=== PATIENT | female | born 1945 | race Caucasian/White ===

== ENCOUNTER → 2021-07-20 09:25 | Outpatient (CLI) | payer MEDICARE, OTHER, SELFPAY ==
[2021-07-20 10:26] LABS: Alanine Aminotransferase 15 IU/L (<35); Albumin Globulin Ratio 1.3 (1.0-2.8); Alkaline Phosphatase 81 U/L (38-126); Aspartate Aminotransferase 28 IU/L (14-36); BUN Creatinine Ratio 18.4 (6-22); Bilirubin Total 0.5 mg/dL (0.2-1.3); Blood Urea Nitrogen 19 mg/dL (7-17); Calcium 9.4 mg/dL (8.4-10.2); Carbon Dioxide 28 mmol/L (22-32); Chloride 105 mmol/L (98-107); Estimated Glomerular Filt Rate 52.4 mL/min (>60); Glucose 144 mg/dL (80-110); HEMOLYSIS < 15 (0-50); Potassium 4.2 mmol/L (3.4-5.1); Sodium 139 mmol/L (137-145); Uric Acid 6.2 mg/dL (2.5-6.2)
[2021-07-20 11:08] LABS: Vitamin B12 552 pg/mL (239-931)
[2021-07-20 16:25] LABS: Microalbumin Urine Random 2.7 mg/dL (0-1.6)
[2021-07-20 16:32] LABS: Creatinine Urine Random 87.5 mg/dL; Microalbumi Creatinin Ratio Ur 30.8 ug/mg CR (<30)
[2021-07-26 14:59] LABS: Cholesterol,Total 228; HDL Cholesterol 43
[2021-07-26 15:01] LABS: Non-HDL Cholesterol 185
[2021-07-26 15:02] LABS: Triglycerides 125
== END ==
PROVIDERS: PCP Student in an Organized Health Care Education/Training Program; Referring Provider Student in an Organized Health Care Education/Training Program; Visit Provider Student in an Organized Health Care Education/Training Program
DX: E11.69 Type 2 diabetes mellitus with other specified complication (principal); E78.1 Pure hyperglyceridemia; E11.9 Type 2 diabetes mellitus without complications; E78.5 Hyperlipidemia, unspecified; I10 Essential (primary) hypertension; M10.9 Gout, unspecified; S06.9X9A Unspecified intracranial injury with loss of consciousness of unspecified duration, initial encounter
CPT/HCPCS: 36415; 80053; 80061; 82043; 82570; 82607; 83036; 83704; 83721; 84443; 84550

== ENCOUNTER → 2021-08-04 10:34 | Outpatient (CLI) | payer MEDICARE, OTHER, SELFPAY | PROVIDERS: PCP Student in an Organized Health Care Education/Training Program; Referring Provider Student in an Organized Health Care Education/Training Program; Visit Provider Student in an Organized Health Care Education/Training Program | DX: M85.832 Other specified disorders of bone density and structure, left forearm (principal); Z78.0 Asymptomatic menopausal state; E11.9 Type 2 diabetes mellitus without complications | CPT/HCPCS: 77080 ==

== ENCOUNTER 2021-08-20 11:31 | Emergency (ER) | payer MEDICARE, OTHER, SELFPAY ==
[2021-08-20 11:50] VITALS: BP 136/61; PULSE 57; RESP 18; TEMP 36.7; O2SAT 98
--- NOTE | 2021-08-20 12:17 | ED.SKABFB ---
HPI - Skin/Abscess/Foreign Bdy <Darrell Cruz PA-C - Last Filed: 08/20/21 18:23> General Chief complaint: Skin/Abscess/Foreign Body Stated complaint: Fall, Lump on Lip Getting Bigger Time Seen by Provider: 08/20/21 12:06 Source: patient Mode of arrival: Ambulatory Limitations: no limitations Related Data Home Medications Medication Instructions Recorded Confirmed allopurinol 300 mg tablet 300 mg PO DAILY 06/24/21 08/20/21 aspirin 81 mg tablet,delayed 81 mg PO DAILY 06/24/21 08/20/21 release colchicine 0.6 mg tablet 0.6 mg PO DAILY 06/24/21 08/20/21 gemfibrozil 600 mg tablet 600 mg PO DAILY 06/24/21 08/20/21 losartan 25 mg tablet 25 mg PO DAILY 06/24/21 08/20/21 Prevagen (supplement) 1 cap PO DAILY 08/13/21 08/20/21 coffee extract 100 mg-phosphatidyl 1 cap PO DAILY cap 08/13/21 08/20/21 serine 100 mg capsule (Neuriva Original) Previous Rx's Medication Instructions Recorded metformin 1,000 mg tablet 1,000 mg PO BIDWMEAL #180 tab 08/10/21 blood sugar diagnostic (Blood #50 ea 08/16/21 Glucose Test) blood-glucose meter (Blood Glucose #1 ea 08/16/21 Monitoring) lancets 31 gauge #100 ea 08/16/21 amoxicillin 875 mg-potassium 1 tab PO Q12H #20 tab 08/20/21 clavulanate 125 mg tablet Allergies Allergy/AdvReac Type Severity Reaction Status Date / Time No Known Drug Allergies Allergy Unverified 08/20/21 10:46 <Moo Rocha DO - Last Filed: 08/21/21 07:25> History of Present Illness HPI narrative: 76-year-old female nonsmoker with history of type 2 diabetes and gout presents with a chief complaint of pain and swelling which is increasing over her left side of her face over the past few days. She states that she had a ground level fall about 9 days ago in which she fell and struck her face on the ground and had injuries to her lips which have since healed. She denies any numbness or tingling to her teeth. She denies loss of consciousness, nausea or vomiting. She has no blood thinners. She denies any dizziness, weakness or lightheadedness. She has no difficulty eating or swallowing. She has no chest pain, shortness of breath. She has had no fever or chills. <Moo Rocha DO - Last Filed: 08/21/21 07:25> Review of Systems Narrative: GENERAL: Denies chills, fatigue, malaise, fever, sweats. HEENT: See HPI RESPIRATORY: Denies dyspnea, cough, wheezing, hemoptysis, sputum. CARDIOVASCULAR: Denies chest pain, palpitations, orthopnea, edema, GASTROINTESTINAL: Denies nausea, vomiting, abdominal pain, diarrhea, constipation, melena. : Denies dysuria, frequency, incontinence, hematuria, urinary retention. MUSCULOSKELETAL: denies weakness, joint pain, or bony pain SKIN: Denies rash, skin lesions, or other NEUROLOGIC: Denies weakness, headache, numbness, change in speech, confusion, seizures, incoordination. PSYCHIATRIC: No concerning psychosocial issues. 12 point review of systems is negative except for those stated above Patient History <Darrell Cruz PA-C - Last Filed: 08/20/21 18:23> Medical History Alopecia (~1970) Anxiety Carpal tunnel syndrome Cataracts, bilateral Chicken pox Depression GERD (gastroesophageal reflux disease) Hepatitis B Measles Mumps Ovarian cancer Vertigo Wears glasses Surgical History Anesthesia History of hand surgery History of hernia repair History of hysterectomy History of tonsillectomy Family History Father Hypertension Hyperlipidemia Mother MVA (motor vehicle accident) Sister Heart defect Social History Smoking Status: Never smoker Smoking Status: Never smoker Substance Use Type: does not use Exam <Darrell Cruz PA-C - Last Filed: 08/20/21 18:23> Initial Vital Signs Initial Vital Signs: Vital Signs Temperature 98.0 F 08/20/21 11:50 Pulse Rate 57 L 08/20/21 11:50 Respiratory Rate 18 08/20/21 11:50 Blood Pressure 136/61 08/20/21 11:50 Pulse Oximetry 98 08/20/21 11:50 <Moo Rocha DO - Last Filed: 08/21/21 07:25> Narrative Exam Narrative: GENERAL: [76] year old patient appears stated age. Well-developed patient, in mild distress. HEAD: Atraumatic. Normocephalic. EYES: Pupils equal round and reactive. Extraocular motions intact. No scleral icterus. No injection or drainage. ENT: 2 x 2 cm area of induration without erythema or warmth or just inferior lateral to the left Nare, induration noted but no fluctuance. Intraoral examination unremarkable, no overt antalgia or obvious intraoral injury Nose without bleeding, purulent drainage. Throat without erythema, tonsillar hypertrophy or exudate. Airway patent. NECK: Trachea midline. Non tender CARDIOVASCULAR: Regular rate and rhythm without murmurs, gallops, or rubs. RESPIRATORY: Clear to auscultation. Breath sounds equal bilaterally. No wheezes, rales, or rhonchi. GASTROINTESTINAL: Abdomen soft, non-tender, nondistended. EXTREMITIES: No edema or joint tenderness. BACK: Nontender without deformity or crepitance. No flank tenderness. NEURO: AOx3. SKIN: No rash or erythema of visible areas Initial Vital Signs Initial Vital Signs: Vital Signs Temperature 98.0 F 08/20/21 11:50 Pulse Rate 57 L 08/20/21 11:50 Respiratory Rate 18 08/20/21 11:50 Blood Pressure 136/61 08/20/21 11:50 Pulse Oximetry 98 08/20/21 11:50 Course <Darrell Cruz PA-C - Last Filed: 08/20/21 18:23> Orders Ordered: ED Orders 08/20/21 13:40 CT facial bones wo con Stat Vital Signs Vital signs: Vital Signs - 8 hr 08/20/21 11:50 08/20/21 14:00 Temperature 98.0 F Pulse Rate 57 L 67 Respiratory Rate 18 17 Blood Pressure 136/61 134/65 Pulse Oximetry 98 97 <Moo Rocha DO - Last Filed: 08/21/21 07:25> Orders Ordered: ED Orders 08/20/21 13:40 CT facial bones wo con Stat Vital Signs Vital signs: Vital Signs - 8 hr 08/20/21 11:50 08/20/21 14:00 Temperature 98.0 F Pulse Rate 57 L 67 Respiratory Rate 18 17 Blood Pressure 136/61 134/65 Pulse Oximetry 98 97 MDM - Skin/Abscess/Foreign Bdy <Darrell Cruz PA-C - Last Filed: 08/20/21 18:23> Medical Records Medical records narrative: Per record review patient fell about 9 days ago landing on the left side of her face. Patient was seen by her primary care provider who said that she may need ultrasound of the swelling to the left lip area. Discharge Plan Departure Patient Disposition: Home Clinical Impression: Abscess of skin or subcutaneous tissue Instructions: DI for Skin Abscess Activity Restrictions/Additional Instructions: *You have been diagnosed with [left upper lip swelling most likely from infection, no evidence of hematoma or bleeding *What to do: *Please continue to take your regular medications as directed. [ x] New medication prescriptions sent to your pharmacy: [[facility] ] [ ] New medication written as a paper prescription [ ] No new medications given *Please follow up with your primary care provider in 2-3 days, call for an appointment. Let them know you were seen in the Emergency Department and that we ask that you be seen in follow up. We will electronically transmit a record of today's note if your PCP is in our system *If you do not have a primary care provider please contact the [facility] Resource line at [phone]. They will ask some questions about your medical history and help get you set up with a doctor in the community. *Return to Emergency Department if you should have any new, worsening or concerning symptoms, such as [fever greater than 101 F, shaking chills, worsening pain, persistent vomiting or other bothersome symptoms] Prescriptions: New amoxicillin-pot clavulanate 875-125 mg tablet 1 tab PO Q12H Qty: 20 0RF No Action Prevagen (supplement) 1 cap PO DAILY 0RF Label Comments: Prevagen contains: 10 mg of apoaequorin, and 50mcg vitamin D Neuriva Original 100-100 mg capsule 1 cap PO DAILY 0RF Label Comments: Neuriva contains: Coffee Fruit Extract (Coffee arabica) - 100mg, Phosphatidylserine - 100mg. (DME) Blood Glucose Test Strip See Rx Instructions .Route Qty: 50 11RF Rx Instructions: Use to check blood sugars once daily (DME) blood-glucose meter [Blood Glucose Monitoring] Kit See Rx Instructions .Route Qty: 1 0RF Rx Instructions: Use to check blood sugars once daily (DME) lancets 31 gauge misc See Rx Instructions .Route Qty: 100 0RF Rx Instructions: Use to check blood sugars once daily allopurinol 300 mg tablet 300 mg PO DAILY 0RF losartan 25 mg tablet 25 mg PO DAILY 0RF gemfibrozil 600 mg tablet 600 mg PO DAILY 0RF aspirin 81 mg tablet,delayed release (DR/EC) 81 mg PO DAILY 0RF colchicine 0.6 mg tablet 0.6 mg PO DAILY 0RF metformin 1,000 mg tablet 1,000 mg PO BIDWMEAL Qty: 180 1RF Referrals: Ez Galeano MD [Primary Care Provider] - <Moo Rocha DO - Last Filed: 08/21/21 07:25> Cosign ED Attending Cosignature Attestation: I was immediately available in the department for consultation. This documentation has been reviewed and I agree with assessment and plan. Supervised by Moo Rocha DO
--- NOTE | 2021-08-20 13:40 | DI.CT.S_ITS ---
PROCEDURE: CT FACIAL BONES WO CON INDICATIONS: fall with facial injury, increasing pain and swelling TECHNIQUE: Noncontrast 2.5 mm thick axial images acquired from the mandible through the frontal sinuses, with coronal and sagittal reformatting. For radiation dose reduction, the following was used: automated exposure control, adjustment of mA and/or kV according to patient size. COMPARISON: None. FINDINGS: Image quality: There is artifact associated with the metallic hardware. Bones and teeth: Orbital avila are intact. Sinus avila show no fracture or deformity. Nasal bones and septum are intact. Visualized portions of the mandible demonstrate no fractures or subluxation. Zygomatic arches are intact. Pterygoid plates are intact. Visualized portions of the skull base and auditory canals are intact. Age-appropriate bony degenerative changes are seen. Incidental note is made of hyperostosis frontalis. This is not considered to be pathologic in a woman of this age. Sinuses: Paranasal sinuses are aerated, without fluid levels, mucosal thickening, or mucoceles. Mastoid air cells are aerated. There is mild leftward nasal septal deviation. Soft tissues: Left-sided soft tissue swelling is seen, particular involving the left upper lip. Vascular: Visualized vascular structures appear normal in the absence of contrast. Bony vascular foramina and canals are intact. IMPRESSION: Negative for displaced fracture. Left-sided facial swelling, particular involving the left upper lip. Dictated by: Oscar Baer M.D. on 08/20/2021 at 13:17 Approved by: Oscar Baer M.D. on 08/20/2021 at 13:18
[2021-08-20 14:00] VITALS: BP 134/65; PULSE 67; RESP 17; O2SAT 97
== END 2021-08-20 14:43 | disposition home or self-care (01) ==
PROVIDERS: Emergency Provider Emergency Medicine; PCP Student in an Organized Health Care Education/Training Program
DX: L02.01 Cutaneous abscess of face (principal)
CPT/HCPCS: 70486; 99283; 99284

== ENCOUNTER → 2021-08-28 10:57 | Outpatient (CLI) | payer MEDICARE, OTHER, SELFPAY | PROVIDERS: PCP Student in an Organized Health Care Education/Training Program; Visit Provider Physician Assistant | DX: N39.0 Urinary tract infection, site not specified (principal) | CPT/HCPCS: 87077; 87086; 87186 ==

== ENCOUNTER → 2021-08-31 11:05 | Outpatient (CLI) | payer MEDICARE, OTHER, SELFPAY ==
[2021-08-31 11:40] LABS: Appearance Urine UA CLEAR; Bilirubin Urine UA NEGATIVE (NEGATIVE); Color Urine UA YELLOW; Glucose Urine UA TRACE g/dL (Negative); Ketones Urine UA NEGATIVE (NEGATIVE); Leukocyte Esterase Urine UA TRACE (NEGATIVE); Nitrite Urine UA NEGATIVE (Negative); Occult Blood Urine UA NEGATIVE (Negative); Protein Urine UA 2+ (Negative); Specific Gravity Urine UA 1.025 (1.000-1.035); Urobilinogen Urine UA 0.2 E.U./dL (0.2)
[2021-08-31 11:46] LABS: Culture Indicated Urine Cult Not Indicated; RBC Urine None Seen (0-5/HPF); Squamous Epithelial Cell Urine 1-5 /HPF (0-5/HPF); WBC Urine None Seen (0-5/HPF)
== END ==
PROVIDERS: PCP Student in an Organized Health Care Education/Training Program; Referring Provider Student in an Organized Health Care Education/Training Program; Visit Provider Student in an Organized Health Care Education/Training Program
DX: N39.0 Urinary tract infection, site not specified (principal)
CPT/HCPCS: 81001; 87086

== ENCOUNTER → 2021-10-07 13:07 | Outpatient (CLI) | payer MEDICARE, OTHER, SELFPAY ==
[2021-10-07 13:57] LABS: COVID19 -Nasal RAPID Negative (Negative)
== END ==
PROVIDERS: PCP Student in an Organized Health Care Education/Training Program; Visit Provider Surgery
DX: Z01.812 Encounter for preprocedural laboratory examination (principal); Z20.822 Contact with and (suspected) exposure to COVID-19
CPT/HCPCS: 87635; C9803

== ENCOUNTER 2021-10-08 13:30 | Day surgery (SDC) | payer MEDICARE, OTHER, SELFPAY ==
[2021-10-07 14:25] VITALS: BMI 31.7
[2021-10-08] VITALS (7 sets, daily range): BP systolic 129–152; BP diastolic 55–75; PULSE 52–103; RESP 14–20; TEMP 36.6; O2SAT 97–99; BMI 31.7
--- NOTE | 2021-10-08 | DI.RAD.S_ITS ---
PROCEDURE: XR CHEST 1V INDICATIONS: PORTACATH TECHNIQUE: One view of the chest was acquired. COMPARISON: None. FINDINGS: Intraoperative images demonstrate placement right chest wall Port-A-Cath. IMPRESSION: Right chest wall Port-A-Cath placement. Dictated by: Deb Regan MD, PhD on 10/08/2021 at 20:51 Approved by: Deb Regan MD, PhD on 10/08/2021 at 20:52
[2021-10-08] MEDS: LACTATED RINGERS 1,000 ML 84 ML IV (14:38)
--- NOTE | 2021-10-08 16:16 | PM.HP.1 ---
History of Present Illness History of Present Illness Date Patient Seen: 10/08/21 Time Patient Seen: 16:17 Chief complaint: SDC Narrative: Cheyanne is a 76-year-old woman with a recent diagnosis of B-cell lymphoma. Port-A-Cath has been requested for chemotherapy. She has never had surgery on her neck or around her clavicles. She has never had a clavicle fracture. Patient History Medical History Alopecia (~1970) Anxiety Carpal tunnel syndrome Cataracts, bilateral Chicken pox Depression GERD (gastroesophageal reflux disease) Hepatitis B Measles Mumps Ovarian cancer Vertigo Wears glasses Surgical History Anesthesia History of hand surgery History of hernia repair History of hysterectomy History of tonsillectomy Family & Social History Family History Father Hypertension Hyperlipidemia Mother MVA (motor vehicle accident) Sister Heart defect Social History: household members family Tobacco & Substance use: Smoking Status Never smoker alcohol intake never Substance Use Type does not use Meds Home Medications and Allergies Home Medications Medication Instructions Recorded Confirmed Type allopurinol 300 mg tablet 300 mg PO DAILY 06/24/21 10/08/21 History aspirin 81 mg tablet,delayed 81 mg PO DAILY 06/24/21 10/08/21 History release colchicine 0.6 mg tablet 0.6 mg PO PRN PRN 06/24/21 10/08/21 History gemfibrozil 600 mg tablet 600 mg PO DAILY 06/24/21 10/08/21 History losartan 25 mg tablet 25 mg PO DAILY 06/24/21 10/07/21 History metformin 1,000 mg tablet 1,000 mg PO BIDWMEAL #180 tab 08/10/21 10/07/21 Rx Prevagen (supplement) 1 cap PO DAILY 08/13/21 10/07/21 History coffee extract 100 mg-phosphatidyl 1 cap PO DAILY cap 08/13/21 10/07/21 History serine 100 mg capsule (Neuriva Original) blood sugar diagnostic (Blood #50 ea 08/16/21 09/29/21 Rx Glucose Test) blood-glucose meter (Blood Glucose #1 ea 08/16/21 09/29/21 Rx Monitoring) lancets 31 gauge #100 ea 08/16/21 08/28/21 Rx prednisone 20 mg tablet 100 mg PO DIRECTED #30 tab 09/29/21 10/07/21 Rx Allergies Allergy/AdvReac Type Severity Reaction Status Date / Time No Known Drug Allergies Allergy Unverified 08/20/21 10:46 Exam Vital Signs (past 8 hours): - 10/08/21 14:08 Temperature 97.9 F Pulse Rate 52 L Respiratory Rate 16 Blood Pressure 141/71 H Pulse Oximetry 98 Oxygen Delivery Method Room Air Narrative Exam Narrative: No acute distress Normal clavicles and neck Assessment & Plan Assessment and plan (1) B-cell lymphoma: Qualifiers: B-cell lymphoma type: diffuse large B-cell Status: Acute Plan Cheyanne is a 76-year-old woman in need of a Port-A-Cath. We reviewed the risks and benefits and she would like to proceed. Time Spent With Patient Critical Care time: I spent a total of [] minutes of critical care time on this patient's care today; this time is exclusive of procedural time.
--- NOTE | 2021-10-08 17:04 | SUR.OPER ---
Supine on padded OR bed, head on pillow, arms padded and tucked at sides, legs uncrossed, safety belt at thigh, tape over blanket over lower legs .
[2021-10-08] MEDS: LIDOCAINE 1% W/EPI 20 ML INJ (17:08)
[2021-10-08] MEDS: BUPIVACAINE 0.5% (PF) VIAL 30 ML INJ (17:09)
--- NOTE | 2021-10-08 17:46 | PM.OP.1 ---
Operative Date/Time/Diagnoses Date of procedure: 10/08/21 Time of procedure: 17:46 Pre-op diagnosis: B cell lymphoma Post-op diagnosis: same Procedure & Clinicians Procedure: Port-A-Cath Same procedure as scheduled: Yes Surgeon: Jesse Solano Operative Notes Procedure in detail: The patient was brought to the operating room, placed on the table in the supine position with the arms tucked. Ancef was administered. Anesthesia was induced via LMA. A time-out was performed. The right chest and neck were prepped and draped in the usual fashion. An ultrasound was used to identify the right internal jugular vein. The vein was noted to be patent. An image was saved and printed and placed in the chart. The right internal jugular vein was accessed via the Seldinger technique under ultrasound guidance. The guidewire was inserted into the superior vena cava. C-arm was used to confirm proper position of the guidewire in the superior vena cava and no ectopy was noted. The needle was removed and the wire was clamped to the drape. Next, a port pocket was created just inferior to the medial clavicle using a 15 blade scalpel. Dissection was carried down to the pectoral fascia. A subcutaneous pocket was created using a combination of cautery and blunt dissection. Next, the port which was primed with injectable saline, was secured to the fascia with 3-0 PDS sutures left untied and clamped. The neck incision was extended with an 11 blade scalpel to approximately 5 mm. The dilator and peel-away sheath were inserted over the wire without resistance. The catheter was passed from the neck incision to the chest incision in the subcutaneous tissue using the tunnelling device. The wire and dilator were then removed and the catheter inserted through the peel-away sheath to deliver it into the superior vena cava. The depth of the device was checked using the C-arm and the tip of the device was noted to be in the distal superior vena cava. The exterior portion of the catheter was then trimmed and attached to the port using the strain relief collar. A final image showed good position of the catheter with no kinks. The port was then tucked into the subcutaneous pocket and the sutures were tied to secure the device. The port was then accessed using the Jacob needle and it was noted that the device radha and flushed easily without resistance. Approximately 4 mL of heparinized saline were injected into the device. The skin incisions were closed with 3-0 Vicryl and 4-0 Monocryl. Steri-Strips were applied patient was awakened and brought to recovery room EBL: 5 mL Ultrasound: The right internal jugular vein was patent. The right carotid artery was visualized adjacent to the vein. Venipuncture was visualized in real-time using the ultrasound. Fluoroscopy: The device was positioned appropriately with the distal end of the catheter near the atriocaval junction. There were no kinks in the catheter. Post-operative Condition: stable Disposition: PACU
== END 2021-10-08 18:33 | disposition home or self-care (01) ==
PROVIDERS: PCP Student in an Organized Health Care Education/Training Program; Referring Provider Surgery; Visit Provider Surgery
PROC: (CPT 36561; principal; 2021-10-08 15:15)
DX: C85.10 Unspecified B-cell lymphoma, unspecified site (principal); I10 Essential (primary) hypertension
CPT/HCPCS: 36561; 71045; 76000; 82962; C1788; J1644; J2405; J2704; J3010

== ENCOUNTER → 2021-10-18 11:35 | Outpatient (CLI) | payer MEDICARE, OTHER, SELFPAY ==
--- NOTE | 2021-10-18 11:38 | DI.MG.S_ITS ---
BILATERAL DIGITAL SCREENING MAMMOGRAM 3D/2D WITH CAD: 10/18/2021 CLINICAL: Routine screening. Comparison is made to exams dated: 10/16/2020 mammogram, 11/20/2019 mammogram, 11/04/2019 mammogram, 10/24/2018 mammogram, and 09/28/2017 mammogram - outside facility. There are scattered fibroglandular elements in both breasts. Current study was also evaluated with a Computer Aided Detection (CAD) system. There is a new oval equal density focal asymmetry in the right breast at 10 o'clock anterior depth. No other significant masses, calcifications, or other findings are seen in either breast. IMPRESSION: INCOMPLETE: NEEDS ADDITIONAL IMAGING EVALUATION The new oval equal density focal asymmetry in the right breast is indeterminate. Additional views with possible ultrasound are recommended. This exam was interpreted at Station ID: [id number]. NOTE: For mammograms, a report in lay terms will be sent to the patient. Approximately 15% of breast malignancies will not be visualized mammographically. In the management of a palpable breast mass, a negative mammogram must not discourage biopsy of a clinically suspicious lesion. Electronically Signed By: Aung Ball M.D. aty/:10/18/2021 12:52:55 letter sent: Additional Imaging Needed ACR BI-RADS Category 0: Incomplete [id number]
== END ==
PROVIDERS: PCP Student in an Organized Health Care Education/Training Program; Referring Provider Student in an Organized Health Care Education/Training Program; Visit Provider Student in an Organized Health Care Education/Training Program
DX: Z12.31 Encounter for screening mammogram for malignant neoplasm of breast (principal)
CPT/HCPCS: 77063; 77067

== ENCOUNTER 2021-10-21 12:19 | Emergency (ER) | payer MEDICARE, OTHER, SELFPAY ==
[2021-10-21] VITALS (8 sets, daily range): BP systolic 126–140; BP diastolic 60–82; PULSE 66–94; RESP 15; TEMP 36.1; O2SAT 96–99; BMI 26.4
--- NOTE | 2021-10-21 12:34 | DI.RAD.S_ITS ---
PROCEDURE: XR ACUTE ABDOMEN SERIES INDICATIONS: possible SBO TECHNIQUE: One view chest and two views of the abdomen were acquired. COMPARISON: None. FINDINGS: Surgical changes and devices: Right chest wall port. Chest: Lungs are clear. Heart size is normal. No pleural effusions. No pneumoperitoneum. The aorta is tortuous. Abdomen: Increased stool is noted in the bowel consistent with constipation. Bowel gas pattern is normal. No suspicious calcifications. Visualized solid organ contours appear normal. Bones: Multilevel degenerative changes with levoscoliosis of the lumbar spine. Postoperative changes of the right hip. IMPRESSION: 1. No acute abnormality. 2. Constipation. Dictated by: Raphael Rogers M.D. on 10/21/2021 at 13:13 Approved by: Raphael Rogers M.D. on 10/21/2021 at 13:14
[2021-10-21 12:38] LABS: Add Manual Diff / Slide Review NO; Basophils Absolute Auto 0 /uL (0-100); Basophils Percent Auto 0.2 % (0-2); Eosinophils Absolute Auto 0 /uL (0-450); Eosinophils Percent Auto 1.1 % (2-4); Hematocrit 40.9 % (36-46); Hemoglobin 13.6 g/dL (12.0-16.0); Lymphocytes Absolute Auto 200 /uL (1100-4500); Lymphocytes Percent Auto 9.7 % (25-40); Mean Corpuscular HGB Conc 33.3 % (30-36); Mean Corpuscular Hemoglobin 27.2 PG (26-34); Mean Corpuscular Volume 81.7 fL (80-100); Monocytes Absolute Auto 0 /uL (0-900); Monocytes Percent Auto 1.4 % (3-14); Neutrophils Absolute Auto 2100 /uL (1500-7000); Neutrophils Percent Auto 87.6 % (50-75); Platelet Count 152 X10^3/uL (150-400); Red Blood Cell Count 5.01 X10^6/uL (4.0-5.2); Red Cell Distribution Width 14.4 % (11.6-14.8); White Blood Cell Count 2.4 X10^3/uL (4.5-11.0)
[2021-10-21 12:51] LABS: Alanine Aminotransferase 14 IU/L (<35); Albumin 4.3 g/dL (3.5-5.0); Albumin Globulin Ratio 1.3 (1.0-2.8); Alkaline Phosphatase 78 U/L (38-126); Aspartate Aminotransferase 20 IU/L (14-36); BUN Creatinine Ratio 25.9 (6-22); Bilirubin Total 0.8 mg/dL (0.2-1.3); Blood Urea Nitrogen 29 mg/dL (7-17); Calcium 9.4 mg/dL (8.4-10.2); Carbon Dioxide 24 mmol/L (22-32); Chloride 100 mmol/L (98-107); Estimated Glomerular Filt Rate 52 mL/min (>60); Globulin 3.4 g/dL (1.7-4.1); Glucose 225 mg/dL (80-110); HEMOLYSIS < 15 (0-50); Lipase 178 U/L (23-300); Potassium 3.9 mmol/L (3.4-5.1); Sodium 133 mmol/L (137-145); Total Protein 7.7 g/dL (6.3-8.2)
[2021-10-21] MEDS: BISACODYL 10 MG SUPP PR (14:52)
--- NOTE | 2021-10-21 15:08 | ED_ITS ---
HPI - Abdominal Pain General Chief Complaint: Abdominal Pain Stated Complaint: Constipated Time Seen by Provider: 10/21/21 15:07 Source: patient Mode of arrival: Ambulatory Limitations: no limitations History of Present Illness HPI narrative: This is a 76-year-old female comes emergency department with complaint co nstipation for 11 days. Patient states she has been passing gas. She started throwing up this morning. She has had a generalized abdominal discomfort starting a week ago. She has been increasingly distended. She denies issues with urination. She has had some back discomfort. She denies fevers or chills. No shortness of breath. She states she has generalized pain all over including he, bones even her here hurting. She did receive her 1st dose of chemo 4 days ago which is when the pain started. Patient has type 2 diabetes, she takes medication for hypertension and dyslipidemia, she is being treated for B-cell lymphoma. She has had a port placed last Monday which has been accessed at least once. Partial hysterectomy, hip repair after fracture, no allergies to medications no tobacco, alcohol or illicit. Dr. Lynn is her primary care. She did attempt an enema at home without success and drink 2 bottles of magnesium citrate at home this morning. Related Data Home Medications Medication Instructions Recorded Confirmed allopurinol 300 mg tablet 300 mg PO DAILY 06/24/21 10/13/21 aspirin 81 mg tablet,delayed 81 mg PO DAILY 06/24/21 10/13/21 release colchicine 0.6 mg tablet 0.6 mg PO PRN PRN 06/24/21 10/13/21 gemfibrozil 600 mg tablet 600 mg PO DAILY 06/24/21 10/13/21 losartan 25 mg tablet 25 mg PO DAILY 06/24/21 10/13/21 Prevagen (supplement) 1 cap PO DAILY 08/13/21 10/13/21 coffee extract 100 mg-phosphatidyl 1 cap PO DAILY cap 08/13/21 10/13/21 serine 100 mg capsule (Neuriva Original) cholecalciferol (vitamin D3) 25 25 mcg PO DAILY 10/13/21 10/13/21 mcg (1,000 unit) tablet (Vitamin D3) Previous Rx's Medication Instructions Recorded metformin 1,000 mg tablet 1,000 mg PO BIDWMEAL #180 tab 08/10/21 lancets 31 gauge #100 ea 08/16/21 prednisone 20 mg tablet 100 mg PO DIRECTED #30 tab 09/29/21 hydrocodone 5 mg-acetaminophen 325 1 tab PO Q8H PRN #10 tab 10/08/21 mg tablet blood sugar diagnostic (Blood #50 ea 10/11/21 Glucose Test) blood-glucose meter (Blood Glucose #1 ea 10/11/21 Monitoring) mouthwashes See Rx Instructions .ROUTE 10/13/21 .COMPLEX PRN #480 ml mouthwashes See Rx Instructions .ROUTE 10/13/21 .COMPLEX PRN #480 ml ondansetron 8 mg disintegrating 8 mg PO Q6HR PRN #30 tab 10/13/21 tablet glycerin (adult) 1 supp ME QD-BID PRN #25 ea 10/21/21 polyethylene glycol 3350 17 17 g PO DAILY #238 g 10/21/21 gram/dose oral powder (Miralax) Allergies Allergy/AdvReac Type Severity Reaction Status Date / Time No Known Drug Allergies Allergy Verified 10/21/21 12:22 Review of Systems Review of Systems ROS Unobtainable: All systems reviewed & are unremarkable except as noted in HPI and below Patient History Medical History Alopecia (~1970) Anxiety Carpal tunnel syndrome Cataracts, bilateral Chicken pox Depression GERD (gastroesophageal reflux disease) Hepatitis B Measles Mumps Vertigo Wears glasses Surgical History Anesthesia History of hand surgery History of hernia repair History of hysterectomy History of tonsillectomy Family History Father Hypertension Hyperlipidemia Mother MVA (motor vehicle accident) Sister Heart defect Social History household members: family Smoking Status: Never smoker alcohol intake: never Smoking Status: Never smoker alcohol intake frequency: holidays/special occasions only Substance Use Type: does not use Exam Narrative Exam Narrative: GENERAL: Alert and oriented x three, female in mild distress. HEENT: Head normocephalic, atraumatic, EOMI, pupils reactive, face symmetric, moist mucous membranes NECK: Supple, full range of motion CARDIOVASCULAR: Regular rate and rhythm without murmurs, rubs or gallops. RESPIRATORY: Breath sounds equal bilaterally, no wheezes rales or rhonchi. ABDOMEN: Soft, generalized tenderness. Nondistended. Normoactive bowel sounds all 4 quadrants. No guarding or rebound, rigidity, no mass : No CVA tenderness EXTREMITIES: Normal range of motion, no clubbing or edema. Neurovascularly intact NEUROLOGICAL: Cranial nerves II through XII grossly intact. Moving all extremities SKIN: Warm, dry, no petechiae, no rashes or lesions. Initial Vital Signs Initial Vital Signs: Vital Signs Temperature 97.0 F L 10/21/21 12:21 Pulse Rate 94 H 10/21/21 12:21 Respiratory Rate 15 10/21/21 12:21 Blood Pressure 139/82 10/21/21 12:21 Pulse Oximetry 97 10/21/21 12:21 Course Orders Ordered: ED Orders 10/21/21 12:25 EKG-12 Lead Stat 10/21/21 12:30 Complete Blood Count AUTO DIFF Stat Comprehensive Metabolic Panel Stat Lipase Stat 10/21/21 12:34 XR acute abdomen series Stat 10/21/21 15:15 Urinalysis and Microscopic Stat 10/21/21 15:32 CT abdomen pelvis w con Stat Discontinued Medications Bisacodyl (Bisacodyl 10 Mg Supp) 10 mg ME NOW ONE Stop: 10/21/21 14:45 Last Admin: 10/21/21 14:52 Dose: 10 mg Documented by: VALENTÍN Sodium Chloride (Normal Saline 0.9%) 1,000 mls @ 1,000 mls/hr IV BOLUS ONE Stop: 10/21/21 16:25 Last Infusion: 10/21/21 18:38 Dose: 0 mls/hr Documented by: Admin: 10/21/21 15:47 Dose: 1,000 mls/hr Documented by: VALENTÍN Ketorolac Tromethamine (Ketorolac 30 Mg/Ml Vial) 15 mg IV NOW ONE Stop: 10/21/21 15:27 Last Admin: 10/21/21 15:46 Dose: 15 mg Documented by: VALENTÍN Ondansetron HCl (Ondansetron 4 Mg/2 Ml Inj) 4 mg IV NOW ONE Stop: 10/21/21 15:27 Last Admin: 10/21/21 15:45 Dose: 4 mg Documented by: VALENTÍN Ondansetron HCl (Ondansetron 4 Mg/2 Ml Inj) 4 mg IV NOW ONE Stop: 10/21/21 18:04 Last Admin: 10/21/21 18:37 Dose: 4 mg Documented by: VALENTÍN Sodium Biphosphate/Sodium Phosphate (Fleets Enema) 1 each ME NOW ONE Stop: 10/21/21 17:49 Last Admin: 10/21/21 17:51 Dose: 1 each Documented by: VALENTÍN Reevaluation(s) Reevaluation #1: patient had large amount of stool and urine output. She is tolerating orals without issue and feeling better. Time: 19:35 Vital Signs Vital signs: Vital Signs - 8 hr 10/21/21 12:21 10/21/21 15:04 10/21/21 15:05 Temperature 97.0 F L Pulse Rate 94 H 82 76 Respiratory Rate 15 Blood Pressure 139/82 140/71 Pulse Oximetry 97 97 97 10/21/21 15:30 10/21/21 17:34 10/21/21 17:35 Temperature Pulse Rate 78 66 71 Respiratory Rate Blood Pressure 126/67 129/66 Pulse Oximetry 96 97 97 10/21/21 18:00 10/21/21 19:41 Temperature Pulse Rate 77 70 Respiratory Rate Blood Pressure 137/63 130/60 Pulse Oximetry 99 98 MDM - Abdominal Pain Lab Data Result diagrams: 10/21/21 12:30 10/21/21 12:30 Labs: Lab Results 10/21/21 10/21/21 10/21/21 Range/Units 12:30 12:30 15:15 WBC 2.4 L (4.5-11.0) X10^3/uL RBC 5.01 (4.0-5.2) X10^6/uL Hgb 13.6 (12.0-16.0) g/dL Hct 40.9 (36-46) % MCV 81.7 (80-100) fL MCH 27.2 (26-34) PG MCHC 33.3 (30-36) % RDW 14.4 (11.6-14.8) % Plt Count 152 (150-400) X10^3/uL Neut % (Auto) 87.6 H (50-75) % Lymph % (Auto) 9.7 L (25-40) % Hardeman % (Auto) 1.4 L (3-14) % Eos % (Auto) 1.1 L (2-4) % Baso % (Auto) 0.2 (0-2) % Neut # (Auto) 2100 (3859-6872) /uL Lymph # (Auto) 200 L (3017-7600) /uL Hardeman # (Auto) 0 (0-900) /uL Eos # (Auto) 0 (0-450) /uL Baso # (Auto) 0 (0-100) /uL Sodium 133 L (137-145) mmol/L Potassium 3.9 (3.4-5.1) mmol/L Chloride 100 (98-107) mmol/L Carbon Dioxide 24 (22-32) mmol/L BUN 29 H (7-17) mg/dL Creatinine 1.12 H (0.52-1.04) mg/dL Estimated GFR 52 L (>60) mL/min BUN/Creatinine Ratio 25.9 H (6-22) Glucose 225 H (80-110) mg/dL Calcium 9.4 (8.4-10.2) mg/dL Total Bilirubin 0.8 (0.2-1.3) mg/dL AST 20 (14-36) IU/L ALT 14 (<35) IU/L Alkaline Phosphatase 78 (38-126) U/L Total Protein 7.7 (6.3-8.2) g/dL Albumin 4.3 (3.5-5.0) g/dL Globulin 3.4 (1.7-4.1) g/dL Albumin/Globulin Ratio 1.3 (1.0-2.8) Lipase 178 (23-300) U/L Urine Color Yellow Urine Appearance Clear Urine pH 5.0 (4.5-8.0) Ur Specific Colon 1.025 (1.000-1.035) Urine Protein Trace H (Negative) Urine Glucose (UA) Trace H (Negative) g/dL Urine Ketones Negative (NEGATIVE) Urine Occult Blood Trace-lysed (Negative) Urine Nitrate Negative (Negative) Urine Bilirubin Negative (NEGATIVE) Urine Urobilinogen 0.2 (0.2) E.U./dL Ur Leukocyte Esterase Trace H (NEGATIVE) Urine RBC 0-1/hpf (0-5/HPF) Urine WBC 0-1/hpf (0-5/HPF) Ur Squamous Epith Cells 1-5 /hpf (0-5/HPF) Ur Transition Epith Cell 1-5/hpf (0-5/HPF) Urine Bacteria Few (2-10) H (None) Ur Culture Indicated? Cult not indicated Imaging Data Abdominal x-ray: Radiologist's Impression: Cheyanne Clements??76??F??1945 ? Allergy/Adv: No Known Drug Allergies Close Chest/Abdomen X-ray (Signed) Raphael Rogers - 10/21/21 Mammogram Screening (Signed) LizzyAung - 10/18/21 Telemetry Strips 10/08/21 Chest X-Ray (Signed) JassDeb - 10/08/21 Chest X-Ray (Signed) Deb Regan - 10/08/21 PET, Tumor Imaging Skull-Mid Thigh (Signed) AliaTim - 10/06/21 Outside Echo 09/30/[address] (Signed) Oscar Baer - 08/20/21 DEXA Result 08/04/21 Bone Densitometry 08/04/21 Launch?[place] [address] XRay Report Signed Patient: Cheyanne Clements MR#: [id number] : 1945 Acct:[id number] Age/Sex: 76 / F Date of Service: 10/21/21 Loc: Accession Number: [id number] ?? Procedure: XR acute abdomen series Ordering Provider: Sharri Dueñas D.O. PROCEDURE:? XR ACUTE ABDOMEN SERIES ? INDICATIONS:? possible SBO ? TECHNIQUE:? One view chest and two views of the abdomen were acquired.? ? COMPARISON:? None. ? FINDINGS:? ? Surgical changes and devices:? Right chest wall port. ? Chest:? Lungs are clear.? Heart size is normal.? No pleural effusions.? No pneumoperitoneum.? The aorta is tortuous. ? Abdomen:? Increased stool is noted in the bowel consistent with constipation.? Bowel gas pattern is normal.? No suspicious calcifications.? Visualized solid organ contours appear normal.? ? Bones:? Multilevel degenerative changes with levoscoliosis of the lumbar spine.? Postoperative changes of the right hip. ? IMPRESSION:? 1. No acute abnormality. 2. Constipation.? ? ? Dictated by: Raphael Rogers M.D. on 10/21/2021 at 13:13 ? ? Approved by: Raphael Rogers M.D. on 10/21/2021 at 13:14?? CT scan - abdomen/pelvis: Radiologist's Impression: Launch?[address] [address] [address] Scan Report Signed Patient: Cheyanne Clements MR#: [id number] : 1945 Acct:[id number] Age/Sex: 76 / F Date of Service: 10/21/21 Loc: ED Accession Number: [id number] ?? Procedure: CT abdomen pelvis w con Ordering Provider: Sharri Dueñas D.O. PROCEDURE:? CT ABDOMEN PELVIS W CON ? INDICATIONS:? vomiting x 1 day, no BM x 11. ? TECHNIQUE:? After the administration of oral and intravenous contrast, axial sections were acquired from the lung bases to the pubic symphysis.? Coronal and sagittal reformats were performed.? For radiation dose reduction, the following was used:? automated exposure control, adjustment of mA and/or kV according to patient size.? ? COMPARISON:None. ? FINDINGS: Image quality:? Excellent.? ? Lung bases:? Lung bases are clear.? Heart has a normal size.? There are mitral valve calcifications. ? Solid organs:? Liver: The liver has no mass or intrahepatic biliary ductal dilatation. The portal vein and hepatic veins are patent. Biliary: The gallbladder has no gallstones, pericholecystic fluid, gallbladder wall thickening, or surrounding inflammatory change. Pancreas: The pancreas has no mass or ductal dilatation. There is no surrounding inflammation. Spleen: Normal size. There are no masses. Adrenals: No hypertrophy or nodules. Kidneys: No obstructive calculus or hydronephrosis.? No solid mass. No cystic mass. ? Peritoneum and bowel:? Small hiatal hernia.? Otherwise the distal esophagus and stomach are normal.? The small bowel has a normal caliber and appearance. The terminal ileum is normal. The large bowel has increased stool throughout consistent with constipation.? There is diverticulosis of the sigmoid colon without evidence of diverticulitis..? The appendix is normal. No free fluid or air.? ? Nodes and vessels:? No retroperitoneal or mesenteric adenopathy by size criteria.? A ventral fat containing hernia is seen.? ? Miscellaneous:? No abdominal wall mass or hernia. ? PELVIS:? Genitourinary:? The bladder has no wall thickening or mass. No bladder calcifications. ? Bones:? No suspicious bony lesions.? Multilevel degenerative changes with disc disease. ? IMPRESSION: 1. No acute abdominal or pelvic abnormality. 2. Severe constipation. 3. Diverticulosis without evidence of diverticulitis. 4. Fat containing ventral hernia.? ? ? Dictated by: Raphael Rogers M.D. on 10/21/2021 at 16:19 ? ? Approved by: Raphael Rogers M.D. on 10/21/2021 at 16:24?? ECG Data Attestation: I personally reviewed and interpreted this ECG as follows: Prior ECG tracings: not available for review Interpretation: Sinus rhythm rate 85 ME 126 QRS 84 and QTC of 380. No priors available for comparison. No ST elevation. Left axis deviation. LAFB. MDM Narrative Medical decision making narrative: This is a 76-year-old female comes with complaint of constipation with vomiting started yesterday. Patient has a bowel movement about 11 days. She did get chemo about 4 days ago which seems to be worsening her symptoms. Labs show a slight decrease in her white count but no neutropenia, patient has slight increase in renal function looks like 1-1.1. BUN is also slightly elevated. Patient was hydrated with fluids. She did not have acute x-ray and has stool throughout but with her vomiting and no bowel movement for [address] abdomen pelvis was obtained which shows constipation but no signs of bowel obstruction. Patient received fluids, glycerin suppository attempted enema and took quite a few laxative earlier today including 2 bottles of magnesium citrate and began having bowel movements in the department and significant improvement in her constipation. Discharge Plan Departure Patient Disposition: Home Clinical Impression: Constipation Instructions: DI for Constipation Activity Restrictions/Additional Instructions: Follow-up with your physician for recheck. Your imaging today does not show any signs of obstruction. It does show quite a bit of stool and signs of constipation. Make sure you are drinking plenty of fluids and staying hydrated this will help you have good bowel movements. You need to take a daily stool softener such as MiraLax once daily. I would also recommend a rectal glycerin suppository once to twice daily until stooling regularly. You may drink 1/2 bottle of magnesium citrate, weight 4-5 hours if no change you may drink the 2nd half of the bottle. Prescription sent to [facility] in [place]. Please return for fevers, worsening abdominal pain, persistent vomiting, black or bloody stools, no bowel movement or having or passing gas for the next 24 hours Prescriptions: New polyethylene glycol 3350 [Miralax] 17 gram/dose powder 17 g PO DAILY Qty: 238 0RF glycerin (adult) Suppository 1 supp ME QD-BID PRN (Reason: constipation) Qty: 25 0RF No Action Prevagen (supplement) 1 cap PO DAILY 0RF Label Comments: Prevagen contains: 10 mg of apoaequorin, and 50mcg vitamin D Neuriva Original 100-100 mg capsule 1 cap PO DAILY 0RF Label Comments: Neuriva contains: Coffee Fruit Extract (Coffee arabica) - 100mg, Phosph atidylserine - 100mg. (DME) lancets 31 gauge misc See Rx Instructions .Route Qty: 100 0RF Rx Instructions: Use to check blood sugars once daily (DME) blood-glucose meter [Blood Glucose Monitoring] Kit See Rx Instructions .Route Qty: 1 0RF Rx Instructions: Use to check blood sugars once daily (DME) Blood Glucose Test Strip See Rx Instructions .Route Qty: 50 11RF Rx Instructions: Use to check blood sugars once daily allopurinol 300 mg tablet 300 mg PO DAILY 0RF losartan 25 mg tablet 25 mg PO DAILY 0RF gemfibrozil 600 mg tablet 600 mg PO DAILY 0RF aspirin 81 mg tablet,delayed release (DR/EC) 81 mg PO DAILY 0RF colchicine 0.6 mg tablet 0.6 mg PO PRN PRN (Reason: Gout) 0RF metformin 1,000 mg tablet 1,000 mg PO BIDWMEAL Qty: 180 1RF hydrocodone-acetaminophen 5-325 mg tablet 1 tab PO Q8H PRN (Reason: pain) Qty: 10 0RF prednisone 20 mg Tablet 100 mg PO DIRECTED Qty: 30 0RF Rx Instructions: Take 5 tablets (100 mg) daily for 5 days on days 1-5 of each chemotherapy cycle cholecalciferol (vitamin D3) [Vitamin D3] 25 mcg (1,000 unit) Tablet 25 mcg PO DAILY 0RF mouthwashes Kit See Rx Instructions .ROUTE .COMPLEX PRN (Reason: Mouth Irritation) Qty: 480 1RF Rx Instructions: 160mL vicous lidocaine 2% 160mL mylanta 160mL diphenhydramine 12.5mg/5mL 30ml Sig: Swish, gargle, and spit one to two teaspoonfuls for 1 minute. Repeat every six hours as needed. May be swallowed if esophageal involvement. mouthwashes Kit See Rx Instructions .ROUTE .COMPLEX PRN (Reason: Mouth Irritation) Qty: 480 1RF Rx Instructions: 160mL vicous lidocaine 2% 160mL mylanta 160mL diphenhydramine 12.5mg/5mL 30ml Sig: Swish, gargle, and spit one to two teaspoonfuls for 1 minute. Repeat every six hours as needed. May be swallowed if esophageal involvement. ondansetron 8 mg Tablet,Disintegrating 8 mg PO Q6HR PRN (Reason: nausea & vomiting) Qty: 30 2RF Referrals: Ez Galeano MD [Primary Care Provider] -
[2021-10-21 15:18] LABS: Appearance Urine UA CLEAR; Bilirubin Urine UA NEGATIVE (NEGATIVE); Color Urine UA YELLOW; Glucose Urine UA TRACE g/dL (Negative); Ketones Urine UA NEGATIVE (NEGATIVE); Leukocyte Esterase Urine UA TRACE (NEGATIVE); Nitrite Urine UA NEGATIVE (Negative); Occult Blood Urine UA TRACE-LYSED (Negative); Protein Urine UA TRACE (Negative); Specific Gravity Urine UA 1.025 (1.000-1.035); Urobilinogen Urine UA 0.2 E.U./dL (0.2)
--- NOTE | 2021-10-21 15:32 | DI.CT.S_ITS ---
PROCEDURE: CT ABDOMEN PELVIS W CON INDICATIONS: vomiting x 1 day, no BM x 11. TECHNIQUE: After the administration of oral and intravenous contrast, axial sections were acquired from the lung bases to the pubic symphysis. Coronal and sagittal reformats were performed. For radiation dose reduction, the following was used: automated exposure control, adjustment of mA and/or kV according to patient size. COMPARISON:None. FINDINGS: Image quality: Excellent. Lung bases: Lung bases are clear. Heart has a normal size. There are mitral valve calcifications. Solid organs: Liver: The liver has no mass or intrahepatic biliary ductal dilatation. The portal vein and hepatic veins are patent. Biliary: The gallbladder has no gallstones, pericholecystic fluid, gallbladder wall thickening, or surrounding inflammatory change. Pancreas: The pancreas has no mass or ductal dilatation. There is no surrounding inflammation. Spleen: Normal size. There are no masses. Adrenals: No hypertrophy or nodules. Kidneys: No obstructive calculus or hydronephrosis. No solid mass. No cystic mass. Peritoneum and bowel: Small hiatal hernia. Otherwise the distal esophagus and stomach are normal. The small bowel has a normal caliber and appearance. The terminal ileum is normal. The large bowel has increased stool throughout consistent with constipation. There is diverticulosis of the sigmoid colon without evidence of diverticulitis.. The appendix is normal. No free fluid or air. Nodes and vessels: No retroperitoneal or mesenteric adenopathy by size criteria. A ventral fat containing hernia is seen. Miscellaneous: No abdominal wall mass or hernia. PELVIS: Genitourinary: The bladder has no wall thickening or mass. No bladder calcifications. Bones: No suspicious bony lesions. Multilevel degenerative changes with disc disease. IMPRESSION: 1. No acute abdominal or pelvic abnormality. 2. Severe constipation. 3. Diverticulosis without evidence of diverticulitis. 4. Fat containing ventral hernia. Dictated by: Raphael Rogers M.D. on 10/21/2021 at 16:19 Approved by: Raphael Rogers M.D. on 10/21/2021 at 16:24
[2021-10-21] MEDS: ONDANSETRON 4 MG/2 ML INJ IV ×2 (15:45→18:37)
[2021-10-21] MEDS: KETOROLAC 30 MG/ML VIAL 15 MG IV (15:46)
[2021-10-21] MEDS: SODIUM CHLORIDE 0.9% 1,000 ML 1000 ML IV (15:47)
[2021-10-21 15:55] LABS: Bacteria Urine Few (2-10); Culture Indicated Urine Cult Not Indicated; RBC Urine 0-1/HPF (0-5/HPF); Squamous Epithelial Cell Urine 1-5 /HPF (0-5/HPF); Transitional Epi Cells Urine 1-5/HPF (0-5/HPF); WBC Urine 0-1/HPF (0-5/HPF)
[2021-10-21] MEDS: FLEETS ENEMA 1 EACH PR (17:51)
== END 2021-10-21 19:42 | disposition home or self-care (01) ==
PROVIDERS: Emergency Provider Emergency Medicine; PCP Student in an Organized Health Care Education/Training Program
DX: K59.00 Constipation, unspecified (principal); R10.84 Generalized abdominal pain; R11.10 Vomiting, unspecified; R79.89 Other specified abnormal findings of blood chemistry
CPT/HCPCS: 36415; 74022; 74177; 80053; 81001; 83690; 85025; 93005; 93010; 96361; 96374; 96375; 96376; 99284; J1885; J2405; Q9967

== ENCOUNTER → 2021-11-08 11:53 | Outpatient (CLI) | payer MEDICARE, OTHER, SELFPAY | PROVIDERS: PCP Student in an Organized Health Care Education/Training Program; Visit Provider Nurse Practitioner Family | DX: R30.0 Dysuria (principal); N89.8 Other specified noninflammatory disorders of vagina | CPT/HCPCS: 87086; 87210 ==

== ENCOUNTER → 2021-11-15 11:26 | Outpatient (CLI) | payer MEDICARE, OTHER, SELFPAY ==
[2021-11-15 12:29] LABS: Microalbumi Creatinin Ratio Ur 27.7 ug/mg CR (<30); Microalbumin Urine Random 8.4 mg/dL (0-1.6)
== END ==
PROVIDERS: PCP Student in an Organized Health Care Education/Training Program; Referring Provider Student in an Organized Health Care Education/Training Program; Visit Provider Student in an Organized Health Care Education/Training Program
DX: E11.69 Type 2 diabetes mellitus with other specified complication (principal); E78.1 Pure hyperglyceridemia; E78.5 Hyperlipidemia, unspecified; I10 Essential (primary) hypertension
CPT/HCPCS: 36415; 82043; 82570; 83036

== ENCOUNTER → 2021-12-09 12:05 | Outpatient (CLI) | payer MEDICARE, OTHER, SELFPAY ==
--- NOTE | 2021-12-09 12:06 | DI.US.S_ITS ---
LIMITED ULTRASOUND OF RIGHT BREAST: 12/09/2021 CLINICAL: Patient returns today to evaluate a focal asymmetry in the right breast. No prior exams were available for comparison. Real-time ultrasound of the right breast 9-12 o'clock region was performed. Blair scale images of the real-time examination were reviewed. No significant abnormalities were seen sonographically in the right breast. Specifically, no finding to correspond to the patient's partially resolved screening mammographic abnormality. IMPRESSION: PROBABLY BENIGN No sonographic correlate to the partially resolved mammographic findings. A follow-up right mammogram in 6 months is recommended to demonstrate stability of the mammographic finding. Findings and recommendations were conveyed to the patient at time of exam. This exam was interpreted at Station ID: [id number]. Electronically Signed By: Katelyn dale/:12/09/2021 12:53:14 letter sent: Followup Recommended Ultrasound BI-RADS: 3 Probably benign
--- NOTE | 2021-12-09 12:06 | DI.MG.S_ITS ---
UNILATERAL RIGHT DIGITAL DIAGNOSTIC MAMMOGRAM 3D/2D WITH ADDITIONAL VIEWS: 12/09/2021 CLINICAL: Additional evaluation requested from prior study. Comparison is made to exams dated: 10/18/2021 mammogram - [facility], 10/16/2020 mammogram, and 11/20/2019 mammogram - outside facility. There are scattered fibroglandular elements in right breast. There is a possible 1.1 cm oval equal density asymmetry with an obscured and circumscribed margin in the right breast at 11 o'clock anterior depth. This is seen in some additional views. No other significant masses or calcifications are seen in the breast. Benign vascular calcifications are present. IMPRESSION: INCOMPLETE: NEEDS ADDITIONAL IMAGING EVALUATION The possible 1.1 cm oval equal density asymmetry in the right breast most likely is a cyst or a lymph node but remains indeterminate. An ultrasound is recommended. This was performed immediately following this exam. Based on the Tyrer Cuzick model (a risk assessment model) the patient's lifetime risk is 3.0% and her 10 year risk is 2.7%. According to the ACR, ACS, and NCCN guidelines, an annual breast MRI exam along with mammogram is recommended if the patient's lifetime risk is 20% or greater. This exam was interpreted at Station ID: [id number]. NOTE: For mammograms, a report in lay terms will be sent to the patient. Approximately 15% of breast malignancies will not be visualized mammographically. In the management of a palpable breast mass, a negative mammogram must not discourage biopsy of a clinically suspicious lesion. Electronically Signed By: Katelyn dale/:12/09/2021 12:29:12 ACR BI-RADS Category 0: Incomplete [id number]
== END ==
PROVIDERS: PCP Student in an Organized Health Care Education/Training Program; Referring Provider Student in an Organized Health Care Education/Training Program; Visit Provider Student in an Organized Health Care Education/Training Program
DX: R92.8 Other abnormal and inconclusive findings on diagnostic imaging of breast (principal)
CPT/HCPCS: 76642; 77065; G0279

== ENCOUNTER 2022-01-21 09:57 | Inpatient (IN) | payer MEDICARE, OTHER, SELFPAY ==
[2022-01-21] VITALS (14 sets, daily range): BP systolic 102–143; BP diastolic 46–69; PULSE 69–100; RESP 15–18; TEMP 36.4–39.4; O2SAT 96–98; BMI 27.4; BMI 28.8
--- NOTE | 2022-01-21 10:06 | DI.RAD.S_ITS ---
PROCEDURE: XR CHEST 1V INDICATIONS: suspected sepsis TECHNIQUE: One view of the chest was acquired. COMPARISON: [facility], CR, XR CHEST 1V, 10/08/2021, 17:44. FINDINGS: Surgical changes and devices: Right chest wall Port-A-Cath tip is in SVC. Lungs and pleura: Lungs are clear. No pleural effusions or pneumothorax. Mediastinum: Mediastinal contours appear normal. Heart size is normal. Bones and chest wall: No suspicious bony lesions. Overlying soft tissues appear unremarkable. IMPRESSION: No acute cardiopulmonary pathology. Dictated by: Fei Gilbert M.D. on 01/21/2022 at 11:28 Approved by: Fei Gilbert M.D. on 01/21/2022 at 11:32
[2022-01-21] MEDS: ACETAMINOPHEN 325 MG TABLET 975 MG PO (10:20)
[2022-01-21] MEDS: SODIUM CHLORIDE 0.9% 1,000 ML 1000 ML IV (10:20)
[2022-01-21 10:37] LABS: COVID19 -Nasal RAPID Negative (Negative)
[2022-01-21 10:51] LABS: Hematocrit 27.4 % (36-46); Hemoglobin 9.1 g/dL (12.0-16.0); Mean Corpuscular HGB Conc 33.1 % (30-36); Mean Corpuscular Hemoglobin 27.5 PG (26-34); Platelet Count 151 X10^3/uL (150-400); Red Cell Distribution Width 20.2 % (11.6-14.8)
[2022-01-21 10:53] LABS: INR 1.2 (0.9-1.3); Prothrombin Time 14.1 SECONDS (10.1-12.7)
[2022-01-21 10:55] LABS: Add Manual Diff / Slide Review YES; White Blood Cell Count 1.8 X10^3/uL (4.5-11.0)
[2022-01-21 10:56] LABS: PTT Partial Thromboplastin Tim 29 SECONDS (26-36)
[2022-01-21 11:01] LABS: Alanine Aminotransferase 11 IU/L (<35); Albumin 3.6 g/dL (3.5-5.0); Albumin Globulin Ratio 1.3 (1.0-2.8); Alkaline Phosphatase 90 U/L (38-126); Aspartate Aminotransferase 21 IU/L (14-36); BUN Creatinine Ratio 11.9 (6-22); Bilirubin Total 1.5 mg/dL (0.2-1.3); Blood Urea Nitrogen 10 mg/dL (7-17); Calcium 8.2 mg/dL (8.4-10.2); Carbon Dioxide 24 mmol/L (22-32); Chloride 100 mmol/L (98-107); Estimated Glomerular Filt Rate > 60 mL/min (>60); Globulin 2.7 g/dL (1.7-4.1); Glucose 188 mg/dL (80-110); HEMOLYSIS < 15 (0-50); Lactate (Lactic Acid) 1.3 mmol/L (0.7-2.1); Lipase 24 U/L (23-300); Potassium 3.4 mmol/L (3.4-5.1); Sodium 133 mmol/L (137-145); Total Protein 6.3 g/dL (6.3-8.2)
[2022-01-21 11:08] LABS: Bacteria Urine None Seen; RBC Urine 0-1/HPF (0-5/HPF); Squamous Epithelial Cell Urine 0-1 /HPF (0-5/HPF); WBC Urine 0-1/HPF (0-5/HPF)
[2022-01-21 11:09] LABS: Culture Indicated Urine Cult Not Indicated
[2022-01-21 11:16] LABS: Procalcitonin 0.21 ng/mL (<0.5)
[2022-01-21 11:19] LABS: Neutrophils Absolute Manual 612 /uL (3000-5900); Total Cells Counted 50
[2022-01-21 11:21] LABS: Anisocytosis 1+
--- NOTE | 2022-01-21 11:50 | ED_ITS ---
HPI - Fever General Chief Complaint: Fever Stated Complaint: Fever, paralysis/weakness in legs Time Seen by Provider: 01/21/22 11:49 Source: patient Mode of arrival: Wheelchair History of Present Illness HPI Narrative: Patient is a 76-year-old female current history of B-cell lymphoma receiving chemotherapy every 3 weeks, last received chemotherapy [facility] January 05. Presents today with 3 days of fever and weakness. She says she has felt last 3 days but woke up this morning and could not get out of bed. At that point called her son. Currently febrile here with a temperature of 102?. She really has no symptoms. She denies any cough chest pain shortness of breath abdominal pain nausea vomiting Related Data Home Medications Medication Instructions Recorded Confirmed allopurinol 300 mg tablet 300 mg PO DAILY 06/24/21 01/21/22 aspirin 81 mg tablet,delayed 81 mg PO DAILY 06/24/21 01/21/22 release colchicine 0.6 mg tablet 0.6 mg PO PRN PRN Gout 06/24/21 01/21/22 gemfibrozil 600 mg tablet 600 mg PO DAILY 06/24/21 01/21/22 cholecalciferol (vitamin D3) 25 25 mcg PO DAILY 10/13/21 01/21/22 mcg (1,000 unit) tablet (Vitamin D3) Previous Rx's Medication Instructions Recorded metformin 1,000 mg tablet 1,000 mg PO BIDWMEAL #180 tabs 08/10/21 lancets 31 gauge #100 ea 08/16/21 blood sugar diagnostic (Blood #50 ea 10/11/21 Glucose Test strips) blood-glucose meter (Blood Glucose #1 ea 10/11/21 Monitoring kit) mouthwashes See Rx Instructions .Route 10/13/21 .COMPLEX PRN Mouth Irritation #480 mL mouthwashes See Rx Instructions .Route 10/13/21 .COMPLEX PRN Mouth Irritation #480 mL glipizide 10 mg tablet, extended 10 mg PO DAILY #30 tabs 11/12/21 release 24 hr mouthwashes 5 - 10 ml mucous membrane Q6HR PRN 11/24/21 mouth irritation/thrush #640 mL Allergies Allergy/AdvReac Type Severity Reaction Status Date / Time No Known Drug Allergies Allergy Verified 01/21/22 10:02 Review of Systems Review of Systems Narrative: GENERAL: + fever, weakness HEENT: Denies sinus pain, ear pain, sore throat, difficulty swallowing, neck pain RESPIRATORY: Denies dyspnea, cough, wheezing, hemoptysis, sputum. CARDIOVASCULAR: Denies chest pain, palpitations, orthopnea, edema GASTROINTESTINAL: Denies nausea, vomiting, abdominal pain, diarrhea, consti pation, melena. : Denies dysuria, frequency, incontinence, hematuria, urinary retention, flank pain. MUSCULOSKELETAL: Denies weakness, joint pain, or bony pain SKIN: No rash, no erythema, no pruritus NEUROLOGIC: Denies weakness, dizziness, headache, numbness, change in speech, confusion PSYCHIATRIC: No concerning psychosocial issues. 12 point review of systems is negative except for those stated above and HPI Patient History Medical History Alopecia (~1970) Anxiety Carpal tunnel syndrome Cataracts, bilateral Chicken pox Depression Diffuse large B cell lymphoma Essential hypertension GERD (gastroesophageal reflux disease) Hepatitis B Measles Mumps Type 2 diabetes mellitus Vertigo Wears glasses Surgical History Anesthesia History of hand surgery History of hernia repair History of hysterectomy History of tonsillectomy Family History Father Hypertension Hyperlipidemia Mother MVA (motor vehicle accident) Sister Heart defect Social History household members: family Smoking Status: Never smoker alcohol intake: never Smoking Status: Never smoker alcohol intake frequency: holidays/special occasions only Substance Use Type: does not use Exam Initial Vital Signs Initial Vital Signs: Vital Signs Temperature 102.8 F H 01/21/22 10:02 Pulse Rate 100 H 01/21/22 10:02 Respiratory Rate 15 01/21/22 10:02 Blood Pressure 143/69 H 01/21/22 10:02 Pulse Oximetry 97 01/21/22 10:02 Oxygen Delivery Method 01/21/22 10:02 GENERAL: Alert week 76-year-old female appears to not feel well HEENT: Head atraumatic,EOMI, pupils reactive, face symmetric, moist mucous membranes CARDIOVASCULAR: Regular rate and rhythm without murmurs, rubs or gallops. RESPIRATORY: Breath sounds equal bilaterally, no wheezes rales or rhonchi. ABDOMEN: Soft, nontender. Normoactive bowel sounds all 4 quadrants. No guarding or rebound. EXTREMITIES: Normal range of motion, no clubbing or edema. Neurovascularly intact NEUROLOGICAL: Alert and oriented x4. 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 Course Orders Ordered: ED Orders 01/21/22 10:06 XR chest 1V Stat EKG-12 Lead Stat 01/21/22 10:15 COVID19 -Nasal RAPID/Pre-Proc Stat Urine Microscopic Stat 01/21/22 10:35 Complete Blood Count AUTO DIFF Stat Comprehensive Metabolic Panel Stat Lactate (Lactic Acid) Stat Lipase Stat Partial Thromboplastin Time Stat Procalcitonin Stat Prothrombin Time INR Stat Troponin & CK Cardiac Panel Stat 01/21/22 11:10 Blood Culture Stat 01/21/22 12:02 CT head/brain wo con Stat 01/21/22 12:08 Respiratory Panel (Film Array) Stat 01/21/22 12:10 CT chest abd pel w con Stat Acetaminophen (Acetaminophen 325 Mg Tablet) 975 mg PO Q8H PRN PRN Reason: Pain, Mild (1-3) Allopurinol (Allopurinol 300 Mg Tablet) 300 mg PO DAILY JARETH Aspirin (Aspirin Ec 81 Mg Tablet) 81 mg PO DAILY JARETH Dextrose (Dextrose 50 % In Water 25 Gm/50 Ml Syringe) 25 gm IV PRN PRN PRN Reason: Hypoglycemia Gemfibrozil (Gemfibrozil 600 Mg Tablet) 600 mg PO DAILY JARETH Cefepime HCl 2 gm/ Sodium (Chloride) 100 mls @ 200 mls/hr IV Q8H JARETH Stop: 01/28/22 21:59 Insulin Human Lispro (Insulin Lispro 100 Unit/Ml 3ml Vial) 0 unit SUBCUT ACHS JARETH; Protocol Ondansetron HCl (Ondansetron 4 Mg/2 Ml Inj) 4 mg IV Q8HR PRN PRN Reason: Nausea And Vomiting Vitamin D (Cholecalciferol (Vitamin D3) 1,000 Unit Tablet) unit PO DAILY JARETH Discontinued Medications Acetaminophen (Acetaminophen 325 Mg Tablet) 975 mg PO NOW ONE Stop: 01/21/22 10:10 Last Admin: 01/21/22 10:20 Dose: 975 mg Documented By: JING Sodium Chloride (Normal Saline 0.9%) 1,000 mls @ 1,000 mls/hr IV BOLUS ONE Stop: 01/21/22 11:05 Last Infusion: 01/21/22 12:18 Dose: 0 mls/hr Documented By: Admin: 01/21/22 10:20 Dose: 1,000 mls/hr Documented By: JING Cefepime HCl 2 gm/ Sodium (Chloride) 100 mls @ 200 mls/hr IV NOW ONE Stop: 01/21/22 14:04 Last Infusion: 01/21/22 14:46 Dose: 0 mls/hr Documented By: JING(2) Admin: 01/21/22 14:22 Dose: 200 mls/hr Documented By: JING(2) Ketorolac Tromethamine (Ketorolac 30 Mg/Ml Vial) 15 mg IV NOW ONE Stop: 01/21/22 14:03 Last Admin: 01/21/22 14:22 Dose: 15 mg Documented By: JING(2) Vital Signs Vital signs: Vital Signs - 8 hr 01/21/22 10:43 01/21/22 10:44 01/21/22 10:44 Temperature Pulse Rate 100 H 97 H Respiratory Rate 18 Blood Pressure 137/65 Pulse Oximetry 96 97 01/21/22 11:00 01/21/22 11:00 01/21/22 11:30 Temperature Pulse Rate 95 H 91 H Respiratory Rate 18 Blood Pressure 123/58 L Pulse Oximetry 97 96 01/21/22 11:31 01/21/22 11:31 01/21/22 12:00 Temperature Pulse Rate 91 H Respiratory Rate Blood Pressure 116/56 L 120/56 L Pulse Oximetry 96 01/21/22 12:00 01/21/22 12:35 01/21/22 12:35 Temperature Pulse Rate 88 80 Respiratory Rate Blood Pressure 123/56 L Pulse Oximetry 97 97 01/21/22 13:00 Temperature 103 F H Pulse Rate 84 Respiratory Rate Blood Pressure Pulse Oximetry 97 MDM - Fever Lab Data Result diagrams: 01/21/22 10:35 01/21/22 10:35 Labs: Lab Results 01/21/22 01/21/22 01/21/22 Range/Units 10:15 10:15 10:35 WBC 1.8 L* (4.5-11.0) X10^3/uL RBC 3.30 L (4.0-5.2) X10^6/uL Hgb 9.1 L (12.0-16.0) g/dL Hct 27.4 L (36-46) % MCV 83.0 (80-100) fL MCH 27.5 (26-34) PG MCHC 33.1 (30-36) % RDW 20.2 H (11.6-14.8) % Plt Count 151 (150-400) X10^3/uL Neut % (Auto) Not Reportable Lymph % (Auto) Not Reportable Millard % (Auto) Not Reportable Eos % (Auto) Not Reportable Baso % (Auto) Not Reportable Lymph # (Auto) Not Reportable Millard # (Auto) Not Reportable Baso # (Auto) Not Reportable Total Counted 50 Seg Neutrophils % 30.0 L (38-70) % Band Neutrophils % 4.0 (3-7) % Lymphocytes % (Manual) 6.0 L (25-45) % Monocytes % (Manual) 56.0 H (2-11) % Eosinophils % (Manual) 2.0 (2-4) % Basophils % (Manual) 2.0 H (0-1) % Neutrophils # (Manual) 612 L (7470-3901) /uL RBC Morphology See below Anisocytosis 1+ H PT (10.1-12.7) SECONDS INR (0.9-1.3) APTT (26-36) SECONDS Sodium (137-145) mmol/L Potassium (3.4-5.1) mmol/L Chloride (98-107) mmol/L Carbon Dioxide (22-32) mmol/L BUN (7-17) mg/dL Creatinine (0.52-1.04) mg/dL Estimated GFR (>60) mL/min BUN/Creatinine Ratio (6-22) Glucose (80-110) mg/dL Lactate (0.7-2.1) mmol/L Calcium (8.4-10.2) mg/dL Total Bilirubin (0.2-1.3) mg/dL AST (14-36) IU/L ALT (<35) IU/L Alkaline Phosphatase (38-126) U/L Total Creatine Kinase (30-135) U/L CK-MB (CK-2) CK-MB (CK-2) Rel Index Troponin I (0.01-0.034) ng/mL Total Protein (6.3-8.2) g/dL Albumin (3.5-5.0) g/dL Globulin (1.7-4.1) g/dL Albumin/Globulin Ratio (1.0-2.8) Lipase (23-300) U/L Procalcitonin (<0.5) ng/mL Urine RBC 0-1/hpf (0-5/HPF) Urine WBC 0-1/hpf (0-5/HPF) Ur Squamous Epith Cells 0-1 /hpf (0-5/HPF) Urine Bacteria None seen (None) Ur Culture Indicated? Cult not indicated Chlamy pneumoniae PCR (Not Detect) Adenovirus (PCR) (Not Detect) B. pertussis DNA (PCR) (Not Detecte) B.parapertussis DNA PCR (Not Detecte) Coronavirus OC43 (PCR) (Not Detect) Coronavirus HKU1 (PCR) (Not Detect) Coronavirus 229E (PCR) (Not Detect) SARS-CoV-2 (PCR) Negative (Negative) Coronavirus NL63 (PCR) (Not Detect) Human Metapneumovir PCR (Not Detect) Influenza Type A (PCR) (Not Detect) Influenza Type B (PCR) (Not Detect) M. pneumoniae (PCR) (Not Detect) Parainfluenza 1 (PCR) (Not Detect) Parainfluenza 2 (PCR) (Not Detect) Parainfluenza 3 (PCR) (Not Detect) Parainfluenza 4 (PCR) (Not Detect) RSV (PCR) (Not Detect) Entero/Rhino (PCR) (Not Detect) 01/21/22 01/21/22 01/21/22 Range/Units 10:35 10:35 10:35 WBC (4.5-11.0) X10^3/uL RBC (4.0-5.2) X10^6/uL Hgb (12.0-16.0) g/dL Hct (36-46) % MCV (80-100) fL MCH (26-34) PG MCHC (30-36) % RDW (11.6-14.8) % Plt Count (150-400) X10^3/uL Neut % (Auto) Lymph % (Auto) Millard % (Auto) Eos % (Auto) Baso % (Auto) Lymph # (Auto) Millard # (Auto) Baso # (Auto) Total Counted Seg Neutrophils % (38-70) % Band Neutrophils % (3-7) % Lymphocytes % (Manual) (25-45) % Monocytes % (Manual) (2-11) % Eosinophils % (Manual) (2-4) % Basophils % (Manual) (0-1) % Neutrophils # (Manual) (5953-6241) /uL RBC Morphology Anisocytosis PT 14.1 H (10.1-12.7) SECONDS INR 1.2 (0.9-1.3) APTT 29 (26-36) SECONDS Sodium 133 L (137-145) mmol/L Potassium 3.4 (3.4-5.1) mmol/L Chloride 100 (98-107) mmol/L Carbon Dioxide 24 (22-32) mmol/L BUN 10 (7-17) mg/dL Creatinine 0.84 (0.52-1.04) mg/dL Estimated GFR > 60 (>60) mL/min BUN/Creatinine Ratio 11.9 (6-22) Glucose 188 H (80-110) mg/dL Lactate 1.3 (0.7-2.1) mmol/L Calcium 8.2 L (8.4-10.2) mg/dL Total Bilirubin 1.5 H (0.2-1.3) mg/dL AST 21 (14-36) IU/L ALT 11 (<35) IU/L Alkaline Phosphatase 90 (38-126) U/L Total Creatine Kinase (30-135) U/L CK-MB (CK-2) CK-MB (CK-2) Rel Index Troponin I (0.01-0.034) ng/mL Total Protein 6.3 (6.3-8.2) g/dL Albumin 3.6 (3.5-5.0) g/dL Globulin 2.7 (1.7-4.1) g/dL Albumin/Globulin Ratio 1.3 (1.0-2.8) Lipase 24 (23-300) U/L Procalcitonin 0.21 (<0.5) ng/mL Urine RBC (0-5/HPF) Urine WBC (0-5/HPF) Ur Squamous Epith Cells (0-5/HPF) Urine Bacteria (None) Ur Culture Indicated? Chlamy pneumoniae PCR (Not Detect) Adenovirus (PCR) (Not Detect) B. pertussis DNA (PCR) (Not Detecte) B.parapertussis DNA PCR (Not Detecte) Coronavirus OC43 (PCR) (Not Detect) Coronavirus HKU1 (PCR) (Not Detect) Coronavirus 229E (PCR) (Not Detect) SARS-CoV-2 (PCR) (Negative) Coronavirus NL63 (PCR) (Not Detect) Human Metapneumovir PCR (Not Detect) Influenza Type A (PCR) (Not Detect) Influenza Type B (PCR) (Not Detect) M. pneumoniae (PCR) (Not Detect) Parainfluenza 1 (PCR) (Not Detect) Parainfluenza 2 (PCR) (Not Detect) Parainfluenza 3 (PCR) (Not Detect) Parainfluenza 4 (PCR) (Not Detect) RSV (PCR) (Not Detect) Entero/Rhino (PCR) (Not Detect) 01/21/22 01/21/22 Range/Units 10:35 12:08 WBC (4.5-11.0) X10^3/uL RBC (4.0-5.2) X10^6/uL Hgb (12.0-16.0) g/dL Hct (36-46) % MCV (80-100) fL MCH (26-34) PG MCHC (30-36) % RDW (11.6-14.8) % Plt Count (150-400) X10^3/uL Neut % (Auto) Lymph % (Auto) Millard % (Auto) Eos % (Auto) Baso % (Auto) Lymph # (Auto) Millard # (Auto) Baso # (Auto) Total Counted Seg Neutrophils % (38-70) % Band Neutrophils % (3-7) % Lymphocytes % (Manual) (25-45) % Monocytes % (Manual) (2-11) % Eosinophils % (Manual) (2-4) % Basophils % (Manual) (0-1) % Neutrophils # (Manual) (6723-9239) /uL RBC Morphology Anisocytosis PT (10.1-12.7) SECONDS INR (0.9-1.3) APTT (26-36) SECONDS Sodium (137-145) mmol/L Potassium (3.4-5.1) mmol/L Chloride (98-107) mmol/L Carbon Dioxide (22-32) mmol/L BUN (7-17) mg/dL Creatinine (0.52-1.04) mg/dL Estimated GFR (>60) mL/min BUN/Creatinine Ratio (6-22) Glucose (80-110) mg/dL Lactate (0.7-2.1) mmol/L Calcium (8.4-10.2) mg/dL Total Bilirubin (0.2-1.3) mg/dL AST (14-36) IU/L ALT (<35) IU/L Alkaline Phosphatase (38-126) U/L Total Creatine Kinase 60 (30-135) U/L CK-MB (CK-2) TNP CK-MB (CK-2) Rel Index TNP Troponin I 0.066 H (0.01-0.034) ng/mL Total Protein (6.3-8.2) g/dL Albumin (3.5-5.0) g/dL Globulin (1.7-4.1) g/dL Albumin/Globulin Ratio (1.0-2.8) Lipase (23-300) U/L Procalcitonin (<0.5) ng/mL Urine RBC (0-5/HPF) Urine WBC (0-5/HPF) Ur Squamous Epith Cells (0-5/HPF) Urine Bacteria (None) Ur Culture Indicated? Chlamy pneumoniae PCR Not detected (Not Detect) Adenovirus (PCR) Not detected (Not Detect) B. pertussis DNA (PCR) Not detected (Not Detecte) B.parapertussis DNA PCR Not detected (Not Detecte) Coronavirus OC43 (PCR) Not detected (Not Detect) Coronavirus HKU1 (PCR) Not detected (Not Detect) Coronavirus 229E (PCR) Not detected (Not Detect) SARS-CoV-2 (PCR) Not detected (Negative) Coronavirus NL63 (PCR) Not detected (Not Detect) Human Metapneumovir PCR Not detected (Not Detect) Influenza Type A (PCR) Not detected (Not Detect) Influenza Type B (PCR) Not detected (Not Detect) M. pneumoniae (PCR) Not detected (Not Detect) Parainfluenza 1 (PCR) Not detected (Not Detect) Parainfluenza 2 (PCR) Not detected (Not Detect) Parainfluenza 3 (PCR) Not detected (Not Detect) Parainfluenza 4 (PCR) Not detected (Not Detect) RSV (PCR) Not detected (Not Detect) Entero/Rhino (PCR) Not detected (Not Detect) Urine Dip Bedside Urine Glucose Negative Bedside Urine Bilirubin - Negative Bedside Urine Ketone +/- 5 Urine Specific Hatley 1.020 Bedside Urine Occult Blood +/- Bedside Urine pH 6.0 Bedside Urine Protein +/- 15 Bedside Urine Urobilinogen - Negative Bedside Urine Nitrite - Negative Bedside Urine Leukocytes - Negative Esterase Imaging Data Chest x-ray: Radiologist's Impression: [address] [id number] XRay Report Signed Patient: Cheyanne Clements MR#: [id number] : 1945 Acct:[id number] Age/Sex: 76 / F Date of Service: 01/21/22 Loc: ED Accession Number: [id number] ?? Procedure: XR chest 1V Ordering Provider: Christina Mir D.O. PROCEDURE:? XR CHEST 1V ? INDICATIONS:? suspected sepsis ? TECHNIQUE:? One view of the chest was acquired.? ? COMPARISON:? [facility], CR, XR CHEST 1V, 10/08/2021, 17:44. ? FINDINGS:? ? Surgical changes and devices:? Right chest wall Port-A-Cath tip is in SVC. ? Lungs and pleura:? Lungs are clear.? No pleural effusions or pneumothorax.? ? Mediastinum:? Mediastinal contours appear normal.? Heart size is normal.? ? Bones and chest wall:? No suspicious bony lesions.? Overlying soft tissues appear unremarkable.? ? IMPRESSION:? No acute cardiopulmonary pathology. ? ? Dictated by: Fei Gilbert M.D. on 01/21/2022 at 11:28 ? ? ECG Data Interpretation: Normal sinus rhythm rate 86 UT interval 130 QRS 86 QTC 483 T-wave inversion noted in lead 3 MDM Narrative Medical decision making narrative: At this time patient is febrile no actual source is found. She is neutropenic. She is given a dose of cefepime. She is hemodynamically stable, does not require sepsis fluids. She is noted to have indeterminate troponin possibly from stress, unlikely to be acute coronary syndrome with out active chest pain Discharge Plan Departure Patient Disposition: Admitted As Inpatient Clinical Impression: Fever and neutropenia Admit Date/Time: 01/21/22 14:11 Admit Provider: Chino Serrano
--- NOTE | 2022-01-21 12:02 | DI.CT.S_ITS ---
PROCEDURE: CT HEAD/BRAIN WO CON INDICATIONS: Weakness lymphoma TECHNIQUE: Noncontrast 4.5 mm thick angled axial sections acquired from the foramen magnum to the vertex, with coronal and sagittal reformats. For radiation dose reduction, the following was used: automated exposure control, adjustment of mA and/or kV according to patient size. COMPARISON: None. FINDINGS: Image quality: Excellent. CSF spaces: Basal cisterns are patent. No extra-axial fluid collections. Ventricles are normal in size and shape. Brain: No midline shift. No intracranial masses or hemorrhage. Blair-white matter interface is normal. Skull and face: Calvarium and visualized facial bones are intact, without suspicious lesions. Sinuses: Visualized sinuses and mastoids are clear. IMPRESSION: No acute intracranial finding. Dictated by: Rafiq Li M.D. on 01/21/2022 at 12:44 Approved by: Rafiq Li M.D. on 01/21/2022 at 12:46
--- NOTE | 2022-01-21 12:10 | DI.CT.S_ITS ---
PROCEDURE: CT CHEST ABD PEL W CON INDICATIONS: fever with lymphoma no source TECHNIQUE: After the administration of intravenous contrast, axial sections acquired from the supraclavicular neck to the pubic symphysis. Coronal and sagittal reformats were performed. For radiation dose reduction, the following was used: automated exposure control, adjustment of mA and/or kV according to patient size. COMPARISON:[facility], MS, MS PET CT FUSION SKULL 2 THIGH, 10/06/2021, 9:13. [facility], CT, CT ABDOMEN PELVIS W CON, 10/21/2021, 15:33. FINDINGS: Image quality: Excellent. CHEST: Lower Neck: No enlarged lymph nodes. Thyroid: There is a 1 cm nodule in the left thyroid lobe. Axillae: No enlarged lymph nodes. Chest Wall: Unremarkable. A Port-A-Cath is seen in the right anterior chest. Lungs and Airways: There is a 4 mm nodule in the left upper lobe. No consolidation or suspicious nodules. Pleura: No pneumothorax or pleural effusions. Heart: Heart size is normal. No pericardial effusion. Thoracic Vessels: The aorta and pulmonary arteries demonstrate normal size. Mediastinum and Mary: No enlarged lymph nodes. Esophagus: No wall thickening. There is a small hiatal hernia. ABDOMEN: Liver: Unremarkable. Gallbladder: There is a tiny calcified gallstone. No gallbladder wall thickening or pericholecystic fluid. Biliary ducts: Unremarkable. Pancreas: Unremarkable. Spleen: Unremarkable. Adrenal Glands: Unremarkable. Kidneys and Ureters: There are bilateral small nonobstructive renal calculi. Kidneys enhance symmetrically. There are cortical scars in the superior pole of the right kidney. Stomach and Bowel: Stomach, small bowel loops, and colon are normal in caliber. Diverticulosis without acute diverticulitis. Peritoneum: No abnormal intraperitoneal fluid. No free air. Ventral Wall: There is a moderate-sized fat containing periumbilical ventral hernia hernia. Abdominal Nodes: No retroperitoneal or mesenteric adenopathy by size criteria. Vessels: Aorta and inferior vena cava are normal in size. PELVIS: Pelvic Organs: Hysterectomy. There is a 1.1 cm soft tissue nodule in the left side of pelvis at the hysterectomy stump, unchanged. Bladder: Unremarkable. Pelvic Nodes: No enlarged lymph nodes. Miscellaneous: No inguinal hernias are seen. Bones: Right femoral neck fracture with internal fixation. Scoliosis and degenerative changes in lumbar spine. IMPRESSION: 1. A source for fever is not identified. 2. Small 4 mm nodule in the left upper lobe. Please see enclosed follow-up recommendation. 3. Cholelithiasis. 4. Nephrolithiasis with small nonobstructive renal calculi. 5. Diverticulosis without diverticulitis. 6. Moderate-sized fat-containing periumbilical ventral hernia. 7. A 1 cm left thyroid nodule. Recommend thyroid ultrasound for follow-up. 8. Small hiatal hernia. Fleischner Society criteria for SOLID lung nodule followup. Nodule size (mm)Low-risk patientHigh-risk patient?4No follow-up neededFollow-up at 12 mo; if no change, no further follow-up>2-5Skuoks-gl CT at 12 mo; if no change, no further follow-up needed.Initial follow-up CT at 6-12 mo, then 18-24 mo if no change. >6-8Initial follow-up CT at 6-12 mo, then 18-24 mo if no change. Initial follow-up CT at 3-6 mo, then 9-12 mo and 24 mo if no change. >8Follow-up CT at 3, 9, 24 mo. Or PET and/or biopsy.Same as for low-risk pts. Dictated by: Jasmine Rojo M.D. on 01/21/2022 at 13:09 Approved by: Jasmine Rojo M.D. on 01/21/2022 at 13:23
--- NOTE | 2022-01-21 12:15 | PC.NURSE ---
pts family Dr Nuno [phone] uniform patrol police officer ministerio at this number will take call
[2022-01-21 12:26] LABS: Creatine Kinase 60 U/L (30-135)
[2022-01-21 12:40] LABS: Troponin I 0.066 ng/mL (0.01-0.034)
[2022-01-21 13:55] LABS: Adenovirus Not Detected (Not Detect); Coronavirus 229E Not Detected (Not Detect); Coronavirus HKU1 Not Detected (Not Detect); Coronavirus NL 63 Not Detected (Not Detect); Coronavirus OC43 Not Detected (Not Detect); SARS- CoV-2 Not Detected (Not Detecte)
[2022-01-21 13:56] LABS: B. parapertussis Not Detected (Not Detecte); Bordetella pertussis Not Detected (Not Detecte); Chlamydophila pneumoniae Not Detected (Not Detect); Human Metapneumovirus Not Detected (Not Detect); Human Rhinovirus/Enterovirus Not Detected (Not Detect); Influenza A Not Detected (Not Detect); Influenza B Not Detected (Not Detect); Mycoplasma pneumoniae Not Detected (Not Detect); Parainfluenza Virus 1 Not Detected (Not Detect); Parainfluenza Virus 2 Not Detected (Not Detect); Parainfluenza Virus 3 Not Detected (Not Detect); Parainfluenza Virus 4 Not Detected (Not Detect); Respiratory Syncytial Virus Not Detected (Not Detect)
[2022-01-21] MEDS: CEFEPIME 2 GM in SODIUM CHLORIDE 0.9% 100 ML IV (14:22)
[2022-01-21] MEDS: KETOROLAC 30 MG/ML VIAL 15 MG IV (14:22)
--- NOTE | 2022-01-21 16:42 | P.HP_ITS ---
History of Present Illness History of Present Illness Date Patient Seen: 01/21/22 Time Patient Seen: 16:43 Chief complaint: Fever, paralysis/weakness in legs Narrative: This is a 76 year old female, with PMH of DLBCL on RCHOP therapy (s/p 5 cycles of R-CHOP last being 01/05), DM2, HTN, HLD who presented to the emergency room today with fever and weakness. Patient states that she has been feeling weak for the past couple of days, feeling like her legs are going to give out. Was able to go out with her son yesterday, but was so fatigued she fell asleep early in the afternoon. When she woke up she felt cold and sweaty. Her fever was about 100 this morning. Her son brought her to the emergency room. She denies focal weakness, numbness, tingling. She denies slurred speech or facial droop. She denies vision changes. She has a chronic cough, but no changes recently. She denies recent travel. She has chronic musculoskeltal chest pains and abdominal pains, none are new. She denies rash, dysuria or urinary frequency. In the emergency room, the patient was febrile to 103 which improved with Tylenol. The remainder of her vital signs have been unremarkable. CT chest abdomen pelvis did not reveal an obvious source for her symptoms. Full respiratory panel was negative including COVID-19. Urinalysis was unremarkable and did not show source of infection. Laboratory evaluation was notable for a WBC of 1.8, with a manual neutrophil count of 612. Her hemoglobin was slightly low at 9.1. Coagulation studies were unremarkable. Chemistries revealed a mild hyponatremia with sodium of 133, total bilirubin of 1.5 without significant transaminase elevations. Troponin was slightly elevated at 0.066. EKG showed non-specific T wave inversions, NSR. Head CT was also performed without contrast which showed no acute findings. Patient History Medical History (Updated 01/21/22 @ 16:57 by Chino Serrano DO) Alopecia (~1970) Anxiety Carpal tunnel syndrome Cataracts, bilateral Chicken pox Depression Diffuse large B cell lymphoma Essential hypertension GERD (gastroesophageal reflux disease) Hepatitis B Measles Mumps Type 2 diabetes mellitus Vertigo Wears glasses Surgical History Anesthesia History of hand surgery History of hernia repair History of hysterectomy History of tonsillectomy Family & Social History Family History Father Hypertension Hyperlipidemia Mother MVA (motor vehicle accident) Sister Heart defect Social History: household members family Prior Living Arrangements House Safety & Behavioral: Feels Safe in Current Yes Environment Been Physically Hurt or No Threatened By a Person Tobacco & Substance use: Smoking Status Never smoker alcohol intake never alcohol intake frequency holiday/special occasion Substance Use Type does not use Meds Home Medications and Allergies Home Medications Medication Instructions Recorded Confirmed Type allopurinol 300 mg tablet 300 mg PO DAILY 06/24/21 01/21/22 History aspirin 81 mg tablet,delayed 81 mg PO DAILY 06/24/21 01/21/22 History release colchicine 0.6 mg tablet 0.6 mg PO PRN PRN Gout 06/24/21 01/21/22 History gemfibrozil 600 mg tablet 600 mg PO DAILY 06/24/21 01/21/22 History metformin 1,000 mg tablet 1,000 mg PO BIDWMEAL #180 tabs 08/10/21 01/21/22 Rx lancets 31 gauge #100 ea 08/16/21 01/21/22 Rx blood sugar diagnostic (Blood #50 ea 10/11/21 01/21/22 Rx Glucose Test strips) blood-glucose meter (Blood Glucose #1 ea 10/11/21 01/21/22 Rx Monitoring kit) cholecalciferol (vitamin D3) 25 25 mcg PO DAILY 10/13/21 01/21/22 History mcg (1,000 unit) tablet (Vitamin D3) mouthwashes See Rx Instructions .Route 10/13/21 01/21/22 Rx .COMPLEX PRN Mouth Irritation #480 mL mouthwashes See Rx Instructions .Route 10/13/21 01/21/22 Rx .COMPLEX PRN Mouth Irritation #480 mL glipizide 10 mg tablet, extended 10 mg PO DAILY #30 tabs 11/12/21 01/21/22 Rx release 24 hr mouthwashes 5 - 10 ml mucous membrane Q6HR PRN 11/24/21 01/21/22 Rx mouth irritation/thrush #640 mL Allergies Allergy/AdvReac Type Severity Reaction Status Date / Time No Known Drug Allergies Allergy Verified 01/21/22 10:02 Review of Systems Review of Systems Narrative: All other systems reviewed with the patient and are negative unless otherwise stated. Exam Vital Signs (past 8 hours): - 01/21/22 10:02 01/21/22 10:43 01/21/22 10:44 Temperature 102.8 F H Pulse Rate 100 H 100 H Respiratory Rate 15 Blood Pressure 143/69 H 137/65 Pulse Oximetry 97 96 Oxygen Delivery Method Room Air Oxygen Flow Rate 01/21/22 10:44 01/21/22 11:00 01/21/22 11:00 Temperature Pulse Rate 97 H 95 H Respiratory Rate 18 18 Blood Pressure 123/58 L Pulse Oximetry 97 97 Oxygen Delivery Method Oxygen Flow Rate 01/21/22 11:30 01/21/22 11:31 01/21/22 11:31 Temperature Pulse Rate 91 H 91 H Respiratory Rate Blood Pressure 116/56 L Pulse Oximetry 96 96 Oxygen Delivery Method Oxygen Flow Rate 01/21/22 12:00 01/21/22 12:00 01/21/22 12:35 Temperature Pulse Rate 88 Respiratory Rate Blood Pressure 120/56 L 123/56 L Pulse Oximetry 97 Oxygen Delivery Method Oxygen Flow Rate 01/21/22 12:35 01/21/22 13:00 01/21/22 14:38 Temperature 103 F H 98.5 F Pulse Rate 80 84 Respiratory Rate Blood Pressure Pulse Oximetry 97 97 Oxygen Delivery Method Oxygen Flow Rate 01/21/22 15:00 01/21/22 15:30 Temperature 97.6 F Pulse Rate 69 Respiratory Rate 16 Blood Pressure 108/53 L Pulse Oximetry 98 98 Oxygen Delivery Method Room Air Oxygen Flow Rate 0 Oxygen Delivery Method Room Air Oxygen Flow Rate 0 Narrative Exam Narrative: General:? Patient is well developed and well nourished, in no distress at this time. HEENT:? Normocephalic, atraumatic, extraocular muscles intact, oral pharynx is clear and mucous membranes are moist. Neck: supple and symmetric, trachea is midline, no cervical adenopathy. Negative for JVD Chest:? Normal AP diameter and contour without kyphoscoliosis, no tachypnea, equal chest rise bilaterally. Lungs:? CTA b/l no wheezing rhonchi or rales. Cardio:?RRR no m/r/g. Abdomen: S NT ND. No CVA tenderness. Musculoskeletal:? Muscle strength and tone are equal within normal limits, no deformity. Extremities: No edema or joint effusions. No cyanosis or clubbing. Skin:? Pale,? Warm to touch,dry and intact without rashes, ulcerations or petechiae.? Neuro:? Alert and orientated x3,? sensation to touch intact in all extremities, no gross deficits noted of cranial nerves. Psych:? Patient has a well-kept appearance, appropriate affect, mental status attitude thought context and judgment are appropriate for age. Objective ECG Impression: EKG showed non-specific T wave inversions, NSR. As interpreted by me Labs Result Diagrams: 01/21/22 10:35 01/21/22 10:35 Labs: Laboratory Results - last 24 hr 01/21/22 01/21/22 01/21/22 10:15 10:15 10:35 WBC 1.8 L* RBC 3.30 L Hgb 9.1 L Hct 27.4 L MCV 83.0 MCH 27.5 MCHC 33.1 RDW 20.2 H Plt Count 151 Neut % (Auto) Not Reportable Lymph % (Auto) Not Reportable Granite % (Auto) Not Reportable Eos % (Auto) Not Reportable Baso % (Auto) Not Reportable Lymph # (Auto) Not Reportable Granite # (Auto) Not Reportable Baso # (Auto) Not Reportable Total Counted 50 Seg Neutrophils % 30.0 L Band Neutrophils % 4.0 Lymphocytes % (Manual) 6.0 L Monocytes % (Manual) 56.0 H Eosinophils % (Manual) 2.0 Basophils % (Manual) 2.0 H Neutrophils # (Manual) 612 L RBC Morphology See below Anisocytosis 1+ H PT INR APTT Sodium Potassium Chloride Carbon Dioxide BUN Creatinine Estimated GFR BUN/Creatinine Ratio Glucose Lactate Calcium Total Bilirubin AST ALT Alkaline Phosphatase Total Creatine Kinase CK-MB (CK-2) CK-MB (CK-2) Rel Index Troponin I Total Protein Albumin Globulin Albumin/Globulin Ratio Lipase Procalcitonin Urine RBC 0-1/hpf Urine WBC 0-1/hpf Ur Squamous Epith Cells 0-1 /hpf Urine Bacteria None seen Ur Culture Indicated? Cult not indicated Chlamy pneumoniae PCR Adenovirus (PCR) B. pertussis DNA (PCR) B.parapertussis DNA PCR Coronavirus OC43 (PCR) Coronavirus HKU1 (PCR) Coronavirus 229E (PCR) SARS-CoV-2 (PCR) Negative Coronavirus NL63 (PCR) Human Metapneumovir PCR Influenza Type A (PCR) Influenza Type B (PCR) M. pneumoniae (PCR) Parainfluenza 1 (PCR) Parainfluenza 2 (PCR) Parainfluenza 3 (PCR) Parainfluenza 4 (PCR) RSV (PCR) Entero/Rhino (PCR) 01/21/22 01/21/22 01/21/22 10:35 10:35 10:35 WBC RBC Hgb Hct MCV MCH MCHC RDW Plt Count Neut % (Auto) Lymph % (Auto) Granite % (Auto) Eos % (Auto) Baso % (Auto) Lymph # (Auto) Granite # (Auto) Baso # (Auto) Total Counted Seg Neutrophils % Band Neutrophils % Lymphocytes % (Manual) Monocytes % (Manual) Eosinophils % (Manual) Basophils % (Manual) Neutrophils # (Manual) RBC Morphology Anisocytosis PT 14.1 H INR 1.2 APTT 29 Sodium 133 L Potassium 3.4 Chloride 100 Carbon Dioxide 24 BUN 10 Creatinine 0.84 Estimated GFR > 60 BUN/Creatinine Ratio 11.9 Glucose 188 H Lactate 1.3 Calcium 8.2 L Total Bilirubin 1.5 H AST 21 ALT 11 Alkaline Phosphatase 90 Total Creatine Kinase CK-MB (CK-2) CK-MB (CK-2) Rel Index Troponin I Total Protein 6.3 Albumin 3.6 Globulin 2.7 Albumin/Globulin Ratio 1.3 Lipase 24 Procalcitonin 0.21 Urine RBC Urine WBC Ur Squamous Epith Cells Urine Bacteria Ur Culture Indicated? Chlamy pneumoniae PCR Adenovirus (PCR) B. pertussis DNA (PCR) B.parapertussis DNA PCR Coronavirus OC43 (PCR) Coronavirus HKU1 (PCR) Coronavirus 229E (PCR) SARS-CoV-2 (PCR) Coronavirus NL63 (PCR) Human Metapneumovir PCR Influenza Type A (PCR) Influenza Type B (PCR) M. pneumoniae (PCR) Parainfluenza 1 (PCR) Parainfluenza 2 (PCR) Parainfluenza 3 (PCR) Parainfluenza 4 (PCR) RSV (PCR) Entero/Rhino (PCR) 01/21/22 01/21/22 10:35 12:08 WBC RBC Hgb Hct MCV MCH MCHC RDW Plt Count Neut % (Auto) Lymph % (Auto) Granite % (Auto) Eos % (Auto) Baso % (Auto) Lymph # (Auto) Granite # (Auto) Baso # (Auto) Total Counted Seg Neutrophils % Band Neutrophils % Lymphocytes % (Manual) Monocytes % (Manual) Eosinophils % (Manual) Basophils % (Manual) Neutrophils # (Manual) RBC Morphology Anisocytosis PT INR APTT Sodium Potassium Chloride Carbon Dioxide BUN Creatinine Estimated GFR BUN/Creatinine Ratio Glucose Lactate Calcium Total Bilirubin AST ALT Alkaline Phosphatase Total Creatine Kinase 60 CK-MB (CK-2) TNP CK-MB (CK-2) Rel Index TNP Troponin I 0.066 H Total Protein Albumin Globulin Albumin/Globulin Ratio Lipase Procalcitonin Urine RBC Urine WBC Ur Squamous Epith Cells Urine Bacteria Ur Culture Indicated? Chlamy pneumoniae PCR Not detected Adenovirus (PCR) Not detected B. pertussis DNA (PCR) Not detected B.parapertussis DNA PCR Not detected Coronavirus OC43 (PCR) Not detected Coronavirus HKU1 (PCR) Not detected Coronavirus 229E (PCR) Not detected SARS-CoV-2 (PCR) Not detected Coronavirus NL63 (PCR) Not detected Human Metapneumovir PCR Not detected Influenza Type A (PCR) Not detected Influenza Type B (PCR) Not detected M. pneumoniae (PCR) Not detected Parainfluenza 1 (PCR) Not detected Parainfluenza 2 (PCR) Not detected Parainfluenza 3 (PCR) Not detected Parainfluenza 4 (PCR) Not detected RSV (PCR) Not detected Entero/Rhino (PCR) Not detected Assessment & Plan Assessment & Plan narrative: 1. Neutropenic fever - CT CAP, CXR, head CT without obvious cause. Port site without obvious signs of infection - UA negative - await blood cultures - continue cefepime 2g q8h. - continue to follow neutrophil count, WBC has been rising after chemo on 01/05. 2. DLBCL - s/p 5 cycles of RCHOP, most recent 01/05. 3. HTN - does not appear to be on any current antihypertensives, will monitor. 4. HLD - continue home gemfibrozil. 5. DM2 - THEODORE while admitted, hold home oral medications. Diabetic diet ordered. 6. Hyponatremia - mild, asymptomatic, will continue to follow. 7. Elevated troponin / myocardial injury - no current chest pain. EKG with non-specific T wave inversions. Will continue to follow troponin until downtrending. ACS unlikely, most likely in setting of fever. I have utilized all available immediate resources to obtain, update, or review the patient's current medications. Code: full, surrogate is patient's son. Dispo: Admit as inpatient DVT: Lovenox Time Spent With Patient Critical Care time: I spent a total of [] minutes of critical care time on this patient's care today; this time is exclusive of procedural time. Quality VTE Deep Vein Thrombosis/Pulmonary Embolism Present on Admission: No MIPS - Admit I confirm the patient?s Advance Care Plan is present, Code status is documented, Surrogate decision maker is in patient?s record [If Yes, STOP here]: Yes
--- NOTE | 2022-01-21 18:55 | PC.NURSE ---
Pt arrived from ED this afternoon at 1445, VSS, afebrile on RA. She ambulates with slightly unsteady gait, reports feeling more steady using FWW. She denies pain but reports numbness and altered sensation in hands and legs after chemotherapy. Her port flushes and draws to R chest. she denies any complaints this shift other than weakness. Troponin lab sent at 1830, pending results. Son at bedside supportive, continuous monitoring. Call light in reach, bed alarm on, SCD's on.
[2022-01-21 19:38] LABS: Troponin I 0.058 ng/mL (0.01-0.034)
[2022-01-22] VITALS (8 sets, daily range): BP systolic 111–133; BP diastolic 39–58; PULSE 67–81; RESP 18–22; TEMP 36.6–37.3; O2SAT 95–100
[2022-01-22] MEDS: CEFEPIME 2 GM in SODIUM CHLORIDE 0.9% 100 ML IV ×2 (02:45→13:58)
[2022-01-22 05:44] LABS: Alanine Aminotransferase 9 IU/L (<35); Albumin 2.8 g/dL (3.5-5.0); Albumin Globulin Ratio 1.2 (1.0-2.8); Alkaline Phosphatase 83 U/L (38-126); Aspartate Aminotransferase 18 IU/L (14-36); BUN Creatinine Ratio 17.7 (6-22); Bilirubin Total 0.6 mg/dL (0.2-1.3); Blood Urea Nitrogen 14 mg/dL (7-17); Calcium 7.7 mg/dL (8.4-10.2); Carbon Dioxide 26 mmol/L (22-32); Chloride 104 mmol/L (98-107); Estimated Glomerular Filt Rate > 60 mL/min (>60); Globulin 2.4 g/dL (1.7-4.1); Glucose 110 mg/dL (80-110); HEMOLYSIS < 15 (0-50); Magnesium 1.4 mg/dL (1.6-2.3); Potassium 3.2 mmol/L (3.4-5.1); Sodium 134 mmol/L (137-145); Total Protein 5.2 g/dL (6.3-8.2)
[2022-01-22 05:46] LABS: Add Manual Diff / Slide Review NO; Basophils Absolute Auto 0 /uL (0-100); Basophils Percent Auto 2.1 % (0-2); Eosinophils Absolute Auto 0 /uL (0-450); Eosinophils Percent Auto 0.8 % (2-4); Hematocrit 23.7 % (36-46); Hemoglobin 7.9 g/dL (12.0-16.0); Lymphocytes Absolute Auto 300 /uL (1100-4500); Lymphocytes Percent Auto 13.2 % (25-40); Mean Corpuscular HGB Conc 33.3 % (30-36); Mean Corpuscular Hemoglobin 27.7 PG (26-34); Monocytes Absolute Auto 600 /uL (0-900); Monocytes Percent Auto 31.4 % (3-14); Neutrophils Absolute Auto 1100 /uL (1500-7000); Neutrophils Percent Auto 52.5 % (50-75); Platelet Count 146 X10^3/uL (150-400); Red Blood Cell Count 2.85 X10^6/uL (4.0-5.2); Red Cell Distribution Width 19.8 % (11.6-14.8)
[2022-01-22] MEDS: MAGNESIUM SULFATE 2 GM/50 ML PIGGYBACK IV (07:52)
[2022-01-22] MEDS: allopurinoL 300 MG TABLET PO (10:15)
[2022-01-22] MEDS: ASPIRIN EC 81 MG TABLET PO (10:15)
[2022-01-22] MEDS: CHOLECALCIFEROL (VITAMIN D3) 1,000 UNIT TABLET 1000 UNIT PO (10:15)
[2022-01-22] MEDS: ACETAMINOPHEN 325 MG TABLET 975 MG PO ×2 (10:27→21:53)
[2022-01-22] MEDS: gemfibroziL 600 MG TABLET PO (10:52)
[2022-01-22] MEDS: POTASSIUM CHLORIDE 20 MEQ TAB 40 MEQ PO ×2 (10:55→17:26)
[2022-01-22] MEDS: INSULIN LISPRO 100 UNIT/ML 3ML VIAL SUBCUT ×2 (12:46→17:26)
--- NOTE | 2022-01-22 12:55 | CM.DANOTE ---
DCP: Case received, EMR reviewed and met with patient. Introduced self and role. Was able to obtain information regarding patient's baseline activity status at home prior to hospitalization, as well as he current living situation. DCP assessment completed with information currently available. Patient is a 76 year old female who admitted yesterday afternoon to the care of the hospitalist team. PCP: Dr. Galeano. Payer: confirmed: Medicare/[employer] and MCR Supplement. Patient came to the hospital via private vehicle secondary to having 3 days with fever and weakness. Patient has history of B-cell lymphoma, and receives chemotherapy every 3 weeks at [facility]. According to notes, patient woke up in the am and was not able to get out of bed. She was noted to have a fever of 102. Patient was admitted for fever and neutropenia. Met with patient in her room. She was sitting up in bed, alert and oriented. Confirmed that she resides in [place] with her son, Primo. At her baseline, she indicated that she is independent, and drives. She uses no DME. P: DCP to continue to follow for any needs. Patient should be able to go home when she is deemed medically stable. Myrtle Bob RN/Occupational Therapist'S Assistant Discharge Planning/Care Management CM Discharge Assessment Start: 01/22/22 12:53 Freq: Status: Active Protocol: Document 01/22/22 12:54 (Rec: 01/22/22 12:55 [id number]) Discharge Planning Assessment Assigned Hoisting Engineer Myrtle Bob RN/Occupational Therapist'S Assistant Advance Directives? No History Provided By Patient,Medical Record Prior Living Arrangements House Household Members family Type of transporation used prior to Drives own vehicle admit Independent with ADL's Yes Is patient alert and oriented? Yes Caregiver for Another No Comment Weakness, but she mentioned that she resides with son. Discharge Plan Home Transportation Arrangement Son Referrals Initiated None needed Whiteboard Updated in Patient Room with Yes name and ext. # of Hoisting Engineer Review Status In Process Next Review Type Continued Stay Review
--- NOTE | 2022-01-22 13:28 | P.PN_ITS ---
Subjective Subjective Date Patient Seen: 01/22/22 Interval history: Patient feels slightly improved today. No further fever and chills have improved. She has some left ankle discomfort and swelling. No chest pain, cough, abdominal pain, nausea, or emesis. Exam Vital Signs (past 8 hours): - 01/22/22 08:00 01/22/22 10:19 01/22/22 12:00 Temperature 99.1 F 97.8 F Pulse Rate 81 72 Respiratory Rate 19 22 Blood Pressure 111/53 L 115/39 L Pulse Oximetry 96 97 96 Oxygen Delivery Method Room Air Oxygen Flow Rate 0 0 Oxygen Delivery Method Room Air Oxygen Flow Rate 0 Narrative Exam Narrative: General:? Patient is well developed and well nourished, in no distress at this time. HEENT:? Normocephalic, atraumatic, extraocular muscles intact, oral pharynx is clear and mucous membranes are moist. Neck: supple and symmetric, trachea is midline, no cervical adenopathy. Negative for JVD Chest:? Normal AP diameter and contour without kyphoscoliosis, no tachypnea, equal chest rise bilaterally. Lungs:? CTA b/l no wheezing rhonchi or rales. Cardio:?RRR no m/r/g. Abdomen: S NT ND. No CVA tenderness. Musculoskeletal:? Muscle strength and tone are equal within normal limits, no deformity. Mild swelling left ankle, no erythema or warmth, tenderness posteriorly. Extremities: No edema or joint effusions. No cyanosis or clubbing. Skin:? Pale,? Warm to touch,dry and intact without rashes, ulcerations or petechiae.? Neuro:? Alert and orientated x3,? sensation to touch intact in all extremities, no gross deficits noted of cranial nerves. Psych:? Patient has a well-kept appearance, appropriate affect, mental status attitude thought context and judgment are appropriate for age. Objective Labs Result Diagrams: 01/22/22 05:00 01/22/22 05:00 Labs: Laboratory Results - last 24 hr 01/21/22 01/21/22 01/22/22 12:08 18:35 05:00 WBC 2.0 L RBC 2.85 L Hgb 7.9 L Hct 23.7 L MCV 83.0 MCH 27.7 MCHC 33.3 RDW 19.8 H Plt Count 146 L Neut % (Auto) 52.5 Lymph % (Auto) 13.2 L Warrick % (Auto) 31.4 H Eos % (Auto) 0.8 L Baso % (Auto) 2.1 H Neut # (Auto) 1100 L Lymph # (Auto) 300 L Warrick # (Auto) 600 Eos # (Auto) 0 Baso # (Auto) 0 Sodium Potassium Chloride Carbon Dioxide BUN Creatinine Estimated GFR BUN/Creatinine Ratio Glucose Calcium Magnesium Total Bilirubin AST ALT Alkaline Phosphatase Troponin I 0.058 H Total Protein Albumin Globulin Albumin/Globulin Ratio Chlamy pneumoniae PCR Not detected Adenovirus (PCR) Not detected B. pertussis DNA (PCR) Not detected B.parapertussis DNA PCR Not detected Coronavirus OC43 (PCR) Not detected Coronavirus HKU1 (PCR) Not detected Coronavirus 229E (PCR) Not detected SARS-CoV-2 (PCR) Not detected Coronavirus NL63 (PCR) Not detected Human Metapneumovir PCR Not detected Influenza Type A (PCR) Not detected Influenza Type B (PCR) Not detected M. pneumoniae (PCR) Not detected Parainfluenza 1 (PCR) Not detected Parainfluenza 2 (PCR) Not detected Parainfluenza 3 (PCR) Not detected Parainfluenza 4 (PCR) Not detected RSV (PCR) Not detected Entero/Rhino (PCR) Not detected 01/22/22 05:00 WBC RBC Hgb Hct MCV MCH MCHC RDW Plt Count Neut % (Auto) Lymph % (Auto) Warrick % (Auto) Eos % (Auto) Baso % (Auto) Neut # (Auto) Lymph # (Auto) Warrick # (Auto) Eos # (Auto) Baso # (Auto) Sodium 134 L Potassium 3.2 L Chloride 104 Carbon Dioxide 26 BUN 14 Creatinine 0.79 Estimated GFR > 60 BUN/Creatinine Ratio 17.7 Glucose 110 Calcium 7.7 L Magnesium 1.4 L Total Bilirubin 0.6 AST 18 ALT 9 Alkaline Phosphatase 83 Troponin I Total Protein 5.2 L Albumin 2.8 L Globulin 2.4 Albumin/Globulin Ratio 1.2 Chlamy pneumoniae PCR Adenovirus (PCR) B. pertussis DNA (PCR) B.parapertussis DNA PCR Coronavirus OC43 (PCR) Coronavirus HKU1 (PCR) Coronavirus 229E (PCR) SARS-CoV-2 (PCR) Coronavirus NL63 (PCR) Human Metapneumovir PCR Influenza Type A (PCR) Influenza Type B (PCR) M. pneumoniae (PCR) Parainfluenza 1 (PCR) Parainfluenza 2 (PCR) Parainfluenza 3 (PCR) Parainfluenza 4 (PCR) RSV (PCR) Entero/Rhino (PCR) [facility] Medical History Alopecia (~1970) Anxiety Carpal tunnel syndrome Cataracts, bilateral Chicken pox Depression Diffuse large B cell lymphoma Essential hypertension GERD (gastroesophageal reflux disease) Hepatitis B Measles Mumps Type 2 diabetes mellitus Vertigo Wears glasses Surgical History Anesthesia History of hand surgery History of hernia repair History of hysterectomy History of tonsillectomy Family History Father Hypertension Hyperlipidemia Mother MVA (motor vehicle accident) Sister Heart defect Social History household members: family Smoking Status: Never smoker alcohol intake: never Assessment & Plan Assessment & Plan narrative: 1. Neutropenic fever - CT CAP, CXR, head CT without obvious cause. Port site without obvious signs of infection - UA negative - await blood cultures - continue cefepime 2g q8h. - continue to follow neutrophil count, WBC has been rising after chemo on 01/05. 2. DLBCL - s/p 5 cycles of RCHOP, most recent 01/05. 3. HTN, history of - does not appear to be on any current antihypertensives, will monitor. She is normotensive today. 4. HLD - continue home gemfibrozil. 5. DM2 - THEODORE while admitted, hold home oral medications. Diabetic diet ordered. 6. Hyponatremia - mild, asymptomatic, will continue to follow. 7. Elevated troponin / myocardial injury - no current chest pain. EKG with non-specific T wave inversions. Troponin downtrended on repeat. ACS ruled out, most likely in setting of fever. 8. Hypokalemia - will replete as needed. I have utilized all available immediate resources to obtain, update, or review the patient's current medications. Code: full, surrogate is patient's son. Dispo: Admit as inpatient, can possibly discharge home tomorrow if no continued fever. DVT: Lovenox Time Spent With Patient Critical Care time: I spent a total of [] minutes of critical care time on this patient's care today; this time is exclusive of procedural time. Quality VTE Deep Vein Thrombosis/Pulmonary Embolism Present on Admission: No
[2022-01-23] VITALS: BP 117/54; PULSE 69; RESP 18; TEMP 36.9; O2SAT 98
[2022-01-23 02:00] VITALS: O2SAT 98
[2022-01-23] MEDS: CEFEPIME 2 GM in SODIUM CHLORIDE 0.9% 100 ML IV (03:06)
[2022-01-23 04:00] VITALS: BP 127/50; PULSE 62; RESP 18; TEMP 36.7; O2SAT 95
--- NOTE | 2022-01-23 04:33 | PC.NURSE ---
End of shift note. Care of patient from [id number]. AAOX3, Good pain control with tylenol 975mg po for left foot pain. Patient slept well during the night. Uses call light for assist to BR. Is using the FWW to ambulate.
[2022-01-23 05:37] LABS: Mean Corpuscular HGB Conc 33.3 % (30-36); Mean Corpuscular Hemoglobin 27.7 PG (26-34); Mean Corpuscular Volume 83.1 fL (80-100); Platelet Count 149 X10^3/uL (150-400); Red Blood Cell Count 2.88 X10^6/uL (4.0-5.2); Red Cell Distribution Width 20.3 % (11.6-14.8); White Blood Cell Count 2.1 X10^3/uL (4.5-11.0)
[2022-01-23 05:38] LABS: Alanine Aminotransferase 10 IU/L (<35); Albumin 2.7 g/dL (3.5-5.0); Albumin Globulin Ratio 1.1 (1.0-2.8); Alkaline Phosphatase 136 U/L (38-126); Aspartate Aminotransferase 20 IU/L (14-36); BUN Creatinine Ratio 17.6 (6-22); Bilirubin Total 0.3 mg/dL (0.2-1.3); Blood Urea Nitrogen 13 mg/dL (7-17); Calcium 7.9 mg/dL (8.4-10.2); Carbon Dioxide 24 mmol/L (22-32); Chloride 107 mmol/L (98-107); Estimated Glomerular Filt Rate > 60 mL/min (>60); Globulin 2.4 g/dL (1.7-4.1); Glucose 120 mg/dL (80-110); HEMOLYSIS < 15 (0-50); Magnesium 1.8 mg/dL (1.6-2.3); Potassium 4.1 mmol/L (3.4-5.1); Sodium 136 mmol/L (137-145); Total Protein 5.1 g/dL (6.3-8.2)
[2022-01-23 05:39] LABS: Add Manual Diff / Slide Review YES
[2022-01-23 06:05] LABS: Neutrophils Absolute Manual 1260 /uL (3000-5900); Total Cells Counted 100
[2022-01-23 06:06] LABS: Anisocytosis 1+
[2022-01-23 08:00] VITALS: BP 138/63; PULSE 65; RESP 20; TEMP 36.7; O2SAT 100
[2022-01-23] MEDS: ASPIRIN EC 81 MG TABLET PO (08:21)
[2022-01-23] MEDS: allopurinoL 300 MG TABLET PO (08:21)
[2022-01-23] MEDS: CHOLECALCIFEROL (VITAMIN D3) 1,000 UNIT TABLET 1000 UNIT PO (08:21)
[2022-01-23] MEDS: gemfibroziL 600 MG TABLET PO (08:24)
--- NOTE | 2022-01-23 09:30 | PM.DS.1 ---
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 Patient states that she has been feeling weak for the past couple of days, feeling like her legs are going to give out. Was able to go out with her son yesterday, but was so fatigued she fell asleep early in the afternoon. When she woke up she felt cold and sweaty. Her fever was about 100 this morning. Her son brought her to the emergency room. She denies focal weakness, numbness, tingling. She denies slurred speech or facial droop. She denies vision changes. She has a chronic cough, but no changes recently. She denies recent travel. She has chronic musculoskeltal chest pains and abdominal pains, none are new. She denies rash, dysuria or urinary frequency. In the emergency room, the patient was febrile to 103 which improved with Tylenol. The remainder of her vital signs have been unremarkable. CT chest abdomen pelvis did not reveal an obvious source for her symptoms. Full respiratory panel was negative including COVID-19. Urinalysis was unremarkable and did not show source of infection. Laboratory evaluation was notable for a WBC of 1.8, with a manual neutrophil count of 612. Her hemoglobin was slightly low at 9.1. Coagulation studies were unremarkable. Chemistries revealed a mild hyponatremia with sodium of 133, total bilirubin of 1.5 without significant transaminase elevations. Troponin was slightly elevated at 0.066. EKG showed non-specific T wave inversions, NSR. Head CT was also performed without contrast which showed no acute findings. Discharge Providers Provider Date of admission: 01/21/22 14:11 Discharge Date: 01/23/22 Primary care physician: Ez Galeano MD Discharge provider: Chino Serrano DO Summary Hospital Course Discharge Diagnosis: 1. Neutropenic fever 2. DLBCL on chemotherapy 3. HTN, history of 4. HLD 5. DM2 6. Hyponatremia 7. Elevated troponin / myocardial injury 8. Hypokalemia Hospital Course: This is a 76-year-old female with a past medical history of DLBCL on chemotherapy with R-CHOP is admitted with neutropenic fever. She had a fever of 103 in the emergency room. She was initiated on cefepime empirically, and the course of admission no obvious source of infection was found. She a recurrence of fever and her cell counts have slowly improved. She was eating and tolerating a diet and felt well on the day of discharge. Even though her neutrophil count had improved, she was still mildly neutropenic and she was discharged home with ciprofloxacin and Augmentin for neutropenic fever given that no source was found. I do recommend consideration of prophylaxis with her oncologist prior to her next round of R-CHOP. No other changes except for the addition of temporary antibiotics were made to the patient's home medications. She should follow-up with her oncologist and primary care provider as previously scheduled. Time Spent with Patient Time spent: Greater than 30 minutes Exam Vital Signs (past 8 hours): - 01/23/22 02:00 01/23/22 04:00 01/23/22 08:00 Temperature 98.1 F 98.0 F Pulse Rate 62 65 Respiratory Rate 18 20 Blood Pressure 127/50 L 138/63 Pulse Oximetry 98 95 100 Oxygen Delivery Method Room Air Oxygen Flow Rate 0 Oxygen Delivery Method Room Air Oxygen Flow Rate 0 Narrative Exam Narrative: General:? Patient is well developed and well nourished, in no distress at this time. HEENT:? Normocephalic, atraumatic, extraocular muscles intact, oral pharynx is clear and mucous membranes are moist. Neck: supple and symmetric, trachea is midline, no cervical adenopathy. Negative for JVD Chest:? Normal AP diameter and contour without kyphoscoliosis, no tachypnea, equal chest rise bilaterally. Lungs:? CTA b/l no wheezing rhonchi or rales. Cardio:?RRR no m/r/g. Abdomen: S NT ND. No CVA tenderness. Musculoskeletal:? Muscle strength and tone are equal within normal limits, no deformity. Mild swelling left ankle, no erythema or warmth, tenderness posteriorly. Extremities: No edema or joint effusions. No cyanosis or clubbing. Skin:? Pale,? Warm to touch,dry and intact without rashes, ulcerations or petechiae.? Neuro:? Alert and orientated x3,? sensation to touch intact in all extremities, no gross deficits noted of cranial nerves. Psych:? Patient has a well-kept appearance, appropriate affect, mental status attitude thought context and judgment are appropriate for age. Objective Labs Result Diagrams: 01/23/22 05:05 01/23/22 05:05 Labs: Laboratory Results - last 24 hr 01/23/22 01/23/22 05:05 05:05 WBC 2.1 L RBC 2.88 L Hgb 8.0 L Hct 24.0 L MCV 83.1 MCH 27.7 MCHC 33.3 RDW 20.3 H Plt Count 149 L Neut % (Auto) Not Reportable Lymph % (Auto) Not Reportable Mccormick % (Auto) Not Reportable Eos % (Auto) Not Reportable Baso % (Auto) Not Reportable Lymph # (Auto) Not Reportable Mccormick # (Auto) Not Reportable Baso # (Auto) Not Reportable Total Counted 100 Seg Neutrophils % 57.0 D Band Neutrophils % 3.0 Lymphocytes % (Manual) 17.0 L Monocytes % (Manual) 19.0 H Eosinophils % (Manual) 2.0 Basophils % (Manual) 2.0 H Neutrophils # (Manual) 1260 L RBC Morphology See below Anisocytosis 1+ H Sodium 136 L Potassium 4.1 Chloride 107 Carbon Dioxide 24 BUN 13 Creatinine 0.74 Estimated GFR > 60 BUN/Creatinine Ratio 17.6 Glucose 120 H Calcium 7.9 L Magnesium 1.8 Total Bilirubin 0.3 AST 20 ALT 10 Alkaline Phosphatase 136 H D Total Protein 5.1 L Albumin 2.7 L Globulin 2.4 Albumin/Globulin Ratio 1.1 PFSH Medical History Alopecia (~1970) Anxiety Carpal tunnel syndrome Cataracts, bilateral Chicken pox Depression Diffuse large B cell lymphoma Essential hypertension GERD (gastroesophageal reflux disease) Hepatitis B Measles Mumps Type 2 diabetes mellitus Vertigo Wears glasses Surgical History Anesthesia History of hand surgery History of hernia repair History of hysterectomy History of tonsillectomy Family History Father Hypertension Hyperlipidemia Mother MVA (motor vehicle accident) Sister Heart defect Social History household members: family Smoking Status: Never smoker alcohol intake: never Discharge Plan Discharge Plan Patient Disposition: Home Provider Discharge Comment: You were admitted to the hospital with a fever and a mildly low neutrophil count. This improved with antibiotics, but no bacterial or viral infection was found. Please let your oncology team know tomorrow that you were admitted to the hospital and were given a few more days of antibiotics. Your hospital discharge summary will be forwarded to them as well. Discharge orders & Medications Prescriptions: New ciprofloxacin HCl 750 mg tablet 750 mg PO BID 5 Days Qty: 10 0RF amoxicillin-pot clavulanate 875-125 mg tablet 1 tab PO BID 5 Days Qty: 10 0RF Continued (DME) lancets 31 gauge misc See Rx Instructions .Route Qty: 100 0RF Rx Instructions: Use to check blood sugars once daily (DME) blood-glucose meter [Blood Glucose Monitoring] Kit See Rx Instructions .Route Qty: 1 0RF Rx Instructions: Use to check blood sugars once daily (DME) Blood Glucose Test Strip See Rx Instructions .Route Qty: 50 11RF Rx Instructions: Use to check blood sugars once daily glipizide 10 mg tablet extended release 24hr 10 mg PO DAILY Qty: 30 2RF allopurinol 300 mg tablet 300 mg PO DAILY gemfibrozil 600 mg tablet 600 mg PO DAILY aspirin 81 mg tablet,delayed release (DR/EC) 81 mg PO DAILY colchicine 0.6 mg tablet 0.6 mg PO PRN PRN (Reason: Gout) metformin 1,000 mg tablet 1,000 mg PO BIDWMEAL Qty: 180 1RF cholecalciferol (vitamin D3) [Vitamin D3] 25 mcg (1,000 unit) Tablet 25 mcg PO DAILY mouthwashes Kit See Rx Instructions .ROUTE .COMPLEX PRN (Reason: Mouth Irritation) Qty: 480 1RF Rx Instructions: 160mL vicous lidocaine 2% 160mL mylanta 160mL diphenhydramine 12.5mg/5mL 30ml Sig: Swish, gargle, and spit one to two teaspoonfuls for 1 minute. Repeat every six hours as needed. May be swallowed if esophageal involvement. mouthwashes Kit See Rx Instructions .ROUTE .COMPLEX PRN (Reason: Mouth Irritation) Qty: 480 1RF Rx Instructions: 160mL vicous lidocaine 2% 160mL mylanta 160mL diphenhydramine 12.5mg/5mL 30ml Sig: Swish, gargle, and spit one to two teaspoonfuls for 1 minute. Repeat every six hours as needed. May be swallowed if esophageal involvement. mouthwashes Kit 5 - 10 ml MUCOUS MEMBRANE Q6HR PRN (Reason: mouth irritation/thrush) Qty: 640 1RF Rx Instructions: 160MLS viscous lidocaine 2% 160MLS Mylanta 160MLS Nystatin 100,000U suspension 160MLS Diphenhydramine 12.5MG/5MLS Swish, gargle and spit one to two teaspoons for 1 minute. Repeat every six hours as needed. May be swallowed if esophaheal involvement. Follow up/Referrals: Ez Galeano MD [Primary Care Provider] - Discharge Health Status Multidrug resistant organism: No MDRO Diet/Activity/Treatments Diet: Diet as Tolerated Activity: As tolerated Skin/Wound/Dressing Care Report to your healthcare provider any signs of infection, such as:: chills, fever and increased pain Discharge Data Primary Care Provider: Ez Galeano Quality VTE Deep Vein Thrombosis/Pulmonary Embolism Present on Admission: No
[2022-01-23] MEDS: AMOXICILLIN/CLAV 875/125 MG 1 TAB PO (10:53)
[2022-01-23] MEDS: CIPROFLOXACIN 250 MG TABLET 750 MG PO (10:53)
== END 2022-01-23 11:20 | disposition home or self-care (01) | DRG 809 ==
LOC: ED 14:04 → AC 14:12
PROVIDERS: Admitting Provider Internal Medicine; Emergency Provider Emergency Medicine; PCP Student in an Organized Health Care Education/Training Program; Referring Provider Emergency Medicine; Visit Provider Internal Medicine
DX: D70.9 Neutropenia, unspecified (principal); I5A Non-ischemic myocardial injury (non-traumatic); C83.31 Diffuse large B-cell lymphoma, lymph nodes of head, face, and neck; D61.810 Antineoplastic chemotherapy induced pancytopenia; E78.5 Hyperlipidemia, unspecified; E11.9 Type 2 diabetes mellitus without complications; Z20.822 Contact with and (suspected) exposure to COVID-19; Z79.84 Long term (current) use of oral hypoglycemic drugs
CPT/HCPCS: 36415; 36591; 70450; 71045; 71260; 74177; 80053; 81003; 81015; 82550; 82962; 83605; 83690; 83735; 84145; 84484; 85007; 85025; 85610; 85730; 87040; 87633; 87635; 93005; 93010; 96374; 99284; 99285; C9803; J0692; J1642; J1815; J1885; J3475; Q9967

== ENCOUNTER 2022-02-13 10:10 | Emergency (ER) | payer MEDICARE, OTHER, SELFPAY ==
[2022-01-21 15:37] VITALS: BMI 28.8
[2022-02-13] VITALS (16 sets, daily range): BP systolic 122–163; BP diastolic 62–75; PULSE 63–102; RESP 16–27; TEMP 37.1; O2SAT 90–100; BMI 27.4
--- NOTE | 2022-02-13 12:07 | ED_ITS ---
HPI - Extremity Problem General Chief complaint: Extremity Problem,Nontraumatic Stated complaint: Gout flare up post chemo Time Seen by Provider: 02/13/22 11:57 Source: patient Mode of arrival: Family Vehicle Limitations: no limitations History of Present Illness HPI Narrative: This is a 76-year-old female with known B-cell lymphoma receiving chemotherapy every 3 weeks who was seen on January 21 had workup and developed acute kidney injury with a significant decrease in her creatinine, she also has known gout, diabetes, dyslipidemia and osteopenia. Patient at that time was neutropenic had had 3 days of fever was found to be unknown origin and cultures were negative. Patient presents today with increased pain in the left wrist as well as neck pain. Patient has has not had any fevers objectively but has been 99 F, her and her son at bedside states she has not been 100 F or above in the past week. Pat ient states some headache, pain in the neck, pain in the left wrist but no pain radiating down the arm. She does not appreciate any swelling her son says maybe a little bit of swelling of the face. Patient denies chest pain or pressure, no lower back or neck pain, no new numbness or tingling but does have some numbness in her extremities/neuropathy. Patient denies any nausea or vomiting. No di arrhea constipation that is new, no urinary symptoms. Patient did have her medications stopped including her allopurinol and metformin after her kidney injury and has been off these. Patient states she has a port on her right side, has a remote history of hysterectomy with no other surgical history. Patient does not aware of any drug allergies. She has not taken anything for pain today. They were unsure what would be appropriate for her. Related Data Home Medications Medication Instructions Recorded Confirmed allopurinol 300 mg tablet 300 mg PO DAILY 06/24/21 01/26/22 aspirin 81 mg tablet,delayed 81 mg PO DAILY 06/24/21 01/26/22 release colchicine 0.6 mg tablet 0.6 mg PO PRN PRN Gout 06/24/21 01/26/22 gemfibrozil 600 mg tablet 600 mg PO DAILY 06/24/21 01/26/22 cholecalciferol (vitamin D3) 25 25 mcg PO DAILY 10/13/21 01/26/22 mcg (1,000 unit) tablet (Vitamin D3) acetaminophen 500 mg capsule 1,000 mg PO Q6H PRN Fever 02/02/22 02/02/22 Previous Rx's Medication Instructions Recorded lancets 31 gauge #100 ea 08/16/21 blood sugar diagnostic (Blood #50 ea 10/11/21 Glucose Test strips) blood-glucose meter (Blood Glucose #1 ea 10/11/21 Monitoring kit) mouthwashes See Rx Instructions .Route 10/13/21 .COMPLEX PRN Mouth Irritation #480 mL mouthwashes See Rx Instructions .Route 10/13/21 .COMPLEX PRN Mouth Irritation #480 mL glipizide 10 mg tablet, extended 10 mg PO DAILY #30 tabs 11/12/21 release 24 hr mouthwashes 5 - 10 ml mucous membrane Q6HR PRN 11/24/21 mouth irritation/thrush #640 mL ondansetron 4 mg disintegrating 4 mg PO Q6H PRN nausea and 02/13/22 tablet vomiting #10 tabs oxycodone 5 mg tablet 5 mg PO Q6H PRN pain #14 tabs 02/13/22 Allergies Allergy/AdvReac Type Severity Reaction Status Date / Time No Known Drug Allergies Allergy Verified 02/13/22 10:42 Review of Systems Review of Systems ROS Unobtainable: All systems reviewed & are unremarkable except as noted in HPI and below Patient History Medical History Alopecia (~1970) Anxiety Carpal tunnel syndrome Cataracts, bilateral Chicken pox Depression Diffuse large B cell lymphoma Essential hypertension GERD (gastroesophageal reflux disease) Hepatitis B Measles Mumps Type 2 diabetes mellitus Vertigo Wears glasses Surgical History Anesthesia History of hand surgery History of hernia repair History of hysterectomy History of tonsillectomy Family History Father Hypertension Hyperlipidemia Mother MVA (motor vehicle accident) Sister Heart defect Social History household members: family Smoking Status: Never smoker alcohol intake: never Smoking Status: Never smoker alcohol intake frequency: holidays/special occasions only Substance Use Type: does not use Exam Narrative Exam Narrative: GEN: Elderly female, alert and oriented x 3, patient appears to be in [id number] distress. HEENT: Atraumatic, pupils are equal round reactive to light, no photophobia, extraocular movements are intact, nares are clear, TMs are clear with no fluid, there is no conjunctival pallor. Throat is clear without any exudates, erythema, tonsillar enlargement or uvular deviation, patient does not have significant bony tenderness but does have increased pain with flexion extension and rotation, no erythema, warmth or other skin changes noted. No increased pain with Kernig's. HEART: Regular rate and rhythm without murmur, clicks, rubs. No carotid bruits, pulses are equal in upper and lower extremities LUNGS:Lungs clear to auscultation, no wheezes, rales, crackles, chest moves symmetrically, no tachypnea accessory muscle use. ABD:bowel sounds normal, soft, non-tender, no guarding, rebound, rigidity, no masses noted, no hepatosplenomegaly :No CVA tenderness MSCL: Patient has tenderness over the left wrist with erythema over the ulnar styloid, no fluctuance or fluid collection, patient does not have any other bony or joint tenderness of the left upper extremity, no swelling of the upper extremity, no muscle atrophy, muscles strength 5/5 upper and lower extremities, full range of motion, patient has quite a bit of pain when joint in her wrist is bumped or moved unexpectedly. No extremity pain of the right upper, left or lower extremity. NEURO:CN 2-12 intact, sensation normal SKIN: No rash, erythema petechiae or other changes other than noted above over the ulnar styloid of the left wrist. Initial Vital Signs Initial Vital Signs: Vital Signs Temperature 98.7 F 02/13/22 10:15 Pulse Rate 64 02/13/22 10:15 Respiratory Rate 19 02/13/22 10:15 Blood Pressure 156/69 H 02/13/22 10:15 Pulse Oximetry 99 02/13/22 10:15 Oxygen Delivery Method 02/13/22 10:15 Scores GCS [place] coma scale eye opening: Spontaneous [place] coma scale verbal response: Orientated [place] coma scale motor response: Obey commands [place] coma scale total score: 15 Course Orders Ordered: ED Orders 02/13/22 12:31 CT cervical spine wo con Stat CT head/brain wo con Stat XR chest 1V Stat XR wrist LT min 3V Stat EKG-12 Lead Stat 02/13/22 12:48 Complete Blood Count AUTO DIFF Stat Comprehensive Metabolic Panel Stat Lactate (Lactic Acid) Stat Partial Thromboplastin Time Stat Procalcitonin Stat Prothrombin Time INR Stat Troponin & CK Cardiac Panel Stat Uric Acid Stat 02/13/22 13:10 Blood Culture Stat Urinalysis and Microscopic Stat 02/13/22 14:48 Trop I [Troponin I] Stat Discontinued Medications Heparin Sodium (Porcine) (Heparin 500 Unit/5 Ml Port Flush) 500 unit IV PRN PRN PRN Reason: Flush Last Admin: 02/13/22 17:11 Dose: 500 unit Documented By: AT Hydromorphone HCl (Hydromorphone 1 Mg Inj) 1 mg IV NOW ONE Stop: 02/13/22 14:26 Last Admin: 02/13/22 14:41 Dose: 1 mg Documented By: AT Sodium Chloride (Normal Saline 0.9%) 1,000 mls @ 1,000 mls/hr IV BOLUS ONE Stop: 02/13/22 13:30 Last Infusion: 02/13/22 14:40 Dose: 0 mls/hr Documented By: Admin: 02/13/22 12:59 Dose: 1,000 mls/hr Documented By: AT Morphine Sulfate (Morphine 4 Mg/Ml Inj) 4 mg IV NOW ONE Stop: 02/13/22 12:34 Last Admin: 02/13/22 12:52 Dose: 4 mg Documented By: AT Ondansetron HCl (Ondansetron 4 Mg/2 Ml Inj) 4 mg IV Q6HR PRN PRN Reason: Nausea And Vomiting Ondansetron HCl (Ondansetron 4 Mg/2 Ml Inj) 4 mg IV NOW ONE Stop: 02/13/22 16:18 Last Admin: 02/13/22 16:28 Dose: 4 mg Documented By: AT Potassium Chloride (Potassium Chloride 20 Meq/15 Ml Udc) 40 meq PO NOW ONE Stop: 02/13/22 14:25 Last Admin: 02/13/22 14:41 Dose: 40 meq Documented By: AT Vital Signs Vital signs: Vital Signs - 8 hr 02/13/22 12:00 02/13/22 12:00 02/13/22 12:31 Pulse Rate 68 68 Respiratory Rate 21 26 H Blood Pressure 153/68 H Pulse Oximetry 99 98 Oxygen Delivery Method Room Air 02/13/22 13:00 02/13/22 13:35 02/13/22 14:00 Pulse Rate 76 84 Respiratory Rate 23 Blood Pressure 153/73 H Pulse Oximetry 98 Oxygen Delivery Method Room Air 02/13/22 14:00 02/13/22 14:30 02/13/22 14:30 Pulse Rate 78 80 Respiratory Rate 16 19 Blood Pressure 158/72 H Pulse Oximetry 95 98 Oxygen Delivery Method 02/13/22 15:00 02/13/22 15:00 02/13/22 15:30 Pulse Rate 102 H Respiratory Rate 16 Blood Pressure 143/67 H 132/64 Pulse Oximetry 90 L Oxygen Delivery Method 02/13/22 15:30 02/13/22 16:00 02/13/22 16:00 Pulse Rate 96 H 90 Respiratory Rate 18 22 Blood Pressure 145/65 H Pulse Oximetry 90 L 91 Oxygen Delivery Method 02/13/22 16:30 02/13/22 16:30 02/13/22 16:38 Pulse Rate 87 86 Respiratory Rate 20 17 Blood Pressure 139/71 Pulse Oximetry 95 Oxygen Delivery Method Room Air 02/13/22 17:18 Pulse Rate Respiratory Rate Blood Pressure 122/62 Pulse Oximetry Oxygen Delivery Method MDM - Extremity (Nontraumatic) Lab Data Result diagrams: 02/13/22 12:48 02/13/22 12:48 Labs: Lab Results 02/13/22 02/13/22 02/13/22 Range/Units 12:48 12:48 12:48 WBC 7.6 (4.5-11.0) X10^3/uL RBC 3.16 L (4.0-5.2) X10^6/uL Hgb 8.7 L (12.0-16.0) g/dL Hct 26.4 L (36-46) % MCV 83.4 (80-100) fL MCH 27.6 (26-34) PG MCHC 33.1 (30-36) % RDW 18.7 H (11.6-14.8) % Plt Count 144 L (150-400) X10^3/uL Neut % (Auto) 84.8 H (50-75) % Lymph % (Auto) 4.1 L (25-40) % [place] % (Auto) 8.5 (3-14) % Eos % (Auto) 1.8 L (2-4) % Baso % (Auto) 0.8 (0-2) % Neut # (Auto) 6400 (3569-4359) /uL Lymph # (Auto) 300 L (7352-5904) /uL [place] # (Auto) 600 (0-900) /uL Eos # (Auto) 100 (0-450) /uL Baso # (Auto) 100 (0-100) /uL PT 13.8 H (10.1-12.7) SECONDS INR 1.2 (0.9-1.3) APTT 30 (26-36) SECONDS Sodium 137 (137-145) mmol/L Potassium 3.0 L (3.4-5.1) mmol/L Chloride 102 (98-107) mmol/L Carbon Dioxide 25 (22-32) mmol/L BUN 16 (7-17) mg/dL Creatinine 1.07 H (0.52-1.04) mg/dL Estimated GFR 55 L (>60) mL/min BUN/Creatinine Ratio 15.0 (6-22) Glucose 74 L D (80-110) mg/dL Lactate (0.7-2.1) mmol/L Uric Acid 5.8 (2.5-6.2) mg/dL Calcium 8.0 L (8.4-10.2) mg/dL Total Bilirubin 0.8 (0.2-1.3) mg/dL AST 22 (14-36) IU/L ALT 8 (<35) IU/L Alkaline Phosphatase 101 (38-126) U/L Total Creatine Kinase 49 (30-135) U/L CK-MB (CK-2) TNP CK-MB (CK-2) Rel Index TNP Troponin I 0.055 H (0.01-0.034) ng/mL Total Protein 6.5 (6.3-8.2) g/dL Albumin 3.5 (3.5-5.0) g/dL Globulin 3.0 (1.7-4.1) g/dL Albumin/Globulin Ratio 1.2 (1.0-2.8) Procalcitonin 0.14 (<0.5) ng/mL Urine Color Urine Appearance Urine pH (4.5-8.0) Ur Specific [place] (1.000-1.035) Urine Protein (Negative) Urine Glucose (UA) (Negative) g/dL Urine Ketones (NEGATIVE) Urine Occult Blood (Negative) Urine Nitrate (Negative) Urine Bilirubin (NEGATIVE) Urine Urobilinogen (0.2) E.U./dL Ur Leukocyte Esterase (NEGATIVE) Urine RBC (0-5/HPF) Urine WBC (0-5/HPF) Ur Squamous Epith Cells (0-5/HPF) Urine Bacteria (None) Hyaline Casts (None) Ur Culture Indicated? 02/13/22 02/13/22 02/13/22 Range/Units 12:48 13:10 14:48 WBC (4.5-11.0) X10^3/uL RBC (4.0-5.2) X10^6/uL Hgb (12.0-16.0) g/dL Hct (36-46) % MCV (80-100) fL MCH (26-34) PG MCHC (30-36) % RDW (11.6-14.8) % Plt Count (150-400) X10^3/uL Neut % (Auto) (50-75) % Lymph % (Auto) (25-40) % [place] % (Auto) (3-14) % Eos % (Auto) (2-4) % Baso % (Auto) (0-2) % Neut # (Auto) (1591-5388) /uL Lymph # (Auto) (2296-8001) /uL [place] # (Auto) (0-900) /uL Eos # (Auto) (0-450) /uL Baso # (Auto) (0-100) /uL PT (10.1-12.7) SECONDS INR (0.9-1.3) APTT (26-36) SECONDS Sodium (137-145) mmol/L Potassium (3.4-5.1) mmol/L Chloride (98-107) mmol/L Carbon Dioxide (22-32) mmol/L BUN (7-17) mg/dL Creatinine (0.52-1.04) mg/dL Estimated GFR (>60) mL/min BUN/Creatinine Ratio (6-22) Glucose (80-110) mg/dL Lactate 0.8 (0.7-2.1) mmol/L Uric Acid (2.5-6.2) mg/dL Calcium (8.4-10.2) mg/dL Total Bilirubin (0.2-1.3) mg/dL AST (14-36) IU/L ALT (<35) IU/L Alkaline Phosphatase (38-126) U/L Total Creatine Kinase (30-135) U/L CK-MB (CK-2) CK-MB (CK-2) Rel Index Troponin I 0.064 H (0.01-0.034) ng/mL Total Protein (6.3-8.2) g/dL Albumin (3.5-5.0) g/dL Globulin (1.7-4.1) g/dL Albumin/Globulin Ratio (1.0-2.8) Procalcitonin (<0.5) ng/mL Urine Color Yellow Urine Appearance Clear Urine pH 6.0 (4.5-8.0) Ur Specific [place] 1.015 (1.000-1.035) Urine Protein Negative (Negative) Urine Glucose (UA) Trace H (Negative) g/dL Urine Ketones Negative (NEGATIVE) Urine Occult Blood Trace-intact (Negative) Urine Nitrate Negative (Negative) Urine Bilirubin Negative (NEGATIVE) Urine Urobilinogen 1.0 (0.2) E.U./dL Ur Leukocyte Esterase Trace H (NEGATIVE) Urine RBC 0-1/hpf (0-5/HPF) Urine WBC 0-1/hpf (0-5/HPF) Ur Squamous Epith Cells 5-10 /hpf H (0-5/HPF) Urine Bacteria None seen (None) Hyaline Casts 1-5/lpf (None) Ur Culture Indicated? Cult not indicated Imaging Data Extremity x-ray #1: Radiologist's Impression: Cheyanne Clements??76??F??1945 ? Allergy/Adv: No Known Drug Allergies Close Wrist X-Ray (Signed) Ishan George - 02/13/[address] (Signed) Ishan George - 02/13/22 Chest X-Ray (Signed) Ishan George - 02/13/[address] (Signed) Ishan George - 02/13/22 EKG Rpt. 01/21/22 Chest/Abdomen/Pelvis CT (Signed) Jasmine Rojo - 01/21/[address] (Signed) Rafiq Li - 01/21/22 Chest X-Ray (Signed) Nahomy Gilbertng - 01/21/22 Mammogram, Additional Views (Signed) Katelyn Olivier - 12/09/21 Breast Ultrasound (Signed) Katelyn Olivier - 12/09/21 Abdomen/Pelvis CT (Signed) JimenakalinadrissRaphael - 10/21/21 Chest/Abdomen X-ray (Signed) Raphael Rogers - 10/21/21 Mammogram Screening (Signed) LizzyAung - 10/18/21 Telemetry Strips 10/08/21 Chest X-Ray (Signed) JassDeb - 10/08/21 Chest X-Ray (Signed) Deb Regan - 10/08/21 PET, Tumor Imaging Skull-Mid Thigh (Signed) Tim Rojo - 10/06/21 ECHO-Doppler Report 10/01/21 ECHO-Doppler Report 09/30/21 Outside Echo 09/30/[address] (Signed) Oscar Baer - 08/20/21 DEXA Result 08/04/21 Bone Densitometry 08/04/21 Launch?[place] [address] XRay Report Signed Patient: Cheyanne Clements MR#: [id number] : 1945 Acct:[id number] Age/Sex: 76 / F Date of Service: 02/13/22 Loc: Accession Number: [id number] ?? Procedure: XR wrist LT min 3V Ordering Provider: Sharri Dueñas D.O. PROCEDURE:? XR WRIST LT MIN 3V ? INDICATIONS: neck pain, know b cell lymphoma, wrist pain ? TECHNIQUE:? 4 views of the wrist were acquired.? ? COMPARISON:? None. ? FINDINGS:? ? Bones:? Possible minimally displaced fracture at the radial aspect of the 1st metacarpal base extending into the carpometacarpal joint.? 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 No suspicious bony lesions.? ? Scaphoid view:? Intact scaphoid. ? Soft tissues:? Chondrocalcinosis.? Mild soft tissue edema surrounding the wrist. ? ? IMPRESSION:? Linear lucency at the base of the 1st metacarpal is suspicious for a possible nondisplaced intra-articular fracture, although findings could be related to subchondral cystic changes due to the adjacent severe 1st carpometacarpal osteoarthrosis. ?Recommend correlation for point tenderness.? Repeat radiographs could be obtained in 7-10 days for further evaluation. ? ? Dictated by: Ishan George M.D. on 02/13/2022 at 12:52 ? ? Approved by: Ishan George M.D. on 02/13/2022 at 12:56? CT scan - head: Radiologist's Impression: Cheyanne Clements??76??F??1945 ? Allergy/Adv: No Known Drug Allergies Close Wrist X-Ray (Signed) Ishan George - 02/13/[address] (Signed) Ishan George - 02/13/22 Chest X-Ray (Signed) Ishan George - 02/13/[address] (Signed) Ishan George - 02/13/22 EKG Rpt. 01/21/22 Chest/Abdomen/Pelvis CT (Signed) Jasmine Rojo - 01/21/[address] (Signed) Rafiq Li - 01/21/22 Chest X-Ray (Signed) Fei Gilbert - 01/21/22 Mammogram, Additional Views (Signed) Katelyn Olivier - 12/09/21 Breast Ultrasound (Signed) Katelyn Olivier - 12/09/21 Abdomen/Pelvis CT (Signed) Raphael Rogers - 10/21/21 Chest/Abdomen X-ray (Signed) Raphael Rogers - 10/21/21 Mammogram Screening (Signed) Aung Ball - 10/18/21 Telemetry Strips 10/08/21 Chest X-Ray (Signed) Deb Regan - 10/08/21 Chest X-Ray (Signed) Deb Regan - 10/08/21 PET, Tumor Imaging Skull-Mid Thigh (Signed) Tim Rojo - 10/06/21 ECHO-Doppler Report 10/01/21 ECHO-Doppler Report 09/30/21 Outside Echo 09/30/[address] (Signed) Oscar Baer - 08/20/21 DEXA Result 08/04/21 Bone Densitometry 08/04/21 Launch?[place] [id number] CT Scan Report Signed Patient: Cheyanne Clements MR#: [id number] : 1945 Acct:[id number] Age/Sex: 76 / F Date of Service: 02/13/22 Loc: ED Accession Number: [id number] ?? Procedure: CT head/brain wo con Ordering Provider: Sharri Dueñas D.O. PROCEDURE:? CT HEAD/BRAIN WO CON ? INDICATIONS:? neck pain, know b cell lymphoma, wrist pain ? TECHNIQUE:? Noncontrast 4.5 mm thick angled axial sections acquired from the foramen magnum to the vertex, with coronal and sagittal reformats.? For radiation dose reduction, the following was used:? automated exposure control, adjustment of mA and/or kV according to patient size.? ? COMPARISON:? [facility], CT, CT HEAD/BRAIN WO CON, 01/21/2022, 12:22. ? FINDINGS:? Image quality:? Excellent.? ? CSF spaces:? Basal cisterns are patent.? No extra-axial fluid collections.? The ventricles are symmetric in size and shape.? ? Brain:? No acute intracranial hemorrhage or mass effect.? There is cerebral volume loss for age, with resultant ventricular and sulcal prominence.? There are periventricular and deep white matter chronic small vessel ischemic changes.? There is intracranial internal carotid artery atherosclerosis.? ? Skull and face:? Calvarium and visualized facial bones appear intact, without suspicious lesions.? ? Sinuses:? Visualized sinuses and mastoids are clear.? ? IMPRESSION:? No acute intracranial abnormality. ? ? Dictated by: Ishan George M.D. on 02/13/2022 at 12:37 ? ? Approved by: Ishan George M.D. on 02/13/2022 at 12:40?? Chest x-ray: Radiologist's Impression: [facility] [address] [place] [id number] XRay Report Signed Patient: Cheyanne Clements MR#: [id number] : 1945 Acct:[id number] Age/Sex: 76 / F Date of Service: 02/13/22 Loc: ED Accession Number: [id number] ?? Procedure: XR chest 1V Ordering Provider: Sharri Dueñas D.O. PROCEDURE:? XR CHEST 1V ? INDICATIONS:? neck pain, know b cell lymphoma, wrist pain ? TECHNIQUE:? One view of the chest was acquired.? ? COMPARISON:? [facility], CR, XR CHEST 1V, 01/21/2022, 10:51. ? FINDINGS:? ? Surgical changes and devices:? A right chest port is seen with catheter tip projecting over the superior cavoatrial junction. ? Lungs and pleura:? Lungs are clear.? No pleural effusions or pneumothorax.? ? Mediastinum:? Mediastinal contours appear normal.? Heart size is normal.? ? Bones and chest wall:? No suspicious bony lesions.? Overlying soft tissues appear unremarkable.? ? IMPRESSION:? No acute cardiopulmonary abnormality. ? ? Dictated by: Ishan George M.D. on 02/13/2022 at 12:49 ? ? Approved by: Ishan George M.D. on 02/13/2022 at 12:51?? ECG Data Attestation EKG: I personally reviewed and interpreted this ECG as follows: Interpretation: Sinus rhythm rate of 70 6p are 136 QRS of 92 and QTC 456. Patient has prior from 01/21/2022 which appears similar. MDM Narrative Medical decision making narrative: This is a 76-year-old female who was neutropenic with fevers on 01/21/2022 with unknown source, patient's cultures were negative. Patient has pain in her left wrist as well as neck. Family was concerned for gout, uric acid including labs were obtained patient is no longer neutropenic, troponin was indeterminate x2 but has been indeterminate on past visits with no acute EKG changes no chest pain. X-ray was concerning for possible fracture, when re-evaluated the patient and family she has had falls and son states she falls semi frequently this may be the cause of her pain today. Patient was placed in splint is neurovascularly intact, C-spine of neck does not show any bony tenderness pain was improved here in the department but narcotics did seem to make patient sick to her stomach. She had potassium earlier in her stay and tolerated that for several hours, did start having any nausea or vomiting until after 2nd dose of narcotic medicine. Renal function continues to improve over time no other electrolyte abnormalities. Pro count was negative, blood cultures are pending. Discussed with family plan for pain control splint and follow-up outpatient. Return precautions discussed. Discharge Plan Departure Patient Disposition: Home Clinical Impression: Fracture of wrist, Neck pain Instructions: DI for Wrist Fracture Activity Restrictions/Additional Instructions: Follow-up with orthopedic surgery regarding your wrist. Your imaging is suspicious for fracture especially with your recent falls. Please call to set up a follow-up appointment. Contact informations below. You may take Tylenol up to a 1000 mg every 6 hours. You can take Zofran 1 tablet every 6 hours as needed for nausea. You may also take oxycodone 1-2 tablets every 6 hours as needed for pain. Prescription sent to [facility] in [place] Splint Care: Keep splint clean and dry. Elevated affected body part to decrease swelling. OK to use ice pack on the affected body part. Use for 15-20 minutes each time, for 5-6x per day. If you develop worsening pain, numbness, tingling, discoloration of the affected body part, loosen the splint by loosening the CASSIE wrap, and either see your doctor for an urgent re-assessment, or return to the Emergency Department. Return to the Emergency Department for any new or worsening symptoms. Please return for rapidly worsening symptoms, fevers greater 100.4 F, new or worsening chest pain, shortness of breath, new numbness, weakness, loss sensation, persistent vomiting, passing out, new swelling of extremities or other new or concerning changes. Prescriptions: New ondansetron 4 mg tablet,disintegrating 4 mg PO Q6H PRN (Reason: nausea and vomiting) Qty: 10 0RF oxycodone 5 mg tablet 5 mg PO Q6H PRN (Reason: pain) Qty: 14 0RF No Action (DME) lancets 31 gauge misc See Rx Instructions .Route Qty: 100 0RF Rx Instructions: Use to check blood sugars once daily (DME) blood-glucose meter [Blood Glucose Monitoring] Kit See Rx Instructions .Route Qty: 1 0RF Rx Instructions: Use to check blood sugars once daily (DME) Blood Glucose Test Strip See Rx Instructions .Route Qty: 50 11RF Rx Instructions: Use to check blood sugars once daily glipizide 10 mg tablet extended release 24hr 10 mg PO DAILY Qty: 30 2RF allopurinol 300 mg tablet 300 mg PO DAILY gemfibrozil 600 mg tablet 600 mg PO DAILY aspirin 81 mg tablet,delayed release (DR/EC) 81 mg PO DAILY colchicine 0.6 mg tablet 0.6 mg PO PRN PRN (Reason: Gout) cholecalciferol (vitamin D3) [Vitamin D3] 25 mcg (1,000 unit) Tablet 25 mcg PO DAILY mouthwashes Kit See Rx Instructions .ROUTE .COMPLEX PRN (Reason: Mouth Irritation) Qty: 480 1RF Rx Instructions: 160mL vicous lidocaine 2% 160mL mylanta 160mL diphenhydramine 12.5mg/5mL 30ml Sig: Swish, gargle, and spit one to two teaspoonfuls for 1 minute. Repeat every six hours as needed. May be swallowed if esophageal involvement. mouthwashes Kit See Rx Instructions .ROUTE .COMPLEX PRN (Reason: Mouth Irritation) Qty: 480 1RF Rx Instructions: 160mL vicous lidocaine 2% 160mL [place] 160mL diphenhydramine 12.5mg/5mL 30ml Sig: Swish, gargle, and spit one to two teaspoonfuls for 1 minute. Repeat every six hours as needed. May be swallowed if esophageal involvement. mouthwashes Kit 5 - 10 ml MUCOUS MEMBRANE Q6HR PRN (Reason: mouth irritation/thrush) Qty: 640 1RF Rx Instructions: 160MLS viscous lidocaine 2% 160MLS Mylanta 160MLS Nystatin 100,000U suspension 160MLS Diphenhydramine 12.5MG/5MLS Swish, gargle and spit one to two teaspoons for 1 minute. Repeat every six hours as needed. May be swallowed if esophaheal involvement. acetaminophen 500 mg Capsule 1,000 mg PO Q6H PRN (Reason: Fever) Referrals: Ez Galeano MD [Primary Care Provider] - Mari Lemus MD [Physician] - Visit Report Forms: Patient Portal/API
--- NOTE | 2022-02-13 12:31 | DI.RAD.S_ITS ---
PROCEDURE: XR CHEST 1V INDICATIONS: neck pain, know b cell lymphoma, wrist pain TECHNIQUE: One view of the chest was acquired. COMPARISON: [facility], CR, XR CHEST 1V, 01/21/2022, 10:51. FINDINGS: Surgical changes and devices: A right chest port is seen with catheter tip projecting over the superior cavoatrial junction. Lungs and pleura: Lungs are clear. No pleural effusions or pneumothorax. Mediastinum: Mediastinal contours appear normal. Heart size is normal. Bones and chest wall: No suspicious bony lesions. Overlying soft tissues appear unremarkable. IMPRESSION: No acute cardiopulmonary abnormality. Dictated by: Ishan George M.D. on 02/13/2022 at 12:49 Approved by: Ishan George M.D. on 02/13/2022 at 12:51
--- NOTE | 2022-02-13 12:31 | DI.RAD.S_ITS ---
PROCEDURE: XR WRIST LT MIN 3V INDICATIONS: neck pain, know b cell lymphoma, wrist pain TECHNIQUE: 4 views of the wrist were acquired. COMPARISON: None. FINDINGS: Bones: Possible minimally displaced fracture at the radial aspect of the 1st metacarpal base extending into the carpometacarpal joint. 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 No suspicious bony lesions. Scaphoid view: Intact scaphoid. Soft tissues: Chondrocalcinosis. Mild soft tissue edema surrounding the wrist. IMPRESSION: Linear lucency at the base of the 1st metacarpal is suspicious for a possible nondisplaced intra-articular fracture, although findings could be related to subchondral cystic changes due to the adjacent severe 1st carpometacarpal osteoarthrosis. Recommend correlation for point tenderness. Repeat radiographs could be obtained in 7-10 days for further evaluation. Dictated by: Ishan George M.D. on 02/13/2022 at 12:52 Approved by: Ishan George M.D. on 02/13/2022 at 12:56
--- NOTE | 2022-02-13 12:31 | DI.CT.S_ITS ---
PROCEDURE: CT CERVICAL SPINE WO CON INDICATIONS: neck pain, know b cell lymphoma, wrist pain TECHNIQUE: Noncontrast 3 mm thick sections acquired from the skull base to the T4 level. Sagittal and coronal reformats were then constructed. For radiation dose reduction, the following was used: automated exposure control, adjustment of mA and/or kV according to patient size. COMPARISON: [place], [place], [place] PET CT FUSION SKULL 2 THIGH, 10/06/2021, 9:13. FINDINGS: Image quality: Excellent. Bones: No acute fractures or dislocations. Visualized superior ribs are intact. Multilevel disc space narrowing and degenerative endplate changes are seen. There is multilevel facet and uncovertebral joint hypertrophy. Soft tissues: Prevertebral soft tissues are normal in thickness. No paravertebral hematomas. No apical pneumothoraces. A tunneled right internal jugular catheter is partially imaged. IMPRESSION: No acute cervical spine fracture or subluxation. Multilevel degenerative changes. Dictated by: Ishan George M.D. on 02/13/2022 at 12:40 Approved by: Ishan George M.D. on 02/13/2022 at 12:45
--- NOTE | 2022-02-13 12:31 | DI.CT.S_ITS ---
PROCEDURE: CT HEAD/BRAIN WO CON INDICATIONS: neck pain, know b cell lymphoma, wrist pain TECHNIQUE: Noncontrast 4.5 mm thick angled axial sections acquired from the foramen magnum to the vertex, with coronal and sagittal reformats. For radiation dose reduction, the following was used: automated exposure control, adjustment of mA and/or kV according to patient size. COMPARISON: [facility], CT, CT HEAD/BRAIN WO CON, 01/21/2022, 12:22. FINDINGS: Image quality: Excellent. CSF spaces: Basal cisterns are patent. No extra-axial fluid collections. The ventricles are symmetric in size and shape. Brain: No acute intracranial hemorrhage or mass effect. There is cerebral volume loss for age, with resultant ventricular and sulcal prominence. There are periventricular and deep white matter chronic small vessel ischemic changes. There is intracranial internal carotid artery atherosclerosis. Skull and face: Calvarium and visualized facial bones appear intact, without suspicious lesions. Sinuses: Visualized sinuses and mastoids are clear. IMPRESSION: No acute intracranial abnormality. Dictated by: Ishan George M.D. on 02/13/2022 at 12:37 Approved by: Ishan George M.D. on 02/13/2022 at 12:40
[2022-02-13] MEDS: MORPHINE 4 MG/ML INJ IV (12:52)
[2022-02-13] MEDS: SODIUM CHLORIDE 0.9% 1,000 ML 1000 ML IV (12:59)
[2022-02-13 13:02] LABS: Add Manual Diff / Slide Review NO; Basophils Absolute Auto 100 /uL (0-100); Basophils Percent Auto 0.8 % (0-2); Eosinophils Absolute Auto 100 /uL (0-450); Eosinophils Percent Auto 1.8 % (2-4); Hematocrit 26.4 % (36-46); Hemoglobin 8.7 g/dL (12.0-16.0); Lymphocytes Absolute Auto 300 /uL (1100-4500); Lymphocytes Percent Auto 4.1 % (25-40); Mean Corpuscular HGB Conc 33.1 % (30-36); Mean Corpuscular Hemoglobin 27.6 PG (26-34); Mean Corpuscular Volume 83.4 fL (80-100); Monocytes Absolute Auto 600 /uL (0-900); Monocytes Percent Auto 8.5 % (3-14); Neutrophils Absolute Auto 6400 /uL (1500-7000); Neutrophils Percent Auto 84.8 % (50-75); Platelet Count 144 X10^3/uL (150-400); Red Blood Cell Count 3.16 X10^6/uL (4.0-5.2); Red Cell Distribution Width 18.7 % (11.6-14.8); White Blood Cell Count 7.6 X10^3/uL (4.5-11.0)
[2022-02-13 13:06] LABS: INR 1.2 (0.9-1.3); Prothrombin Time 13.8 SECONDS (10.1-12.7)
[2022-02-13 13:08] LABS: PTT Partial Thromboplastin Tim 30 SECONDS (26-36)
[2022-02-13 13:09] LABS: Alanine Aminotransferase 8 IU/L (<35); Albumin 3.5 g/dL (3.5-5.0); Albumin Globulin Ratio 1.2 (1.0-2.8); Alkaline Phosphatase 101 U/L (38-126); Aspartate Aminotransferase 22 IU/L (14-36); Bilirubin Total 0.8 mg/dL (0.2-1.3); Blood Urea Nitrogen 16 mg/dL (7-17); Carbon Dioxide 25 mmol/L (22-32); Chloride 102 mmol/L (98-107); Creatine Kinase 49 U/L (30-135); Estimated Glomerular Filt Rate 55 mL/min (>60); Glucose 74 mg/dL (80-110); HEMOLYSIS < 15 (0-50); Sodium 137 mmol/L (137-145); Total Protein 6.5 g/dL (6.3-8.2); Uric Acid 5.8 mg/dL (2.5-6.2)
[2022-02-13 13:10] LABS: Lactate (Lactic Acid) 0.8 mmol/L (0.7-2.1)
--- NOTE | 2022-02-13 13:13 | PC.NURSE ---
Pt reports waking with severe neck pain, increased with slightest movement, also left wrist pain with swelling noted at the joint. Pt has history of gout typically exacerbates in her feet. Pt recently hospitalized and ordered to stop several medications r/t kidney injury.
[2022-02-13 13:21] LABS: Troponin I 0.055 ng/mL (0.01-0.034)
[2022-02-13 13:25] LABS: Appearance Urine UA CLEAR; Bilirubin Urine UA NEGATIVE (NEGATIVE); Color Urine UA YELLOW; Glucose Urine UA TRACE g/dL (Negative); Ketones Urine UA NEGATIVE (NEGATIVE); Leukocyte Esterase Urine UA TRACE (NEGATIVE); Nitrite Urine UA NEGATIVE (Negative); Occult Blood Urine UA TRACE-INTACT (Negative); Protein Urine UA NEGATIVE (Negative); Specific Gravity Urine UA 1.015 (1.000-1.035)
[2022-02-13 13:26] LABS: Procalcitonin 0.14 ng/mL (<0.5)
[2022-02-13 13:54] LABS: Bacteria Urine None Seen; Culture Indicated Urine Cult Not Indicated; Hyaline Casts Urine 1-5/LPF; RBC Urine 0-1/HPF (0-5/HPF); Squamous Epithelial Cell Urine 5-10 /HPF (0-5/HPF); WBC Urine 0-1/HPF (0-5/HPF)
[2022-02-13] MEDS: HYDROMORPHONE 1 MG INJ IV (14:41)
[2022-02-13] MEDS: POTASSIUM CHLORIDE 20 MEQ/15 ML UDC 40 MEQ PO (14:41)
[2022-02-13 15:23] LABS: Troponin I 0.064 ng/mL (0.01-0.034)
[2022-02-13] MEDS: ONDANSETRON 4 MG/2 ML INJ IV (16:28)
== END 2022-02-13 17:28 | disposition home or self-care (01) ==
PROVIDERS: Emergency Provider Emergency Medicine; PCP Student in an Organized Health Care Education/Training Program
DX: S62.102A Fracture of unspecified carpal bone, left wrist, initial encounter for closed fracture (principal); M54.2 Cervicalgia
CPT/HCPCS: 36415; 70450; 71045; 72125; 73110; 80053; 81001; 82550; 83605; 84145; 84484; 84550; 85025; 85610; 85730; 87040; 93005; 96361; 96374; 96375; 99284; J1170; J1642; J2270; J2405

== ENCOUNTER → 2022-05-31 12:48 | Outpatient (CLI) | payer MEDICARE, OTHER, SELFPAY ==
[2022-01-21 15:37] VITALS: BMI 28.8
[2022-05-31 13:29] LABS: Add Manual Diff / Slide Review NO; Basophils Absolute Auto 100 /uL (0-100); Basophils Percent Auto 1.2 % (0-2); Eosinophils Absolute Auto 200 /uL (0-450); Eosinophils Percent Auto 3.9 % (2-4); Hematocrit 35.8 % (36-46); Hemoglobin 11.8 g/dL (12.0-16.0); Lymphocytes Absolute Auto 600 /uL (1100-4500); Lymphocytes Percent Auto 11.8 % (25-40); Mean Corpuscular HGB Conc 32.9 % (30-36); Mean Corpuscular Hemoglobin 26.4 PG (26-34); Mean Corpuscular Volume 80.1 fL (80-100); Monocytes Absolute Auto 500 /uL (0-900); Monocytes Percent Auto 10.4 % (3-14); Neutrophils Absolute Auto 3400 /uL (1500-7000); Neutrophils Percent Auto 72.7 % (50-75); Platelet Count 171 X10^3/uL (150-400); Red Blood Cell Count 4.47 X10^6/uL (4.0-5.2); Red Cell Distribution Width 15.6 % (11.6-14.8); White Blood Cell Count 4.7 X10^3/uL (4.5-11.0)
[2022-05-31 13:44] LABS: Alanine Aminotransferase 14 IU/L (<35); Albumin 3.9 g/dL (3.5-5.0); Albumin Globulin Ratio 1.3 (1.0-2.8); Alkaline Phosphatase 85 U/L (38-126); Aspartate Aminotransferase 23 IU/L (14-36); BUN Creatinine Ratio 21.8 (6-22); Bilirubin Total 0.3 mg/dL (0.2-1.3); Blood Urea Nitrogen 22 mg/dL (7-17); Calcium 9.1 mg/dL (8.4-10.2); Carbon Dioxide 27 mmol/L (22-32); Chloride 101 mmol/L (98-107); Estimated Glomerular Filt Rate 58 mL/min (>60); Globulin 2.9 g/dL (1.7-4.1); Glucose 117 mg/dL (80-110); HEMOLYSIS < 15 (0-50); Lactate Dehydrogenase 165 U/L (120-246); Potassium 3.5 mmol/L (3.4-5.1); Sodium 137 mmol/L (137-145); Total Protein 6.8 g/dL (6.3-8.2)
[2022-05-31 14:01] LABS: Appearance Urine UA SL CLOUDY; Bilirubin Urine UA NEGATIVE (NEGATIVE); Color Urine UA YELLOW; Glucose Urine UA NEGATIVE (Negative); Ketones Urine UA NEGATIVE (NEGATIVE); Leukocyte Esterase Urine UA 2+ (NEGATIVE); Nitrite Urine UA POSITIVE (Negative); Occult Blood Urine UA 1+ (Negative); Protein Urine UA TRACE (Negative); Specific Gravity Urine UA 1.015 (1.000-1.035); Urobilinogen Urine UA 0.2 E.U./dL (0.2)
[2022-05-31 14:11] LABS: Bacteria Urine Many (>30); Culture Indicated Urine Specimen Cultured; RBC Urine 1-5/HPF (0-5/HPF); WBC Urine 30-100/HPF (0-5/HPF)
== END ==
PROVIDERS: Internal Medicine Medical Oncology; PCP Student in an Organized Health Care Education/Training Program; Referring Provider Student in an Organized Health Care Education/Training Program; Visit Provider Student in an Organized Health Care Education/Training Program
DX: E11.9 Type 2 diabetes mellitus without complications (principal); C85.10 Unspecified B-cell lymphoma, unspecified site; B37.49 Other urogenital candidiasis; L29.3 Anogenital pruritus, unspecified; L29.9 Pruritus, unspecified; R30.0 Dysuria; R35.0 Frequency of micturition
CPT/HCPCS: 36415; 80053; 81001; 83036; 83615; 85025; 87077; 87086; 87186

== ENCOUNTER → 2022-06-23 09:40 | Outpatient (CLI) | payer MEDICARE, OTHER, SELFPAY ==
[2022-01-21 15:37] VITALS: BMI 28.8
--- NOTE | 2022-06-23 09:42 | DI.MG.S_ITS ---
UNILATERAL RIGHT DIGITAL DIAGNOSTIC MAMMOGRAM 3D/2D SHORT-TERM FOLLOW-UP: 06/23/2022 CLINICAL: Patient returns for a 6 month follow up of the right breast. Comparison is made to exams dated: 12/09/2021 mammogram, 10/18/2021 mammogram - [facility], 10/16/2020 mammogram, and 11/20/2019 mammogram - outside facility. There are scattered areas of fibroglandular density in the right breast (category b / 25%-50% glandular tissue). No significant masses, calcifications, or other findings are seen in the breast. There has been no significant interval change. IMPRESSION: NEGATIVE There is no mammographic evidence of malignancy. A 1 year screening mammogram is recommended. Based on the Tyrer Cuzick model (a risk assessment model) the patient's lifetime risk is 2.8% and her 10 year risk is 2.8%. According to the ACR, ACS, and NCCN guidelines, an annual breast MRI exam along with mammogram is recommended if the patient's lifetime risk is 20% or greater. This exam was interpreted at Station ID: [id number]. NOTE: For mammograms, a report in lay terms will be sent to the patient. Approximately 15% of breast malignancies will not be visualized mammographically. In the management of a palpable breast mass, a negative mammogram must not discourage biopsy of a clinically suspicious lesion. Electronically Signed By: Rafiq Li M.D., jr/yakelin:06/23/2022 14:08:04 letter sent: Normal Exam ACR BI-RADS Category 1: Negative [id number]
== END ==
PROVIDERS: PCP Student in an Organized Health Care Education/Training Program; Referring Provider Student in an Organized Health Care Education/Training Program; Visit Provider Student in an Organized Health Care Education/Training Program
DX: R92.8 Other abnormal and inconclusive findings on diagnostic imaging of breast (principal)
CPT/HCPCS: 77065; G0279

== ENCOUNTER → 2022-11-29 12:29 | Outpatient (CLI) | payer MEDICARE, OTHER, SELFPAY ==
[2022-01-21 15:37] VITALS: BMI 28.8
[2022-11-29 14:06] LABS: Appearance Urine UA CLEAR; Bilirubin Urine UA NEGATIVE (NEGATIVE); Color Urine UA YELLOW; Glucose Urine UA NEGATIVE (Negative); Ketones Urine UA NEGATIVE (NEGATIVE); Leukocyte Esterase Urine UA TRACE (NEGATIVE); Nitrite Urine UA NEGATIVE (Negative); Occult Blood Urine UA TRACE-INTACT (Negative); Protein Urine UA 1+ (Negative); Specific Gravity Urine UA 1.025 (1.000-1.035); Urobilinogen Urine UA 0.2 E.U./dL (0.2)
[2022-11-29 14:07] LABS: Add Manual Diff / Slide Review NO; Basophils Absolute Auto 100 /uL (0-100); Eosinophils Absolute Auto 200 /uL (0-450); Eosinophils Percent Auto 3.6 % (2-4); Hematocrit 38.6 % (36-46); Hemoglobin 12.7 g/dL (12.0-16.0); Lymphocytes Absolute Auto 800 /uL (1100-4500); Lymphocytes Percent Auto 15.5 % (25-40); Mean Corpuscular HGB Conc 32.9 % (30-36); Mean Corpuscular Hemoglobin 27.3 PG (26-34); Monocytes Absolute Auto 400 /uL (0-900); Monocytes Percent Auto 8.3 % (3-14); Neutrophils Absolute Auto 3800 /uL (1500-7000); Neutrophils Percent Auto 71.6 % (50-75); Platelet Count 177 X10^3/uL (150-400); Red Blood Cell Count 4.65 X10^6/uL (4.0-5.2); Red Cell Distribution Width 15.2 % (11.6-14.8); White Blood Cell Count 5.3 X10^3/uL (4.5-11.0)
[2022-11-29 14:17] LABS: pH Urine UA 5.5 (4.5-8.0)
[2022-11-29 14:29] LABS: RBC Urine None Seen (0-5/HPF)
[2022-11-29 14:30] LABS: Bacteria Urine None Seen; Culture Indicated Urine Specimen Cultured; Squamous Epithelial Cell Urine 1-5 /HPF (0-5/HPF); WBC Urine 1-5/HPF (0-5/HPF)
[2022-11-29 15:06] LABS: TSH w/ Reflex to FT4 1.21 uIU/mL (0.47-4.68)
== END ==
PROVIDERS: PCP Pediatrics; Referring Provider Pediatrics; Visit Provider Pediatrics
DX: D64.9 Anemia, unspecified (principal); M85.80 Other specified disorders of bone density and structure, unspecified site; E11.9 Type 2 diabetes mellitus without complications; I10 Essential (primary) hypertension
CPT/HCPCS: 36415; 81001; 82306; 84443; 85025; 87086

== ENCOUNTER → 2022-12-16 07:18 | Outpatient (CLI) | payer MEDICARE, OTHER, SELFPAY ==
[2022-01-21 15:37] VITALS: BMI 28.8
[2022-12-16 07:41] LABS: Add Manual Diff / Slide Review NO; Basophils Absolute Auto 100 /uL (0-100); Basophils Percent Auto 1.2 % (0-2); Eosinophils Absolute Auto 200 /uL (0-450); Eosinophils Percent Auto 3.6 % (2-4); Hematocrit 37.5 % (36-46); Hemoglobin 12.5 g/dL (12.0-16.0); Lymphocytes Absolute Auto 700 /uL (1100-4500); Lymphocytes Percent Auto 14.1 % (25-40); Mean Corpuscular HGB Conc 33.3 % (30-36); Mean Corpuscular Hemoglobin 27.3 PG (26-34); Mean Corpuscular Volume 81.9 fL (80-100); Monocytes Absolute Auto 400 /uL (0-900); Monocytes Percent Auto 8.4 % (3-14); Neutrophils Absolute Auto 3400 /uL (1500-7000); Neutrophils Percent Auto 72.7 % (50-75); Platelet Count 159 X10^3/uL (150-400); Red Blood Cell Count 4.58 X10^6/uL (4.0-5.2); White Blood Cell Count 4.7 X10^3/uL (4.5-11.0)
[2022-12-16 07:58] LABS: HEMOLYSIS < 15 (0-50)
[2022-12-16 08:20] LABS: Alanine Aminotransferase 17 IU/L (<35); Albumin 3.8 g/dL (3.5-5.0); Albumin Globulin Ratio 1.4 (1.0-2.8); Alkaline Phosphatase 83 U/L (38-126); Aspartate Aminotransferase 24 IU/L (14-36); BUN Creatinine Ratio 17.2 (6-22); Bilirubin Total 0.7 mg/dL (0.2-1.3); Blood Urea Nitrogen 17 mg/dL (7-17); Calcium 8.9 mg/dL (8.4-10.2); Carbon Dioxide 28 mmol/L (22-32); Chloride 106 mmol/L (98-107); Estimated Glomerular Filt Rate 59 mL/min (>60); Globulin 2.7 g/dL (1.7-4.1); Glucose 136 mg/dL (80-110); Lactate Dehydrogenase 190 U/L (120-246); Potassium 3.5 mmol/L (3.4-5.1); Sodium 139 mmol/L (137-145); Total Protein 6.5 g/dL (6.3-8.2)
[2022-12-16 08:48] LABS: Microalbumi Creatinin Ratio Ur 48.5 ug/mg CR (<30); Microalbumin Urine Random 6.5 mg/dL (0-1.6)
[2022-12-17 09:30] LABS: Labcorp Hemoglobin (Hb) A1c 7.1 % (4.8-5.6)
== END ==
PROVIDERS: Internal Medicine Medical Oncology; PCP Pediatrics; Referring Provider Student in an Organized Health Care Education/Training Program; Visit Provider Student in an Organized Health Care Education/Training Program
DX: C83.30 Diffuse large B-cell lymphoma, unspecified site (principal); E11.69 Type 2 diabetes mellitus with other specified complication; E11.9 Type 2 diabetes mellitus without complications; E78.5 Hyperlipidemia, unspecified; I10 Essential (primary) hypertension
CPT/HCPCS: 36415; 80053; 82043; 82570; 83036; 83615; 85025

== ENCOUNTER → 2022-12-22 08:46 | Outpatient (CLI) | payer MEDICARE, OTHER, SELFPAY ==
[2022-01-21 15:37] VITALS: BMI 28.8
--- NOTE | 2022-12-22 08:47 | DI.US.S_ITS ---
PROCEDURE: US ABDOMEN LIMITED INDICATIONS: ABDOMINAL WALL LUMPS TECHNIQUE: Real-time focused scanning was performed of the abdomen wall in the areas of interest, with image documentation. COMPARISON: None. FINDINGS: No evidence of mass or hernia within the left lower quadrant and right lower quadrant abdominal avila. To the left of the umbilicus, there is a 6.8 x 1.9 x 5.1 cm fat containing lesion. Deep to this is a 1.3 cm defect in the anterior abdominal wall with herniation of fat. IMPRESSION: Defect in the anterior abdominal wall to the left of the umbilicus measuring 1.3 cm herniation of fat. Just superficial is a 6.8 cm fat containing lesion. This may represent herniation of fat through the defect versus lipoma. If clinically indicated, CT can be obtained for further evaluation. Dictated by: Aftab Mccarthy M.D. on 12/22/2022 at 11:18 Approved by: Aftab Mccarthy M.D. on 12/22/2022 at 11:22
== END ==
PROVIDERS: PCP Pediatrics; Referring Provider Pediatrics; Visit Provider Pediatrics
DX: K57.90 Diverticulosis of intestine, part unspecified, without perforation or abscess without bleeding (principal); K46.9 Unspecified abdominal hernia without obstruction or gangrene; R10.32 Left lower quadrant pain
CPT/HCPCS: 76705

== ENCOUNTER → 2023-09-19 16:49 | Outpatient (CLI) | payer MEDICARE, SELFPAY ==
[2022-01-21 15:37] VITALS: BMI 28.8
[2023-09-19 17:30] LABS: Add Manual Diff / Slide Review NO; Basophils Absolute Auto 100 /uL (0-100); Basophils Percent Auto 1.2 % (0-2); Eosinophils Absolute Auto 300 /uL (0-450); Eosinophils Percent Auto 4.2 % (2-4); Hematocrit 36.7 % (36-46); Hemoglobin 12.1 g/dL (12.0-16.0); Lymphocytes Absolute Auto 1000 /uL (1100-4500); Lymphocytes Percent Auto 16.4 % (25-40); Mean Corpuscular HGB Conc 32.8 % (30-36); Mean Corpuscular Hemoglobin 27.9 PG (26-34); Mean Corpuscular Volume 84.9 fL (80-100); Monocytes Absolute Auto 500 /uL (0-900); Monocytes Percent Auto 8.4 % (3-14); Neutrophils Absolute Auto 4300 /uL (1500-7000); Neutrophils Percent Auto 69.8 % (50-75); Platelet Count 286 X10^3/uL (150-400); Red Blood Cell Count 4.32 X10^6/uL (4.0-5.2); Red Cell Distribution Width 14.5 % (11.6-14.8); White Blood Cell Count 6.2 X10^3/uL (4.5-11.0)
[2023-09-19 17:51] LABS: Alanine Aminotransferase 18 IU/L (<35); Albumin 4.1 g/dL (3.5-5.0); Albumin Globulin Ratio 1.6 (1.0-2.8); Alkaline Phosphatase 96 U/L (38-126); Aspartate Aminotransferase 26 IU/L (14-36); BUN Creatinine Ratio 29.2 (6-22); Bilirubin Total 0.5 mg/dL (0.2-1.3); Blood Urea Nitrogen 28 mg/dL (7-17); Calcium 9.5 mg/dL (8.4-10.2); Carbon Dioxide 29 mmol/L (22-32); Chloride 105 mmol/L (98-107); Estimated Glomerular Filt Rate > 60 mL/min (>60); Globulin 2.6 g/dL (1.7-4.1); Glucose 120 mg/dL (80-110); HEMOLYSIS < 15 (0-50); Lipase 68 U/L (23-300); Potassium 4.4 mmol/L (3.4-5.1); Sodium 137 mmol/L (137-145); Total Protein 6.7 g/dL (6.3-8.2); Uric Acid 7.1 mg/dL (2.5-6.2)
[2023-09-19 18:21] LABS: TSH w/ Reflex to FT4 1.84 uIU/mL (0.47-4.68)
[2023-09-19 18:55] LABS: Hemoglobin A1C% w Est Avg Glu 6.6 % (4.0-6.0)
== END ==
PROVIDERS: PCP Family Medicine; Referring Provider Family Medicine; Visit Provider Family Medicine
DX: E11.9 Type 2 diabetes mellitus without complications (principal); D64.9 Anemia, unspecified; M10.9 Gout, unspecified; I10 Essential (primary) hypertension
CPT/HCPCS: 36415; 80053; 83036; 83690; 84443; 84550; 85025

== ENCOUNTER → 2023-12-04 19:00 | Outpatient (CLI) | payer MEDICARE, SELFPAY ==
[2022-01-21 15:37] VITALS: BMI 28.8
[2023-12-04 19:11] LABS: Appearance Urine UA CLEAR; Bilirubin Urine UA NEGATIVE (NEGATIVE); Color Urine UA YELLOW; Glucose Urine UA NEGATIVE (Negative); Ketones Urine UA NEGATIVE (NEGATIVE); Leukocyte Esterase Urine UA 1+ (NEGATIVE); Nitrite Urine UA NEGATIVE (Negative); Occult Blood Urine UA TRACE-INTACT (Negative); Protein Urine UA NEGATIVE (Negative); Specific Gravity Urine UA 1.015 (1.000-1.035); Urobilinogen Urine UA 0.2 E.U./dL (0.2)
[2023-12-04 19:39] LABS: Bacteria Urine Moderate (10-30); Culture Indicated Urine Specimen Cultured; RBC Urine None Seen (0-5/HPF); Squamous Epithelial Cell Urine 0-1 /HPF (0-5/HPF); Urine Volume 10mL (spun); WBC Urine 5-10/HPF (0-5/HPF)
== END ==
PROVIDERS: PCP Family Medicine; Visit Provider Nurse Practitioner Family
DX: R30.0 Dysuria (principal); R39.9 Unspecified symptoms and signs involving the genitourinary system
CPT/HCPCS: 81001; 87077; 87086

== ENCOUNTER 2023-12-12 09:02 | Emergency (ER) | payer MEDICARE, SELFPAY ==
[2022-01-21 15:37] VITALS: BMI 28.8
[2023-12-12 09:04] VITALS: BP 196/83; PULSE 78; RESP 14; TEMP 37.1; O2SAT 96
--- NOTE | 2023-12-12 09:31 | DI.RAD.S_ITS ---
PROCEDURE: XR WRIST RT MIN 3V INDICATIONS: Pain/swelling TECHNIQUE: 4 views of the wrist were acquired. COMPARISON: [facility], , XR WRIST LT MIN 3V, 02/13/2022, 13:16. FINDINGS: Bones: No fractures or dislocations. Mild degenerative changes at the wrist. No suspicious bony lesions. Soft tissues: Chondrocalcinosis of the radiocarpal joint. Atherosclerotic vascular calcifications. IMPRESSION: No acute osseous abnormalities. Mild degenerative changes. Chondrocalcinosis is present. Differential diagnosis includes but is not limited to hemochromatosis, hyperparathyroidism and CPPD. Dictated by: Aftab Mccarthy M.D. on 12/12/2023 at 10:15 Approved by: Aftab Mccarthy M.D. on 12/12/2023 at 10:16
--- NOTE | 2023-12-12 09:33 | ED_ITS ---
HPI - Skin/Abscess/Foreign Bdy General Chief complaint: Skin/Abscess/Foreign Body Stated complaint: cellulitis on R arm Time Seen by Provider: 12/12/23 09:06 Source: patient Mode of arrival: Ambulatory Limitations: no limitations History of Present Illness HPI narrative: Patient brought here by sent for complaints 2 days of right wrist pain redness swelling. No known injury. History of gout in multiple joints but never had gout in this wrist before. Recently had gouty flare-up 2 weeks ago and was on indomethacin and colchicine. She is on allopurinol daily. No known injury. Has limited range of motion to the wrist due to pain and swelling. No fever chills. No history of MRSA. Related Data Home Medications Medication Instructions Recorded Confirmed acetaminophen 500 mg capsule 1,000 mg PO Q6H PRN Fever 02/02/22 12/04/23 colchicine PO 12/04/23 indomethacin PO 12/04/23 Previous Rx's Medication Instructions Recorded lancets 31 gauge #100 ea 08/16/21 blood sugar diagnostic (Blood #50 ea 10/11/21 Glucose Test strips) blood-glucose meter (Blood Glucose #1 ea 10/11/21 Monitoring kit) allopurinol 100 mg tablet 100 mg PO DAILY #90 tabs 09/27/23 donepezil 5 mg tablet (Aricept) 5 mg PO DAILY #30 tabs 09/27/23 amoxicillin 875 mg-potassium 1 tab PO BID #10 tabs 12/06/23 clavulanate 125 mg tablet colchicine 0.6 mg tablet 0.6 mg PO BID #4 tabs 12/12/23 indomethacin 50 mg capsule 50 mg PO TID #10 caps 12/12/23 oxycodone-acetaminophen 5 mg-325 1 tab PO Q4-6H PRN pain #12 tabs 12/12/23 mg tablet (Percocet) Allergies Allergy/AdvReac Type Severity Reaction Status Date / Time No Known Drug Allergies Allergy Verified 12/12/23 09:16 Review of Systems Review of Systems Narrative: GENERAL: negative chills, fatigue, malaise, fever, sweats. HEENT: negative sinus pain, ear pain, sore throat RESPIRATORY: negative dyspnea, cough CARDIOVASCULAR: negative chest pain, palpitations GASTROINTESTINAL: negative nausea, vomiting, abdominal pain : negative dysuria, frequency, hematuria MUSCULOSKELETAL: Positive muscle or bony pain SKIN: negative rash, skin lesions NEUROLOGIC: negative weakness, numbness ROS Unobtainable: All systems reviewed & are unremarkable except as noted in HPI and below Patient History Medical History Abdominal wall hernia Dementia Anemia Lela UTI Diffuse large B cell lymphoma Type 2 diabetes mellitus Essential hypertension Hepatitis B Wears glasses Alopecia (~1970) Depression Anxiety Carpal tunnel syndrome Mumps Measles Chicken pox Vertigo Cataracts, bilateral GERD (gastroesophageal reflux disease) Surgical History Anesthesia History of hernia repair History of hand surgery History of tonsillectomy History of hysterectomy Family History Father Hypertension Hyperlipidemia Mother MVA (motor vehicle accident) Sister Heart defect Social History household members: family Smoking Status: Never smoker alcohol intake: never Smoking Status: Never smoker alcohol intake frequency: holidays/special occasions only Substance Use Type: does not use Exam Narrative Exam Narrative: GENERAL: in no distress, not toxic not dyspneic HEAD: Normocephalic. EYES: Pupils equal round ENT: Mucous membranes moist. EXTREMITIES: No gross deformities. Examination of right upper extremity nontender elbow and shoulder. There is diffuse dorsal wrist edema erythema with limited range of motion at the wrist due to pain. Hand otherwise warm soft pink with brisk cap refills. Strong radial pulse. Light touch intact to thumb and fingers. NEURO: AOx4. SKIN: Warm and dry PSYCH: Not anxious, is cooperative Initial Vital Signs Initial Vital Signs: Vital Signs Temperature 98.8 F 12/12/23 09:04 Pulse Rate 78 12/12/23 09:04 Respiratory Rate 14 12/12/23 09:04 Blood Pressure 196/83 H 12/12/23 09:04 Pulse Oximetry 96 12/12/23 09:04 Oxygen Delivery Method Room Air 12/12/23 09:04 Procedures Orthopedic Splinting/Casting Injury #1: Time of procedure: 11:18 Side: right Upper Extremity Injury Location: wrist Upper Extremity Immobilizer: wrist splint (Velcro wrist splint) Post splinting neuro exam: intact and no change Post splinting vascular exam: no change Placed by: Nursing Additional Comments: Splint placed for comfort. No injury. Splint placed for arthritic pain. Course Orders Ordered: Discontinued Medications Ketorolac Tromethamine (Ketorolac 30 Mg/Ml Vial) 30 mg IM NOW ONE Stop: 12/12/23 11:11 Last Admin: 12/12/23 11:12 Dose: 30 mg Documented By: Ondansetron HCl (Ondansetron 4 Mg Odt) 4 mg SL NOW ONE Stop: 12/12/23 09:33 Last Admin: 12/12/23 09:47 Dose: 4 mg Documented By: JING Oxycodone/Acetaminophen (Oxycodone/Acetaminophen 5/325 Tablet) 1 tab PO NOW ONE Stop: 12/12/23 09:33 Last Admin: 12/12/23 09:47 Dose: 1 tab Documented By: JING Vital Signs Vital signs: Vital Signs - 8 hr 12/12/23 09:04 Temperature 98.8 F Pulse Rate 78 Respiratory Rate 14 Blood Pressure 196/83 H Pulse Oximetry 96 Oxygen Delivery Method Room Air MDM - Skin/Abscess/Foreign Bdy Lab Data 12/12/23 09:50 12/12/23 09:50 Labs: Lab Results 12/12/23 Range/Units 09:50 WBC 10.9 (4.5-11.0) X10^3/uL RBC 4.68 (4.0-5.2) X10^6/uL Hgb 12.9 (12.0-16.0) g/dL Hct 38.7 (36-46) % MCV 82.7 (80-100) fL MCH 27.5 (26-34) PG MCHC 33.3 (30-36) % RDW 14.7 (11.6-14.8) % Plt Count 264 (150-400) X10^3/uL Neut % (Auto) 82.3 H (50-75) % Lymph % (Auto) 7.4 L (25-40) % Mitchell % (Auto) 9.1 (3-14) % Eos % (Auto) 0.7 L (2-4) % Baso % (Auto) 0.5 (0-2) % Neut # (Auto) 9000 H (8653-8471) /uL Lymph # (Auto) 800 L (0542-9490) /uL Mitchell # (Auto) 1000 H (0-900) /uL Eos # (Auto) 100 (0-450) /uL Baso # (Auto) 100 (0-100) /uL Sodium 139 (137-145) mmol/L Potassium 3.8 (3.4-5.1) mmol/L Chloride 105 (98-107) mmol/L Carbon Dioxide 27 (22-32) mmol/L BUN 27 H (7-17) mg/dL Creatinine 0.94 (0.52-1.04) mg/dL Estimated GFR > 60 (>60) mL/min BUN/Creatinine Ratio 28.7 H (6-22) Glucose 156 H (80-110) mg/dL Uric Acid 6.9 H (2.5-6.2) mg/dL Calcium 8.8 (8.4-10.2) mg/dL Total Bilirubin 0.9 (0.2-1.3) mg/dL AST 27 (14-36) IU/L ALT 18 (<35) IU/L Alkaline Phosphatase 84 (38-126) U/L Total Protein 7.0 (6.3-8.2) g/dL Albumin 4.2 (3.5-5.0) g/dL Globulin 2.8 (1.7-4.1) g/dL Albumin/Globulin Ratio 1.5 (1.0-2.8) [facility] Narrative Medical decision making narrative: Patient brought here by sent for complaints 2 days of right wrist pain redness swelling. No known injury. History of gout in multiple joints but never had gout in this wrist before. Recently had gouty flare-up 2 weeks ago and was on indomethacin and colchicine. She is on allopurinol daily. No known injury. Has limited range of motion to the wrist due to pain and swelling. No fever chills. No history of MRSA. After history and exam x-ray right wrist uric acid CBC CMP oxycodone Zofran MDM Medical records reviewed: No recent visit for this complaint Differential considered: Includes but not limited to right wrist gout cellulitis abscess fracture sprain Lab Test results independently reviewed as above. Pertinent findings: WBC 10.9 BUN 27 creatinine 0.94 GFR greater than 60 uric acid 6.9 Imaging studies independently reviewed: X-ray right wrist no acute osseous finding Consultations: None indicated Treatments: Oxycodone Zofran Toradol Re-evaluations: 11:11 a.m.. Updated patient and son results. Clinically this is likely arthritis/likely gouty flare-up. No fever. White cell count is normal. Elevated uric acid. X-ray does look reassuring. Pain is controlled. Patient resting comfortably. Return precautions reviewed and they desires discharge home, blood pressure has improved. Discussion: Appropriate for discharge home exam is reassuring. No fever. No leukocytosis. Likely not cellulitis. Likely arthritic pain/gout. Return precautions reviewed. Pain is controlled. They desire discharge home. Short course pain medication for breakthrough pain, colchicine and indomethacin provided prescription as well. Diagnosis: Acute gout Discharge Plan Departure Patient Disposition: Home Clinical Impression: Gouty arthritis Instructions: DI for Gout Activity Restrictions/Additional Instructions: Your wrist pain is likely due to arthritis/gout. Laboratory studies are reassuring. Gout medication has been started. As well as pain medication. Please see family doctor this week for re-evaluation. Return if worse if any questions or concerns. Prescriptions: New oxycodone-acetaminophen [Percocet] 5-325 mg tablet 1 tab PO Q4-6H PRN (Reason: pain) Qty: 12 0RF indomethacin 50 mg capsule 50 mg PO TID Qty: 10 0RF Rx Instructions: administer with food or milk colchicine 0.6 mg tablet 0.6 mg PO BID Qty: 4 0RF No Action indomethacin PO colchicine PO (DME) lancets 31 gauge misc See Rx Instructions .Route Qty: 100 0RF Rx Instructions: Use to check blood sugars once daily (DME) blood-glucose meter [Blood Glucose Monitoring] Kit See Rx Instructions .Route Qty: 1 0RF Rx Instructions: Use to check blood sugars once daily (DME) Blood Glucose Test Strip See Rx Instructions .Route Qty: 50 11RF Rx Instructions: Use to check blood sugars once daily amoxicillin-pot clavulanate 875-125 mg tablet 1 tab PO BID Qty: 10 0RF donepezil [Aricept] 5 mg tablet 5 mg PO DAILY Qty: 30 5RF allopurinol 100 mg tablet 100 mg PO DAILY Qty: 90 3RF acetaminophen 500 mg Capsule 1,000 mg PO Q6H PRN (Reason: Fever) Referrals: Misbah Priest, [Primary Care Provider] - Stand Alone Forms: Patient Portal/API
[2023-12-12] MEDS: ONDANSETRON 4 MG ODT SL (09:47)
[2023-12-12] MEDS: OXYCODONE/ACETAMINOPHEN 5/325 TABLET 1 TAB PO (09:47)
[2023-12-12 10:03] LABS: Add Manual Diff / Slide Review NO; Basophils Absolute Auto 100 /uL (0-100); Basophils Percent Auto 0.5 % (0-2); Eosinophils Absolute Auto 100 /uL (0-450); Eosinophils Percent Auto 0.7 % (2-4); Hematocrit 38.7 % (36-46); Hemoglobin 12.9 g/dL (12.0-16.0); Lymphocytes Absolute Auto 800 /uL (1100-4500); Lymphocytes Percent Auto 7.4 % (25-40); Mean Corpuscular HGB Conc 33.3 % (30-36); Mean Corpuscular Hemoglobin 27.5 PG (26-34); Mean Corpuscular Volume 82.7 fL (80-100); Monocytes Absolute Auto 1000 /uL (0-900); Monocytes Percent Auto 9.1 % (3-14); Neutrophils Absolute Auto 9000 /uL (1500-7000); Neutrophils Percent Auto 82.3 % (50-75); Platelet Count 264 X10^3/uL (150-400); Red Blood Cell Count 4.68 X10^6/uL (4.0-5.2); Red Cell Distribution Width 14.7 % (11.6-14.8); White Blood Cell Count 10.9 X10^3/uL (4.5-11.0)
[2023-12-12 10:23] LABS: Alanine Aminotransferase 18 IU/L (<35); Albumin 4.2 g/dL (3.5-5.0); Albumin Globulin Ratio 1.5 (1.0-2.8); Alkaline Phosphatase 84 U/L (38-126); Aspartate Aminotransferase 27 IU/L (14-36); BUN Creatinine Ratio 28.7 (6-22); Bilirubin Total 0.9 mg/dL (0.2-1.3); Blood Urea Nitrogen 27 mg/dL (7-17); Calcium 8.8 mg/dL (8.4-10.2); Carbon Dioxide 27 mmol/L (22-32); Chloride 105 mmol/L (98-107); Estimated Glomerular Filt Rate > 60 mL/min (>60); Globulin 2.8 g/dL (1.7-4.1); Glucose 156 mg/dL (80-110); HEMOLYSIS < 15 (0-50); Potassium 3.8 mmol/L (3.4-5.1); Sodium 139 mmol/L (137-145); Uric Acid 6.9 mg/dL (2.5-6.2)
[2023-12-12] MEDS: KETOROLAC 30 MG/ML VIAL IM (11:12)
[2023-12-12 11:16] VITALS: BP 141/63; PULSE 66; RESP 18; O2SAT 98
== END 2023-12-12 11:20 | disposition home or self-care (01) ==
PROVIDERS: Emergency Provider Emergency Medicine; PCP Family Medicine
DX: M10.9 Gout, unspecified (principal)
CPT/HCPCS: 29260; 36415; 73110; 80053; 84550; 85025; 99283; 99284; J1885

== ENCOUNTER 2024-02-09 14:07 | Emergency (ER) | payer MEDICARE, SELFPAY ==
[2022-01-21 15:37] VITALS: BMI 28.8
[2024-02-09] VITALS (15 sets, daily range): BP systolic 182–215; BP diastolic 78–156; PULSE 58–82; RESP 14–27; TEMP 36.8; O2SAT 93–99; BMI 27.2
--- NOTE | 2024-02-09 14:27 | DI.RAD.S_ITS ---
PROCEDURE: XR SHOULDER LT MIN 2V INDICATIONS: fall with injury, pain TECHNIQUE: 3 views of the shoulder were acquired. COMPARISON: [facility], CR, XR HUMERUS LT 2V, 02/09/2024, 14:34. FINDINGS: Bones: Ill-defined appearance of nondisplaced humeral head/neck fracture. Fracture lucencies appear to extend to the greater tuberosity. No gross dislocation. Soft tissues: No suspicious soft tissue calcifications. IMPRESSION: Ill-defined appearance of nondisplaced humeral head/neck fracture. Dictated by: Majo Cedillo M.D. on 02/09/2024 at 15:12 Approved by: Majo Cedillo M.D. on 02/09/2024 at 15:12
--- NOTE | 2024-02-09 14:27 | DI.RAD.S_ITS ---
PROCEDURE: XR HUMERUS LT 2V INDICATIONS: fall with injury, pain TECHNIQUE: 2 views of the humerus were acquired. COMPARISON: [facility], CR, XR SHOULDER LT MIN 2V, 02/09/2024, 14:34. FINDINGS: Bones: Ill-defined appearance of nondisplaced humeral head/neck fracture. No dislocation. Soft tissues: No suspicious soft tissue calcifications. IMPRESSION: Ill-defined appearance of humeral head/neck fracture. Fracture lucencies appear to extend to the greater tuberosity. No dislocation. Dictated by: Majo Cedillo M.D. on 02/09/2024 at 15:11 Approved by: Majo Cedillo M.D. on 02/09/2024 at 15:12
--- NOTE | 2024-02-09 15:08 | ED_ITS ---
HPI - Extremity Injury (Upper) General Chief Complaint: Extremity Injury, Upper Stated Complaint: Poss humerus fx. Time Seen by Provider: 02/09/24 15:02 Source: patient and EMS Mode of arrival: EMS History of Present Illness HPI narrative: 78-year-old female who was taking a shower and her assisted living facility [facility] prior to arrival, fell, struck left shoulder, complains of left shoulder pain, and left knee pain. Denies pain to her head. Denies pain in her neck, upper back, mid back, lower back. Denies pain to remaining left upper extremity, right upper extremity, right leg, right hip, left hip, right knee, right foreleg ankle foot, and to left foreleg ankle foot. She believes that she slipped in the shower. She had no preceding weakness or shaking activity or chest pain or shortness of breath recalled. Related Data Home Medications Medication Instructions Recorded Confirmed acetaminophen 500 mg capsule 1,000 mg PO Q6H PRN Fever 02/02/22 01/09/24 colchicine PO 12/04/23 01/09/24 indomethacin PO 12/04/23 01/09/24 Previous Rx's Medication Instructions Recorded lancets 31 gauge #100 ea 08/16/21 blood sugar diagnostic (Blood #50 ea 10/11/21 Glucose Test strips) blood-glucose meter (Blood Glucose #1 ea 10/11/21 Monitoring kit) allopurinol 100 mg tablet 100 mg PO DAILY #90 tabs 09/27/23 donepezil 5 mg tablet (Aricept) 5 mg PO DAILY #30 tabs 09/27/23 colchicine 0.6 mg tablet 0.6 mg PO BID #4 tabs 12/12/23 indomethacin 50 mg capsule 50 mg PO TID #10 caps 12/12/23 oxycodone-acetaminophen 5 mg-325 1 tab PO Q4-6H PRN pain #12 tabs 12/12/23 mg tablet (Percocet) Allergies Allergy/AdvReac Type Severity Reaction Status Date / Time No Known Drug Allergies Allergy Verified 01/09/24 15:14 Review of Systems Review of Systems Narrative: see HPI Patient History Medical History Dysuria Abdominal wall hernia Dementia Anemia Lela UTI Diffuse large B cell lymphoma Type 2 diabetes mellitus Essential hypertension Hepatitis B Wears glasses Alopecia (~1970) Depression Anxiety Carpal tunnel syndrome Mumps Measles Chicken pox Vertigo Cataracts, bilateral GERD (gastroesophageal reflux disease) Surgical History Anesthesia History of hernia repair History of hand surgery History of tonsillectomy History of hysterectomy Family History Father Hypertension Hyperlipidemia Mother MVA (motor vehicle accident) Sister Heart defect Social History household members: family Smoking Status: Never smoker alcohol intake: never Smoking Status: Never smoker alcohol intake frequency: holidays/special occasions only Substance Use Type: does not use Exam Narrative Exam Narrative: GENERAL: Well-developed patient, in mild distress. HEAD: Atraumatic. Normocephalic. EYES: Pupils equal round and reactive. Extraocular motions intact. No scleral icterus. No injection or drainage. ENT: Nose without bleeding, purulent drainage. Throat without erythema, tonsillar hypertrophy or exudate. Airway patent. NECK: Trachea midline. Non tender CARDIOVASCULAR: Regular rate and rhythm without murmurs, gallops, or rubs. RESPIRATORY: Clear to auscultation. Breath sounds equal bilaterally. No wheezes, rales, or rhonchi. GASTROINTESTINAL: Abdomen soft, non-tender, nondistended. EXTREMITIES: Left shoulder anterior superior tenderness without gross stepoff deformity, no tenderness along the left superior trapezius nor along scapula. No tenderness left mid distal arm, elbow, forearm, wrist, hand, fingers. No obvious injury to right upper extremity. No obvious injury to right lower extremity. No tenderness left hip nor right hip. Mild tenderness left patella, no gross effusion, no tenderness left knee medial or lateral joint line. BACK: Nontender without deformity or crepitance. No flank tenderness. NEURO: AOx3. SKIN: No rash or erythema of visible areas Initial Vital Signs Initial Vital Signs: Vital Signs Pulse Oximetry 98 02/09/24 14:12 Course Orders Ordered: ED Orders 02/09/24 14:27 XR humerus LT 2V Stat XR shoulder LT min 2V Stat 02/09/24 16:09 XR knee LT 3V Stat Discontinued Medications Acetaminophen (Acetaminophen 325 Mg Tablet) 650 mg PO NOW ONE Stop: 02/09/24 17:52 Last Admin: 02/09/24 17:55 Dose: 650 mg Documented By: CYRUS Vital Signs Vital signs: Vital Signs - 8 hr 02/09/24 14:12 02/09/24 14:13 02/09/24 14:13 Temperature Pulse Rate 74 Respiratory Rate Blood Pressure 189/92 H Pulse Oximetry 98 97 Oxygen Delivery Method 02/09/24 14:16 02/09/24 14:30 02/09/24 14:30 Temperature 98.2 F Pulse Rate 66 66 Respiratory Rate 17 17 Blood Pressure 189/92 H 215/91 H Pulse Oximetry 98 93 Oxygen Delivery Method Room Air 02/09/24 14:34 02/09/24 14:34 02/09/24 15:00 Temperature Pulse Rate 67 64 Respiratory Rate 18 20 Blood Pressure 196/92 H Pulse Oximetry 93 95 Oxygen Delivery Method 02/09/24 15:01 02/09/24 15:01 02/09/24 15:04 Temperature Pulse Rate 70 65 Respiratory Rate 25 H 27 H Blood Pressure 199/85 H Pulse Oximetry 95 97 Oxygen Delivery Method 02/09/24 15:04 02/09/24 15:30 02/09/24 15:31 Temperature Pulse Rate 67 Respiratory Rate 19 Blood Pressure 198/91 H 204/93 H Pulse Oximetry 95 Oxygen Delivery Method 02/09/24 15:31 02/09/24 15:32 02/09/24 15:32 Temperature Pulse Rate 68 68 Respiratory Rate 19 23 Blood Pressure 191/88 H Pulse Oximetry 94 95 Oxygen Delivery Method Room Air 02/09/24 16:00 02/09/24 16:01 02/09/24 16:01 Temperature Pulse Rate 82 77 Respiratory Rate 22 Blood Pressure 182/94 H Pulse Oximetry Oxygen Delivery Method 02/09/24 16:19 02/09/24 16:19 02/09/24 18:24 Temperature Pulse Rate 58 L 78 Respiratory Rate 14 14 Blood Pressure 197/156 H 182/78 H Pulse Oximetry 97 99 Oxygen Delivery Method Room Air Room Air MDM - Extremity Injury (Upper) Imaging Data Extremity x-ray #1: Radiologist's Impression: [address] [address] XRay Report Signed Patient: Cheyanne Clements MR#: [id number] : 1945 Acct:[id number] Age/Sex: 78 / F Date of Service: 02/09/24 Loc: ED Accession Number: [id number] Procedure: XR knee LT 3V Ordering Provider: Diego De Leon MD PROCEDURE: XR KNEE LT 3V INDICATIONS: fall, left knee pain TECHNIQUE: 3 views of the knee were acquired. COMPARISON: None. FINDINGS: Bones: No fractures or dislocations. No suspicious bony lesions. Soft tissues: Mild joint effusion. No suspicious soft tissue calcifications. IMPRESSION: No visualized acute fracture or dislocation. However, if clinical concern and/or pain persist, short interval imaging followup in 7-10 days is recommended, as occult injury cannot be definitively excluded. Dictated by: Majo Cedillo M.D. on 02/09/2024 at 16:39 Approved by: Majo Cedillo M.D. on 02/09/2024 at 16:39 Extremity x-ray #2: Radiologist's Impression: [address] [address] XRay Report Signed Patient: Cheyanne Clements MR#: [id number] : 1945 Acct:[id number] Age/Sex: 78 / F Date of Service: 02/09/24 Loc: ED Accession Number: [id number] Procedure: XR humerus LT 2V Ordering Provider: Diego De Leon MD PROCEDURE: XR HUMERUS LT 2V INDICATIONS: fall with injury, pain TECHNIQUE: 2 views of the humerus were acquired. COMPARISON: [facility], , XR SHOULDER LT MIN 2V, 02/09/2024, 14:34. FINDINGS: Bones: Ill-defined appearance of nondisplaced humeral head/neck fracture. No dislocation. Soft tissues: No suspicious soft tissue calcifications. IMPRESSION: Ill-defined appearance of humeral head/neck fracture. Fracture lucencies appear to extend to the greater tuberosity. No dislocation. Dictated by: Majo Cedillo M.D. on 02/09/2024 at 15:11 Approved by: Majo Cedillo M.D. on 02/09/2024 at 15:12 Extremity x-ray #3: Radiologist's Impression: [address] [address] XRay Report Signed Patient: Cheyanne Clements MR#: [id number] : 1945 Acct:[id number] Age/Sex: 78 / F Date of Service: 02/09/24 Loc: ED Accession Number: [id number] Procedure: XR shoulder LT min 2V Ordering Provider: Diego De Leon MD PROCEDURE: XR SHOULDER LT MIN 2V INDICATIONS: fall with injury, pain TECHNIQUE: 3 views of the shoulder were acquired. COMPARISON: [facility], CR, XR HUMERUS LT 2V, 02/09/2024, 14:34. FINDINGS: Bones: Ill-defined appearance of nondisplaced humeral head/neck fracture. Fracture lucencies appear to extend to the greater tuberosity. No gross dislocation. Soft tissues: No suspicious soft tissue calcifications. IMPRESSION: Ill-defined appearance of nondisplaced humeral head/neck fracture. Dictated by: Majo Cedillo M.D. on 02/09/2024 at 15:12 Approved by: Majo Cedillo M.D. on 02/09/2024 at 15:12 MDM Narrative Medical decision making narrative: Fall in shower, left shoulder and knee pain, tenderness left anterior shoulder and left patella knee. XRs show left proximal humerus fracture. Ambulated, able to bear weight on left leg. Case discussed and XRays reviewed with ortho Dr Trimble who happened to be in the ED. NO further imaging, placed shoulder sling with swgeorgee, follow-up in his clinic early next week. Home with family Discharge Plan Departure Patient Disposition: Home Clinical Impression: Fracture of humerus, proximal, left, closed, Contusion of knee, left Activity Restrictions/Additional Instructions: Fallen shower at assisting living facility, left shoulder pain, left knee pain. Tenderness left shoulder. Minimal tenderness left knee. X-rays left knee negative. X-rays of the shoulder and humerus showed proximal humerus fracture. Case was discussed with x-rays reviewed Orthopedic surgery Dr. Trimble as well he happened to be in the emergency department, he felt there was no additional imaging needed at this time, advised sling and nikiaath, can see you in orthopedic surgery clinic early next week. Take Tylenol as needed for pain control. Continue use of swab and sling. Prescriptions: No Action indomethacin PO colchicine PO (DME) lancets 31 gauge misc See Rx Instructions .Route Qty: 100 0RF Rx Instructions: Use to check blood sugars once daily (DME) blood-glucose meter [Blood Glucose Monitoring] Kit See Rx Instructions .Route Qty: 1 0RF Rx Instructions: Use to check blood sugars once daily (DME) Blood Glucose Test Strip See Rx Instructions .Route Qty: 50 11RF Rx Instructions: Use to check blood sugars once daily donepezil [Aricept] 5 mg tablet 5 mg PO DAILY Qty: 30 5RF allopurinol 100 mg tablet 100 mg PO DAILY Qty: 90 3RF acetaminophen 500 mg Capsule 1,000 mg PO Q6H PRN (Reason: Fever) oxycodone-acetaminophen [Percocet] 5-325 mg tablet 1 tab PO Q4-6H PRN (Reason: pain) Qty: 12 0RF indomethacin 50 mg capsule 50 mg PO TID Qty: 10 0RF Rx Instructions: administer with food or milk colchicine 0.6 mg tablet 0.6 mg PO BID Qty: 4 0RF Referrals: Misbah Priest DO [Primary Care Provider] - Jf Trimble MD [Physician] - Stand Alone Forms: Patient Portal/API
--- NOTE | 2024-02-09 16:09 | DI.RAD.S_ITS ---
PROCEDURE: XR KNEE LT 3V INDICATIONS: fall, left knee pain TECHNIQUE: 3 views of the knee were acquired. COMPARISON: None. FINDINGS: Bones: No fractures or dislocations. No suspicious bony lesions. Soft tissues: Mild joint effusion. No suspicious soft tissue calcifications. IMPRESSION: No visualized acute fracture or dislocation. However, if clinical concern and/or pain persist, short interval imaging followup in 7-10 days is recommended, as occult injury cannot be definitively excluded. Dictated by: Majo Cedillo M.D. on 02/09/2024 at 16:39 Approved by: Majo Cedillo M.D. on 02/09/2024 at 16:39
[2024-02-09] MEDS: ACETAMINOPHEN 325 MG TABLET 650 MG PO (17:55)
--- NOTE | 2024-02-09 17:57 | PC.NURSE ---
Medicated for pain / discomfort w/ tylenol. Sitting in w/c awaiting ride home
== END 2024-02-09 18:25 | disposition home or self-care (01) ==
PROVIDERS: Emergency Provider Emergency Medicine; PCP Family Medicine
DX: S42.202A Unspecified fracture of upper end of left humerus, initial encounter for closed fracture (principal); S80.02XA Contusion of left knee, initial encounter; W18.2XXA Fall in (into) shower or empty bathtub, initial encounter
CPT/HCPCS: 73030; 73060; 73562; 99283

== ENCOUNTER → 2025-02-28 12:19 | Outpatient (CLI) | payer MEDICARE, SELFPAY ==
[2022-01-21 15:37] VITALS: BMI 28.8
[2025-02-28 12:54] LABS: Appearance Urine UA SL CLOUDY; Bilirubin Urine UA NEGATIVE (NEGATIVE); Color Urine UA YELLOW; Glucose Urine UA NEGATIVE (Negative); Ketones Urine UA NEGATIVE (NEGATIVE); Leukocyte Esterase Urine UA TRACE (NEGATIVE); Nitrite Urine UA NEGATIVE (Negative); Occult Blood Urine UA 3+ (Negative); Protein Urine UA 3+ (Negative); Specific Gravity Urine UA 1.025 (1.000-1.035); Urobilinogen Urine UA 1.0 E.U./dL (0.2)
[2025-02-28 13:02] LABS: pH Urine UA 6.0 (4.5-8.0)
[2025-02-28 13:04] LABS: Culture Indicated Urine Specimen Cultured
== END ==
PROVIDERS: Nurse Practitioner Family; PCP Family Medicine; Referring Provider Family Medicine; Visit Provider Family Medicine
DX: R39.9 Unspecified symptoms and signs involving the genitourinary system (principal)
CPT/HCPCS: 81001; 87077; 87086; 87186

== ENCOUNTER 2025-05-15 10:16 | Emergency (ER) | payer MEDICARE, SELFPAY ==
[2022-01-21 15:37] VITALS: BMI 28.8
[2025-05-15] VITALS (9 sets, daily range): BP systolic 141–198; BP diastolic 65–80; PULSE 54–77; RESP 16; TEMP 36.7; O2SAT 94–100; BMI 32.1
--- NOTE | 2025-05-15 11:23 | ED.FEMALEGU ---
HPI - Female Genitourinary <Madison Amaral PA-C - Last Filed: 05/15/25 18:21> General Chief complaint: Urogenital-Female Stated complaint: UTI maybe 2 weeks Time Seen by Provider: 05/15/25 11:08 History of Present Illness HPI Narrative: Ms. Clements is a very pleasant 80-year-old female with a past medical history of dementia, T2 DM, HLD, HTN, anemia, frequent UTIs who presents to the emergency department with her son from her living facility, [facility] in [place], who presents to the emergency department for concern of UTI x2 weeks. The patient is pleasantly confused at baseline. However for the last 2 weeks her son reports that the facility has said she has been more confused. For example she has been pulling the clothes out of her closet to find something to wear, leaving her room without pants on, and trying to throat clothing away. She has experienced increased confusion similar to this in the past when she had urinary tract infections. A urine dip was performed at the facility and was reported to be positive for infection. She was last on antibiotics for UTI multiple months ago. The patient's son reports she has reported some mild low back pain however the patient does deny this currently. She denies abdominal pain, fevers, chills, dysuria, constipation, diarrhea nausea or vomiting however she is a poor historian. The son does not report any other symptoms. She is afebrile. Related Data Home Medications ?Medication ?Instructions ?Recorded ?Confirmed acetaminophen 500 mg capsule 1,000 mg PO Q6H PRN Fever 02/02/22 02/28/25 diphenoxylate-atropine 2.5 1 tab PO QID PRN 11/08/24 02/28/25 mg-0.025 mg tablet Previous Rx's ?Medication ?Instructions ?Recorded oxycodone-acetaminophen 5 mg-325 1 tab PO QID PRN pain #60 tabs 02/13/24 mg tablet (Percocet) food supplemt, lactose-reduced 1 ea PO DAILY #5,688 mL 07/15/24 (Ensure oral liquid) loperamide 2 mg capsule (Imodium 2 mg PO Q6H PRN loose stool #30 11/05/24 A-D) caps furosemide 20 mg tablet (Lasix) 20 mg PO DAILY PRN lower extremity 11/08/24 edema #15 tabs metformin 500 mg tablet 500 mg PO DAILY #30 tabs 11/27/24 nystatin 100,000 unit/gram topical 1 applic topical BID PRN yeast 02/18/25 powder infection #30 grams donepezil 10 mg tablet 10 mg PO BEDTIME #30 tabs 03/03/25 Allergies Allergy/AdvReac Type Severity Reaction Status Date / Time No Known Drug Allergies Allergy Verified 02/28/25 12:49 Review of Systems <Madison Amaral PA-C - Last Filed: 05/15/25 18:21> Review of Systems ROS Unobtainable: All systems reviewed & are unremarkable except as noted in HPI and below Patient History <Madison Amaral PA-C - Last Filed: 05/15/25 18:21> Medical History Fever and neutropenia Fracture of humerus, proximal, left, closed Dysuria Abdominal wall hernia Dementia Anemia Lela UTI Diffuse large B cell lymphoma Type 2 diabetes mellitus Essential hypertension Hepatitis B Wears glasses Alopecia (~1970) Depression Anxiety Carpal tunnel syndrome Mumps Measles Chicken pox Vertigo Cataracts, bilateral GERD (gastroesophageal reflux disease) Surgical History Anesthesia History of hernia repair History of hand surgery History of tonsillectomy History of hysterectomy Family History Father Hypertension Hyperlipidemia Mother MVA (motor vehicle accident) Sister Heart defect Exam <Madison Amaral PA-C - Last Filed: 05/15/25 18:21> Narrative Exam Narrative: GENERAL: 80 year old patient appears stated age. Well-developed patient, in no acute distress, lying in stretcher. HEAD: Atraumatic. Normocephalic. EYES: PERRL. Extraocular motions intact. No scleral icterus. No injection or drainage. ENT: Nose without bleeding, purulent drainage. Uvula midline. Airway patent. NECK: Trachea midline. Cervical ROM intact. CARDIOVASCULAR: Regular rate and rhythm. RESPIRATORY: ?Nonlabored respirations. ?Speaking in clear, full sentences. ?Clear to auscultation. Breath sounds equal bilaterally. No wheezes, rales, or rhonchi. ? GASTROINTESTINAL: Abdomen soft, non-tender, nondistended. BS present. Brief in place. EXTREMITIES: No LE edema. BACK: No CVA tenderness. NEURO: Alert. Pleasantly confused. Oriented only to 1st name. Can not recall her last name, her date of . When asked the year she states ?I do not know because I do not really care with the year is. She is able to answer questions or ask that her son answers questions for her. No arm drift. No facial asymmetry. Sensation intact to light touch in upper and lower extremities. SKIN: No rash or erythema of visible areas. Initial Vital Signs Initial Vital Signs: Vital Signs Temperature 98.0 F 05/15/25 10:43 Pulse Rate 61 05/15/25 10:43 Respiratory Rate 16 05/15/25 10:43 Blood Pressure 181/79 H 05/15/25 10:43 Pulse Oximetry 99 05/15/25 10:43 Oxygen Delivery Method Room Air 05/15/25 10:43 <Sharri Dueñas DO - Last Filed: 05/15/25 19:00> Initial Vital Signs Initial Vital Signs: Vital Signs Temperature 98.0 F 05/15/25 10:43 Pulse Rate 61 05/15/25 10:43 Respiratory Rate 16 05/15/25 10:43 Blood Pressure 181/79 H 05/15/25 10:43 Pulse Oximetry 99 05/15/25 10:43 Oxygen Delivery Method Room Air 05/15/25 10:43 Course <Madison Amaral PA-C - Last Filed: 05/15/25 18:21> Orders Ordered: ED Orders 05/15/25 11:00 CBC Auto Diff [Complete Blood Count AUTO DIFF] Stat CMP [Comprehensive Metabolic Panel] Stat 05/15/25 12:41 Urinalysis and Microscopic Stat Discontinued Medications Sodium Chloride (Normal Saline 0.9%) 1,000 mls @ 1,000 mls/hr IV BOLUS ONE Stop: 05/15/25 12:51 Last Infusion: 05/15/25 12:52 Dose: Infused Documented By: Admin: 05/15/25 11:57 Dose: 1,000 mls/hr Documented By: BZ Vital Signs Vital signs: Vital Signs - 8 hr 05/15/25 11:32 05/15/25 11:32 05/15/25 12:00 Pulse Rate 58 L 63 Blood Pressure 154/65 H Pulse Oximetry 98 100 05/15/25 12:01 05/15/25 12:01 05/15/25 12:04 Pulse Rate 60 54 L Blood Pressure 198/80 H Pulse Oximetry 100 99 05/15/25 12:04 05/15/25 12:30 05/15/25 12:31 Pulse Rate 70 77 Blood Pressure 175/70 H Pulse Oximetry 96 94 05/15/25 12:31 05/15/25 13:00 05/15/25 13:01 Pulse Rate 63 Blood Pressure 174/72 H 141/65 H Pulse Oximetry 98 05/15/25 13:01 Pulse Rate 62 Blood Pressure Pulse Oximetry 98 <Sharri Dueñas DO - Last Filed: 05/15/25 19:00> Orders Ordered: ED Orders 05/15/25 11:00 CBC Auto Diff [Complete Blood Count AUTO DIFF] Stat CMP [Comprehensive Metabolic Panel] Stat 05/15/25 12:41 Urinalysis and Microscopic Stat Discontinued Medications Sodium Chloride (Normal Saline 0.9%) 1,000 mls @ 1,000 mls/hr IV BOLUS ONE Stop: 05/15/25 12:51 Last Infusion: 05/15/25 12:52 Dose: Infused Documented By: Admin: 05/15/25 11:57 Dose: 1,000 mls/hr Documented By: BZ Vital Signs Vital signs: Vital Signs - 8 hr 05/15/25 11:32 05/15/25 11:32 05/15/25 12:00 Pulse Rate 58 L 63 Blood Pressure 154/65 H Pulse Oximetry 98 100 05/15/25 12:01 05/15/25 12:01 05/15/25 12:04 Pulse Rate 60 54 L Blood Pressure 198/80 H Pulse Oximetry 100 99 05/15/25 12:04 05/15/25 12:30 05/15/25 12:31 Pulse Rate 70 77 Blood Pressure 175/70 H Pulse Oximetry 96 94 05/15/25 12:31 05/15/25 13:00 05/15/25 13:01 Pulse Rate 63 Blood Pressure 174/72 H 141/65 H Pulse Oximetry 98 05/15/25 13:01 Pulse Rate 62 Blood Pressure Pulse Oximetry 98 MDM - Female Genitourinary <Madison Amaral PA-C - Last Filed: 05/15/25 18:21> Medical Records Attestation: I reviewed the patient's medical records. Lab Data 05/15/25 11:00 05/15/25 11:00 Labs: Lab Results 05/15/25 05/15/25 Range/Units 11:00 12:41 WBC 6.2 (4.5-11.0) X10^3/uL RBC 4.80 (4.0-5.2) X10^6/uL Hgb 12.9 (12.0-16.0) g/dL Hct 39.3 (36-46) % MCV 81.8 (80-100) fL MCH 26.8 (26-34) PG MCHC 32.8 (30-36) % RDW 14.6 (11.6-14.8) % Plt Count 316 (150-400) X10^3/uL Neut % (Auto) 70.6 (50-75) % Lymph % (Auto) 17.3 L (25-40) % [place] % (Auto) 8.4 (3-14) % Eos % (Auto) 2.5 (2-4) % Baso % (Auto) 1.2 (0-2) % Neut # (Auto) 4400 (6822-5659) /uL Lymph # (Auto) 1100 (5209-4422) /uL [place] # (Auto) 500 (0-900) /uL Eos # (Auto) 200 (0-450) /uL Baso # (Auto) 100 (0-100) /uL Sodium 139 (137-145) mmol/L Potassium 4.4 (3.4-5.1) mmol/L Chloride 104 (98-107) mmol/L Carbon Dioxide 25 (22-32) mmol/L BUN 22 H (7-17) mg/dL Creatinine 1.03 (0.52-1.04) mg/dL Estimated GFR 56 L (>60) mL/min BUN/Creatinine Ratio 21.4 (6-22) Glucose 130 H (70-99) mg/dL Calcium 9.6 (8.4-10.2) mg/dL Total Bilirubin 0.6 (0.2-1.3) mg/dL AST 27 (14-36) IU/L ALT 13 (<35) IU/L Alkaline Phosphatase 59 (38-126) U/L Total Protein 7.4 (6.3-8.2) g/dL Albumin 4.4 (3.5-5.0) g/dL Globulin 3.0 (1.7-4.1) g/dL Albumin/Globulin Ratio 1.5 (1.0-2.8) Urine Color Yellow Urine Appearance Clear Urine pH 6.5 (4.5-8.0) Ur Specific [place] <=1.005 (1.000-1.035) Urine Protein Negative (Negative) Urine Glucose (UA) Negative (Negative) g/dL Urine Ketones Negative (NEGATIVE) Urine Occult Blood Negative (Negative) Urine Nitrate Negative (Negative) Urine Bilirubin Negative (NEGATIVE) Urine Urobilinogen 0.2 (0.2) E.U./dL Ur Leukocyte Esterase Negative (NEGATIVE) Urine RBC None seen (0-5/HPF) Urine WBC None seen (0-5/HPF) Ur Squamous Epith Cells None seen (0-5/HPF) Urine Bacteria None seen (None) Ur Culture Indicated? Cult not indicated Vol Urine Centrifuged 10ml (spun) MDM Narrative Medical decision making narrative: 80-year-old female with a past medical history of dementia, T2 DM, HLD, HTN, anemia, frequent UTIs who presents to the emergency department with her son from her living facility, [facility] in [place], who presents to the emergency department for concern of UTI x2 weeks. Majority of history provided by her son, Neto. Differential diagnosis includes but is not limited to UTI, dehydration, electrolyte derangement, worsening dementia, medication side effect, etc. On exam the patient is in no acute distress, nontoxic-appearing, all vital signs within normal limits except for elevated blood pressure 181/79. Patient is pleasantly confused, abdomen is soft and nontender, bowel sounds are present. She has had increased symptoms of her dementia and had a positive point of care urinalysis at her facility. We will obtain baseline CBC, CMP, straight cath urinalysis. Patient denies any pain medication or other concerns at this time. Most recent urine culture from 02/28/2025 did grow Proteus mirabilis which was susceptible to Augmentin, ceftriaxone, ertapenem, gentamicin, meropenem, Zosyn. Straight cath urine result is entirely negative for infection. Labs reveal normal CBC with normal WBC count 6.2, hemoglobin 12.9, hematocrit 39.3. Platelets 316. Sodium 139, potassium 4.4, BUN 22 creatinine 1.03 with mildly decreased GFR 56. Glucose 130. Normal LFTs. Discussed lab work and urinalysis results with the patient and her son at the bedside. Discussed that she does not have a UTI today and there is no indication for antibiotics. Discussed that her worsening dementia could benefit from possible medication management and further evaluation by her PCP. Discussed ER return precautions. Son verbalized understanding of all information agreeable with the plan. Patient is stable for discharge back to her living facility. <Sharri Dueñas, DO - Last Filed: 05/15/25 19:00> Lab Data Labs: Lab Results 05/15/25 05/15/25 Range/Units 11:00 12:41 WBC 6.2 (4.5-11.0) X10^3/uL RBC 4.80 (4.0-5.2) X10^6/uL Hgb 12.9 (12.0-16.0) g/dL Hct 39.3 (36-46) % MCV 81.8 (80-100) fL MCH 26.8 (26-34) PG MCHC 32.8 (30-36) % RDW 14.6 (11.6-14.8) % Plt Count 316 (150-400) X10^3/uL Neut % (Auto) 70.6 (50-75) % Lymph % (Auto) 17.3 L (25-40) % [place] % (Auto) 8.4 (3-14) % Eos % (Auto) 2.5 (2-4) % Baso % (Auto) 1.2 (0-2) % Neut # (Auto) 4400 (6578-3806) /uL Lymph # (Auto) 1100 (1226-3770) /uL [place] # (Auto) 500 (0-900) /uL Eos # (Auto) 200 (0-450) /uL Baso # (Auto) 100 (0-100) /uL Sodium 139 (137-145) mmol/L Potassium 4.4 (3.4-5.1) mmol/L Chloride 104 (98-107) mmol/L Carbon Dioxide 25 (22-32) mmol/L BUN 22 H (7-17) mg/dL Creatinine 1.03 (0.52-1.04) mg/dL Estimated GFR 56 L (>60) mL/min BUN/Creatinine Ratio 21.4 (6-22) Glucose 130 H (70-99) mg/dL Calcium 9.6 (8.4-10.2) mg/dL Total Bilirubin 0.6 (0.2-1.3) mg/dL AST 27 (14-36) IU/L ALT 13 (<35) IU/L Alkaline Phosphatase 59 (38-126) U/L Total Protein 7.4 (6.3-8.2) g/dL Albumin 4.4 (3.5-5.0) g/dL Globulin 3.0 (1.7-4.1) g/dL Albumin/Globulin Ratio 1.5 (1.0-2.8) Urine Color Yellow Urine Appearance Clear Urine pH 6.5 (4.5-8.0) Ur Specific [place] <=1.005 (1.000-1.035) Urine Protein Negative (Negative) Urine Glucose (UA) Negative (Negative) g/dL Urine Ketones Negative (NEGATIVE) Urine Occult Blood Negative (Negative) Urine Nitrate Negative (Negative) Urine Bilirubin Negative (NEGATIVE) Urine Urobilinogen 0.2 (0.2) E.U./dL Ur Leukocyte Esterase Negative (NEGATIVE) Urine RBC None seen (0-5/HPF) Urine WBC None seen (0-5/HPF) Ur Squamous Epith Cells None seen (0-5/HPF) Urine Bacteria None seen (None) Ur Culture Indicated? Cult not indicated Vol Urine Centrifuged 10ml (spun) Discharge Plan Departure Patient Disposition: Home Clinical Impression: Confusion, Feared complaint without diagnosis Instructions: DI for Dehydration -- Adult, Dementia and Sleep Issues Activity Restrictions/Additional Instructions: Dear Biancaángelsteve, Thank you for coming to the emergency department. Today you were evaluated for possible urinary tract infection. We obtained a catheterized urine sample which was entirely negative for infection. Your blood work did reveal signs of dehydration and you were treated with IV fluids. It is very important he follow up with your primary care doctor for further evaluation of your memory concerns to help with any medication management. Please return to the emergency department immediately if you develop fevers, vomiting, severe pain, or any other concerns. Please follow up with your primary care doctor within the next 2-3 days for ER follow-up. (If you do not have a PCP you can call [phone]. ?to schedule an appointment with an [facility] Primary Care Provider) IF YOU DEVELOP ANY NEW OR WORSENING SYMPTOMS, RETURN TO THE ER! Please read the attached instructions, they highlight more specific treatments and interventions for you at home. Thank you for letting me participate in your care, Madison Amaral PA-C Prescriptions: No Action oxycodone-acetaminophen [Percocet] 5-325 mg tablet 1 tab PO QID PRN (Reason: pain) Qty: 60 0RF Ensure Liquid 1 ea PO DAILY Qty: 5688 3RF loperamide [Imodium A-D] 2 mg capsule 2 mg PO Q6H PRN (Reason: loose stool) Qty: 30 1RF metformin 500 mg tablet 500 mg PO DAILY Qty: 30 6RF nystatin 100,000 unit/gram powder 1 applic topical BID PRN (Reason: yeast infection) Qty: 30 11RF donepezil 10 mg tablet 10 mg PO BEDTIME Qty: 30 3RF diphenoxylate-atropine 2.5-0.025 mg tablet 1 tab PO QID PRN furosemide [Lasix] 20 mg tablet 20 mg PO DAILY PRN (Reason: lower extremity edema) Qty: 15 0RF acetaminophen 500 mg Capsule 1,000 mg PO Q6H PRN (Reason: Fever) Referrals: Nancy Marcial DO [Primary Care Provider, Family Practice] Stand Alone Forms: Patient Portal/API ED Sign-out <Sharri Dueñas DO - Last Filed: 05/15/25 19:00> Cosign ED Attending Yenifer Attestation: I was immediately available in the department for consultation.
[2025-05-15 11:39] LABS: Add Manual Diff / Slide Review NO; Hematocrit 39.3 % (36-46); Hemoglobin 12.9 g/dL (12.0-16.0); Lymphocytes Absolute Auto 1100 /uL (1100-4500); Mean Corpuscular HGB Conc 32.8 % (30-36); Mean Corpuscular Hemoglobin 26.8 PG (26-34); Mean Corpuscular Volume 81.8 fL (80-100); Platelet Count 316 X10^3/uL (150-400)
[2025-05-15 11:44] LABS: Alanine Aminotransferase 13 IU/L (<35); Albumin 4.4 g/dL (3.5-5.0); Albumin Globulin Ratio 1.5 (1.0-2.8); Alkaline Phosphatase 59 U/L (38-126); Blood Urea Nitrogen 22 mg/dL (7-17); Calcium 9.6 mg/dL (8.4-10.2); Carbon Dioxide 25 mmol/L (22-32); Chloride 104 mmol/L (98-107); Estimated Glomerular Filt Rate 56 mL/min (>60); Globulin 3.0 g/dL (1.7-4.1); Glucose 130 mg/dL (70-99); HEMOLYSIS 39 (0-50); Potassium 4.4 mmol/L (3.4-5.1); Sodium 139 mmol/L (137-145); Total Protein 7.4 g/dL (6.3-8.2)
[2025-05-15] MEDS: SODIUM CHLORIDE 0.9% 1,000 ML 1000 ML IV (11:57)
[2025-05-15 12:52] LABS: Appearance Urine UA CLEAR; Bilirubin Urine UA NEGATIVE (NEGATIVE); Color Urine UA YELLOW; Glucose Urine UA NEGATIVE (Negative); Ketones Urine UA NEGATIVE (NEGATIVE); Leukocyte Esterase Urine UA NEGATIVE (NEGATIVE); Nitrite Urine UA NEGATIVE (Negative); Occult Blood Urine UA NEGATIVE (Negative); Protein Urine UA NEGATIVE (Negative); Specific Gravity Urine UA <=1.005 (1.000-1.035); Urobilinogen Urine UA 0.2 E.U./dL (0.2)
[2025-05-15 12:56] LABS: pH Urine UA 6.5 (4.5-8.0)
[2025-05-15 12:58] LABS: Culture Indicated Urine Cult Not Indicated
--- NOTE | 2025-05-15 13:15 | PC.NURSE ---
Patient has trouble communicating symptoms. Patient has dementia.
== END 2025-05-15 13:27 | disposition home or self-care (01) ==
PROVIDERS: Emergency Provider Physician Assistant; PCP Family Medicine
DX: R41.0 Disorientation, unspecified (principal); M54.59 Other low back pain; I10 Essential (primary) hypertension; Z71.1 Person with feared health complaint in whom no diagnosis is made
CPT/HCPCS: 36415; 51701; 51798; 80053; 81001; 85025; 96360; 99284; J7030

== ENCOUNTER 2025-05-21 10:50 | Inpatient (IN) | payer MEDICARE, SELFPAY ==
[2022-01-21 15:37] VITALS: BMI 28.8
[2025-05-21] VITALS (48 sets, daily range): BP systolic 122–223; BP diastolic 57–135; PULSE 51–110; RESP 14–35; TEMP 36.6; O2SAT 87–100; BMI 31.1; BMI 28.7
--- NOTE | 2025-05-21 11:19 | DI.RAD.S_ITS ---
PROCEDURE: XR CHEST 1V INDICATIONS: upper abd pain TECHNIQUE: One view of the chest was acquired. COMPARISON: [facility], CT, CT ANGIO CHEST ABDOMEN PELVIS, 05/21/2025, 11:26. [facility], CR, XR CHEST 1V, 02/13/2022, 13:16. FINDINGS: Surgical changes and devices: None. Lungs and pleura: Lungs are clear. No pleural effusions or pneumothorax. Mediastinum: Mediastinal contours appear normal. Heart size is normal. Bones and chest wall: No suspicious bony lesions. Overlying soft tissues appear unremarkable. IMPRESSION: No acute cardiopulmonary abnormality is seen. Dictated by: Erik Early M.D. on 05/21/2025 at 12:11 Approved by: Erik Early M.D. on 05/21/2025 at 12:13
--- NOTE | 2025-05-21 11:24 | ED_ITS ---
HPI - Back Pain/Injury <Madison Amaral PA-C - Last Filed: 05/21/25 18:32> General Chief Complaint: Back Pain/Injury Stated Complaint: ABD/AROLDO PAIN VOMITING Time Seen by Provider: 05/21/25 11:18 Source: patient History of Present Illness HPI Narrative: Ms. Clements is a pleasant 80-year-old female with a past medical history of dei-adfoqlx-qtxfplyht T2 dm, dementia, HTN, HLD, anemia, frequent UTIs who presents to the emergency department with her son from home for concern of abdominal pain back pain and vomiting that started this morning. Patient was previously living at [facility] in [place], but she was actually brought home today to try to seek placement at a facility with higher level of nursing care. However this morning when the patient's son attempted to get her out of bed she could not get out of bed on her own due to severe left-sided flank/abdominal/back pain. Patient has also been vomiting. At this time she reports left-sided abdominal pain flank pain and also epigastric pain. She is frequently dry heaving. Her blood pressure is noted to be quite elevated. Her son denies any falls or trauma that preciptated that pain. No blood thinner use. Related Data Home Medications ?Medication ?Instructions ?Recorded ?Confirmed acetaminophen 500 mg capsule 1,000 mg PO Q6H PRN Fever 02/02/22 05/21/25 diphenoxylate-atropine 2.5 1 tab PO QID 11/08/2405/21 mg-0.025 mg tablet Previous Rx's ?Medication ?Instructions ?Recorded oxycodone-acetaminophen 5 mg-325 1 tab PO QID PRN pain #60 tabs 02/13/24 mg tablet (Percocet) food supplemt, lactose-reduced 1 ea PO DAILY #5,688 mL 07/15/24 (Ensure oral liquid) furosemide 20 mg tablet (Lasix) 20 mg PO DAILY PRN low er extremity 11/08/24 edema #15 tabs metformin 500 mg tablet 500 mg PO DAILY #30 tabs nystatin 100,000 unit/gram topical 1 applic topical BI D PRN yeast 02/18/25 powder infection #30 grams donepezil 10 mg tablet 10 mg PO BEDTIME #30 tabs Allergies Allergy/AdvReac Type Severity Reaction Status Date / Time No Known Drug Allergies Allergy Verified 02/28/25 12:49 Review of Systems <Madison Amaral PA-C - Last Filed: 05/21/25 18:32> Review of Systems ROS Unobtainable: All systems reviewed & are unremarkable except as noted in HPI and below Patient History <Madison Amaral PA-C - Last Filed: 05/21/25 18:32> Medical History Fever and neutropenia Fracture of humerus, proximal, left, closed Dysuria Abdominal wall hernia Dementia Anemia Lela UTI Diffuse large B cell lymphoma Type 2 diabetes mellitus Essential hypertension Hepatitis B Wears glasses Alopecia (~1970) Depression Anxiety Carpal tunnel syndrome Mumps Measles Chicken pox Vertigo Cataracts, bilateral GERD (gastroesophageal reflux disease) Surgical History Anesthesia History of hernia repair History of hand surgery History of tonsillectomy History of hysterectomy Family History Father Hypertension Hyperlipidemia Mother MVA (motor vehicle accident) Sister Heart defect Social History household members: family Smoking Status: Unknown if ever smoked alcohol intake: never alcohol intake frequency: holidays/special occasions only Exam <Madison Amaral PA-C - Last Filed: 05/21/25 18:32> Narrative Exam Narrative: GENERAL: 80 year old patient appears stated age. Well-developed patient, in mild distress, dry heaving, unable to stand and get into bed independently. HEAD: Atraumatic. Normocephalic. EYES: PERRL. Extraocular motions intact. No scleral icterus. No injection or drainage. ENT: Nose without bleeding, purulent drainage. Throat without erythema, tonsillar hypertrophy or exudate. Airway patent. NECK: Trachea midline. Cervical ROM intact. CARDIOVASCULAR: Regular rate, somewhat regular rhythm. RESPIRATORY: ?Nonlabored respirations. ?Speaking in clear, full sentences. ?Clear to auscultation. Breath sounds equal bilaterally. No wheezes, rales, or rhonchi. ? GASTROINTESTINAL: Abdomen tender in epigastric and left upper quadrant region. Left flank tenderness. BACK: Left abdominal flank/CVA tenderness NEURO: Alert. Can answer some questions. Baseline dementia. Not oriented. Defers most questions to her son. She is moving upper and lower extremities, no facial asymmetry. SKIN: No rash or erythema of visible areas. No LE edema. Initial Vital Signs Initial Vital Signs: Vital Signs Temperature 97.9 F 05/21/25 11:02 Pulse Rate 69 05/21/25 11:02 Respiratory Rate 16 05/21/25 11:02 Blood Pressure 220/90 H 05/21/25 11:02 Pulse Oximetry 98 05/21/25 11:02 Oxygen Delivery Method Room Air 05/21/25 11:02 <Christina Mir DO - Last Filed: 05/22/25 07:19> Initial Vital Signs Initial Vital Signs: Vital Signs Temperature 97.9 F 05/21/25 11:02 Pulse Rate 69 05/21/25 11:02 Respiratory Rate 16 05/21/25 11:02 Blood Pressure 220/90 H 05/21/25 11:02 Pulse Oximetry 98 05/21/25 11:02 Oxygen Delivery Method Room Air 05/21/25 11:02 Scores <Madison Amaral PA-C - Last Filed: 05/21/25 18:32> HEART Score Heart Score history: Slightly Suspicious Heart Score EKG: Non-Specific repolarization disturbance Heart Score Age: > or = 65 years old Course <Madison Amaral PA-C - Last Filed: 05/21/25 18:32> Orders Ordered: ED Orders 05/21/25 23:30 PTT Partial Thromboplastin Gian Q6H 05/22/25 08:27 PTT Partial Thromboplastin Gian Q6H 05/22/25 09:09 Hemoglobin and Hematocrit DAILY Platelet Count DAILY 05/22/25 11:30 PTT Partial Thromboplastin Gian Q6H 05/23/25 05:00 Hemoglobin and Hematocrit DAILY Platelet Count DAILY Atorvastatin Calcium (Atorvastatin 20 Mg Tablet) 40 mg PO BEDTIME [facility] Last Admin: 05/21/25 21:50 Dose: 40 mg Documented By: ELVIS Donepezil HCl (Donepezil 5 Mg Tablet) 10 mg PO BEDTIME [facility] Last Admin: 05/21/25 21:50 Dose: 10 mg Documented By: ELVIS Heparin Sodium/Dextrose (Heparin Drip) 25,000 unit in 500 mls @ 17.962 mls/hr IV CONT [facility]; Protocol Last Titration: 05/22/25 03:11 Dose: 11 units/kg/hr, 16.465 mls/hr Documented By: JESUSITA Co-signed By: SH Admin: 05/21/25 18:10 Dose: 12 units/kg/hr, 17.962 mls/hr Documented By: ORIN Co-signed By: WAYNE Dextrose (D10w) 100 mls @ 1,200 mls/hr IV PRN PRN PRN Reason: Hypoglycemia Insulin Human Lispro (Insulin Lispro 100 Unit/Ml 3ml Vial) 0 unit SUBCUT ACHS [facility]; Protocol Last Admin: 05/22/25 00:42 Dose: Not Given Documented By: JESUSITA Naloxone HCl (Naloxone 0.4 Mg/Ml Vial) 0.2 mg IV Q2MIN PRN PRN Reason: Opiate Reversal Discontinued Medications Aspirin (Aspirin 81 Mg Chew Tab) 324 mg PO NOW ONE Stop: 05/21/25 17:30 Last Admin: 05/21/25 18:15 Dose: 324 mg Documented By: ORIN Heparin Sodium (Porcine) (Heparin 5,000 Unit/Ml Vial) 4,500 unit 60 unit/kg (4500 unit) IV NOW ONE Stop: 05/21/25 17:30 Last Admin: 05/21/25 18:07 Dose: 4,500 unit Documented By: ORIN Sodium Chloride (Normal Saline 0.9%) 1,434 mls @ 956 mls/hr 30 ml/kg infuse over 90 min (1434 ml) IV NOW ONE Stop: 05/21/25 12:48 Last Infusion: 05/21/25 16:10 Dose: Infused Documented By: Admin: 05/21/25 11:57 Dose: 956 mls/hr Documented By: ORIN Ketorolac Tromethamine (Ketorolac 30 Mg/Ml Vial) 15 mg IV NOW ONE Stop: 05/21/25 14:12 Last Admin: 05/21/25 14:37 Dose: 15 mg Documented By: ORIN Morphine Sulfate (Morphine 4 Mg/Ml Inj) 4 mg IV NOW ONE Stop: 05/21/25 11:20 Last Admin: 05/21/25 11:50 Dose: 4 mg Documented By: ORIN Olanzapine (Olanzapine 10 Mg Vial) 5 mg IM NOW ONE Stop: 05/22/25 00:11 Last Admin: 05/22/25 06:46 Dose: Not Given Documented By: JESUSITA Ondansetron HCl (Ondansetron 4 Mg/2 Ml Inj) 4 mg IV NOW ONE Stop: 05/21/25 11:20 Last Admin: 05/21/25 11:50 Dose: 4 mg Documented By: ORIN Vital Signs Vital signs: Vital Signs - 8 hr 05/21/25 11:02 05/21/25 11:30 05/21/25 12:00 Temperature 97.9 F Pulse Rate 69 62 62 Respiratory Rate 16 18 24 Blood Pressure 220/90 H 223/102 H 174/70 H Pulse Oximetry 98 98 88 L Oxygen Delivery Method Room Air Room Air Room Air Oxygen Flow Rate 05/21/25 12:05 05/21/25 12:15 05/21/25 12:15 Temperature Pulse Rate 59 L 61 Respiratory Rate 19 35 H Blood Pressure 165/70 H Pulse Oximetry 87 L 100 Oxygen Delivery Method Room Air Non -Rebreather Oxygen Flow Rate 2 05/21/25 12:30 05/21/25 12:36 05/21/25 12:36 Temperature Pulse Rate 54 L 63 Respiratory Rate 20 22 Blood Pressure 181/87 H Pulse Oximetry 100 100 Oxygen Delivery Method Oxygen Flow Rate 05/21/25 12:45 05/21/25 12:45 05/21/25 13:00 Temperature Pulse Rate 55 L 67 Respiratory Rate 19 19 Blood Pressure 195/86 H Pulse Oximetry 98 96 Oxygen Delivery Method Oxygen Flow Rate 05/21/25 13:00 05/21/25 13:15 05/21/25 13:15 Temperature Pulse Rate 62 Respiratory Rate 22 Blood Pressure 185/73 H 167/75 H Pulse Oximetry 99 Oxygen Delivery Method Oxygen Flow Rate 05/21/25 13:30 05/21/25 13:30 05/21/25 13:45 Temperature Pulse Rate 74 Respiratory Rate 20 Blood Pressure 163/74 H 172/80 H Pulse Oximetry 99 Oxygen Delivery Method Room Air Oxygen Flow Rate 05/21/25 13:45 05/21/25 14:00 05/21/25 14:01 Temperature Pulse Rate 60 64 63 Respiratory Rate 21 20 22 Blood Pressure Pulse Oximetry 98 98 97 Oxygen Delivery Method Oxygen Flow Rate 05/21/25 14:01 05/21/25 14:05 05/21/25 14:05 Temperature Pulse Rate 67 Respiratory Rate 20 Blood Pressure 194/86 H 187/76 H Pulse Oximetry 99 Oxygen Delivery Method Oxygen Flow Rate 05/21/25 14:15 05/21/25 14:15 05/21/25 14:30 Temperature Pulse Rate 69 99 H Respiratory Rate 20 20 Blood Pressure 179/78 H Pulse Oximetry 99 99 Oxygen Delivery Method Oxygen Flow Rate 05/21/25 14:31 05/21/25 14:36 05/21/25 14:36 Temperature Pulse Rate 101 H 110 H Respiratory Rate 18 20 Blood Pressure 189/135 H Pulse Oximetry 98 99 Oxygen Delivery Method Oxygen Flow Rate 05/21/25 14:45 05/21/25 14:45 05/21/25 15:00 Temperature Pulse Rate 103 H 100 H Respiratory Rate 24 22 Blood Pressure 197/110 H Pulse Oximetry 98 97 Oxygen Delivery Method Oxygen Flow Rate 05/21/25 15:00 05/21/25 15:16 05/21/25 15:16 Temperature Pulse Rate 94 H Respiratory Rate 26 H Blood Pressure 190/95 H 168/69 H Pulse Oximetry 97 Oxygen Delivery Method Oxygen Flow Rate 05/21/25 15:30 05/21/25 15:30 05/21/25 15:56 Temperature Pulse Rate 103 H Respiratory Rate 22 Blood Pressure 163/74 H 127/75 Pulse Oximetry 96 Oxygen Delivery Method Oxygen Flow Rate 05/21/25 15:56 05/21/25 16:00 05/21/25 16:00 Temperature Pulse Rate 69 65 Respiratory Rate 18 17 Blood Pressure 138/65 Pulse Oximetry 98 96 Oxygen Delivery Method Oxygen Flow Rate 05/21/25 16:11 05/21/25 16:11 05/21/25 16:15 Temperature Pulse Rate 61 Respiratory Rate 14 Blood Pressure 127/66 122/68 Pulse Oximetry 95 Oxygen Delivery Method Oxygen Flow Rate 05/21/25 16:15 05/21/25 16:30 05/21/25 16:30 Temperature Pulse Rate 63 64 Respiratory Rate 22 18 Blood Pressure 122/59 L Pulse Oximetry 95 95 Oxygen Delivery Method Oxygen Flow Rate 05/21/25 16:45 05/21/25 16:45 05/21/25 17:00 Temperature Pulse Rate 54 L Respiratory Rate 18 Blood Pressure 135/63 142/69 H Pulse Oximetry 96 Oxygen Delivery Method Oxygen Flow Rate 05/21/25 17:00 05/21/25 17:15 05/21/25 17:15 Temperature Pulse Rate 51 L 53 L Respiratory Rate 20 17 Blood Pressure 140/64 Pulse Oximetry 99 95 Oxygen Delivery Method Oxygen Flow Rate <Christina Mir, DO - Last Filed: 05/22/25 07:19> Orders Ordered: ED Orders 05/21/25 23:30 PTT Partial Thromboplastin Gian Q6H 05/22/25 08:27 PTT Partial Thromboplastin Gian Q6H 05/22/25 09:09 Hemoglobin and Hematocrit DAILY Platelet Count DAILY 05/22/25 11:30 PTT Partial Thromboplastin Gian Q6H 05/23/25 05:00 Hemoglobin and Hematocrit DAILY Platelet Count DAILY Atorvastatin Calcium (Atorvastatin 20 Mg Tablet) 40 mg PO BEDTIME [facility] Last Admin: 05/21/25 21:50 Dose: 40 mg Documented By: ELVIS Donepezil HCl (Donepezil 5 Mg Tablet) 10 mg PO BEDTIME [facility] Last Admin: 05/21/25 21:50 Dose: 10 mg Documented By: ELVIS Heparin Sodium/Dextrose (Heparin Drip) 25,000 unit in 500 mls @ 17.962 mls/hr IV CONT [facility]; Protocol Last Titration: 05/22/25 03:11 Dose: 11 units/kg/hr, 16.465 mls/hr Documented By: JESUSITA Co-signed By: SH Admin: 05/21/25 18:10 Dose: 12 units/kg/hr, 17.962 mls/hr Documented By: ORIN Co-signed By: WAYNE Dextrose (D10w) 100 mls @ 1,200 mls/hr IV PRN PRN PRN Reason: Hypoglycemia Insulin Human Lispro (Insulin Lispro 100 Unit/Ml 3ml Vial) 0 unit SUBCUT ACHS [facility]; Protocol Last Admin: 05/22/25 00:42 Dose: Not Given Documented By: JESUSITA Naloxone HCl (Naloxone 0.4 Mg/Ml Vial) 0.2 mg IV Q2MIN PRN PRN Reason: Opiate Reversal Discontinued Medications Aspirin (Aspirin 81 Mg Chew Tab) 324 mg PO NOW ONE Stop: 05/21/25 17:30 Last Admin: 05/21/25 18:15 Dose: 324 mg Documented By: ORIN Heparin Sodium (Porcine) (Heparin 5,000 Unit/Ml Vial) 4,500 unit 60 unit/kg (4500 unit) IV NOW ONE Stop: 05/21/25 17:30 Last Admin: 12/17/25 18:07 Dose: 4,500 unit Documented By: ORIN Sodium Chloride (Normal Saline 0.9%) 1,434 mls @ 956 mls/hr 30 ml/kg infuse over 90 min (1434 ml) IV NOW ONE Stop: 05/21/25 12:48 Last Infusion: 05/21/25 16:10 Dose: Infused Documented By: Admin: 05/21/25 11:57 Dose: 956 mls/hr Documented By: ORIN Ketorolac Tromethamine (Ketorolac 30 Mg/Ml Vial) 15 mg IV NOW ONE Stop: 05/21/25 14:12 Last Admin: 05/21/25 14:37 Dose: 15 mg Documented By: BZ Morphine Sulfate (Morphine 4 Mg/Ml Inj) 4 mg IV NOW ONE Stop: 05/21/25 11:20 Last Admin: 05/21/25 11:50 Dose: 4 mg Documented By: ORIN Olanzapine (Olanzapine 10 Mg Vial) 5 mg IM NOW ONE Stop: 05/22/25 00:11 Last Admin: 05/22/25 06:46 Dose: Not Given Documented By: JESUSITA Ondansetron HCl (Ondansetron 4 Mg/2 Ml Inj) 4 mg IV NOW ONE Stop: 05/21/25 11:20 Last Admin: 05/21/25 11:50 Dose: 4 mg Documented By: ORIN Vital Signs Vital signs: Vital Signs - 8 hr 05/21/25 11:02 05/21/25 11:30 05/21/25 12:00 Temperature 97.9 F Pulse Rate 69 62 62 Respiratory Rate 16 18 24 Blood Pressure 220/90 H 223/102 H 174/70 H Pulse Oximetry 98 98 88 L Oxygen Delivery Method Room Air Room Air Room Air Oxygen Flow Rate 05/21/25 12:05 05/21/25 12:15 05/21/25 12:15 Temperature Pulse Rate 59 L 61 Respiratory Rate 19 35 H Blood Pressure 165/70 H Pulse Oximetry 87 L 100 Oxygen Delivery Method Room Air Non -Rebreather Oxygen Flow Rate 2 05/21/25 12:30 05/21/25 12:36 05/21/25 12:36 Temperature Pulse Rate 54 L 63 Respiratory Rate 20 22 Blood Pressure 181/87 H Pulse Oximetry 100 100 Oxygen Delivery Method Oxygen Flow Rate 05/21/25 12:45 05/21/25 12:45 05/21/25 13:00 Temperature Pulse Rate 55 L 67 Respiratory Rate 19 19 Blood Pressure 195/86 H Pulse Oximetry 98 96 Oxygen Delivery Method Oxygen Flow Rate 05/21/25 13:00 05/21/25 13:15 05/21/25 13:15 Temperature Pulse Rate 62 Respiratory Rate 22 Blood Pressure 185/73 H 167/75 H Pulse Oximetry 99 Oxygen Delivery Method Oxygen Flow Rate 05/21/25 13:30 05/21/25 13:30 05/21/25 13:45 Temperature Pulse Rate 74 Respiratory Rate 20 Blood Pressure 163/74 H 172/80 H Pulse Oximetry 99 Oxygen Delivery Method Room Air Oxygen Flow Rate 05/21/25 13:45 05/21/25 14:00 05/21/25 14:01 Temperature Pulse Rate 60 64 63 Respiratory Rate 21 20 22 Blood Pressure Pulse Oximetry 98 98 97 Oxygen Delivery Method Oxygen Flow Rate 05/21/25 14:01 05/21/25 14:05 05/21/25 14:05 Temperature Pulse Rate 67 Respiratory Rate 20 Blood Pressure 194/86 H 187/76 H Pulse Oximetry 99 Oxygen Delivery Method Oxygen Flow Rate 05/21/25 14:15 05/21/25 14:15 05/21/25 14:30 Temperature Pulse Rate 69 99 H Respiratory Rate 20 20 Blood Pressure 179/78 H Pulse Oximetry 99 99 Oxygen Delivery Method Oxygen Flow Rate 05/21/25 14:31 05/21/25 14:36 05/21/25 14:36 Temperature Pulse Rate 101 H 110 H Respiratory Rate 18 20 Blood Pressure 189/135 H Pulse Oximetry 98 99 Oxygen Delivery Method Oxygen Flow Rate 05/21/25 14:45 05/21/25 14:45 05/21/25 15:00 Temperature Pulse Rate 103 H 100 H Respiratory Rate 24 22 Blood Pressure 197/110 H Pulse Oximetry 98 97 Oxygen Delivery Method Oxygen Flow Rate 05/21/25 15:00 05/21/25 15:16 05/21/25 15:16 Temperature Pulse Rate 94 H Respiratory Rate 26 H Blood Pressure 190/95 H 168/69 H Pulse Oximetry 97 Oxygen Delivery Method Oxygen Flow Rate 05/21/25 15:30 05/21/25 15:30 05/21/25 15:56 Temperature Pulse Rate 103 H Respiratory Rate 22 Blood Pressure 163/74 H 127/75 Pulse Oximetry 96 Oxygen Delivery Method Oxygen Flow Rate 05/21/25 15:56 05/21/25 16:00 05/21/25 16:00 Temperature Pulse Rate 69 65 Respiratory Rate 18 17 Blood Pressure 138/65 Pulse Oximetry 98 96 Oxygen Delivery Method Oxygen Flow Rate 05/21/25 16:11 05/21/25 16:11 05/21/25 16:15 Temperature Pulse Rate 61 Respiratory Rate 14 Blood Pressure 127/66 122/68 Pulse Oximetry 95 Oxygen Delivery Method Oxygen Flow Rate 05/21/25 16:15 05/21/25 16:30 05/21/25 16:30 Temperature Pulse Rate 63 64 Respiratory Rate 22 18 Blood Pressure 122/59 L Pulse Oximetry 95 95 Oxygen Delivery Method Oxygen Flow Rate 05/21/25 16:45 05/21/25 16:45 05/21/25 17:00 Temperature Pulse Rate 54 L Respiratory Rate 18 Blood Pressure 135/63 142/69 H Pulse Oximetry 96 Oxygen Delivery Method Oxygen Flow Rate 05/21/25 17:00 05/21/25 17:15 05/21/25 17:15 Temperature Pulse Rate 51 L 53 L Respiratory Rate 20 17 Blood Pressure 140/64 Pulse Oximetry 99 95 Oxygen Delivery Method Oxygen Flow Rate MDM - Back Pain/Injury <Madison Amaral PA-C - Last Filed: 05/21/25 18:32> Medical Records Attestation: I reviewed the patient's medical records. Lab Data 05/21/25 11:30 05/21/25 11:30 Labs: Lab Results 05/21/25 05/21/25 05/21/25 Range/Units 11:30 13:56 14:06 WBC 7.2 (4.5-11.0) X10^3/uL RBC 5.26 H (4.0-5.2) X10^6/uL Hgb 14.2 (12.0-16.0) g/dL Hct 43.3 (36-46) % MCV 82.3 (80-100) fL MCH 27.0 (26-34) PG MCHC 32.7 (30-36) % RDW 15.3 H (11.6-14.8) % Plt Count 290 (150-400) X10^3/uL Neut % (Auto) 77.1 H (50-75) % Lymph % (Auto) 13.1 L (25-40) % Wood % (Auto) 6.3 (3-14) % Eos % (Auto) 2.2 (2-4) % Baso % (Auto) 1.3 (0-2) % Neut # (Auto) 5600 (1051-7868) /uL Lymph # (Auto) 900 L (6681-6037) /uL Wood # (Auto) 500 (0-900) /uL Eos # (Auto) 200 (0-450) /uL Baso # (Auto) 100 (0-100) /uL PT 12.0 (9.4-12.5) SECONDS INR 1.1 (0.9-1.3) APTT 30 (25.1-36.5) SECONDS Sodium 139 (137-145) mmol/L Potassium 3.9 (3.4-5.1) mmol/L Chloride 102 (98-107) mmol/L Carbon Dioxide 27 (22-32) mmol/L BUN 22 H (7-17) mg/dL Creatinine 0.98 (0.52-1.04) mg/dL Estimated GFR 59 L (>60) mL/min BUN/Creatinine Ratio 22.4 H (6-22) Glucose 135 H (70-99) mg/dL Lactate 1.3 (0.7-2.1) mmol/L Calcium 9.6 (8.4-10.2) mg/dL Total Bilirubin 1.0 (0.2-1.3) mg/dL AST 25 (14-36) IU/L ALT 15 (<35) IU/L Alkaline Phosphatase 82 (38-126) U/L Total Creatine Kinase 77 (30-135) U/L Troponin I < 0.012 0.028 (0.01-0.034) ng/mL Total Protein 8.1 (6.3-8.2) g/dL Albumin 4.8 (3.5-5.0) g/dL Globulin 3.3 (1.7-4.1) g/dL Albumin/Globulin Ratio 1.5 (1.0-2.8) Procalcitonin 0.054 (<0.5) ng/mL Urine Color Yellow Urine Appearance Clear Urine pH 7.5 (4.5-8.0) Ur Specific [place] 1.010 (1.000-1.035) Urine Protein Trace H (Negative) Urine Glucose (UA) Negative (Negative) g/dL Urine Ketones Negative (NEGATIVE) Urine Occult Blood Negative (Negative) Urine Nitrate Negative (Negative) Urine Bilirubin Negative (NEGATIVE) Urine Urobilinogen 0.2 (0.2) E.U./dL Ur Leukocyte Esterase Negative (NEGATIVE) Urine RBC 0-1/hpf (0-5/HPF) Urine WBC 0-1/hpf (0-5/HPF) Ur Squamous Epith Cells 0-1 /hpf (0-5/HPF) Urine Bacteria None seen (None) Ur Culture Indicated? Cult not indicated Vol Urine Centrifuged 10ml (spun) A.calcoaceticus-baumannii cmplx PCR Not detected (Not Detect) Bacteroides fragilis Not detected (Not Detect) Lela albicans (PCR) Not detected (Not Detect) Lela auris (PCR) Not detected (Not Detect) C. glabrata (PCR) Not detected (Not Detect) C. krusei (PCR) Not detected (Not Detect) C. parapsilosis (PCR) Not detected (Not Detect) C. tropicalis (PCR) Not detected (Not Detect) C. neoform/gattii (PCR) Not detected (Not Detect) Enterobacterales (PCR) Not detected (Not Detect) E. cloacae complex PCR Not detected (Not Detect) Enterococc faecalis PCR Not detected (Not Detect) Enterococc faecium PCR Not detected (Not Detect) E. coli (PCR) Not detected (Not Detect) H. influenzae (PCR) Not detected (Not Detect) Klebsiella aerogenes (PCR) Not detected (Not Detect) Klebsiella oxytoca PCR Not detected (Not Detect) Klebsiella pneumoniae Not detected (Not Detect) List. monocytogenes PCR Not detected (Not Detect) N. meningitidis (PCR) Not detected (Not Detect) Proteus species (PCR) Not detected (Not Detect) Salmonella spp. (PCR) Not detected (Not Detect) Serratia marcescens PCR Not detected (Not Detect) Staphylococcus sp PCR Detected (Not Detect) Staph aureus (PCR) Not detected (Not Detect) mecA/C & MREJ Resist Gene Not applicable (Not Detect) mecA/C-Methicil Resis Gene Not applicable (Not Detect) mcr-1 Colistin Res Gene PCR Not applicable (Not Detect) Staph epidermidis (PCR) Not detected (Not Detect) Staph lugdunensis PCR Not detected (Not Detect) S. maltophilia (PCR) Not detected (Not Detect) Streptococcus sp PCR Not detected (Not Detect) Group A Strep (PCR) Not detected (Not Detect) Strep agalactiae (PCR) Not detected (Not Detect) Strep pneumoniae (PCR) Not detected (Not Detect) P. aeruginosa (PCR) Not detected (Not Detect) Marcellus/B-Vanco Res Genes Not applicable (Not Detect) blaIMP Car res Gene PCR Not applicable (Not Detect) KPC-Carbap Res Gene PCR Not applicable (Not Detect) blaNDM Car Res Gene PCR Not applicable (Not Detect) OXA-48 Carbapenem Resis Gene (PCR) Not applicable (Not Detect) blaVIM Car Res Gene PCR Not applicable (Not Detect) CTX-M Gene Resistance (PCR) Not applicable (Not Detect) 05/21/25 Range/Units 16:08 WBC (4.5-11.0) X10^3/uL RBC (4.0-5.2) X10^6/uL Hgb (12.0-16.0) g/dL Hct (36-46) % MCV (80-100) fL MCH (26-34) PG MCHC (30-36) % RDW (11.6-14.8) % Plt Count (150-400) X10^3/uL Neut % (Auto) (50-75) % Lymph % (Auto) (25-40) % Wood % (Auto) (3-14) % Eos % (Auto) (2-4) % Baso % (Auto) (0-2) % Neut # (Auto) (4808-3713) /uL Lymph # (Auto) (0337-5758) /uL Wood # (Auto) (0-900) /uL Eos # (Auto) (0-450) /uL Baso # (Auto) (0-100) /uL PT (9.4-12.5) SECONDS INR (0.9-1.3) APTT (25.1-36.5) SECONDS Sodium (137-145) mmol/L Potassium (3.4-5.1) mmol/L Chloride (98-107) mmol/L Carbon Dioxide (22-32) mmol/L BUN (7-17) mg/dL Creatinine (0.52-1.04) mg/dL Estimated GFR (>60) mL/min BUN/Creatinine Ratio (6-22) Glucose (70-99) mg/dL Lactate (0.7-2.1) mmol/L Calcium (8.4-10.2) mg/dL Total Bilirubin (0.2-1.3) mg/dL AST (14-36) IU/L ALT (<35) IU/L Alkaline Phosphatase (38-126) U/L Total Creatine Kinase (30-135) U/L Troponin I 0.139 H* (0.01-0.034) ng/mL Total Protein (6.3-8.2) g/dL Albumin (3.5-5.0) g/dL Globulin (1.7-4.1) g/dL Albumin/Globulin Ratio (1.0-2.8) Procalcitonin (<0.5) ng/mL Urine Color Urine Appearance Urine pH (4.5-8.0) Ur Specific [place] (1.000-1.035) Urine Protein (Negative) Urine Glucose (UA) (Negative) g/dL Urine Ketones (NEGATIVE) Urine Occult Blood (Negative) Urine Nitrate (Negative) Urine Bilirubin (NEGATIVE) Urine Urobilinogen (0.2) E.U./dL Ur Leukocyte Esterase (NEGATIVE) Urine RBC (0-5/HPF) Urine WBC (0-5/HPF) Ur Squamous Epith Cells (0-5/HPF) Urine Bacteria (None) Ur Culture Indicated? Vol Urine Centrifuged A.calcoaceticus-baumannii cmplx PCR (Not Detect) Bacteroides fragilis (Not Detect) Lela albicans (PCR) (Not Detect) Lela auris (PCR) (Not Detect) C. glabrata (PCR) (Not Detect) C. krusei (PCR) (Not Detect) C. parapsilosis (PCR) (Not Detect) C. tropicalis (PCR) (Not Detect) C. neoform/gattii (PCR) (Not Detect) Enterobacterales (PCR) (Not Detect) E. cloacae complex PCR (Not Detect) Enterococc faecalis PCR (Not Detect) Enterococc faecium PCR (Not Detect) E. coli (PCR) (Not Detect) H. influenzae (PCR) (Not Detect) Klebsiella aerogenes (PCR) (Not Detect) Klebsiella oxytoca PCR (Not Detect) Klebsiella pneumoniae (Not Detect) List. monocytogenes PCR (Not Detect) N. meningitidis (PCR) (Not Detect) Proteus species (PCR) (Not Detect) Salmonella spp. (PCR) (Not Detect) Serratia marcescens PCR (Not Detect) Staphylococcus sp PCR (Not Detect) Staph aureus (PCR) (Not Detect) mecA/C & MREJ Resist Gene (Not Detect) mecA/C-Methicil Resis Gene (Not Detect) mcr-1 Colistin Res Gene PCR (Not Detect) Staph epidermidis (PCR) (Not Detect) Staph lugdunensis PCR (Not Detect) S. maltophilia (PCR) (Not Detect) Streptococcus sp PCR (Not Detect) Group A Strep (PCR) (Not Detect) Strep agalactiae (PCR) (Not Detect) Strep pneumoniae (PCR) (Not Detect) P. aeruginosa (PCR) (Not Detect) Marcellus/B-Vanco Res Genes (Not Detect) blaIMP Car res Gene PCR (Not Detect) KPC-Carbap Res Gene PCR (Not Detect) blaNDM Car Res Gene PCR (Not Detect) OXA-48 Carbapenem Resis Gene (PCR) (Not Detect) blaVIM Car Res Gene PCR (Not Detect) CTX-M Gene Resistance (PCR) (Not Detect) Imaging Data Chest x-ray: Radiologist's Impression: PROCEDURE: XR CHEST 1V INDICATIONS: upper abd pain TECHNIQUE: One view of the chest was acquired. COMPARISON: [facility], CT, CT ANGIO CHEST ABDOMEN PELVIS, 05/21/2025, 11:26. [facility], CR, XR CHEST 1V, 02/13/2022, 13:16. FINDINGS: Surgical changes and devices: None. Lungs and pleura: Lungs are clear. No pleural effusions or pneumothorax. Mediastinum: Mediastinal contours appear normal. Heart size is normal. Bones and chest wall: No suspicious bony lesions. Overlying soft tissues appear unremarkable. IMPRESSION: No acute cardiopulmonary abnormality is seen. Dictated by: Erik Early M.D. on 05/21/2025 at 12:11 Approved by: Erik Early M.D. on 05/21/2025 at 12:13 Chest Abdomen Pelvis CTA: Radiologist's Impression: PROCEDURE: CT ANGIO CHEST ABDOMEN PELVIS INDICATIONS: back pain abd pain dissection TECHNIQUE: Precontrast 5 mm thick sections acquired from the lung apices to the iliac crests. After the administration of intravenous contrast, 2.5 mm thick sections again acquired from the lung apices to the iliac crests. Maximum intensity projection (MIP) oblique sagittal and coronal reformats were then acquired. For radiation dose reduction, the following was used: automated exposure control. COMPARISON: None. FINDINGS: Image quality: Diagnostic. AORTA: No aortic aneurysm. No acute aortic syndrome. [id number] atherosclerotic calcifications in mid to lower abdominal aorta is seen. CHEST: Lower Neck: No enlarged lymph nodes. Thyroid: 1.1 cm hypodense nodule in left thyroid lobe is seen series 4, image 31. Axillae: No enlarged lymph nodes. Chest Wall: Unremarkable. Lungs and Pleura: No pneumothorax or pleural effusions. No consolidation or suspicious nodules. Heart: Heart size is mildly enlarged. No pericardial effusion. Thoracic Vessels: Pulmonary arteries demonstrate normal size. Mediastinum and Mary: No enlarged lymph nodes. Esophagus: No wall thickening. Small hiatal hernia. ABDOMEN: Liver: No solid mass. Gallbladder: Single calcified stone in dependent portion of gallbladder lumen is seen. No gallbladder wall thickening. Biliary ducts: No biliary dilation. Pancreas: No ductal dilation. Spleen: Size is within normal limits. Adrenal Glands: No adrenal nodules. Kidneys and Ureters: No hydronephrosis. No solid mass. No complex renal cystic lesion which requires follow up. Stomach and Bowel: Normal colonic caliber, without significant wall thickening. Moderate fecal stasis throughout the colon is seen. Normal appendix. Sigmoid diverticulosis without CT evidence of acute diverticulitis. No abscess collection. Peritoneum: No abnormal intraperitoneal fluid. No free air. Ventral Wall: No hernia. Abdominal Nodes: No retroperitoneal or mesenteric adenopathy by size criteria. Vessels: Inferior vena cava is normal in size. PELVIS: Pelvic Organs: Prior hysterectomy. Bladder: Unremarkable. Pelvic Nodes: No enlarged lymph nodes. Miscellaneous: No inguinal hernias are seen. Bones: Post surgical changes are noted in right femoral neck with beam hardening artifacts. No aggressive appearing bony lesions. Degenerative disc disease throughout thoracic and lumbar spine is seen. IMPRESSION: 1. No aortic aneurysm or dissection. No hemodynamically significant stenosis is seen in major branches of thoracic or abdominal aorta. Jezp-md-fsiowjkq atherosclerotic calcifications in mid to lower abdominal aorta. 2. No evidence of pulmonary emboli. 3. No acute cardiopulmonary pathology. No mediastinal or hilar lymphadenopathy. 4. No acute inflammatory process is seen in abdomen or pelvis. No free fluid or free air. Moderate constipation. 5. Cholelithiasis without CT evidence of acute cholecystitis. 6. Other chronic findings as above. Dictated by: Fei Gilbert M.D. on 05/21/2025 at 12:25 Approved by: Fei Gilbert M.D. on 05/21/2025 at 12:31 ECG Data Interpretation: EKG reveals normal sinus rhythm, possible a flutter, rate of 62 beats per minute QTC of 483, left axis deviation. No ST segment elevations. MDM Narrative Medical decision making narrative: 80-year-old female with a past medical history of mmy-tcvwyaq-omanhrhvh T2 dm, dementia, HTN, HLD, anemia, frequent UTIs who presents to the emergency department with her son from home for concern of abdominal pain back pain and vomiting that started this morning. Differential diagnosis includes but is not limited to UTI, pyelonephritis, diverticulitis, aortic dissection, pancreatitis, cholecystitis, etc. On exam patient is in mild distress, dry heaving, vital signs are all within normal limits except for elevated blood pressure. She was here in the emergency department 05/15/2025 for family concern of UTI, straight cath urine was negative at that time and lab work was without acute abnormality. She returns today with her son for acute nausea vomiting back and abdominal pain that started this morning. On physical exam patient does have epigastric and left upper quadrant and left CVA tenderness of her abdomen. EKG, troponin, CBC, CMP, lactic, lipase, chest x-ray, CTA dissection protocol ordered. Morphine Zofran and fluids ordered as well. EKG reviewed with the attending physician, possible atrial flutter. Patient's oxygen did drop into the mid 80s after receiving morphine. Oxygen improved with sitting the patient up and oxygen supplementation. Chest abdomen pelvis CTA reveals no aortic aneurysm or dissection. No PE. No acute cardiopulmonary pathology. No acute inflammatory process in the abdomen or pelvis. Patient does have constipation and cholelithiasis without CT evidence of acute cholecystitis. Labs reveal normal WBC count 7.2. Hemoglobin 14.2. Platelets 290. Sodium 139, potassium 3.9, BUN 22 creatinine 0.98 with a GFR 59. Glucose 135. Normal lactate 1.3. Undetectable troponin. Negative procalcitonin. 1400: Printed and reviewed imaging results and discussed them with the patient's son at her bedside. Discussed lab work results. We are currently awaiting urine and repeat troponin. Patient is resting comfortably this time, on 2 L oxygen. Because of her dementia she is unfortunately a poor historian and is unable to tell me or show me where her pain is at but her son says that any time she moves she has significant pain on her left side that was not helped with the morphine. Repeat trop still negative but elevated. Will repeat 3rd while we are assessing patient's ability to ambulate independently. 1700: Informed by nursing staff patient has a positive troponin 0.139. She is resting comfortably at this time. Denies history of known CAD. Denies any black or bloody stool, bloody emesis or head trauma. 1720: Repeat EKG does reveal T-wave inversions leads 2, 3, AVF that were not identified on prior EKGs. Discussed case with the foreign language teacher, Dr. Mars. He said based on patient's POA, if she would like all interventions then she should be transferred however if they are not interested in intervention that she could be admitted here for medical management. 1725: Dr. Mir and myself discussed with the patient and her son the options of transfer for possible cardiac stent versus admission for medical management. Patient's son does not believe it is appropriate for her to undergo cardiac catheterization/stent and would prefer for her to stay for medical treatment. He understands that we do not have ability for emergent cardiac catheterization at this hospital. Aspirin and heparin drip ordered. Patient chest pain-free currently. 1810: Discussed case with nighttime hospitalist, Dr. Mario, who graciously accepts the patient for admission to the hospital. Patient and her son are aware and agreeable to admission at this time all questions answered, stable for transfer to the floor, heparin gtt running. She is still chest pain free. <Christina Mir, DO - Last Filed: 05/22/25 07:19> Lab Data Labs: Lab Results 05/21/25 05/21/25 05/21/25 Range/Units 11:30 13:56 14:06 WBC 7.2 (4.5-11.0) X10^3/uL RBC 5.26 H (4.0-5.2) X10^6/uL Hgb 14.2 (12.0-16.0) g/dL Hct 43.3 (36-46) % MCV 82.3 (80-100) fL MCH 27.0 (26-34) PG MCHC 32.7 (30-36) % RDW 15.3 H (11.6-14.8) % Plt Count 290 (150-400) X10^3/uL Neut % (Auto) 77.1 H (50-75) % Lymph % (Auto) 13.1 L (25-40) % Wood % (Auto) 6.3 (3-14) % Eos % (Auto) 2.2 (2-4) % Baso % (Auto) 1.3 (0-2) % Neut # (Auto) 5600 (9135-7825) /uL Lymph # (Auto) 900 L (4897-8012) /uL Wood # (Auto) 500 (0-900) /uL Eos # (Auto) 200 (0-450) /uL Baso # (Auto) 100 (0-100) /uL PT 12.0 (9.4-12.5) SECONDS INR 1.1 (0.9-1.3) APTT 30 (25.1-36.5) SECONDS Sodium 139 (137-145) mmol/L Potassium 3.9 (3.4-5.1) mmol/L Chloride 102 (98-107) mmol/L Carbon Dioxide 27 (22-32) mmol/L BUN 22 H (7-17) mg/dL Creatinine 0.98 (0.52-1.04) mg/dL Estimated GFR 59 L (>60) mL/min BUN/Creatinine Ratio 22.4 H (6-22) Glucose 135 H (70-99) mg/dL Lactate 1.3 (0.7-2.1) mmol/L Calcium 9.6 (8.4-10.2) mg/dL Total Bilirubin 1.0 (0.2-1.3) mg/dL AST 25 (14-36) IU/L ALT 15 (<35) IU/L Alkaline Phosphatase 82 (38-126) U/L Total Creatine Kinase 77 (30-135) U/L Troponin I < 0.012 0.028 (0.01-0.034) ng/mL Total Protein 8.1 (6.3-8.2) g/dL Albumin 4.8 (3.5-5.0) g/dL Globulin 3.3 (1.7-4.1) g/dL Albumin/Globulin Ratio 1.5 (1.0-2.8) Procalcitonin 0.054 (<0.5) ng/mL Urine Color Yellow Urine Appearance Clear Urine pH 7.5 (4.5-8.0) Ur Specific [place] 1.010 (1.000-1.035) Urine Protein Trace H (Negative) Urine Glucose (UA) Negative (Negative) g/dL Urine Ketones Negative (NEGATIVE) Urine Occult Blood Negative (Negative) Urine Nitrate Negative (Negative) Urine Bilirubin Negative (NEGATIVE) Urine Urobilinogen 0.2 (0.2) E.U./dL Ur Leukocyte Esterase Negative (NEGATIVE) Urine RBC 0-1/hpf (0-5/HPF) Urine WBC 0-1/hpf (0-5/HPF) Ur Squamous Epith Cells 0-1 /hpf (0-5/HPF) Urine Bacteria None seen (None) Ur Culture Indicated? Cult not indicated Vol Urine Centrifuged 10ml (spun) A.calcoaceticus-baumannii cmplx PCR Not detected (Not Detect) Bacteroides fragilis Not detected (Not Detect) Lela albicans (PCR) Not detected (Not Detect) Lela auris (PCR) Not detected (Not Detect) C. glabrata (PCR) Not detected (Not Detect) C. krusei (PCR) Not detected (Not Detect) C. parapsilosis (PCR) Not detected (Not Detect) C. tropicalis (PCR) Not detected (Not Detect) C. neoform/gattii (PCR) Not detected (Not Detect) Enterobacterales (PCR) Not detected (Not Detect) E. cloacae complex PCR Not detected (Not Detect) Enterococc faecalis PCR Not detected (Not Detect) Enterococc faecium PCR Not detected (Not Detect) E. coli (PCR) Not detected (Not Detect) H. influenzae (PCR) Not detected (Not Detect) Klebsiella aerogenes (PCR) Not detected (Not Detect) Klebsiella oxytoca PCR Not detected (Not Detect) Klebsiella pneumoniae Not detected (Not Detect) List. monocytogenes PCR Not detected (Not Detect) N. meningitidis (PCR) Not detected (Not Detect) Proteus species (PCR) Not detected (Not Detect) Salmonella spp. (PCR) Not detected (Not Detect) Serratia marcescens PCR Not detected (Not Detect) Staphylococcus sp PCR Detected (Not Detect) Staph aureus (PCR) Not detected (Not Detect) mecA/C & MREJ Resist Gene Not applicable (Not Detect) mecA/C-Methicil Resis Gene Not applicable (Not Detect) mcr-1 Colistin Res Gene PCR Not applicable (Not Detect) Staph epidermidis (PCR) Not detected (Not Detect) Staph lugdunensis PCR Not detected (Not Detect) S. maltophilia (PCR) Not detected (Not Detect) Streptococcus sp PCR Not detected (Not Detect) Group A Strep (PCR) Not detected (Not Detect) Strep agalactiae (PCR) Not detected (Not Detect) Strep pneumoniae (PCR) Not detected (Not Detect) P. aeruginosa (PCR) Not detected (Not Detect) Marcellus/B-Vanco Res Genes Not applicable (Not Detect) blaIMP Car res Gene PCR Not applicable (Not Detect) KPC-Carbap Res Gene PCR Not applicable (Not Detect) blaNDM Car Res Gene PCR Not applicable (Not Detect) OXA-48 Carbapenem Resis Gene (PCR) Not applicable (Not Detect) blaVIM Car Res Gene PCR Not applicable (Not Detect) CTX-M Gene Resistance (PCR) Not applicable (Not Detect) 05/21/25 Range/Units 16:08 WBC (4.5-11.0) X10^3/uL RBC (4.0-5.2) X10^6/uL Hgb (12.0-16.0) g/dL Hct (36-46) % MCV (80-100) fL MCH (26-34) PG MCHC (30-36) % RDW (11.6-14.8) % Plt Count (150-400) X10^3/uL Neut % (Auto) (50-75) % Lymph % (Auto) (25-40) % Wood % (Auto) (3-14) % Eos % (Auto) (2-4) % Baso % (Auto) (0-2) % Neut # (Auto) (6225-4853) /uL Lymph # (Auto) (5193-3351) /uL Wood # (Auto) (0-900) /uL Eos # (Auto) (0-450) /uL Baso # (Auto) (0-100) /uL PT (9.4-12.5) SECONDS INR (0.9-1.3) APTT (25.1-36.5) SECONDS Sodium (137-145) mmol/L Potassium (3.4-5.1) mmol/L Chloride (98-107) mmol/L Carbon Dioxide (22-32) mmol/L BUN (7-17) mg/dL Creatinine (0.52-1.04) mg/dL Estimated GFR (>60) mL/min BUN/Creatinine Ratio (6-22) Glucose (70-99) mg/dL Lactate (0.7-2.1) mmol/L Calcium (8.4-10.2) mg/dL Total Bilirubin (0.2-1.3) mg/dL AST (14-36) IU/L ALT (<35) IU/L Alkaline Phosphatase (38-126) U/L Total Creatine Kinase (30-135) U/L Troponin I 0.139 H* (0.01-0.034) ng/mL Total Protein (6.3-8.2) g/dL Albumin (3.5-5.0) g/dL Globulin (1.7-4.1) g/dL Albumin/Globulin Ratio (1.0-2.8) Procalcitonin (<0.5) ng/mL Urine Color Urine Appearance Urine pH (4.5-8.0) Ur Specific [place] (1.000-1.035) Urine Protein (Negative) Urine Glucose (UA) (Negative) g/dL Urine Ketones (NEGATIVE) Urine Occult Blood (Negative) Urine Nitrate (Negative) Urine Bilirubin (NEGATIVE) Urine Urobilinogen (0.2) E.U./dL Ur Leukocyte Esterase (NEGATIVE) Urine RBC (0-5/HPF) Urine WBC (0-5/HPF) Ur Squamous Epith Cells (0-5/HPF) Urine Bacteria (None) Ur Culture Indicated? Vol Urine Centrifuged A.calcoaceticus-baumannii cmplx PCR (Not Detect) Bacteroides fragilis (Not Detect) Lela albicans (PCR) (Not Detect) Lela auris (PCR) (Not Detect) C. glabrata (PCR) (Not Detect) C. krusei (PCR) (Not Detect) C. parapsilosis (PCR) (Not Detect) C. tropicalis (PCR) (Not Detect) C. neoform/gattii (PCR) (Not Detect) Enterobacterales (PCR) (Not Detect) E. cloacae complex PCR (Not Detect) Enterococc faecalis PCR (Not Detect) Enterococc faecium PCR (Not Detect) E. coli (PCR) (Not Detect) H. influenzae (PCR) (Not Detect) Klebsiella aerogenes (PCR) (Not Detect) Klebsiella oxytoca PCR (Not Detect) Klebsiella pneumoniae (Not Detect) List. monocytogenes PCR (Not Detect) N. meningitidis (PCR) (Not Detect) Proteus species (PCR) (Not Detect) Salmonella spp. (PCR) (Not Detect) Serratia marcescens PCR (Not Detect) Staphylococcus sp PCR (Not Detect) Staph aureus (PCR) (Not Detect) mecA/C & MREJ Resist Gene (Not Detect) mecA/C-Methicil Resis Gene (Not Detect) mcr-1 Colistin Res Gene PCR (Not Detect) Staph epidermidis (PCR) (Not Detect) Staph lugdunensis PCR (Not Detect) S. maltophilia (PCR) (Not Detect) Streptococcus sp PCR (Not Detect) Group A Strep (PCR) (Not Detect) Strep agalactiae (PCR) (Not Detect) Strep pneumoniae (PCR) (Not Detect) P. aeruginosa (PCR) (Not Detect) Marcellus/B-Vanco Res Genes (Not Detect) blaIMP Car res Gene PCR (Not Detect) KPC-Carbap Res Gene PCR (Not Detect) blaNDM Car Res Gene PCR (Not Detect) OXA-48 Carbapenem Resis Gene (PCR) (Not Detect) blaVIM Car Res Gene PCR (Not Detect) CTX-M Gene Resistance (PCR) (Not Detect) Discharge Plan Departure Patient Disposition: Admitted As Inpatient Clinical Impression: Acute non-ST elevation myocardial infarction (NSTEMI), Left sided abdominal pain, Dementia Constipation Qualifiers: Constipation type: unspecified constipation type Qualified Code(s): K59.00 - Constipation, unspecified Admit Date/Time: 05/21/25 18:23 Admit Provider: Ronal Mario ED Sign-out <Christina Mir DO - Last Filed: 05/22/25 07:19> Cosign ED Attending Cosignature Attestation: I was involved in consult is in care. Patient was quite hypertensive having back pain. She did get up and walk around the emergency department with a walker. She was having some ongoing back pain. Troponin did rise and become positive 0.139. EKGs reviewed by me there is T-wave inversion noted in lead 2 3 and AVF which does seem new from previous EKGs in 2021 difficult to tell if it is in the 1st EKGs of the day due to some artifact it does not appear to be in the 2nd EKG. So with a new positive troponin she does have T-wave inversions which are new. I spoke with patient and her son who is a DPOA in regards to care. At this time he would like medical management Patient overall appears well nontoxic blood pressure has improved.
--- NOTE | 2025-05-21 11:29 | EKG_ITS ---
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
[2025-05-21] MEDS: ONDANSETRON 4 MG/2 ML INJ IV (11:50)
[2025-05-21] MEDS: MORPHINE 4 MG/ML INJ IV (11:50)
[2025-05-21 11:53] LABS: Add Manual Diff / Slide Review NO; Hematocrit 43.3 % (36-46); Hemoglobin 14.2 g/dL (12.0-16.0); Lymphocytes Absolute Auto 900 /uL (1100-4500); Mean Corpuscular HGB Conc 32.7 % (30-36); Mean Corpuscular Hemoglobin 27.0 PG (26-34); Mean Corpuscular Volume 82.3 fL (80-100); Platelet Count 290 X10^3/uL (150-400)
[2025-05-21] MEDS: SODIUM CHLORIDE 0.9% 1,434 ML 956 ML IV (11:57)
[2025-05-21 12:00] LABS: INR 1.1 (0.9-1.3); Prothrombin Time 12.0 SECONDS (9.4-12.5)
[2025-05-21 12:03] LABS: PTT Partial Thromboplastin Tim 30 SECONDS (25.1-36.5)
[2025-05-21 12:04] LABS: Alanine Aminotransferase 15 IU/L (<35); Albumin 4.8 g/dL (3.5-5.0); Albumin Globulin Ratio 1.5 (1.0-2.8); Alkaline Phosphatase 82 U/L (38-126); Blood Urea Nitrogen 22 mg/dL (7-17); Calcium 9.6 mg/dL (8.4-10.2); Carbon Dioxide 27 mmol/L (22-32); Chloride 102 mmol/L (98-107); Creatine Kinase 77 U/L (30-135); Estimated Glomerular Filt Rate 59 mL/min (>60); Globulin 3.3 g/dL (1.7-4.1); Glucose 135 mg/dL (70-99); HEMOLYSIS 18 (0-50); Potassium 3.9 mmol/L (3.4-5.1); Sodium 139 mmol/L (137-145); Total Protein 8.1 g/dL (6.3-8.2)
[2025-05-21 12:05] LABS: Lactate (Lactic Acid) 1.3 mmol/L (0.7-2.1)
[2025-05-21 12:16] LABS: Troponin I < 0.012 ng/mL (0.01-0.034)
[2025-05-21 12:21] LABS: Procalcitonin 0.054 ng/mL (<0.5)
--- NOTE | 2025-05-21 12:24 | PC.NURSE ---
Patient O2 reading in mid 80s, provider made aware and arrived to bedside. RT called to assess patient. Patient placed on O2 mask at 4L.
--- NOTE | 2025-05-21 13:29 | EKG_ITS ---
[address] [address] Test Date: 2025-05-21 Pat Name: Cheyanne Clements Department: 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
[2025-05-21 14:25] LABS: Appearance Urine UA CLEAR; Bilirubin Urine UA NEGATIVE (NEGATIVE); Color Urine UA YELLOW; Glucose Urine UA NEGATIVE (Negative); Ketones Urine UA NEGATIVE (NEGATIVE); Leukocyte Esterase Urine UA NEGATIVE (NEGATIVE); Nitrite Urine UA NEGATIVE (Negative); Occult Blood Urine UA NEGATIVE (Negative); Protein Urine UA TRACE (Negative); Specific Gravity Urine UA 1.010 (1.000-1.035); Urobilinogen Urine UA 0.2 E.U./dL (0.2)
[2025-05-21 14:26] LABS: pH Urine UA 7.5 (4.5-8.0)
[2025-05-21 14:31] LABS: Troponin I 0.028 ng/mL (0.01-0.034)
[2025-05-21 14:37] LABS: Culture Indicated Urine Cult Not Indicated
[2025-05-21] MEDS: KETOROLAC 30 MG/ML VIAL 15 MG IV (14:37)
[2025-05-21 16:47] LABS: Troponin I 0.139 ng/mL (0.01-0.034)
--- NOTE | 2025-05-21 17:08 | EKG_ITS ---
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
[2025-05-21] MEDS: HEPARIN 5,000 UNIT/ML VIAL 4500 UNIT IV (18:07)
[2025-05-21] MEDS: HEPARIN DRIP 25,000 UNIT/500 ML IV.SOLN 17.962 UNIT IV (18:10)
[2025-05-21] MEDS: ASPIRIN 81 MG CHEW TAB 324 MG PO (18:15)
--- NOTE | 2025-05-21 18:22 | P.HP_ITS ---
History of Present Illness History of Present Illness Date Patient Seen: 05/21/25 Time Patient Seen: 18:22 Chief complaint: ABD/AROLDO PAIN VOMITING Narrative: This is a 80-year-old female with severe dementia, diabetes mellitus, hyperlipidemia, diffuse large B-cell lymphoma, hypertension and GERD who presents with 1 day of left-sided abdominal pain, back pain and vomiting. CT of chest, abdomen and pelvis is negative. Initial EKG and troponin is normal. Follow up EKGs are reported to show T-wave inversions in the inferior leads. These EKGs are not visible in the EMR yet. The 3rd troponin bi to a diagnostic level of 0.139. Due to her dementia she is being admitted for conservative treatment of a non ST elevation [place] after discussion with Dr. Norris and with her son who she has been living with. She will be treated with a 48 hour heparin drip and aspirin. An echo will be done. Physical exam: The patient is alert and oriented to her name. She is not able to follow exam directions and becomes easily confused. Pupils are equally round and reactive to light and accommodation. Extraocular muscles are intact. Sclerae are pink and nonicteric. Throat looks normal. No lymph nodes are felt head, neck, supraclavicular area. There is no thyromegaly. JVD is less than 6 cm. No carotid bruits are heard. Heart is regular rate and rhythm without murmur. Lungs are clear to auscultation bilaterally. Abdomen is soft, bowel sounds positive, nontender, no organomegaly. Extremities have no ankle edema. Skin has no rash or jaundice. Cranial nerves 2-12 test intact. Motor function is 4/5 throughout. There is no tremor. Assessment and plan: Non ST-elevation [place], present on admission. Active. -per discussion with Cardiology(Dr. Norris), in the context of her severe dementia and rising troponin, she will be treated conservatively with IV heparin for 48 hours and aspirin. -not a candidate for cardiac catheterization unless she were to develop intractable chest pain. -Follow troponin -check echocardiogram -begin atorvastatin and aspirin. Hypertension, present on admission. Chronic. Dementia, present on admission. Chronic. -continue donepezil. Diabetes mellitus, present on admission. Chronic. -hold metformin, begin correctional insulin scale and follow blood sugars. IV heparin for DVT prevention Her son is her backup decision maker. [facility] Medical History Fever and neutropenia Fracture of humerus, proximal, left, closed Dysuria Abdominal wall hernia Dementia Anemia Lela UTI Diffuse large B cell lymphoma Type 2 diabetes mellitus Essential hypertension Hepatitis B Wears glasses Alopecia (~1970) Depression Anxiety Carpal tunnel syndrome Mumps Measles Chicken pox Vertigo Cataracts, bilateral GERD (gastroesophageal reflux disease) Surgical History Anesthesia History of hernia repair History of hand surgery History of tonsillectomy History of hysterectomy Family History Father Hypertension Hyperlipidemia Mother MVA (motor vehicle accident) Sister Heart defect Social History household members: family alcohol intake: never Meds Home Medications and Allergies Home Medications ?Medication ?Instructions ?Recorded ?Confirmed ?Type acetaminophen 500 mg capsule 1,000 mg PO Q6H PRN Fever 02/02/22 02/28/25 History oxycodone-acetaminophen 5 mg-325 1 tab PO QID PRN pain #60 tabs 02/13/24 02/28/25 Rx mg tablet (Percocet) food supplemt, lactose-reduced 1 ea PO DAILY #5,688 mL 07/15/24 02/28/25 Rx (Ensure oral liquid) loperamide 2 mg capsule (Imodium 2 mg PO Q6H PRN loose stool #30 11/05/24 02/28/25 Rx A-D) caps diphenoxylate-atropine 2.5 1 tab PO QID PRN 11/08/24 0 02/28/25 History mg-0.025 mg tablet furosemide 20 mg tablet (Lasix) 20 mg PO DAILY PRN low er extremity 11/08/24 02/28/25 Rx edema #15 tabs metformin 500 mg tablet 500 mg PO DAILY #30 tabs 02/28/25 Rx nystatin 100,000 unit/gram topical 1 applic topical BI D PRN yeast 02/18/25 02/28/25 Rx powder infection #30 grams donepezil 10 mg tablet 10 mg PO BEDTIME #30 tabs Rx Allergies Allergy/AdvReac Type Severity Reaction Status Date / Time No Known Drug Allergies Allergy Verified 02/28/25 12:49 Exam Vital Signs (past 8 hours): - 05/21/25 11:02 05/21/25 11:30 05/21/25 12:00 Temperature 97.9 F Pulse Rate 69 62 62 Respiratory Rate 16 18 24 Blood Pressure 220/90 H 223/102 H 174/70 H Pulse Oximetry 98 98 88 L Oxygen Delivery Method Room Air Room Air Room Air Oxygen Flow Rate 05/21/25 12:05 05/21/25 12:15 05/21/25 12:15 Temperature Pulse Rate 59 L 61 Respiratory Rate 19 35 H Blood Pressure 165/70 H Pulse Oximetry 87 L 100 Oxygen Delivery Method Room Air Non -Rebreather Oxygen Flow Rate 2 05/21/25 12:30 05/21/25 12:36 05/21/25 12:36 Temperature Pulse Rate 54 L 63 Respiratory Rate 20 22 Blood Pressure 181/87 H Pulse Oximetry 100 100 Oxygen Delivery Method Oxygen Flow Rate 05/21/25 12:45 05/21/25 12:45 05/21/25 13:00 Temperature Pulse Rate 55 L 67 Respiratory Rate 19 19 Blood Pressure 195/86 H Pulse Oximetry 98 96 Oxygen Delivery Method Oxygen Flow Rate 05/21/25 13:00 05/21/25 13:15 05/21/25 13:15 Temperature Pulse Rate 62 Respiratory Rate 22 Blood Pressure 185/73 H 167/75 H Pulse Oximetry 99 Oxygen Delivery Method Oxygen Flow Rate 05/21/25 13:30 05/21/25 13:30 05/21/25 13:45 Temperature Pulse Rate 74 Respiratory Rate 20 Blood Pressure 163/74 H 172/80 H Pulse Oximetry 99 Oxygen Delivery Method Room Air Oxygen Flow Rate 05/21/25 13:45 05/21/25 14:00 05/21/25 14:01 Temperature Pulse Rate 60 64 63 Respiratory Rate 21 20 22 Blood Pressure Pulse Oximetry 98 98 97 Oxygen Delivery Method Oxygen Flow Rate 05/21/25 14:01 05/21/25 14:05 05/21/25 14:05 Temperature Pulse Rate 67 Respiratory Rate 20 Blood Pressure 194/86 H 187/76 H Pulse Oximetry 99 Oxygen Delivery Method Oxygen Flow Rate 05/21/25 14:15 05/21/25 14:15 05/21/25 14:30 Temperature Pulse Rate 69 99 H Respiratory Rate 20 20 Blood Pressure 179/78 H Pulse Oximetry 99 99 Oxygen Delivery Method Oxygen Flow Rate 05/21/25 14:31 05/21/25 14:36 05/21/25 14:36 Temperature Pulse Rate 101 H 110 H Respiratory Rate 18 20 Blood Pressure 189/135 H Pulse Oximetry 98 99 Oxygen Delivery Method Oxygen Flow Rate 05/21/25 14:45 05/21/25 14:45 05/21/25 15:00 Temperature Pulse Rate 103 H 100 H Respiratory Rate 24 22 Blood Pressure 197/110 H Pulse Oximetry 98 97 Oxygen Delivery Method Oxygen Flow Rate 05/21/25 15:00 05/21/25 15:16 05/21/25 15:16 Temperature Pulse Rate 94 H Respiratory Rate 26 H Blood Pressure 190/95 H 168/69 H Pulse Oximetry 97 Oxygen Delivery Method Oxygen Flow Rate 05/21/25 15:30 05/21/25 15:30 05/21/25 15:56 Temperature Pulse Rate 103 H Respiratory Rate 22 Blood Pressure 163/74 H 127/75 Pulse Oximetry 96 Oxygen Delivery Method Oxygen Flow Rate 05/21/25 15:56 05/21/25 16:00 05/21/25 16:00 Temperature Pulse Rate 69 65 Respiratory Rate 18 17 Blood Pressure 138/65 Pulse Oximetry 98 96 Oxygen Delivery Method Oxygen Flow Rate 05/21/25 16:11 05/21/25 16:11 05/21/25 16:15 Temperature Pulse Rate 61 Respiratory Rate 14 Blood Pressure 127/66 122/68 Pulse Oximetry 95 Oxygen Delivery Method Oxygen Flow Rate 05/21/25 16:15 05/21/25 16:30 05/21/25 16:30 Temperature Pulse Rate 63 64 Respiratory Rate 22 18 Blood Pressure 122/59 L Pulse Oximetry 95 95 Oxygen Delivery Method Oxygen Flow Rate 05/21/25 16:45 05/21/25 16:45 05/21/25 17:00 Temperature Pulse Rate 54 L Respiratory Rate 18 Blood Pressure 135/63 142/69 H Pulse Oximetry 96 Oxygen Delivery Method Oxygen Flow Rate 05/21/25 17:00 05/21/25 17:15 05/21/25 17:15 Temperature Pulse Rate 51 L 53 L Respiratory Rate 20 17 Blood Pressure 140/64 Pulse Oximetry 99 95 Oxygen Delivery Method Oxygen Flow Rate Oxygen Delivery Method Room Air Oxygen Flow Rate 2 Objective Labs 05/21/25 11:30 05/21/25 11:30 Labs: Laboratory Results - last 24 hr 05/21/25 05/21/25 05/21/25 11:30 13:56 14:06 WBC 7.2 RBC 5.26 H Hgb 14.2 Hct 43.3 MCV 82.3 MCH 27.0 MCHC 32.7 RDW 15.3 H Plt Count 290 Neut % (Auto) 77.1 H Lymph % (Auto) 13.1 L [place] % (Auto) 6.3 Eos % (Auto) 2.2 Baso % (Auto) 1.3 Neut # (Auto) 5600 Lymph # (Auto) 900 L [place] # (Auto) 500 Eos # (Auto) 200 Baso # (Auto) 100 PT 12.0 INR 1.1 APTT 30 Sodium 139 Potassium 3.9 Chloride 102 Carbon Dioxide 27 BUN 22 H Creatinine 0.98 Estimated GFR 59 L BUN/Creatinine Ratio 22.4 H Glucose 135 H Lactate 1.3 Calcium 9.6 Total Bilirubin 1.0 AST 25 ALT 15 Alkaline Phosphatase 82 Total Creatine Kinase 77 Troponin I < 0.012 0.028 Total Protein 8.1 Albumin 4.8 Globulin 3.3 Albumin/Globulin Ratio 1.5 Procalcitonin 0.054 Urine Color Yellow Urine Appearance Clear Urine pH 7.5 Ur Specific [place] 1.010 Urine Protein Trace H Urine Glucose (UA) Negative Urine Ketones Negative Urine Occult Blood Negative Urine Nitrate Negative Urine Bilirubin Negative Urine Urobilinogen 0.2 Ur Leukocyte Esterase Negative Urine RBC 0-1/hpf Urine WBC 0-1/hpf Ur Squamous Epith Cells 0-1 /hpf Urine Bacteria None seen Ur Culture Indicated? Cult not indicated Vol Urine Centrifuged 10ml (spun) 05/21/25 16:08 WBC RBC Hgb Hct MCV MCH MCHC RDW Plt Count Neut % (Auto) Lymph % (Auto) [place] % (Auto) Eos % (Auto) Baso % (Auto) Neut # (Auto) Lymph # (Auto) [place] # (Auto) Eos # (Auto) Baso # (Auto) PT INR APTT Sodium Potassium Chloride Carbon Dioxide BUN Creatinine Estimated GFR BUN/Creatinine Ratio Glucose Lactate Calcium Total Bilirubin AST ALT Alkaline Phosphatase Total Creatine Kinase Troponin I 0.139 H* Total Protein Albumin Globulin Albumin/Globulin Ratio Procalcitonin Urine Color Urine Appearance Urine pH Ur Specific [place] Urine Protein Urine Glucose (UA) Urine Ketones Urine Occult Blood Urine Nitrate Urine Bilirubin Urine Urobilinogen Ur Leukocyte Esterase Urine RBC Urine WBC Ur Squamous Epith Cells Urine Bacteria Ur Culture Indicated? Vol Urine Centrifuged Assessment & Plan Time-Based Coding :: [TOTAL MINUTES] spent with patient and on the chart (including review of chart, obtaining history, exam, reviewing outside data, placing orders, documenting exam and treatment plan, and counseling patient) on [DATE].
--- NOTE | 2025-05-21 18:56 | DI.ECHO.S_ITS ---
[facility] : : [address] : : [place] : : [id number] : : Phone: [phone] Echocardiogram Report + + :Name: WADE ZULUAGA Study Date: 05/22/2025 Height: 61 in : :[facility] ReadingLocation: Weight: 152 lb : : Gender: Female BSA: 1.7 m2 : :: 1945 Age: 80 yrs BP: 148/66 mmHg: :Reason For Study: NSTEMI : :Ordering Physician: JOSE MARTIN, : :SAMANTHA Rizo Performed By: Rafiq Arita : :Referring: SAMANTHA PHILIPPE : + + Interpretation Summary Technically difficult study due to patient confusion and lack of ability to cooperate. 1) Normal left ventricular size with severely reduced systolic function (EF 25-30%). 2) Basal anterolateral wall is akinetic and mid anterolateral wall is dyskinetic. The inferolateral wal is akinetic. The anterior wall is severely hypokinetic. 3) The right ventricle is not well visualized. The right ventricle is grossly normal size. Right ventricular systolic function is mildly reduced. 4) No significant valvular abnormalities. 5) No prior Echo available for comparison. Procedure: A two-dimensional transthoracic echocardiogram with color flow and Doppler was performed. A contrast injection of Definity was performed to improve assessment of LV function. The study quality was technically difficult. There is no prior echocardiogram noted for this patient. The patient was in normal sinus rhythm during the exam. Left Ventricle: The left ventricle is normal in size. Left ventricular wall thickness is mildly increased. There is no ventricular septal defect visualized. The ejection fraction is estimated to be 25-30%. Basal anterolateral wall is akinetic and mid anterolateral wall is dyskinetic. The inferolateral wal is akinetic. The anterior wall is severely hypokinetic. Right Ventricle: The right ventricle is not well visualized. The right ventricle is grossly normal size. Right ventricular systolic function is mildly reduced. Atria: The left atrium is mildly dilated. Right atrium not well visualized. The interatrial septum is not well visualized. Mitral Valve: There is mild to moderate mitral annular calcification. There is no mitral regurgitation noted. Aortic Valve: The aortic valve is trileaflet. The aortic valve opens well. There is no aortic valve stenosis. No aortic regurgitation is present. Tricuspid Valve: The tricuspid valve is not well visualized. No tricuspid regurgitation. Pulmonary artery pressures cannot be estimated because of the lack of a measurable TR jet velocity. Pulmonic Valve: The pulmonic valve is not well visualized. Great Vessels: The aortic root is normal size. The dimensions of the ascending aorta are normal. The pulmonary artery is not well visualized, but is probably normal size. The inferior vena cava was not visualized. Pericardium/ Pleura There is no pericardial effusion. MMode/2D Measurements & Calculations LVIDd: 4.7 cm LVOT diam: 2.0 cm LVIDs: 3.4 cm Ao root diam: 3.3 cm FS: 27.3 % asc Aorta Diam: 3.2 cm EPSS: 1.1 cm IVSd: 1.1 cm LVPWd: 1.1 cm LV woods. diameter/BSA (cm/m^2): 2.8 LV sys. diameter/BSA (cm/m^2): 2.0 LA A2 area: 22.2 cm2 LA A4 area: 18.3 cm2 LA length (vol): 5.8 cm LA vol: 59.2 ml LA vol index: 35.2 ml/m2 Doppler Measurements & Calculations Ao V2 max: 132.5 cm/sec LVOT Max Bernardo: 96.2 cm/sec Ao V2 mean: 90.6 cm/sec LV V1 max P.7 mmHg Ao max P.0 mmHg LV V1 VTI: 21.1 cm Ao mean P.6 mmHg ИВАН(I,D): 2.8 cm2 Ao V2 VTI: 24.6 cm ИВАН(V,D): 2.4 cm2 sev ratio: 0.86 ИВАН indexed to BSA (cm^2/m^2): 1.7 MV E max bernardo: 54.0 cm/sec PA V2 max: 97.6 cm/sec MV A max bernardo: 16.1 cm/sec PA V2 mean: 63.4 cm/sec MV E/A: 3.4 PA mean P.9 mmHg Med Peak E' Bernardo: 3.6 cm/sec PA pr(Accel): 60.2 mmHg E/E' med: 15.2 Lat Peak E' Bernardo: 4.5 cm/sec E/E' lat: 12.1 E/e' average: 13.6 MV dec time: 0.22 sec SV(LVOT): 68.7 ml Reading Physician:05:47 PM
--- NOTE | 2025-05-21 20:25 | PC.NURSE ---
Spoke with patient's son Oleg to confirm home meds. Son's number is; [phone].
--- NOTE | 2025-05-21 21:30 | PC.NURSE ---
Call to update son on transfer to admit room, no answer.
[2025-05-21] MEDS: DONEPEZIL 5 MG TABLET 10 MG PO (21:50)
[2025-05-21] MEDS: ATORVASTATIN 20 MG TABLET 40 MG PO (21:50)
[2025-05-22 02:54] VITALS: BP 148/66; PULSE 62; RESP 19; TEMP 36.7; O2SAT 98
[2025-05-22 02:59] LABS: PTT Partial Thromboplastin Tim 76 SECONDS (25.1-36.5)
[2025-05-22 06:19] LABS: Acinetobacter calcoa-baumannii Not Detected (Not Detect); Bacteroides fragilis Not Detected (Not Detect); Candida auris Not Detected (Not Detect); Candida glabrata Not Detected (Not Detect); Cryptococcus neoformans/gatti Not Detected (Not Detect); Enterobacterales Not Detected (Not Detect); Enterococcus faecalis Not Detected (Not Detect); Enterococcus faecium Not Detected (Not Detect); Klebsiella aerogenes Not Detected (Not Detect); Proteus species Not Detected (Not Detect); Serratia marcescens Not Detected (Not Detect); Staphylococcus epidermidis Not Detected (Not Detect); Staphylococcus lugdunensis Not Detected (Not Detect); Staphylococcus species Detected (Not Detect); Stenotrophomonas maltophilia Not Detected (Not Detect); Streptococcus agalactiae (Gr B Not Detected (Not Detect); Streptococcus pneumonia Not Detected (Not Detect); Streptococcus pyogenes (Gr A) Not Detected (Not Detect); Streptococcus species Not Detected (Not Detect)
--- NOTE | 2025-05-22 07:27 | PM.PN.1 ---
Subjective Subjective Date Patient Seen: 05/22/25 Interval history: This is a 80-year-old female with severe dementia, diabetes mellitus, hyperlipidemia, diffuse large B-cell lymphoma, hypertension and GERD who presents with 1 day of left-sided abdominal pain, back pain and vomiting. CT of chest, abdomen and pelvis is negative. Initial EKG and troponin is normal. Follow up EKGs are reported to show T-wave inversions in the inferior leads. These EKGs are not visible in the EMR yet. The 3rd troponin bi to a diagnostic level of 0.139. Due to her dementia she is being admitted for conservative treatment of a non ST elevation [place] after discussion with Dr. Norris and with her son who she has been living with. She will be treated with a 48 hour heparin drip and aspirin. An echo will be done. 05/22: Patient is quite confused at baseline. Denies nausea and chest pain. She had been living at an assisted living facility in the [facility]. We are following her troponin. Physical exam: Alert and oriented only to her name. Heart is regular rate and rhythm without murmur. Lungs are clear to auscultation bilaterally Extremities have no ankle edema Assessment and plan: Non ST-elevation [place], present on admission. Active. -per discussion with Cardiology(Dr. Norris), in the context of her severe dementia and rising troponin, she will be treated conservatively with IV heparin for 48 hours, and aspirin. -not a candidate for cardiac catheterization unless she were to develop intractable chest pain. -Follow troponin -check echocardiogram, pending -continue atorvastatin and aspirin. Hypertension, present on admission. Chronic. Dementia, present on admission. Chronic. -continue donepezil. Diabetes mellitus, present on admission. Chronic. -hold metformin, continue correctional insulin scale and follow blood sugars. Disposition is discharge home on 05/24 after completing 48 hours of IV heparin on the evening of 05/23. Discharge planners are working on whether she will be returning to her assisted living facility or some other location. Her progressive dementia has made that a challenging issue. IV heparin for DVT prevention Her son is her backup decision maker. Exam Vital Signs (past 8 hours): - 05/22/25 02:54 Temperature 98.0 F Pulse Rate 62 Respiratory Rate 19 Blood Pressure 148/66 H Pulse Oximetry 98 Oxygen Flow Rate 0 Oxygen Delivery Method Room Air Oxygen Flow Rate 0 Objective Labs 05/22/25 10:15 05/21/25 11:30 Labs: Laboratory Results - last 24 hr 05/21/25 05/21/25 05/21/25 11:30 13:56 14:06 WBC 7.2 RBC 5.26 H Hgb 14.2 Hct 43.3 MCV 82.3 MCH 27.0 MCHC 32.7 RDW 15.3 H Plt Count 290 Neut % (Auto) 77.1 H Lymph % (Auto) 13.1 L [place] % (Auto) 6.3 Eos % (Auto) 2.2 Baso % (Auto) 1.3 Neut # (Auto) 5600 Lymph # (Auto) 900 L [place] # (Auto) 500 Eos # (Auto) 200 Baso # (Auto) 100 PT 12.0 INR 1.1 APTT 30 Sodium 139 Potassium 3.9 Chloride 102 Carbon Dioxide 27 BUN 22 H Creatinine 0.98 Estimated GFR 59 L BUN/Creatinine Ratio 22.4 H Glucose 135 H POC Whole Bld Glucose Lactate 1.3 Calcium 9.6 Total Bilirubin 1.0 AST 25 ALT 15 Alkaline Phosphatase 82 Total Creatine Kinase 77 Troponin I < 0.012 0.028 Total Protein 8.1 Albumin 4.8 Globulin 3.3 Albumin/Globulin Ratio 1.5 Procalcitonin 0.054 Urine Color Yellow Urine Appearance Clear Urine pH 7.5 Ur Specific [place] 1.010 Urine Protein Trace H Urine Glucose (UA) Negative Urine Ketones Negative Urine Occult Blood Negative Urine Nitrate Negative Urine Bilirubin Negative Urine Urobilinogen 0.2 Ur Leukocyte Esterase Negative Urine RBC 0-1/hpf Urine WBC 0-1/hpf Ur Squamous Epith Cells 0-1 /hpf Urine Bacteria None seen Ur Culture Indicated? Cult not indicated Vol Urine Centrifuged 10ml (spun) A.calcoaceticus-baumannii cmplx PCR Not detected Bacteroides fragilis Not detected Lela albicans (PCR) Not detected Lela auris (PCR) Not detected C. glabrata (PCR) Not detected C. krusei (PCR) Not detected C. parapsilosis (PCR) Not detected C. tropicalis (PCR) Not detected C. neoform/gattii (PCR) Not detected Enterobacterales (PCR) Not detected E. cloacae complex PCR Not detected Enterococc faecalis PCR Not detected Enterococc faecium PCR Not detected E. coli (PCR) Not detected H. influenzae (PCR) Not detected Klebsiella aerogenes (PCR) Not detected Klebsiella oxytoca PCR Not detected Klebsiella pneumoniae Not detected List. monocytogenes PCR Not detected N. meningitidis (PCR) Not detected Proteus species (PCR) Not detected Salmonella spp. (PCR) Not detected Serratia marcescens PCR Not detected Staphylococcus sp PCR Detected Staph aureus (PCR) Not detected mecA/C & MREJ Resist Gene Not applicable mecA/C-Methicil Resis Gene Not applicable mcr-1 [place] Res Gene PCR Not applicable Staph epidermidis (PCR) Not detected Staph lugdunensis PCR Not detected S. maltophilia (PCR) Not detected Streptococcus sp PCR Not detected Group A Strep (PCR) Not detected Strep agalactiae (PCR) Not detected Strep pneumoniae (PCR) Not detected P. aeruginosa (PCR) Not detected Marcellus/B-Vanco Res Genes Not applicable blaIMP Car res Gene PCR Not applicable KPC-Carbap Res Gene PCR Not applicable blaNDM Car Res Gene PCR Not applicable OXA-48 Carbapenem Resis Gene (PCR) Not applicable blaVIM Car Res Gene PCR Not applicable CTX-M Gene Resistance (PCR) Not applicable 05/21/25 05/22/25 05/22/25 16:08 00:21 00:45 WBC RBC Hgb Hct MCV MCH MCHC RDW Plt Count Neut % (Auto) Lymph % (Auto) [place] % (Auto) Eos % (Auto) Baso % (Auto) Neut # (Auto) Lymph # (Auto) [place] # (Auto) Eos # (Auto) Baso # (Auto) PT INR APTT 76 H* D Sodium Potassium Chloride Carbon Dioxide BUN Creatinine Estimated GFR BUN/Creatinine Ratio Glucose POC Whole Bld Glucose 121 H Lactate Calcium Total Bilirubin AST ALT Alkaline Phosphatase Total Creatine Kinase Troponin I 0.139 H* Total Protein Albumin Globulin Albumin/Globulin Ratio Procalcitonin Urine Color Urine Appearance Urine pH Ur Specific [place] Urine Protein Urine Glucose (UA) Urine Ketones Urine Occult Blood Urine Nitrate Urine Bilirubin Urine Urobilinogen Ur Leukocyte Esterase Urine RBC Urine WBC Ur Squamous Epith Cells Urine Bacteria Ur Culture Indicated? Vol Urine Centrifuged A.calcoaceticus-baumannii cmplx PCR Bacteroides fragilis Lela albicans (PCR) Lela auris (PCR) C. glabrata (PCR) C. krusei (PCR) C. parapsilosis (PCR) C. tropicalis (PCR) C. neoform/gattii (PCR) Enterobacterales (PCR) E. cloacae complex PCR Enterococc faecalis PCR Enterococc faecium PCR E. coli (PCR) H. influenzae (PCR) Klebsiella aerogenes (PCR) Klebsiella oxytoca PCR Klebsiella pneumoniae List. monocytogenes PCR N. meningitidis (PCR) Proteus species (PCR) Salmonella spp. (PCR) Serratia marcescens PCR Staphylococcus sp PCR Staph aureus (PCR) mecA/C & MREJ Resist Gene mecA/C-Methicil Resis Gene mcr-1 Colistin Res Gene PCR Staph epidermidis (PCR) Staph lugdunensis PCR S. maltophilia (PCR) Streptococcus sp PCR Group A Strep (PCR) Strep agalactiae (PCR) Strep pneumoniae (PCR) P. aeruginosa (PCR) Marcellus/B-Vanco Res Genes blaIMP Car res Gene PCR KPC-Carbap Res Gene PCR blaNDM Car Res Gene PCR OXA-48 Carbapenem Resis Gene (PCR) blaVIM Car Res Gene PCR CTX-M Gene Resistance (PCR) PFSH Medical History Fever and neutropenia Fracture of humerus, proximal, left, closed Dysuria Abdominal wall hernia Dementia Anemia Lela UTI Diffuse large B cell lymphoma Type 2 diabetes mellitus Essential hypertension Hepatitis B Wears glasses Alopecia (~1970) Depression Anxiety Carpal tunnel syndrome Mumps Measles Chicken pox Vertigo Cataracts, bilateral GERD (gastroesophageal reflux disease) Surgical History Anesthesia History of hernia repair History of hand surgery History of tonsillectomy History of hysterectomy Family History Father Hypertension Hyperlipidemia Mother MVA (motor vehicle accident) Sister Heart defect Social History household members: family Smoking Status: Unknown if ever smoked alcohol intake: never Assessment & Plan Time-Based Coding :: [TOTAL MINUTES] spent with patient and on the chart (including review of chart, obtaining history, exam, reviewing outside data, placing orders, documenting exam and treatment plan, and counseling patient) on [DATE]. Quality VTE Deep Vein Thrombosis/Pulmonary Embolism Present on Admission: No
[2025-05-22 07:57] VITALS: BP 123/79; PULSE 60; RESP 18; TEMP 36.3; O2SAT 95
[2025-05-22 08:14] VITALS: BP 123/77; PULSE 60; RESP 16; TEMP 36.3; O2SAT 95
[2025-05-22 10:26] LABS: Hematocrit 40.4 % (36-46); Hemoglobin 13.4 g/dL (12.0-16.0); Platelet Count 257 X10^3/uL (150-400)
[2025-05-22 10:49] LABS: PTT Partial Thromboplastin Tim 89 SECONDS (25.1-36.5)
[2025-05-22 11:47] VITALS: BP 121/65; PULSE 64; RESP 16; TEMP 36.2; O2SAT 97
[2025-05-22 12:16] LABS: PTT Partial Thromboplastin Tim 96 SECONDS (25.1-36.5)
[2025-05-22 15:39] VITALS: BP 132/72; PULSE 16; RESP 16; TEMP 36.7; O2SAT 98
--- NOTE | 2025-05-22 16:02 | PC.NURSE ---
Pt alert/confused 1-2 PA to BSC Receiving heparin as per protocol New IV placed in RFA due to pt discontinuing . Tele SR per ICU staff. ECHO being done now. Call light w/in reach, bed alarm on for pt safety. Continue w/plan of care.
[2025-05-22 19:39] LABS: PTT Partial Thromboplastin Tim 52 SECONDS (25.1-36.5)
[2025-05-22 20:04] LABS: Troponin I 0.340 ng/mL (0.01-0.034)
[2025-05-22 21:00] VITALS: BP 127/80; PULSE 88; RESP 16; TEMP 36.3; O2SAT 94
[2025-05-22] MEDS: ATORVASTATIN 20 MG TABLET 40 MG PO (21:28)
[2025-05-22] MEDS: DONEPEZIL 5 MG TABLET 10 MG PO (21:28)
[2025-05-23 01:00] VITALS: BP 103/63; PULSE 75; RESP 18; TEMP 36.6; O2SAT 98
[2025-05-23 01:48] LABS: PTT Partial Thromboplastin Tim 61 SECONDS (25.1-36.5)
[2025-05-23 01:50] LABS: Hematocrit 40.1 % (36-46); Hemoglobin 13.3 g/dL (12.0-16.0); Platelet Count 247 X10^3/uL (150-400)
[2025-05-23 02:11] LABS: Troponin I 0.219 ng/mL (0.01-0.034)
[2025-05-23] MEDS: HEPARIN DRIP 25,000 UNIT/500 ML IV.SOLN 13.472 UNIT IV (03:20)
[2025-05-23 05:00] VITALS: BP 143/58; PULSE 89; RESP 15; TEMP 36.6; O2SAT 99
[2025-05-23 08:00] VITALS: BP 151/88; PULSE 48; RESP 25; TEMP 36.3; O2SAT 96
[2025-05-23 09:21] LABS: PTT Partial Thromboplastin Tim 50 SECONDS (25.1-36.5)
[2025-05-23 12:00] VITALS: BP 126/69; PULSE 50; RESP 24; TEMP 36.4; O2SAT 96
--- NOTE | 2025-05-23 13:46 | P.PN_ITS ---
Subjective Subjective Date Patient Seen: 05/23/25 Time Patient Seen: 08:25 Interval history: This is a 80-year-old female with severe dementia, diabetes mellitus, hyperlipidemia, diffuse large B-cell lymphoma, hypertension and GERD who presents with 1 day of left-sided abdominal pain, back pain and vomiting. CT of chest, abdomen and pelvis is negative. Initial EKG and troponin is normal. Follow up EKGs are reported to show T-wave inversions in the inferior leads. These EKGs are not visible in the EMR yet. The 3rd troponin bi to a diagnostic level of 0.139. Due to her dementia she is being admitted for conservative treatment of a non ST elevation PR after discussion with Dr. Norris and with her son who she has been living with. She will be treated with a 48 hour heparin drip and aspirin. An echo will be done. 05/22: Patient is quite confused at baseline. Denies nausea and chest pain. She had been living at an assisted living facility in the town of [place]. We are following her troponin. 05/23: The patient is remains confused, though appears comfortable where she has significant constipation with fecal impaction. She is seen with her nurse Deborah from [facility] at bedside. No nausea, chest pain or shortness of breath. Troponin trended down to 0.219. Physical exam: Alert and oriented only to her name. Heart is regular rate and rhythm without murmur. Lungs are clear to auscultation bilaterally Extremities have no ankle edema Chest/abdomen/pelvis CTA 05/21/2025: 1. No aortic aneurysm or dissection. No hemodynamically significant stenosis is seen in major branches of thoracic or abdominal aorta. [id number] atherosclerotic calcifications in mid to lower abdominal aorta. 2. No evidence of pulmonary emboli. 3. No acute cardiopulmonary pathology. No mediastinal or hilar lymphadenopathy. 4. No acute inflammatory process is seen in abdomen or pelvis. No free fluid or free air. Moderate constipation. 5. Cholelithiasis without CT evidence of acute cholecystitis. 6. Other chronic findings as above. Chest xray 05/21/2025: No acute cardiopulmonary abnormality is seen. Echo 05/21/2025: 1) Normal left ventricular size with severely reduced systolic function (EF 25-30%). 2) Basal anterolateral wall is akinetic and mid anterolateral wall is dyskinetic. The inferolateral wal is akinetic. The anterior wall is severely hypokinetic. 3) The right ventricle is not well visualized. The right ventricle is grossly normal size. Right ventricular systolic function is mildly reduced. 4) No significant valvular abnormalities. 5) No prior Echo available for comparison. Assessment and plan: Non ST-elevation PR, present on admission. Active. -per discussion with Cardiology(Dr. Norris), in the context of her severe dementia and rising troponin, she will be treated conservatively with IV heparin for 48 hours, and aspirin. -not a candidate for cardiac catheterization unless she were to develop intractable chest pain. -Follow troponin -continue atorvastatin and aspirin. Chronic systolic congestive heart failure -stable, continue medical management Hypertension, present on admission. Chronic. Dementia, present on admission. Chronic. -continue donepezil. Diabetes mellitus, present on admission. Chronic. -hold metformin, continue correctional insulin scale and follow blood sugars. Disposition is discharge home on 05/24 after completing 48 hours of IV heparin on the evening of 05/23. Discharge planners are working on whether she will be returning to her assisted living facility or some other location. Her progressive dementia has made that a challenging issue. IV heparin for DVT prevention Her son is her backup decision maker. Exam Vital Signs (past 8 hours): - 05/23/25 08:00 05/23/25 12:00 Temperature 97.4 F L 97.6 F Pulse Rate 48 L 50 L Respiratory Rate 25 H 24 Blood Pressure 151/88 H 126/69 Pulse Oximetry 96 96 Oxygen Flow Rate 0 0 Oxygen Delivery Method Room Air Oxygen Flow Rate 0 Objective Labs 05/23/25 01:30 05/21/25 11:30 Labs: Laboratory Results - last 24 hr 05/22/25 05/22/25 05/22/25 10:48 19:20 21:34 Hgb Hct Plt Count APTT 52 H D POC Whole Bld Glucose 127 H 144 H Troponin I 0.340 H* 05/23/25 05/23/25 05/23/25 01:30 07:51 08:54 Hgb 13.3 Hct 40.1 Plt Count 247 APTT 61 H D 50 H D POC Whole Bld Glucose 114 H Troponin I 0.219 H* 05/23/25 11:59 Hgb Hct Plt Count APTT POC Whole Bld Glucose 165 H Troponin I [facility] Medical History Fever and neutropenia Fracture of humerus, proximal, left, closed Dysuria Abdominal wall hernia Dementia Anemia Lela UTI Diffuse large B cell lymphoma Type 2 diabetes mellitus Essential hypertension Hepatitis B Wears glasses Alopecia (~1970) Depression Anxiety Carpal tunnel syndrome Mumps Measles Chicken pox Vertigo Cataracts, bilateral GERD (gastroesophageal reflux disease) Surgical History Anesthesia History of hernia repair History of hand surgery History of tonsillectomy History of hysterectomy Family History Father Hypertension Hyperlipidemia Mother MVA (motor vehicle accident) Sister Heart defect Social History household members: family Smoking Status: Unknown if ever smoked alcohol intake: never Quality VTE Deep Vein Thrombosis/Pulmonary Embolism Present on Admission: No IH PROFEE [employer] Document charge(s): No Charge Codes Subsequent inpatient/observation care: 45319
--- NOTE | 2025-05-23 14:36 | CM.DANOTE ---
Initial DCP Assessment Visit Note Reviewed EMR and team rounds for pt's medical status and updates. Met with pt and son at bedside to introduce self and role. Pt had been living at [facility] in [place], however she is now back at home with her son until he can secure a longh-term memory placement for her. Son will transport at discharge, anticipated for 05/24/25. No CM d/c assistance or resource needs are identified at this time. Payor: Medicare PCP: Dr. Marcial Pt is a 80 year-old F with a PMH of type II diabetes, advanced dementia, HTN, HLD, anemia, frequent UTI's, and Large B-cell lymphoma (in remission). She presented to the ED accompanied by her son/DPOA who had just taken her out of her [facility] placement to live back at home with him, tried to wake her up in the morning, and found her to be in acute L-flank, abdomen, back pain, and she was vomiting. She was found to by hypertensive in the ED with elevated troponin, as well as abnormal EKG, both suggeting she had a NSTEMI. Plan was made to admit her for cardiac and troponin monitoring/trending, and symptom management. Pt has improved significantly, and son will plan on transporting her before noon on 05/24. Discharge Planning/Care Management CM Discharge Assessment Start: 05/21/25 21:41 Freq: Status: Active Protocol: Document 05/23/25 14:32 DPL (Rec: 05/23/25 14:36 DPL [id number]) Discharge Planning Assessment Assigned Discharge TAMMIE Wiley Dough Panner Provider Dr. Marcial Advance Directives? No History Provided By Patient,Family Member,Medical Record Expected Length of 3 Stay Has Patient been No admitted in last 30 days? Prior Living House Arrangements Household Members family Type of Relies on Others transporation used prior to admit Willing to Return to No: Was at [facility], son is going to find a LTC Facility? Memory Care facility. Independent with ADL No: pt uses a walker at baseline 's Is patient alert and No: advanced dementia oriented? Caregiver for No Another Comment N/A DME Already Rented / Bath Bench,Elevated Toilet Seat,FWW / Walker Owned Comment No home d/c needs identified at this time. Barriers to No Discharge Discharge Plan Home Transportation Son Arrangement Referrals Initiated None needed Whiteboard Updated Yes in Patient Room with name and ext. # of Chemotherapist Review Status In Process Please Provide Date 05/23/25 Initial DC Assessment Was Performed
[2025-05-23] MEDS: BISACODYL 10 MG SUPP PR (15:51)
[2025-05-23 18:00] VITALS: BP 103/58; PULSE 87; RESP 18; TEMP 36.5; O2SAT 96
[2025-05-23 20:00] VITALS: BP 133/76; PULSE 74; RESP 16; TEMP 36.8; O2SAT 95
[2025-05-23] MEDS: DONEPEZIL 5 MG TABLET 10 MG PO (20:57)
[2025-05-23] MEDS: ATORVASTATIN 20 MG TABLET 40 MG PO (20:57)
[2025-05-24] VITALS: BP 153/59; PULSE 53; RESP 18; TEMP 36.6; O2SAT 100
[2025-05-24 04:00] VITALS: BP 147/81; PULSE 64; RESP 18; TEMP 36.6; O2SAT 97
[2025-05-24 05:30] LABS: PTT Partial Thromboplastin Tim 41 SECONDS (25.1-36.5)
[2025-05-24 05:44] LABS: Troponin I 0.072 ng/mL (0.01-0.034)
[2025-05-24 08:00] VITALS: BP 133/73; PULSE 71; RESP 17; TEMP 36.4; O2SAT 97
--- NOTE | 2025-05-24 08:52 | PM.DS.IH.1 ---
History of Present Illness History of Present Illness Date Patient Seen: 05/24/25 Time Patient Seen: 08:24 Chief complaint: ABD/AROLDO PAIN VOMITING Narrative: This is a 80-year-old female with severe dementia, diabetes mellitus, hyperlipidemia, diffuse large B-cell lymphoma, hypertension and GERD who presents with 1 day of left-sided abdominal pain, back pain and vomiting. CT of chest, abdomen and pelvis is negative. Initial EKG and troponin is normal. Follow up EKGs are reported to show T-wave inversions in the inferior leads. These EKGs are not visible in the EMR yet. The 3rd troponin bi to a diagnostic level of 0.139. Due to her dementia she is being admitted for conservative treatment of a non ST elevation CT after discussion with Dr. Norris and with her son who she has been living with. She will be treated with a 48 hour heparin drip and aspirin. An echo will be done. Discharge Providers Provider Date of admission: 05/21/25 18:23 Discharge Date: 05/24/25 Primary care physician: Nancy Marcial DO Discharge provider: Ha Levy MD Summary Hospital Course Discharge Diagnosis: 1. Non ST-elevation CT. 2. Chronic systolic congestive heart failure 3. Diabetes mellitus, type 2 4. Hypertension 5. Hyperlipidemia 6. Dementia Hospital Course: The patient was admitted and monitored on telemetry, with serial cardiac enzymes peaking with a troponin I of 0.340, and subsequently trending down on IV heparin. She was treated with medical management given her advancing dementia and response to conservative medical therapy. Aspirin and atorvastatin were added to her regimen. Beta-blockers were not given given resting sinus bradycardia. She had no further abdominal pain or chest pain during hospitalization. Her son was updated on her status. He expressed interest in discharge to live at home with him rather than her previous TH[facility]. No other issues arose. Status at Discharge Cognitive/behavioral status at discharge: oriented Functional status at discharge: independent ambulation Overall status at discharge: patient is progressing back to baseline Time Spent with Patient Time spent: Greater than 30 minutes Exam Vital Signs (past 8 hours): - 05/24/25 04:00 Temperature 97.8 F Pulse Rate 64 Respiratory Rate 18 Blood Pressure 147/81 H Pulse Oximetry 97 Oxygen Flow Rate 0 Oxygen Delivery Method Room Air Oxygen Flow Rate 0 Narrative Exam Narrative: Alert and oriented only to her name. Heart is regular rate and rhythm without murmur. Lungs are clear to auscultation bilaterally Abdomen: Soft, nontender, nondistended Extremities have no ankle edema Objective ECG Impression: Sinus bradycardia with sinus arrhythmia at 59bpm; Left anterior fascicular block; Nonspecific T wave abnormality Imaging *: Radiologist's impression: Chest/abdomen/pelvis CTA 05/21/2025: 1. No aortic aneurysm or dissection. No hemodynamically significant stenosis is seen in major branches of thoracic or abdominal aorta. Rprm-zu-lhqoeloc atherosclerotic calcifications in mid to lower abdominal aorta. 2. No evidence of pulmonary emboli. 3. No acute cardiopulmonary pathology. No mediastinal or hilar lymphadenopathy. 4. No acute inflammatory process is seen in abdomen or pelvis. No free fluid or free air. Moderate constipation. 5. Cholelithiasis without CT evidence of acute cholecystitis. 6. Other chronic findings as above. Chest xray 05/21/2025: No acute cardiopulmonary abnormality is seen. Echo 05/21/2025: 1) Normal left ventricular size with severely reduced systolic function (EF 25-30%). 2) Basal anterolateral wall is akinetic and mid anterolateral wall is dyskinetic. The inferolateral wal is akinetic. The anterior wall is severely hypokinetic. 3) The right ventricle is not well visualized. The right ventricle is grossly normal size. Right ventricular systolic function is mildly reduced. 4) No significant valvular abnormalities. 5) No prior Echo available for comparison. Labs 05/23/25 01:30 05/21/25 11:30 Labs: Laboratory Results - last 24 hr 05/23/25 05/23/25 05/23/25 07:51 08:54 11:59 APTT 50 H D POC Whole Bld Glucose 114 H 165 H Troponin I 05/23/25 05/23/25 05/24/25 18:08 20:30 04:55 APTT 41 H D POC Whole Bld Glucose 109 H 96 Troponin I 0.072 H 05/24/25 08:19 APTT POC Whole Bld Glucose 105 H Troponin I [facility] Medical History Abdominal wall hernia Alopecia (~1970) Anemia Anxiety Lela UTI Carpal tunnel syndrome Cataracts, bilateral Chicken pox Dementia Depression Diffuse large B cell lymphoma Dysuria Essential hypertension Fever and neutropenia Fracture of humerus, proximal, left, closed GERD (gastroesophageal reflux disease) Hepatitis B Measles Mumps Type 2 diabetes mellitus Vertigo Wears glasses Surgical History Anesthesia History of hand surgery History of hernia repair History of hysterectomy History of tonsillectomy Family History Father Hypertension Hyperlipidemia Mother MVA (motor vehicle accident) Sister Heart defect Social History household members: family Smoking Status: Unknown if ever smoked alcohol intake: never Discharge Plan Discharge Plan Patient Disposition: Home Provider Discharge Comment: Followup with PCP 1 week Discharge orders & Medications Prescriptions: New atorvastatin 40 mg tablet 40 mg PO DAILY Qty: 30 0RF aspirin 81 mg tablet,delayed release (DR/EC) 81 mg PO DAILY Qty: 30 0RF Continued oxycodone-acetaminophen [Percocet] 5-325 mg tablet 1 tab PO QID PRN (Reason: pain) Qty: 60 0RF Ensure Liquid 1 ea PO DAILY Qty: 5688 3RF metformin 500 mg tablet 500 mg PO DAILY Qty: 30 6RF nystatin 100,000 unit/gram powder 1 applic topical BID PRN (Reason: yeast infection) Qty: 30 11RF donepezil 10 mg tablet 10 mg PO BEDTIME Qty: 30 3RF diphenoxylate-atropine 2.5-0.025 mg tablet 1 tab PO QID furosemide [Lasix] 20 mg tablet 20 mg PO DAILY PRN (Reason: lower extremity edema) Qty: 15 0RF acetaminophen 500 mg Capsule 1,000 mg PO Q6H PRN (Reason: Fever) Follow up/Referrals: Nancy Marcial DO [Primary Care Provider, Family Practice] Diet/Activity/Treatments Diet: Low-fat and Low-sodium Visit Report/Discharge Packet Stand Alone Forms: The Margarita Award, Congestive Heart Failure, Patient Portal/API, Stroke Signs & Symptoms, Influenza Vaccine Info, Notice of Privacy Practices, Inpatient vs Outpatient, Pneumococcal Vaccine Info, Pt. Rights & Responsibilities Discharge Data Primary Care Provider: Nancy Marcial Quality VTE Deep Vein Thrombosis/Pulmonary Embolism Present on Admission: No MIPS - Admit I confirm the patient?s Advance Care Plan is present, Code status is documented, Surrogate decision maker is in patient?s record [If Yes, STOP here]: Yes MIPS - Meds 'Current medications' to include all prescriptions, qdgm-uve-avozjyp products, herbals, cannabis/cannabidiol products, and vitamin/mineral/dietary (nutritional) supplements. I have utilized all available resources to obtain, update, or review the patient?s current medications. [If Yes, STOP here]: Yes MIPS - DC The patient has a history of heart transplant or Left Ventricular Assist Device (LVAD). If yes, STOP here.: No The patient has current or prior documentation of left ventricular ejection fraction (LVEF) less than or equal to 40%, or moderate or severely depressed left ventricular systolic function.: No A. The patient was prescribed or already taking an Angiotensin-Converting Enzyme (CASSIE) Inhibitor, or Angiotensin Receptor Amarilys (ARB).: No B. The patient was prescribed or already taking a beta-amarilys. [If Yes to Both A & B, STOP here]: No Patient not prescribed/taking CASSIE or ARB, no reason given.: No Patient not prescribed/taking beta-amarilys, no reason given.: No PROFEE Charge Codes Discharge inpatient/observation: 10670 Lab Results Common Lab Results- Last: WBC, (4.5-11.0) 7.2 X10^3/uL 05/21/25 RBC, (4.0-5.2) 5.26 X10^6/uL H 05/21/25 Hgb, (12.0-16.0) 13.3 g/dL 05/23/25 Hct, (36-46) 40.1 % 05/23/25 MCV, (80-100) 82.3 fL 05/21/25 MCH, (26-34) 27.0 PG 05/21/25 MCHC, (30-36) 32.7 % 05/21/25 RDW, (11.6-14.8) 15.3 % H 05/21/25 Plt Count, (150-400) 247 X10^3/uL 05/23/25 Neut % (Auto), (50-75) 77.1 % H 05/21/25 Lymph % (Auto), (25-40) 13.1 % L 05/21/25 Izard % (Auto), (3-14) 6.3 % 05/21/25 Eos % (Auto), (2-4) 2.2 % 05/21/25 Baso % (Auto), (0-2) 1.3 % 05/21/25 Neut # (Auto), (9612-0305) 5600 /uL 05/21/25 Sodium, (137-145) 139 mmol/L 05/21/25 Potassium, (3.4-5.1) 3.9 mmol/L 05/21/25 Chloride, (98-107) 102 mmol/L 05/21/25 Carbon Dioxide, (22-32) 27 mmol/L 05/21/25 BUN, (7-17) 22 mg/dL H 05/21/25 Creatinine, (0.52-1.04) 0.98 mg/dL 05/21/25 Estimated GFR, (>60) 59 mL/min L 05/21/25 BUN/Creatinine Ratio, (6-22) 22.4 H 05/21/25 Glucose, (70-99) 135 mg/dL H 05/21/25 Calcium, (8.4-10.2) 9.6 mg/dL 05/21/25 Total Bilirubin, (0.2-1.3) 1.0 mg/dL 05/21/25 AST, (14-36) 25 IU/L 05/21/25 ALT, (<35) 15 IU/L 05/21/25 Alkaline Phosphatase, (38-126) 82 U/L 05/21/25 Total Protein, (6.3-8.2) 8.1 g/dL 05/21/25 Albumin, (3.5-5.0) 4.8 g/dL 05/21/25 Globulin, (1.7-4.1) 3.3 g/dL 05/21/25 Albumin/Globulin Ratio, (1.0-2.8) 1.5 05/21/25 Triglycerides, (35-150) 128 mg/dL 08/31/22 Cholesterol, (140-199) 212 mg/dL H 08/31/22 HDL Cholesterol, (40-60) 52 mg/dL 08/31/22 LDL Cholesterol, Calc, (<100) 134 mg/dL H 08/31/22 TSH, (0.47-4.68) 1.84 uIU/mL 09/19/23 ALT, (<35) 15 IU/L 05/21/25 Hemoglobin A1c, (4.0-6.0) 6.6 % H 09/19/23 AST, (14-36) 25 IU/L 05/21/25 BUN, (7-17) 22 mg/dL H 05/21/25 Creatinine, (0.52-1.04) 0.98 mg/dL 05/21/25 Estimated GFR, (>60) 59 mL/min L 05/21/25 BUN/Creatinine Ratio, (6-22) 22.4 H 05/21/25 Cholesterol, (140-199) 212 mg/dL H 08/31/22 Hgb, (12.0-16.0) 13.3 g/dL 05/23/25 RBC, (4.0-5.2) 5.26 X10^6/uL H 05/21/25 Hct, (36-46) 40.1 % 05/23/25 Hepatitis C Antibody, (0.0-0.9) 0.2 s/co ratio 09/30/21 LDL Cholesterol Direct, (<100) 83 mg/dL 11/10/21 Lipase, (23-300) 68 U/L 09/19/23 Ur Random Microalbumin, (0-1.6) 6.5 mg/dL H 12/16/22 Urine Creatinine 134.0 mg/dL 12/16/22 Microalb/Creat Ratio, (<30) 48.5 ug/mg CR H 12/16/22 Plt Count, (150-400) 247 X10^3/uL 05/23/25 PT, (9.4-12.5) 12.0 SECONDS 05/21/25 INR, (0.9-1.3) 1.1 05/21/25 Uric Acid, (2.5-6.2) 6.9 mg/dL H 12/12/23 Vitamin B12, (239-931) 552 pg/mL 07/20/21 25-OH Vitamin D Total, (30.0-100.0) 28.0 ng/mL L 11/29/22
--- NOTE | 2025-05-24 11:55 | PC.NURSE ---
Day shift: Left unit at approx 1140 via WC. Son here to take Pt home. Has all personal belongings. Home Health set up by CM. Paperwork signed and all questions answered.
--- NOTE | 2025-05-24 12:17 | CM.DPC ---
Patient profile and HH Order sent to [facility].
== END 2025-05-24 11:45 | disposition home health service (06) | DRG 281 ==
LOC: ED 18:14 → AC 18:23
PROVIDERS: Internal Medicine; Admitting Provider Family Medicine; Emergency Provider Physician Assistant; PCP Family Medicine; Referring Provider Physician Assistant; Visit Provider Family Medicine
DX: I21.4 Non-ST elevation (NSTEMI) myocardial infarction (principal); I50.22 Chronic systolic (congestive) heart failure; F03.C0 Unspecified dementia, severe, without behavioral disturbance, psychotic disturbance, mood disturbance, and anxiety; I11.0 Hypertensive heart disease with heart failure; E11.9 Type 2 diabetes mellitus without complications; K59.00 Constipation, unspecified; E78.5 Hyperlipidemia, unspecified; Z79.84 Long term (current) use of oral hypoglycemic drugs; Z87.440 Personal history of urinary (tract) infections
CPT/HCPCS: 36415; 71045; 71275; 74174; 80053; 81001; 82550; 82962; 83605; 84145; 84484; 85014; 85018; 85025; 85049; 85610; 85730; 87040; 87077; 87154; 87186; 93005; 96365; 96366; 96375; 99284; 99285; C8929; J1644; J1815; J1885; J2272; J2405; J7030; Q9957; Q9967

== ENCOUNTER 2025-05-26 09:11 | Observation (INO) | payer MEDICARE, SELFPAY ==
--- OUTSIDE RECORDS SUMMARY | 2025-04-11 16:41 | XMS_ITS | Continuity of Care Document ---
[facility] [place] [address] Phone Care Team Providers Care Tableman Name Role Phone MADELIN SHEN DO Primary Care Provider MADELIN SHEN DO Referring Provider Ryanne Roman Attending Provider DOC, EMS Attending Provider DOC, EMS Referring Provider [phone] Care Teams Patient Care Team Team Status: Active Member Role/Relationship Status Dates MADELIN SHEN DO Primary Care Provider Active Visit Care Team Team Status: Inactive Member Role/Relationship Status Dates MADELIN SHEN DO Primary Care Provider Active Start: March 31, 2025 End: March 31, 2025 MADELIN SHEN DO Referring Provider Active Start: March 31, 2025 End: March 31, 2025 HOLLY Borrero ENP Attending Provider Active Start: March 31, 2025 End: March 31, 2025 Visit Care Team Team Status: Inactive Member Role/Relationship Status Dates MADELIN SHEN DO Primary Care Provider Active Start: March 31, 2025 End: March 31, 2025 HOLLY Borrero ENPaulina Attending Provider Active Start: March 31, 2025 End: March 31, 2025 Patient Care Team Team Status: Inactive Member Role/Relationship Status Dates MADELIN SHEN DO Primary Care Provider Active Start: April 09, 2025 End: April 09, 2025 EMS DOC Attending Provider Active Start: No vember 2024 End: April 09, 2025 EMS DOC Referring Provider Active Start: No vember 2024 End: April 09, 2025 Chief Complaint and Reason for Visit Chief Complaint Admit Date urinary complaint March 31, 2025 1 2:23pm INJ OF HEAD April 09, 2025 9 :45am Reason for Visit Admit Date Confusion March 31, 2025 1 2:23pm Elevated blood pressure reading March 31, 2025 12:23pm Allergies, Adverse Reactions, Alerts No known allergies Social History Smoking Status Status Start Date End Date Date of Observa tion Never smoked tobacco (finding) March 02, 2024 11:15pm Observation Status Observation Response Date of Response Legal Sex Female Sex Assigned At Female [id number] Family History Relationship Condition Age at Onset Recorded Date/T yossi Unknown Endocrine/Autoimmune ?Type 2 diabetes Unknown March 02, 2024 10:15pm Problems Active Problems Problem Diagnosis/Recorded Date Onset Date Stat us Abrasion of forehead March 15, 2025 7:35am Unknown Active UTI (urinary tract infection) March 15, 2025 8:02a m Unknown Active Bilateral lower extremity edema September 13, 2024 12:21 pm Unknown Active Elevated blood pressure reading March 31, 2025 1:3 3pm Unknown Active Concussion March 15, 2025 7:35am Unknown Ac tive Complicated UTI (urinary tract infection) December 23, 2 025 7:59pm Unknown Active Confusion March 31, 2025 1:33pm Unknown Ac tive Cyclitis December 23, 2024 2:09pm Unknown Activ e Elevated blood pressure read ing in office with diagnosis of hypertension December 23, 2024 8:05pm Unknown Active Cystitis December 23, 2024 5:26pm Unknown Activ e Candidal intertrigo September 13, 2024 12:25pm Unknown Active Inactive/Resolved Problems Problem Diagnosis/Recorded Date Onset Date Stat us Diarrhea March 02, 2024 11:01am Unknown Resolved Sigmoid diverticulitis March 02, 2024 11:01am Un known Resolved Lower abdominal pain March 02, 2024 11:01am Unkn own Resolved Volume depletion March 02, 2024 11:01am Unknown Resolved Medications Medication Status Dose Units Route Directions Qty Days Refills S tart Date Stop Date End Date Reason(s) Instructions Adherence Metformin 500 mg tablet Active 500 MG PO every day 30 2 September 17, 2024 11:00p m Unknown Meloxicam 7.5 MG tablet Active 7.5 MG PO TWICE A DAY 15 7 0 Sept em 2023 11:00p m Unknown Ondansetron 4 MG tablet,disi ntegrating Active 4 MG TL Q6H as needed for Nausea / Vomiting 10 0 2023 11:00p m Unknown Amoxicillin -Pot Clavulanate 1 TAB tablet Discont inued 1 EACH PO Q12H 14 0 2023 11:00p m December 23, 2024 2:11p m Diphenoxyla te-Atropine 1 TAB tablet Active 1 EACH PO FOUR TIMES DAILY as needed for Diarrhea 12 0 2023 11:00p m Unknown Cephalexin 500 MG capsule Discont inued 500 MG PO THREE TIMES A DAY 15 0 2023 11:00p m December 23, 2024 2:11p m Cefpodoxime 100 mg tablet Active 100 MG PO TWICE A DAY 14 7 0 Octo be r 2024 11:00p m Urinary tract infection Acute cystitis without hematuria must administer with a meal/food Unknown Donepezil 5 mg tablet Active MG PO every day Apri l 2024 11:00p m Unknown Clotrimazol e 1 % cream Active 1 APPLIC TOP TWICE A DAY 15 0 September 12, 2024 11:00p m Unknown Cephalexin 500 mg capsule Discont inued 500 MG PO THREE TIMES A DAY 15 5 0 December 22, 2024 11:00p m December 26, 2024 11:00 pm December 27, 2024 11:01 pm Cyclitis Unspecifie d iridocycli tis Immunizations Immunization Event Date Not Given Reason Dose Number Religion Instructor Lot Number Reason(s) Given Vaccine Information Statement (VIS) Detail Administration Location COVID-19 ([place]) Bivalent Booster, 12Y+ August 22, 2022 [id number] Pneumococcal Conjugate 13 August 10, 2021 [id number] Td (Adult), 5 Lf, PF, Adsorbed August 10, 2021 [id number] Relevant Diagnostic Tests and/or Laboratory Data Laboratory Results Test Collection Date/Time Result Date/Time Result Interpretation Reference Range Result Comment Performing Site Urine Color March 31, 2025 1:30pm March 31, 2025 5:55pm YELLOW MAIN LAB [id number] [address] [facility] [address] Urine Clarity March 31, 2025 1:30pm March 31, 2025 5:55pm CLEAR CLEAR MAIN LAB [id number] [address] [facility] [address] Urine Leukocyt e Esterase March 31, 2025 1:30pm March 31, 2025 5:55pm MODERATE above high threshold NEGATIVE MAIN LAB [id number] [address] [facility] [address] Urine Nitrite March 31, 2025 1:30pm March 31, 2025 5:55pm NEGATIVE NEGATIVE MAIN LAB [id number] [address] [facility] [address] Urine Urobilin ogen March 31, 2025 1:30pm March 31, 2025 5:55pm 0.2 (NORMAL) {EhrlichU} /dL NORMAL MAIN LAB [id number] [address] [facility] [address] Urine Protein March 31, 2025 1:30pm March 31, 2025 5:55pm TRACE mg/dL NEGATIVE MAIN LAB [id number] [address] [facility] [address] Urine pH March 31, 2025 1:30pm March 31, 2025 5:55pm 6.5 ph 5.0-7.5 MAIN LAB [id number] [address] [facility] [address] Urine Occult Blood March 31, 2025 1:30pm March 31, 2025 5:55pm NEGATIVE NEGATIVE MAIN LAB [id number] [address] [facility] [address] Urine Specific [place] March 31, 2025 1:30pm March 31, 2025 5:55pm 1.020 1.002-1.03 0 MAIN LAB [id number] [address] [facility] [address] Urine Ketones March 31, 2025 1:30pm March 31, 2025 5:55pm NEGATIVE mg/dL NEGATIVE MAIN LAB [id number] [address] [facility] [address] Urine Bilirubi n March 31, 2025 1:30pm March 31, 2025 5:55pm NEGATIVE NEGATIVE Bilirubin can be influenced by color interferen ce. Please correlate positive results with clinical presentati on MAIN LAB [id number] [address] [facility] [address] Urine Glucose (UA) March 31, 2025 1:30pm March 31, 2025 5:55pm NEGATIVE mg/dL NEGATIVE MAIN LAB [id number] [address] [facility] [address] Urine WBC March 31, 2025 1:30pm March 31, 2025 5:55pm 11-25 [HPF] above high threshold 0-5 MAIN LAB [id number] [address] [facility] [address] Urine RBC March 31, 2025 1:30pm March 31, 2025 5:55pm 0-5 [HPF] 0-5 MAIN LAB [id number] [address] [facility] [address] Urine Squamous Epitheli al Cells March 31, 2025 1:30pm March 31, 2025 5:55pm MANY Squamous above high threshold <= Few MAIN LAB [id number] [address] [facility] [address] Urine Epitheli al Cells March 31, 2025 1:30pm March 31, 2025 5:55pm FEW Renal Tubular [HPF] <= Few MAIN LAB [id number] [address] [facility] [address] Urine Bacteria March 31, 2025 1:30pm March 31, 2025 5:55pm Few [HPF] None Seen MAIN LAB [id number] [address] [facility] [address] Urine Culture Comments March 31, 2025 1:30pm March 31, 2025 5:55pm NOT INDICATED A culture is not indicated on urine samples contaminat ed with greater than a few Squamous Epithelial cells/HPF. A mid-stream clean catch urine for culture is recommende dHemal MAIN LAB [id number] [address] [facility] [address] Vital Signs Vital Reading Result Reference Range Collection Date/Time Weight 73.19 kg March 31 025 1:04pm Body Temperature 36.4 [place] 36.5-37.9 March 1:04pm Heart Rate 54 /min 60-100 March 31, 025 1:04pm Respiratory rate 16 /min 12-24 March 1:04pm Oxygen saturation by Pulse oximetry 99 % 92-100 March 31, 2025 1 :04pm BP Systolic 148 mm[Hg] 90-130 March 31, 2 025 1:04pm BP Diastolic 72 mm[Hg] 60-90 March 31, 2 025 1:04pm Advance Directives Advance Directive Response Recorded Date/ Time Advance Directives No September 13, 2 023 10:59am Advance Directives Information Provided No September 13, 2022 10:59am Insurance Providers Guarantor Cheyanne Rutherford Starr Address [address] [facility] [address] Contact Info. Home Phone: Payer Group Member ID Coverage Type Subscriber Relationship to Subscriber Effective Date Expiration Date Medicare A and B [id number] null Cheyanne Rutherford Starr Id: [id number] [address] [facility] [address] Home Phone: Email: DECLINED Self 2011 Encounters Encounter Location(s) Arrival/Admit Date Discharge/Departure Date Discharge/Departure Disposition Provider(s) Departed Physician/ Provider Office Visit -Walk-In [facility] [place] March 31, 2025 12:23pm March 31, 2025 3:03pm Discharged to home care or self care (routine discharge) Radha Peter ENP Departed Clinical -Lab [facility] March 31, 2025 2:32pm March 31, 2025 11:59pm Discharged to home care or self care (routine discharge) Radha Peter ENP Departed Clinical -Emergency Medical Services April 09, 2025 9:45am April 09, 2025 11:59pm Discharged to home care or self care (routine discharge) EMS DOC Recent Diagnosis Onset Date Admit Date Confusion Unknown March 31 12:23pm Elevated blood pressure reading Unknown March 31, 2025 12:23pm Assessments Diagnosis Onset Date Resolution Status Admit Date Confusion acute March 31, 2025 12:23pm Elevated blood pressure reading acute March 31 12:23pm Plan of Treatment Author Ryanne Roman [facility] Authored March 31, 2025 2 :05pm Differential diagnosis that were considered may include: Uti, cystitits, kidney stone, urosepsis, pyelonephritis, urinary retention, hematuria Old charts and notes reviewed, 03/15/25 er notes and ua cx Results and treatment plan discussed with pt and son, pt has not given any urine samnple yet, explained without testing it, and the concerned being confusion, she would need to be ER, pt would like to try and give sample, staff aware, son saying he can not help her to bathroom due to back issues form for group home/assisted living completed, see form for full details, urine being sent to lab for micro Future Tests Future scheduled test information is unavailable Pending Tests Pending diagnostic test information is unavailable Future Visits Future appointment information is unavailable Future Procedures Future procedure information is unavailable Future Medications Future medication information is unavailable Patient Instructions Patient instructions are unavailable
[2025-05-21 22:27] VITALS: BMI 28.7
[2025-05-26] VITALS (50 sets, daily range): BP systolic 120–220; BP diastolic 63–123; PULSE 43–81; RESP 13–29; TEMP 35.8–36.4; O2SAT 94–100; BMI 30.2; BMI 26.6
--- NOTE | 2025-05-26 09:15 | EKG_ITS ---
[address] [address] [place] [address] Test Date: 2025-05-26 Pat Name: Cheyanne Clements Department: [facility] Room: Gender: Female Pharmacists: AARON CHAVEZB: 1945 Requested By: Order Number: [id number] Reading MD: Trenton Benoit MD Measurements Intervals [place] Rate: 55 P: -29 AL: 92 QRS: -46 QRSD: 94 T: -26 QT: 514 QTc: 491 Interpretive Statements Sinus bradycardia with short AL with premature supraventricular complexes Left anterior fascicular block Moderate voltage criteria for LVH, may be normal variant ( R in aVL , Kevin product ) T wave abnormality, consider inferolateral ischemia Electronically Signed On 05-27-2025 7:41:24 PST by Trenton Benoit MD
--- NOTE | 2025-05-26 09:29 | DI.RAD.S_ITS ---
PROCEDURE: XR CHEST 1V INDICATIONS: gideon pain/flank pain TECHNIQUE: One view of the chest was acquired. COMPARISON: [facility], CR, XR CHEST 1V, 05/21/2025, 11:25. FINDINGS: Surgical changes and devices: None. Lungs and pleura: Lungs are clear. No pleural effusions or pneumothorax. Mediastinum: Mediastinal contours appear normal. Heart size is normal. Bones and chest wall: No suspicious bony lesions. Overlying soft tissues appear unremarkable. IMPRESSION: No acute cardiopulmonary abnormality is seen. Approved by: Idalia Thomas M.D.,Ph.D. on 05/26/2025 at 10:16
--- NOTE | 2025-05-26 09:30 | DI.CT.S_ITS ---
PROCEDURE: CT KIDNEY URETER BLADDER (KUB) INDICATIONS: flank pain TECHNIQUE: Axial sections were acquired from the lung bases to the pubic symphysis. Coronal and sagittal reformats were performed. For radiation dose reduction, the following was used: automated exposure control, adjustment of mA and/or kV according to patient size. COMPARISON: None. FINDINGS: Image quality: Diagnostic. Lower Chest: Mild asymmetric wall thickening of the distal esophagus. URINARY: Right Kidney: No stones or hydronephrosis. Right Ureter: No hydroureter. Left Kidney: Nonobstructing right nephrolithiasis. No hydronephrosis. Left Ureter: No hydroureter. Bladder: Normal wall thickness. No stones. ABDOMEN: Liver: No contour-deforming solid mass. Gallbladder: Cholelithiasis without wall thickening or pericholecystic fluid. Biliary ducts: No biliary dilation. Pancreas: No ductal dilation. Spleen: Size is within normal limits. Adrenal Glands: No adrenal nodules. Stomach and Bowel: Normal colonic caliber, without significant wall thickening. Normal caliber appendix. Sigmoid diverticulosis without acute inflammation. Peritoneum: No abnormal intraperitoneal fluid. No free air. Ventral Wall: Complex fat containing periumbilical hernia. Abdominal Nodes: No enlarged retroperitoneal or mesenteric lymph nodes. Vessels: Aorta and inferior vena cava are normal in size. Aorto bi iliac atherosclerotic calcifications. PELVIS: Pelvic Organs: Unremarkable. Pelvic Nodes: Unremarkable. Miscellaneous: No inguinal hernias are seen. Bones: Internal fixation left proximal femur. Multilevel degenerative changes without acute vertebral body compression fracture. IMPRESSION: No obstructing stones or hydronephrosis. Nonobstructing punctate left nephrolithiasis. No acute abdominopelvic process. Approved by: Idalia Thomas M.D.,Ph.D. on 05/26/2025 at 11:22
--- NOTE | 2025-05-26 09:31 | ED_ITS ---
HPI - Chest Pain General Chief Complaint: Chest Pain Stated Complaint: Might be having a heart attack. left sided pain Time Seen by Provider: 05/26/25 09:16 Source: patient, family (son), RN notes reviewed and old records reviewed Mode of arrival: Wheelchair Limitations: no limitations History of Present Illness HPI narrative: 80-year-old female with severe dementia, diabetes, dyslipidemia, diffuse large B-cell lymphoma, hypertension and GERD with recent NSTEMI was hospitalized on 05/21/2025 and discharged home on 05/2025 for NSTEMI patient was discharged home with a prescription for aspirin 81 mg and statin. Patient has not been taking an aspirin since her discharge. Sudden notes she takes metformin in the morning and thinks that she takes statin in the evening. Patient presents today with complaint of left-sided pain they did describe chest pain as well as flank pain. Patient states it is worse with movement such as sitting forward in her chair. She indicates that the chest pain might be improved at this time but still has pain in the flank region in the left. Son states it started this morning, she has had some chills no objective fevers. No cold cough congestion symptoms. She denies any shortness of breath. She would have some nausea and vomiting this morning. She has been a little bit constipated but did have a bowel movement today. No reports of black or bloody stools. No reports of dysuria urgency or frequency. Patient is normally ambulatory at baseline. Patient has had prior ovary removed in her 20s unclear if she has has a prior hysterectomy. No prior cardiac surgeries or stents. Reports adverse reaction to morphine. No tobacco, alcohol or recreational drugs. Dr. Marcial is her primary care physician. Related Data Home Medications ?Medication ?Instructions ?Recorded ?Confirmed acetaminophen 500 mg capsule 1,000 mg PO Q6H PRN Fever 02/02/22 05/21/25 diphenoxylate-atropine 2.5 1 tab PO QID 11/08/2405/21 mg-0.025 mg tablet Previous Rx's ?Medication ?Instructions ?Recorded oxycodone-acetaminophen 5 mg-325 1 tab PO QID PRN pain #60 tabs 02/13/24 mg tablet (Percocet) food supplemt, lactose-reduced 1 ea PO DAILY #5,688 mL 07/15/24 (Ensure oral liquid) furosemide 20 mg tablet (Lasix) 20 mg PO DAILY PRN low er extremity 11/08/24 edema #15 tabs metformin 500 mg tablet 500 mg PO DAILY #30 tabs nystatin 100,000 unit/gram topical 1 applic topical BI D PRN yeast 02/18/25 powder infection #30 grams donepezil 10 mg tablet 10 mg PO BEDTIME #30 tabs aspirin 81 mg tablet,delayed 81 mg PO DAILY #30 tabs 1 07/25/24 release atorvastatin 40 mg tablet 40 mg PO DAILY #30 tabs 05/06 Allergies Allergy/AdvReac Type Severity Reaction Status Date / Time No Known Drug Allergies Allergy Verified 02/28/25 12:49 Review of Systems Review of Systems ROS Unobtainable: All systems reviewed & are unremarkable except as noted in HPI and below Patient History Medical History Fever and neutropenia Fracture of humerus, proximal, left, closed Dysuria Abdominal wall hernia Dementia Anemia Lela UTI Diffuse large B cell lymphoma Type 2 diabetes mellitus Essential hypertension Hepatitis B Wears glasses Alopecia (~1970) Depression Anxiety Carpal tunnel syndrome Mumps Measles Chicken pox Vertigo Cataracts, bilateral GERD (gastroesophageal reflux disease) Surgical History Anesthesia History of hernia repair History of hand surgery History of tonsillectomy History of hysterectomy Family History Father Hypertension Hyperlipidemia Mother MVA (motor vehicle accident) Sister Heart defect Social History household members: family Smoking Status: Never smoker alcohol intake: never Smoking Status: Never smoker alcohol intake frequency: holidays/special occasions only Exam Narrative Exam Narrative: GENERAL: Alert and oriented, patient is conversant does seem slightly confused. HEENT: Head normocephalic, atraumatic, EOMI, pupils reactive, face symmetric, moist mucous membranes NECK: Supple, full range of motion CARDIOVASCULAR: Regular rate and rhythm without murmurs, rubs or gallops. No JVD. RESPIRATORY: Breath sounds equal bilaterally, no wheezes rales or rhonchi. No tachypnea accessory muscle use. ABDOMEN: Soft, nontender. Normoactive bowel sounds all 4 quadrants. No guarding or rebound, rigidity, no mass : No CVA tenderness BACK: No cervical, thoracic or lumbar vertebral point tenderness. Patient has normal range of motion. EXTREMITIES: Normal range of motion, no clubbing or edema upper or lower extremities. 2+ pulses bilateral lower extremities. Neurovascularly intact NEUROLOGICAL: Cranial nerves II through XII grossly intact. Moving all extremities SKIN: Warm, dry, no petechiae, no rashes or lesions. Initial Vital Signs Initial Vital Signs: Vital Signs Temperature 97.5 F L 05/26/25 09:17 Pulse Rate 56 L 05/26/25 09:17 Respiratory Rate 16 05/26/25 09:17 Blood Pressure 220/81 H 05/26/25 09:17 Pulse Oximetry 99 05/26/25 09:17 Oxygen Delivery Method Room Air 05/26/25 09:17 Course Orders Ordered: Acetaminophen (Acetaminophen 325 Mg Tablet) 650 mg PO Q6H PRN PRN Reason: Fever/Mild Pain (1-3) Aspirin (Aspirin Ec 81 Mg Tablet) 81 mg PO DAILY [facility] Atorvastatin Calcium (Atorvastatin 20 Mg Tablet) 40 mg PO BEDTIME [facility] Last Admin: 05/26/25 20:46 Dose: Not Given Documented By: AT Donepezil HCl (Donepezil 5 Mg Tablet) 10 mg PO BEDTIME [facility] Last Admin: 05/26/25 20:37 Dose: 10 mg Documented By: AT Insulin Human Lispro (Insulin Lispro 100 Unit/Ml 3ml Vial) 0 unit SUBCUT ACHS [facility]; Protocol Last Admin: 05/26/25 20:34 Dose: Not Given Documented By: AT Lisinopril (Lisinopril 20 Mg Tablet) 20 mg PO DAILY [facility] Naloxone HCl (Naloxone 0.4 Mg/Ml Vial) 0.2 mg IV Q2MIN PRN PRN Reason: Opiate Reversal Nitroglycerin (Nitroglycerin 0.4 Mg Sl Tab) 0.4 mg SL [id number] PRN PRN Reason: Chest Pain Last Admin: 05/26/25 10:20 Dose: 0.4 mg Documented By: CB Ondansetron HCl (Ondansetron 4 Mg Odt) 4 mg PO Q8HR PRN PRN Reason: Nausea And Vomiting Sennosides (Sennosides 8.6 Mg Tablet) 17.2 mg PO BEDTIME [facility] Last Admin: 05/26/25 20:46 Dose: Not Given Documented By: AT Discontinued Medications Acetaminophen (Acetaminophen 325 Mg Tablet) 975 mg PO NOW ONE Stop: 05/26/25 09:29 Last Admin: 05/26/25 10:19 Dose: 975 mg Documented By: ESE Aspirin (Aspirin 81 Mg Chew Tab) 324 mg PO NOW ONE Stop: 05/26/25 09:29 Last Admin: 05/26/25 10:20 Dose: 324 mg Documented By: ESE Magnesium Sulfate (Magnesium Sulfate) 2 gm in 50 mls @ 150 mls/hr IV NOW ONE Stop: 05/26/25 12:32 Last Infusion: 05/26/25 14:56 Dose: Infused Documented By: MONSE Co-signed By: MAGGIE Admin: 05/26/25 13:19 Dose: 150 mls/hr Documented By: MONSE Co-signed By: MAGGIE Lisinopril (Lisinopril 20 Mg Tablet) 20 mg PO NOW ONE Stop: 05/26/25 19:15 Last Admin: 05/26/25 20:37 Dose: 20 mg Documented By: AVA Nitroglycerin (Nitroglycerin Oint 1 Inch/Gm Oint...G.) 1 inch TOP NOW ONE Stop: 05/26/25 12:28 Last Admin: 05/26/25 15:31 Dose: Not Given Documented By: CAMILLA Nitroglycerin (Nitroglycerin Oint 1 Inch/Gm Oint...G.) 1 inch TOP NOW ONE Stop: 05/26/25 15:19 Last Admin: 05/26/25 15:32 Dose: 1 inch Documented By: CAMILLA Vital Signs Vital signs: Vital Signs - 8 hr 05/26/25 09:17 05/26/25 09:48 05/26/25 10:20 Temperature 97.5 F L Pulse Rate 56 L 55 L 52 L Respiratory Rate 16 26 H Blood Pressure 220/81 H 188/79 H Pulse Oximetry 99 100 Oxygen Delivery Method Room Air 05/26/25 10:34 05/26/25 11:00 05/26/25 11:01 Temperature Pulse Rate 66 55 L Respiratory Rate 26 H 24 Blood Pressure 153/66 H Pulse Oximetry 95 95 Oxygen Delivery Method 05/26/25 11:01 05/26/25 11:30 05/26/25 11:31 Temperature Pulse Rate 54 L 50 L Respiratory Rate 25 H 27 H Blood Pressure 172/115 H Pulse Oximetry 95 100 Oxygen Delivery Method 05/26/25 11:31 05/26/25 12:00 05/26/25 12:01 Temperature Pulse Rate 51 L 54 L Respiratory Rate 29 H 24 Blood Pressure 187/74 H Pulse Oximetry 98 99 Oxygen Delivery Method 05/26/25 12:01 05/26/25 12:03 05/26/25 12:03 Temperature Pulse Rate 52 L 50 L Respiratory Rate 25 H 15 Blood Pressure 166/80 H Pulse Oximetry 99 99 Oxygen Delivery Method 05/26/25 12:30 05/26/25 12:46 05/26/25 12:46 Temperature Pulse Rate 54 L 56 L Respiratory Rate 20 Blood Pressure 143/90 H Pulse Oximetry 99 96 Oxygen Delivery Method 05/26/25 12:47 05/26/25 12:47 05/26/25 12:54 Temperature Pulse Rate 52 L 53 L Respiratory Rate 13 Blood Pressure 143/90 H Pulse Oximetry 98 97 Oxygen Delivery Method 05/26/25 12:54 05/26/25 13:00 05/26/25 13:01 Temperature Pulse Rate 53 L Respiratory Rate Blood Pressure 197/85 H 173/76 H Pulse Oximetry 98 Oxygen Delivery Method 05/26/25 13:01 05/26/25 13:16 05/26/25 13:16 Temperature Pulse Rate 51 L 51 L Respiratory Rate 13 Blood Pressure 159/72 H Pulse Oximetry 98 96 Oxygen Delivery Method 05/26/25 13:30 05/26/25 13:31 05/26/25 13:31 Temperature Pulse Rate 63 57 L Respiratory Rate 24 Blood Pressure 164/123 H Pulse Oximetry Oxygen Delivery Method 05/26/25 13:32 05/26/25 13:32 05/26/25 14:00 Temperature Pulse Rate 61 52 L Respiratory Rate 15 20 Blood Pressure 191/84 H Pulse Oximetry 96 Oxygen Delivery Method 05/26/25 14:01 05/26/25 14:01 05/26/25 14:30 Temperature Pulse Rate 51 L 48 L Respiratory Rate 19 16 Blood Pressure 156/68 H Pulse Oximetry 98 96 Oxygen Delivery Method 05/26/25 15:00 05/26/25 15:01 05/26/25 15:01 Temperature Pulse Rate 44 L 43 L Respiratory Rate 16 14 Blood Pressure 194/78 H Pulse Oximetry 96 94 Oxygen Delivery Method 05/26/25 15:18 05/26/25 15:18 05/26/25 15:32 Temperature Pulse Rate 62 65 Respiratory Rate 20 Blood Pressure 198/88 H 198/88 H Pulse Oximetry 99 Oxygen Delivery Method MDM - Chest Pain Lab Data 05/27/25 04:30 05/27/25 04:30 Labs: Lab Results 05/26/25 05/26/25 Range/Units 11:40 13:35 WBC 7.4 (4.5-11.0) X10^3/uL RBC 4.91 (4.0-5.2) X10^6/uL Hgb 13.2 (12.0-16.0) g/dL Hct 40.2 (36-46) % MCV 81.9 (80-100) fL MCH 26.9 (26-34) PG MCHC 32.8 (30-36) % RDW 15.4 H (11.6-14.8) % Plt Count 272 (150-400) X10^3/uL Neut % (Auto) 84.1 H (50-75) % Lymph % (Auto) 8.5 L (25-40) % Nobles % (Auto) 5.8 (3-14) % Eos % (Auto) 0.7 L (2-4) % Baso % (Auto) 0.9 (0-2) % Neut # (Auto) 6200 (6905-6477) /uL Lymph # (Auto) 600 L (2301-6502) /uL Nobles # (Auto) 400 (0-900) /uL Eos # (Auto) 100 (0-450) /uL Baso # (Auto) 100 (0-100) /uL Sodium 137 (137-145) mmol/L Potassium 4.1 (3.4-5.1) mmol/L Chloride 104 (98-107) mmol/L Carbon Dioxide 25 (22-32) mmol/L BUN 25 H (7-17) mg/dL Creatinine 0.99 (0.52-1.04) mg/dL Estimated GFR 58 L (>60) mL/min BUN/Creatinine Ratio 25.3 H (6-22) Glucose 143 H (70-99) mg/dL Calcium 9.2 (8.4-10.2) mg/dL Magnesium 1.4 L (1.6-2.3) mg/dL Total Bilirubin 0.9 (0.2-1.3) mg/dL AST 35 (14-36) IU/L ALT 18 (<35) IU/L Alkaline Phosphatase 72 (38-126) U/L Troponin I 0.038 H 0.044 H (0.01-0.034) ng/mL NT-Pro-B Natriuret Pep 1840 H (<450) pg/mL Total Protein 7.3 (6.3-8.2) g/dL Albumin 4.2 (3.5-5.0) g/dL Globulin 3.1 (1.7-4.1) g/dL Albumin/Globulin Ratio 1.4 (1.0-2.8) Lipase 108 (23-300) U/L [facility] Narrative Medical decision making narrative: EKG shows sinus bradycardia with short CA, left anterior fascicular block, rate of 55 CA 92 QRS of 94 QTC of 491, inverted T-waves in 2, 3 and AVF as well as V3 through the [address] elevation appreciated. Patient has prior EKG from 05/21/2025 which appears similar today in 2 3 and AVF but has not new T-wave inversions in V3 through V6 Labs show white count 7.4 hemoglobin of 13 platelets of 272, chemistries show BUN 25 glucose of 143 electrolytes are otherwise appropriate, calcium is 9.2 Mag is low at 1.4 LFTs are otherwise appropriate troponin 0.038 that has actually trending down from her most recent hospitalization she was positive around the and most recent was 0.072 on 05/2025. BNP is 18 40 no priors for comparison. Repeat troponin Chest x-ray shows no acute cardiopulmonary abnormality. CT KUB. No obstructing stones or hydronephrosis nonobstructing punctate left nephrolithiasis. Cholelithiasis without wall thickening or pericholecystic fluid. Complex fat containing periumbilical hernia. Patient did not have a CTA chest abdomen pelvis, dissection protocol in 05/21/2025 which was negative at that time there was [id number] atherosclerotic calcification mid to lower abdominal aorta no evidence of PE no mediastinal or hilar lymphadenopathy. Moderate constipation cholelithiasis without evidence of cholecystitis. Patient also had an echo on 05/21/2025 which showed EF of 25-30% basal, anterolateral wall is akinetic in mid anterolateral avila dyskinetic, inferolateral wall is akinetic anterior wall severely hypokinetic. Patient received aspirin, nitro sublingual, Tylenol for her flank pain. 80-year-old female had recent NSTEMI treated with a heparin drip, had echo and CTA of chest abdomen pelvis. Patient returns today with complaint of chest and flank discomfort but she notes it seems to be worse with movement she is quite hypertensive. She does appear to have new T-wave inversions in lateral leads V3 through V6, 2 3 and AVF appears similar to prior EKGs. During her most recent hospitalization she was treated conservatively with medical management secondary to her severe dementia notes indicate only a candidate for cardiac catheterization if she were to develop intractable chest pain. Spoke with the patient's sons initial troponin is improved from priors but still indeterminate we will repeat, did not note that patient has had some new EKG changes from her last hospital stay. He notes she is full code sounds like he has agreeable to cardiac catheterization if it was offered. Spoke with cardiology. Dr. Norris @ [phone]. Discussed findings from today troponins slightly turned to upwards but it is still indeterminate but does have new T-wave inversions. Patient does have some discomfort but unclear if that is her chest or flank. After discussion he would recommend medical management only he does not recommend a cardiac catheterization based on patient's history of dementia we would recommend aspirin/Plavix, continue with statin, manage blood pressure can use beta-philippe if necessary can use long-acting nitrates such as isosorbide serial troponins. Can also have discussion with the family about goals of management. Spoke with patients son, he notes patient is full code he is agreeable to whatever medical interventions are available. Spoke with Dr. Gleason, hospitalist about keeping for observation patient has indeterminate troponins slightly rising new EKG changes some chest pain was hypertensive today did talk with Cardiology. Discussed recommendations from Cardiology plan for observation. Discharge Plan Departure Patient Disposition: Admitted as Observation Clinical Impression: Chest pain, ST segment changes on electrocardiogram Admit Date/Time: 05/26/25 16:02 Admit Provider: Sylvia Gleason
[2025-05-26] MEDS: ACETAMINOPHEN 325 MG TABLET 975 MG PO (10:19)
[2025-05-26] MEDS: ASPIRIN 81 MG CHEW TAB 324 MG PO (10:20)
[2025-05-26] MEDS: NITROGLYCERIN 0.4 MG SL TAB SL (10:20)
[2025-05-26 11:51] LABS: Add Manual Diff / Slide Review NO; Hematocrit 40.2 % (36-46); Hemoglobin 13.2 g/dL (12.0-16.0); Lymphocytes Absolute Auto 600 /uL (1100-4500); Mean Corpuscular HGB Conc 32.8 % (30-36); Mean Corpuscular Hemoglobin 26.9 PG (26-34); Mean Corpuscular Volume 81.9 fL (80-100); Platelet Count 272 X10^3/uL (150-400)
[2025-05-26 12:04] LABS: Alanine Aminotransferase 18 IU/L (<35); Albumin 4.2 g/dL (3.5-5.0); Albumin Globulin Ratio 1.4 (1.0-2.8); Alkaline Phosphatase 72 U/L (38-126); Blood Urea Nitrogen 25 mg/dL (7-17); Calcium 9.2 mg/dL (8.4-10.2); Carbon Dioxide 25 mmol/L (22-32); Chloride 104 mmol/L (98-107); Estimated Glomerular Filt Rate 58 mL/min (>60); Globulin 3.1 g/dL (1.7-4.1); Glucose 143 mg/dL (70-99); HEMOLYSIS 21 (0-50); Lipase 108 U/L (23-300); Magnesium 1.4 mg/dL (1.6-2.3); Potassium 4.1 mmol/L (3.4-5.1); Sodium 137 mmol/L (137-145); Total Protein 7.3 g/dL (6.3-8.2)
[2025-05-26 12:16] LABS: NT-proBNP (BNP-Adult 18+) 1840 pg/mL (<450); Troponin I 0.038 ng/mL (0.01-0.034)
[2025-05-26] MEDS: MAGNESIUM SULFATE 2 GM/50 ML PIGGYBACK IV (13:19)
--- NOTE | 2025-05-26 13:44 | EKG_ITS ---
[place] [address] [address] [place] [id number] Test Date: 2025-05-26 Pat Name: Cheyanne Clements Department: [facility] Room: Gender: Female First Aid Director: AARON : 1945 Requested By: Order Number: [id number] Reading MD: Trenton Benoit MD Measurements Intervals Hood Rate: 47 P: MI: 116 QRS: -47 QRSD: 94 T: -43 QT: 538 QTc: 476 Interpretive Statements Sinus bradycardia Left anterior fascicular block Moderate voltage criteria for LVH, may be normal variant ( R in aVL , Kevin product ) T wave abnormality, consider inferior ischemia T wave abnormality, consider anterolateral ischemia NO SIGNIFICANT CHANGE FROM PRIOR TRACING Electronically Signed On 05-27-2025 7:41:46 PST by Trenton Benoit MD
[2025-05-26 14:34] LABS: Troponin I 0.044 ng/mL (0.01-0.034)
[2025-05-26] MEDS: NITROGLYCERIN OINT 1 INCH/GM OINT...G. TOP (15:32)
--- NOTE | 2025-05-26 17:09 | CM.DANOTE ---
DCP Assessment Note: Pt is a 80yo female, resident of [place], is admitted for elevated troponin levels, hypertension and chest pain. Pt's Primary Care Provider is Dr. Nancy Marcial and insurance is Medicare. Reviewed chart and discussed with multidisciplinary team pt's medical status and initial discharge needs. Due to pt cognitive impairment, SOFTWARE DESIGN ENGINEER called pt son, Oleg, and discussed pt discharge plans. SOFTWARE DESIGN ENGINEER discussed pt admission. Pt son states he has spinal stenosis and has surgery scheduled for 06/30/2025 and is on a lift restriction for 6 weeks after. Pt son reports he has been looking for a respite facility for patient for the month of July. His preference is for patient to go to a SNF utilizing Medicare if medically necessary vs. assisted living/memory care. SOFTWARE DESIGN ENGINEER discussed providing contact information for [facility], call was disconnected for the second time. SOFTWARE DESIGN ENGINEER conferred with [facility] and notified of pt admission via secure email. Plan: Anticipating discharge to SNF vs 24/ care. CM team will follow closely for coordination of discharge plans. Viktoriya Law CONCRETE PIPE MAKER Discharge Planning/Care Management CM Discharge Assessment Start: 05/26/25 16:45 Freq: Status: Active Protocol: Document 05/26/25 16:59 MW (Rec: 05/26/25 17:07 MW [id number]) Discharge Planning Assessment Assigned Discharge TAMMIE Sadler Family Life Educator Provider Dr. Nancy Marcial Insurance Medicare DPOA/Assigned Sony Martinez Designee Name Contact Information [phone] Advance Directives? No History Provided By Patient,Family Member,Medical Record Has Patient been Yes admitted in last 30 days? Comment 05/21-05/24 Prior Living House Arrangements Household Members family Type of Relies on Others transporation used prior to admit Independent with ADL No 's Is patient alert and No oriented? Barriers to Yes Discharge Comment Son has spinal stenosis and not able to care for mom as well as he intended, will have surgery in Jun 2025. Discharge Plan Home Transportation Son Arrangement Referrals Initiated Home Health Medicare Choice List Yes Provided Review Status In Process Please Provide Date 05/26/25 Initial DC Assessment Was Performed Next Review Type Continued Stay Review
--- NOTE | 2025-05-26 18:08 | P.HP_ITS ---
History of Present Illness History of Present Illness Date Patient Seen: 05/26/25 Time Patient Seen: 18:08 Date of Onset of Symptoms: 05/26/25 Chief complaint: Might be having a heart attack. left sided pain Narrative: HPI 80-year-old female with severe dementia, diabetes, dyslipidemia, diffuse large B-cell lymphoma, hypertension and GERD who was recently hospitalized from 05/21 through 05/24/25 for an NSTEMI. During that admission, peak troponin was 0.340 and there were T-wave inversions in the inferior leads. The patient was managed conservatively during that admission due to her severe dementia and multiple medical problems. This decision was made after discussion with Cardiology (Dr. Norris) and the patient's son. She received a heparin drip for 48 hours and echo showed normal LV size with severely reduced EF at 25-30%, basal anterior row lateral wall is akinetic and mid anterolateral wall is dyskinetic. The inferior lateral wall was also a kinetic and the anterior wall was severely hypokinetic. Right ventricle was not well visualized but was grossly normal size with mild reduced function. There were no significant valvular abnormalities. She was initiated on aspirin and statin but beta-blockers were held due to resting sinus bradycardia. The patient was discharged home with her son in stable condition. The patient re-presented to the hospital today with a left-sided chest pain as well as possible flank pain by report from the emergency room physician. Per the emergency room evaluation, the patient stated the pain was worse with movement such as sitting forward in her chair. The patient's son also reports that the patient had some chills but no fever on the morning of admission. The patient is unable to provide any significant history to me. She is able to answer yes and no to direct questions. She denies shortness of breath, cough, nausea or vomiting, but does note that she has not been eating well. She is unable to elaborate beyond answering yes or no. Review of systems Fourteen system review of systems limited by the patient's ability to provide a history. Available information as detailed above. Objective Vital signs reviewed, temp 97.5?, BP currently 168/104 but earlier was reported to be as high as the mid 180s, respiratory rate 25, 97% on room air Alert, oriented to person only, well-nourished, well-developed, no acute distress Regular rate and rhythm, no murmurs Clear to auscultation bilaterally Soft, nontender, nondistended, positive bowel sounds Warm without edema Neuro grossly nonfocal Pleasant and cooperative Labs: Personally reviewed by me and notable for glucose 143, magnesium 1.4, troponins 0.038 and 0.044 Imaging: Chest x-ray personally reviewed by me and demonstrates no acute cardiopulmonary abnormality. CT of the abdomen and pelvis interpreted by Radiology shows no obstructing stone or hydronephrosis, there is a nonobstructing punctate left nephrolithiasis, no acute abdominal pelvic process. EKG: The 12 lead EKG was reviewed by me and compared to the prior EKG from 05/21/2025. It demonstrates sinus bradycardia at 47 beats per minute. There are T-wave inversions in the inferior and lateral leads. The inferior inversions were clearly present on 05/21. The lateral inversions were more subtle on 05/21. Code status: DNR Diet: General Lines/tubes: Peripheral IV DVT prophylaxis: Enoxaparin A&P 80-year-old female recently discharged after NSTEMI who represents with vague left-sided chest pain and weakness. Troponins are mildly elevated but this is likely due to resolution of prior elevated troponins from the NSTEMI on 05/21. Doubt new coronary process. However, the patient was found to be significantly hypertensive and is being placed in observation overnight for management of blood pressure. Of note, the patient has not been taking her aspirin at home. She is not on any antihypertensives. She has been taking the statin at home. Hypertension, uncontrolled It does not appear that the patient has been on any antihypertensives. She is only taking Lasix. Rate-controlling agents are contraindicated given her baseline bradycardia. * Initiate lisinopril. If a 2nd agent is needed, would use amlodipine. * Hold Lasix * As needed hydralazine for systolic blood pressure above 180 Diabetes She takes metformin at home. Unclear control is there is no recent hemoglobin A1c in our system. * Hold metformin * Fingerstick blood sugar q.a.c. and HS * Lantus SSI Recent NSTEMI Presumed CAD Patient had a recent NSTEMI. Current troponins are mildly elevated but this is likely continued resolution of troponins from her prior NSTEMI. Doubt new cardiac event. * Continue goal-directed medical therapy with aspirin and statin * Beta-philippe contraindicated due to bradycardia Disposition: Given that this is a readmission, will have PT and OT re-evaluate the patient in the morning. Care management consult to assess for home services or higher level of care in the post acute care setting. Time spent: 60 minutes spent in chart review, coordination of care with the emergency room, patient evaluation, and documentation. [facility] Medical History Fever and neutropenia Fracture of humerus, proximal, left, closed Dysuria Abdominal wall hernia Dementia Anemia Lela UTI Diffuse large B cell lymphoma Type 2 diabetes mellitus Essential hypertension Hepatitis B Wears glasses Alopecia (~1970) Depression Anxiety Carpal tunnel syndrome Mumps Measles Chicken pox Vertigo Cataracts, bilateral GERD (gastroesophageal reflux disease) Surgical History Anesthesia History of hernia repair History of hand surgery History of tonsillectomy History of hysterectomy Family History Father Hypertension Hyperlipidemia Mother MVA (motor vehicle accident) Sister Heart defect Social History household members: family Smoking Status: Never smoker alcohol intake: never Meds Home Medications and Allergies Home Medications ?Medication ?Instructions ?Recorded ?Confirmed ?Type acetaminophen 500 mg capsule 1,000 mg PO Q6H PRN Fever 02/02/22 05/21/25 History oxycodone-acetaminophen 5 mg-325 1 tab PO QID PRN pain #60 tabs 02/13/24 05/21/25 Rx mg tablet (Percocet) food supplemt, lactose-reduced 1 ea PO DAILY #5,688 mL 07/15/24 05/21/25 Rx (Ensure oral liquid) diphenoxylate-atropine 2.5 1 tab PO QID 11/08/2405/21 History mg-0.025 mg tablet furosemide 20 mg tablet (Lasix) 20 mg PO DAILY PRN low er extremity 11/08/24 05/21/25 Rx edema #15 tabs metformin 500 mg tablet 500 mg PO DAILY #30 tabs 05/21/25 Rx nystatin 100,000 unit/gram topical 1 applic topical BI D PRN yeast 02/18/25 05/21/25 Rx powder infection #30 grams donepezil 10 mg tablet 10 mg PO BEDTIME #30 tabs 05/21/25 Rx aspirin 81 mg tablet,delayed 81 mg PO DAILY #30 tabs 1 07/25/24 Rx release atorvastatin 40 mg tablet 40 mg PO DAILY #30 tabs 05/06 Rx Allergies Allergy/AdvReac Type Severity Reaction Status Date / Time No Known Drug Allergies Allergy Verified 02/28/25 12:49 Exam Vital Signs (past 8 hours): - 05/26/25 10:20 05/26/25 10:34 05/26/25 11:00 Pulse Rate 52 L 66 55 L Respiratory Rate 26 H 24 Blood Pressure 188/79 H Pulse Oximetry 95 95 05/26/25 11:01 05/26/25 11:01 05/26/25 11:30 Pulse Rate 54 L 50 L Respiratory Rate 25 H 27 H Blood Pressure 153/66 H Pulse Oximetry 95 100 05/26/25 11:31 05/26/25 11:31 05/26/25 12:00 Pulse Rate 51 L 54 L Respiratory Rate 29 H 24 Blood Pressure 172/115 H Pulse Oximetry 98 99 05/26/25 12:01 05/26/25 12:01 05/26/25 12:03 Pulse Rate 52 L 50 L Respiratory Rate 25 H 15 Blood Pressure 187/74 H Pulse Oximetry 99 99 05/26/25 12:03 05/26/25 12:30 05/26/25 12:46 Pulse Rate 54 L 56 L Respiratory Rate 20 Blood Pressure 166/80 H Pulse Oximetry 99 96 05/26/25 12:46 05/26/25 12:47 05/26/25 12:47 Pulse Rate 52 L Respiratory Rate 13 Blood Pressure 143/90 H 143/90 H Pulse Oximetry 98 05/26/25 12:54 05/26/25 12:54 05/26/25 13:00 Pulse Rate 53 L 53 L Respiratory Rate Blood Pressure 197/85 H Pulse Oximetry 97 98 05/26/25 13:01 05/26/25 13:01 05/26/25 13:16 Pulse Rate 51 L Respiratory Rate 13 Blood Pressure 173/76 H 159/72 H Pulse Oximetry 98 05/26/25 13:16 05/26/25 13:30 05/26/25 13:31 Pulse Rate 51 L 63 Respiratory Rate 24 Blood Pressure 164/123 H Pulse Oximetry 96 05/26/25 13:31 05/26/25 13:32 05/26/25 13:32 Pulse Rate 57 L 61 Respiratory Rate 15 Blood Pressure 191/84 H Pulse Oximetry 05/26/25 14:00 05/26/25 14:01 05/26/25 14:01 Pulse Rate 52 L 51 L Respiratory Rate 20 19 Blood Pressure 156/68 H Pulse Oximetry 96 98 05/26/25 14:30 05/26/25 15:00 05/26/25 15:01 Pulse Rate 48 L 44 L 43 L Respiratory Rate 16 16 14 Blood Pressure Pulse Oximetry 96 96 94 05/26/25 15:01 05/26/25 15:18 05/26/25 15:18 Pulse Rate 62 Respiratory Rate 20 Blood Pressure 194/78 H 198/88 H Pulse Oximetry 99 05/26/25 15:30 05/26/25 15:32 05/26/25 15:41 Pulse Rate 65 65 56 L Respiratory Rate 18 22 Blood Pressure 198/88 H Pulse Oximetry 99 98 05/26/25 15:41 05/26/25 15:50 05/26/25 15:50 Pulse Rate 57 L Respiratory Rate 17 Blood Pressure 182/80 H 179/84 H Pulse Oximetry 98 05/26/25 16:00 05/26/25 16:00 05/26/25 16:10 Pulse Rate 56 L 56 L Respiratory Rate 16 17 Blood Pressure 165/79 H Pulse Oximetry 97 97 05/26/25 16:10 05/26/25 16:20 05/26/25 16:20 Pulse Rate 62 Respiratory Rate 23 Blood Pressure 163/79 H 160/78 H Pulse Oximetry 97 05/26/25 16:30 05/26/25 16:30 05/26/25 16:40 Pulse Rate 60 55 L Respiratory Rate 17 20 Blood Pressure 164/80 H Pulse Oximetry 97 96 05/26/25 16:40 05/26/25 16:50 05/26/25 16:50 Pulse Rate 57 L Respiratory Rate 17 Blood Pressure 165/81 H 163/82 H Pulse Oximetry 96 05/26/25 17:00 05/26/25 17:00 05/26/25 17:10 Pulse Rate 56 L Respiratory Rate 16 Blood Pressure 159/77 H 143/71 H Pulse Oximetry 98 05/26/25 17:10 12/22/25 17:20 05/26/25 17:20 Pulse Rate 52 L 51 L Respiratory Rate 23 15 Blood Pressure 142/63 H Pulse Oximetry 96 96 05/26/25 17:30 05/26/25 17:31 05/26/25 17:31 Pulse Rate 73 81 Respiratory Rate 23 25 H Blood Pressure 168/104 H Pulse Oximetry 97 97 Oxygen Delivery Method Room Air Objective Labs 05/26/25 11:40 05/26/25 11:40 Labs: Laboratory Results - last 24 hr 05/26/25 05/26/25 11:40 13:35 WBC 7.4 RBC 4.91 Hgb 13.2 Hct 40.2 MCV 81.9 MCH 26.9 MCHC 32.8 RDW 15.4 H Plt Count 272 Neut % (Auto) 84.1 H Lymph % (Auto) 8.5 L [place] % (Auto) 5.8 Eos % (Auto) 0.7 L Baso % (Auto) 0.9 Neut # (Auto) 6200 Lymph # (Auto) 600 L [place] # (Auto) 400 Eos # (Auto) 100 Baso # (Auto) 100 Sodium 137 Potassium 4.1 Chloride 104 Carbon Dioxide 25 BUN 25 H Creatinine 0.99 Estimated GFR 58 L BUN/Creatinine Ratio 25.3 H Glucose 143 H Calcium 9.2 Magnesium 1.4 L Total Bilirubin 0.9 AST 35 ALT 18 Alkaline Phosphatase 72 Troponin I 0.038 H 0.044 H NT-Pro-B Natriuret Pep 1840 H Total Protein 7.3 Albumin 4.2 Globulin 3.1 Albumin/Globulin Ratio 1.4 Lipase 108 Assessment & Plan Time-Based Coding :: [TOTAL MINUTES] spent with patient and on the chart (including review of chart, obtaining history, exam, reviewing outside data, placing orders, documenting exam and treatment plan, and counseling patient) on [DATE].
[2025-05-26] MEDS: DONEPEZIL 5 MG TABLET 10 MG PO (20:37)
[2025-05-26 22:00] LABS: Appearance Urine UA CLEAR; Bilirubin Urine UA NEGATIVE (NEGATIVE); Color Urine UA YELLOW; Glucose Urine UA NEGATIVE (Negative); Ketones Urine UA TRACE (NEGATIVE); Leukocyte Esterase Urine UA NEGATIVE (NEGATIVE); Nitrite Urine UA NEGATIVE (Negative); Occult Blood Urine UA NEGATIVE (Negative); Protein Urine UA 1+ (Negative); Specific Gravity Urine UA 1.025 (1.000-1.035); Urobilinogen Urine UA 1.0 E.U./dL (0.2)
[2025-05-26 22:01] LABS: pH Urine UA 5.5 (4.5-8.0)
[2025-05-26 22:11] LABS: Culture Indicated Urine Cult Not Indicated
[2025-05-27 03:00] VITALS: BP 112/61; PULSE 57; RESP 18; TEMP 36.4; O2SAT 96
[2025-05-27 05:09] LABS: Add Manual Diff / Slide Review NO; Hematocrit 38.5 % (36-46); Hemoglobin 12.7 g/dL (12.0-16.0); Lymphocytes Absolute Auto 900 /uL (1100-4500); Mean Corpuscular HGB Conc 33.1 % (30-36); Mean Corpuscular Hemoglobin 27.2 PG (26-34); Mean Corpuscular Volume 82.3 fL (80-100); Platelet Count 258 X10^3/uL (150-400)
[2025-05-27 05:18] LABS: Blood Urea Nitrogen 21 mg/dL (7-17); Calcium 9.3 mg/dL (8.4-10.2); Carbon Dioxide 25 mmol/L (22-32); Chloride 104 mmol/L (98-107); Estimated Glomerular Filt Rate > 60 mL/min (>60); Glucose 127 mg/dL (70-99); HEMOLYSIS < 15 (0-50); Potassium 4.0 mmol/L (3.4-5.1); Sodium 137 mmol/L (137-145)
[2025-05-27 05:30] LABS: Troponin I 0.039 ng/mL (0.01-0.034)
[2025-05-27 07:00] VITALS: BP 137/87; PULSE 58; RESP 16; TEMP 36.8; O2SAT 98
[2025-05-27] MEDS: ASPIRIN EC 81 MG TABLET PO (10:16)
--- NOTE | 2025-05-27 10:40 | OT.IP.EVAL ---
Past Medical History (Last Reviewed 05/26/25 @ 18:14 by Sylvia Gleason MD) Abdominal wall hernia Alopecia (~1970) Anemia Anxiety Lela UTI Carpal tunnel syndrome Cataracts, bilateral Chicken pox Dementia Depression Diffuse large B cell lymphoma Dysuria Essential hypertension Fever and neutropenia Fracture of humerus, proximal, left, closed GERD (gastroesophageal reflux disease) Hepatitis B Measles Mumps Type 2 diabetes mellitus Vertigo Wears glasses Surgical History (Last Reviewed 05/26/25 @ 18:14 by Sylvia Gleason MD) Anesthesia History of hand surgery History of hernia repair History of hysterectomy History of tonsillectomy Occupational Therapy Inpatient Evaluation/Re-Eval M1 OT IP Prior Functional Status Start: 05/27/25 10:16 Freq: Status: Active Protocol: Document 05/27/25 10:17 [facility] (Rec: 05/27/25 10:50 [facility] Desktop) Medical Review Prior Functional Status Communication Pt has dementia. Mobility and Gait Prior pt did not use a device. Activities of Daily Pt's son assisted pt for all needs and states pt has Living and IADL's gotten weaker and unsteady and has been considering getting a fww for pt to use. Social History Household Members family Living Arrangements House Number of Floors ( Two Floors Floors) Number of Stairs To 5 steps and then 8 steps with left rails for both . Enter/Railing? Home Environment High Toilet,Tub/Shower Home Equipment Tub Transfer Bench,Hand Held Shower,Grab Bars In Shower Additional Social Pt not able to state prior level at this time. History Comment M2 OT-IP Current Condition Start: 05/27/25 10:16 Freq: Status: Active Protocol: Document 05/27/25 10:17 [facility] (Rec: 05/27/25 10:50 [facility] Desktop) Occupational Therapy Current Condition Current Condition Evaluation Date 05/27/25 Treatment Diagnosis recent NSTEMI Diagnosis Onset Date 05/26/25 M3 OT- IP Subjective and Pain Start: 05/27/25 10:16 Freq: Status: Active Protocol: Document 05/27/25 10:17 [facility] (Rec: 05/27/25 10:50 [facility] Desktop) OT- Subjective Occupational Therapy Visit Type Type Initial Evaluation Visit Start Time 09:00 Visit Stop Time 10:45 Notes [id number], [id number] Occupational Therapy Visit Comments Patient Comments Pt agreed to get up with OT. Notified nursing best for pt to have a chair alarm. OT Pain Assessment Pain When Pain Assessed At Rest Pain Present Pain Present Denied Pain M4 OT- IP ADL's Start: 05/27/25 10:16 Freq: Status: Active Protocol: Document 05/27/25 10:17 [facility] (Rec: 05/27/25 10:50 [facility] Desktop) OT [id number] Comments OT Self-Feeding Assist for set-up, pt does better with finger foods. Comments OT ADL-Grooming General Evaluation Areas Needing Retrieving/Set-up of Grooming Items Assistance Comments OT Grooming Comments VC for orientation of items and steps to follow. OT ADL-Oral Care General Eval Oral Care Ability Standby Assistance Comments Oral Care Comments VC for safety and completeness. At one point, pt trying to brush her hair with the tooth brush. OT ADL-Dressing General Eval Lower Body Dressing Maximum Assistance Ability Areas Needing Underpants/Brief,Socks Assistance Comments OT Dressing Comments Assist for completeness as pt is confused. OT ADL-Toileting General Evaluation Toileting Ability Maximum Assistance Areas Needing Manage Clothing Assistance OT ADL-Bathing Comments OT Bathing Comments Pt will benefit from assist. M5 OT- IP IADL's Start: 05/27/25 10:16 Freq: Status: Active Protocol: Document 05/27/25 10:17 [facility] (Rec: 05/27/25 10:50 [facility] Desktop) OT-Instrumental Activities of Daily Living Deficits IADL Deficits Deficits Identified Home Safety Awareness Awareness of Need Decreased Awareness for Assistance at Home Ability to Problem Unable to Problem Solve Solve Emergency Situations Medication Management Medication Caregiver Administers Management Money Management Money Management Caregiver Provides Assistance Meal Preparation Meal Preparation Caregiver Provides Assist Finding Fastener Finding Fastener Caregiver Provides Assist Driving Driving Caregiver Provides Assist M6 OT- IP Functional Cognition Start: 05/27/25 10:16 Freq: Status: Active Protocol: Document 05/27/25 10:17 [facility] (Rec: 05/27/25 10:50 [facility] Desktop) Cognitive Factors Limiting Selfcare Function Cognitive Ability Level of Alertness Confusional State Patient Orientation Name Attention Span Unable to Focus,Unable to Sustain Attention Ability Ability to Follow Able to Follow One Step Commands with Increased Time, Commands Able to Follow One Step Commands with Repetition Memory Description Short Term Impaired,Sas Sql Developer Impaired,Working Impaired Cognitive Comments Cognitive Assessment Pt needing concrete steps by steps to follow. Pt during Comments oral care needs trying to use the toothbrush that she just had in her mouth to brush her hair. Per pt's son has to assist pt for all needs. OT- Vision and Hearing OT- Vision Assessment Vision Assessment Pt's son states use to wear glasses all the time. Comments M7 OT- IP Mobility and Balance Start: 05/27/25 10:16 Freq: Status: Active Protocol: Document 05/27/25 10:17 [facility] (Rec: 05/27/25 10:50 [facility] Desktop) OT- Bed Mobility Assessment Supine to Sit Supine to Sit Assist Contact Guard Assistance Scooting Scooting to Edge of Contact Guard Assistance Bed OT-Transfer Assessment Sit to and From Stand Sit to and from Contact Guard Assistance Stand Transfers Transfer Ability Contact Guard Assistance,Minimal Assistance Technique Transfer Destination Bed,Chair,Toilet Transfer Technique Stand Step Pivot Devices Transfer Assistive Gait Belt,Front Wheeled Walker Devices Comments Mobility Comments Increased time to get out of bed and to scoot to the edge of the bed. CGA to stand to the FWW and able to walk into the bathroom. MAX vc for safety and instructions for all needs. CGA with FWW and without the FWW needing ARLEY as a little unsteady on her feet. OT- Gait Assessment Gait Gait Assistance Contact Guard Assist,Minimum Assistance Required: OT- Balance Assessment Sitting Balance and Reactions Static Sitting Good Balance Ability Dynamic Sitting Fair Balance Ability Standing Balance and Reactions Static Standing Fair Balance Ability Dynamic Standing Poor Balance Ability Comments Other Balance Tests/ Based on no device used. Deviations/Treatment : M8 OT- IP Objective Assessments Start: 05/27/25 10:16 Freq: Status: Active Protocol: Document 05/27/25 10:17 [facility] (Rec: 05/27/25 10:50 [facility] Desktop) OT Gross Range of Motion Upper Extremity Range of Motion ROM Impairments Able to grossly raise arms overhead. OT Strength Comments Strength Comments At least 3-/5. M9 OT- IP Assessment and Plan Start: 05/27/25 10:16 Freq: Status: Active Protocol: Document 05/27/25 10:17 [facility] (Rec: 05/27/25 10:50 [facility] Desktop) OT Summary Assessment and Plan Potential Rehabilitation Fair Potential Analytic Complexity Moderate at Evaluation Summary OT Impairments Balance,Functional Cognition,Functional Mobility, Activity Tolerance Progress Towards Slow Progress due to Medical Issues,Slow Progress due Goals to Cognition Assessment Summary Pt MOD complexity and main barriers are steps, balance, and activity tolerance. Per pt's son pt needing assist for all ADL needs. Pt will benefit from continues 24/7 assist and home health PT and bath aid. Pt's son requesting orders for FWW. Frequency of Treatment Frequency Of Treatment Discharge Recommendations OT Discharge Home with 24/7 Assist Available,Home Health Recommendations Home Equipment Needs FWW,BSC Transportation Needs Private Vehicle at Discharge
[2025-05-27 11:00] VITALS: O2SAT 98
--- NOTE | 2025-05-27 11:00 | P.PN_ITS ---
Subjective Subjective Interval history: A&P 80-year-old female recently discharged after NSTEMI who represents with vague left-sided chest pain and weakness. Troponins are mildly elevated but this is likely due to incomplete resolution of prior elevated troponins from the NSTEMI on 05/21. Doubt new coronary process. However, the patient was found to be significantly hypertensive and weak so was placed in observation overnight for management of blood pressure. Her son also reported to that he is unable to fully care for her at home. Of note, the patient was not taking her aspirin at home. She was not on any antihypertensives and it was unclear if she was taking her statin. Hypertension, uncontrolled It does not appear that the patient has been on any antihypertensives. She is only taking Lasix. Rate-controlling agents are contraindicated given her baseline bradycardia. Started lisinopril 20 mg daily with improved rate control. Lasix was held at presentation as the patient seemed volume depleted. * Continue lisinopril. If a 2nd agent is needed, would use amlodipine. * Hold Lasix * As needed hydralazine for systolic blood pressure above 180 Diabetes She takes metformin at home. Unclear control is there is no recent hemoglobin A1c in our system. * Hold metformin * Fingerstick blood sugar q.a.c. and HS * Lantus SSI * Hemoglobin A1c in the morning Recent NSTEMI Presumed CAD Cardiomyopathy, EF 25-30% Patient had a recent NSTEMI. Current troponins are mildly elevated but this is likely incomplete resolution of troponins from her prior NSTEMI. Doubt new cardiac event. Echocardiogram from recent admission shows cardiomyopathy with EF 25-30%, normal LV size with severely reduced function. Basal anterolateral wall is akinetic and mid anterolateral wall is dyskinetic with an akinetic inferolateral wall. The anterior wall is severely hypokinetic. Right ventricular function is mildly reduced but it was not well-visualized on exam. Etiology of cardiomyopathy could be coronary artery disease or may be related to prior R-CHOP therapy for malignancy. During recent admission, the patient's son declined further aggressive cardiac workup given his mom's dementia. * Continue goal-directed medical therapy with aspirin and statin * Beta-philippe contraindicated due to bradycardia * Check lipid panel as none available in the system * If patient develops volume overload, could reinitiate Lasix. Discharge planning: Care management note from the emergency room states that the son feels he is unable to care for her at home due to his spinal stenosis and upcoming surgery in June. Patient is medically stable for discharge when retirement facility is available. Code status: DNR Diet: Carb controlled Lines/tubes: Peripheral IV DVT prophylaxis: Enoxaparin Subjective: The patient reports mild left flank discomfort. She denies chest pain, shortness for breath, nausea/vomiting, or lightheadedness. There are no new overnight events. Objective Vitals reviewed, 98.2, 137/87, 58, 16, 98% on room air Alert, oriented to 1st name only, well-nourished, well-developed, no acute distress Regular rate and rhythm, no murmurs Clear to auscultation bilaterally Mild left flank tenderness to palpation Soft, nontender, nondistended, positive bowel sounds Warm without edema Globally weak, neuro grossly nonfocal Pleasant and cooperative Time spent: 45 minutes spent in chart review, patient evaluation, coordination of care, and documentation. Exam Vital Signs (past 8 hours): - 05/27/25 07:00 Temperature 98.2 F Pulse Rate 58 L Respiratory Rate 16 Blood Pressure 137/87 Pulse Oximetry 98 Oxygen Delivery Method Room Air Oxygen Flow Rate 0 Objective Labs 05/27/25 04:30 05/27/25 04:30 Labs: Laboratory Results - last 24 hr 05/26/25 05/26/25 05/26/25 11:40 13:35 19:59 WBC 7.4 RBC 4.91 Hgb 13.2 Hct 40.2 MCV 81.9 MCH 26.9 MCHC 32.8 RDW 15.4 H Plt Count 272 Neut % (Auto) 84.1 H Lymph % (Auto) 8.5 L [place] % (Auto) 5.8 Eos % (Auto) 0.7 L Baso % (Auto) 0.9 Neut # (Auto) 6200 Lymph # (Auto) 600 L [place] # (Auto) 400 Eos # (Auto) 100 Baso # (Auto) 100 Sodium 137 Potassium 4.1 Chloride 104 Carbon Dioxide 25 BUN 25 H Creatinine 0.99 Estimated GFR 58 L BUN/Creatinine Ratio 25.3 H Glucose 143 H POC Whole Bld Glucose Calcium 9.2 Magnesium 1.4 L Total Bilirubin 0.9 AST 35 ALT 18 Alkaline Phosphatase 72 Troponin I 0.038 H 0.044 H NT-Pro-B Natriuret Pep 1840 H Total Protein 7.3 Albumin 4.2 Globulin 3.1 Albumin/Globulin Ratio 1.4 Lipase 108 Urine Color Yellow Urine Appearance Clear Urine pH 5.5 Ur Specific [place] 1.025 Urine Protein 1+ H Urine Glucose (UA) Negative Urine Ketones Trace H Urine Occult Blood Negative Urine Nitrate Negative Urine Bilirubin Negative Urine Urobilinogen 1.0 Ur Leukocyte Esterase Negative Urine RBC None seen Urine WBC 0-1/hpf Ur Squamous Epith Cells 5-10 /hpf H Amorphous Sediment 1+ Urine Bacteria Many (>30) H Ur Culture Indicated? Cult not indicated Vol Urine Centrifuged 10ml (spun) 05/26/25 05/27/25 05/27/25 20:18 04:30 08:00 WBC 6.2 RBC 4.68 Hgb 12.7 Hct 38.5 MCV 82.3 MCH 27.2 MCHC 33.1 RDW 15.2 H Plt Count 258 Neut % (Auto) 70.3 Lymph % (Auto) 14.7 L [place] % (Auto) 10.0 Eos % (Auto) 3.7 Baso % (Auto) 1.3 Neut # (Auto) 4400 Lymph # (Auto) 900 L [place] # (Auto) 600 Eos # (Auto) 200 Baso # (Auto) 100 Sodium 137 Potassium 4.0 Chloride 104 Carbon Dioxide 25 BUN 21 H Creatinine 0.96 Estimated GFR > 60 BUN/Creatinine Ratio 21.9 Glucose 127 H POC Whole Bld Glucose 102 H 118 H Calcium 9.3 Magnesium Total Bilirubin AST ALT Alkaline Phosphatase Troponin I 0.039 H NT-Pro-B Natriuret Pep Total Protein Albumin Globulin Albumin/Globulin Ratio Lipase Urine Color Urine Appearance Urine pH Ur Specific [place] Urine Protein Urine Glucose (UA) Urine Ketones Urine Occult Blood Urine Nitrate Urine Bilirubin Urine Urobilinogen Ur Leukocyte Esterase Urine RBC Urine WBC Ur Squamous Epith Cells Amorphous Sediment Urine Bacteria Ur Culture Indicated? Vol Urine Centrifuged [facility] Medical History Fever and neutropenia Fracture of humerus, proximal, left, closed Dysuria Abdominal wall hernia Dementia Anemia Lela UTI Diffuse large B cell lymphoma Type 2 diabetes mellitus Essential hypertension Hepatitis B Wears glasses Alopecia (~1970) Depression Anxiety Carpal tunnel syndrome Mumps Measles Chicken pox Vertigo Cataracts, bilateral GERD (gastroesophageal reflux disease) Surgical History Anesthesia History of hernia repair History of hand surgery History of tonsillectomy History of hysterectomy Family History Father Hypertension Hyperlipidemia Mother MVA (motor vehicle accident) Sister Heart defect Social History household members: family alcohol intake: never Assessment & Plan Time-Based Coding :: [TOTAL MINUTES] spent with patient and on the chart (including review of chart, obtaining history, exam, reviewing outside data, placing orders, documenting exam and treatment plan, and counseling patient) on [DATE].
[2025-05-27] MEDS: INSULIN LISPRO 100 UNIT/ML 3ML VIAL SUBCUT (12:45)
--- NOTE | 2025-05-27 13:28 | P.DS_ITS ---
History of Present Illness History of Present Illness Chief complaint: Might be having a heart attack. left sided pain Narrative: HPI 80-year-old female with severe dementia, diabetes, dyslipidemia, diffuse large B-cell lymphoma, hypertension and GERD who was recently hospitalized from 05/21 through 05/24/25 for an NSTEMI. During that admission, peak troponin was 0.340 and there were T-wave inversions in the inferior leads. The patient was managed conservatively during that admission due to her severe dementia and multiple medical problems. This decision was made after discussion with Cardiology (Dr. Norris) and the patient's son. She received a heparin drip for 48 hours and echo showed normal LV size with severely reduced EF at 25-30%, basal anterior row lateral wall is akinetic and mid anterolateral wall is dyskinetic. The inferior lateral wall was also a kinetic and the anterior wall was severely hypokinetic. Right ventricle was not well visualized but was grossly normal size with mild reduced function. There were no significant valvular abnormalities. She was initiated on aspirin and statin but beta-blockers were held due to resting sinus bradycardia. The patient was discharged home with her son in stable condition. The patient re-presented to the hospital today with a left-sided chest pain as well as possible flank pain by report from the emergency room physician. Per the emergency room evaluation, the patient stated the pain was worse with movement such as sitting forward in her chair. The patient's son also reports that the patient had some chills but no fever on the morning of admission. The patient is unable to provide any significant history to me. She is able to answer yes and no to direct questions. She denies shortness of breath, cough, nausea or vomiting, but does note that she has not been eating well. She is unable to elaborate beyond answering yes or no. Review of systems Fourteen system review of systems limited by the patient's ability to provide a history. She does report some mild left flank discomfort. No acute events overnight Objective Vitals reviewed, 98.2, 137/87, 58, 16, 98% on room air Alert, oriented to 1st name only, well-nourished, well-developed, no acute distress Regular rate and rhythm, no murmurs Clear to auscultation bilaterally Mild left flank tenderness to palpation Soft, nontender, nondistended, positive bowel sounds Warm without edema Globally weak, neuro grossly nonfocal Pleasant and cooperative Labs: Personally reviewed by me and notable for glucose 143, magnesium 1.4, troponins 0.038 and 0.044 Imaging: Chest x-ray personally reviewed by me and demonstrates no acute cardiopulmonary abnormality. CT of the abdomen and pelvis interpreted by Radiology shows no obstructing stone or hydronephrosis, there is a nonobstructing punctate left nephrolithiasis, no acute abdominal pelvic process. EKG: The 12 lead EKG was reviewed by me and compared to the prior EKG from 05/21/2025. It demonstrates sinus bradycardia at 47 beats per minute. There are T-wave inversions in the inferior and lateral leads. The inferior inversions were clearly present on 05/21. The lateral inversions were more subtle on 05/21. Code status: DNR Diet: General Lines/tubes: Peripheral IV DVT prophylaxis: Enoxaparin A&P 80-year-old female recently discharged after NSTEMI who represents with vague left-sided chest pain and weakness. Troponins are mildly elevated but this is likely due to resolution of prior elevated troponins from the NSTEMI on 05/21. Doubt new coronary process. However, the patient was found to be significantly hypertensive and is being placed in observation overnight for management of blood pressure. Of note, the patient has not been taking her aspirin at home. She is not on any antihypertensives. She has been taking the statin at home. Hypertension, uncontrolled It does not appear that the patient has been on any antihypertensives. She is only taking Lasix at home. Rate-controlling agents are contraindicated given her baseline bradycardia. Lisinopril started here in the patient is tolerating it well. Will discharge on lisinopril 20 mg daily. Patient should follow up with her primary care provider. Diabetes She takes metformin at home. Unclear control is there is no recent hemoglobin A1c in our system. She was covered with lispro SSI while here and had minimal insulin requirements. She will resume metformin at discharge. Recent NSTEMI Presumed CAD Recent NSTEMI Presumed CAD Cardiomyopathy, EF 25-30% Patient had a recent NSTEMI. Current troponins are mildly elevated but this is likely incomplete resolution of troponins from her prior NSTEMI. Doubt new cardiac event. Echocardiogram from recent admission shows cardiomyopathy with EF 25-30%, normal LV size with severely reduced function. Basal anterolateral wall is akinetic and mid anterolateral wall is dyskinetic with an akinetic inferolateral wall. The anterior wall is severely hypokinetic. Right ventricular function is mildly reduced but it was not well-visualized on exam. Etiology of cardiomyopathy could be coronary artery disease or may be related to prior R-CHOP therapy for malignancy. During recent admission, the patient's son declined further aggressive cardiac workup given his mom's dementia. Continue goal-directed medical therapy with aspirin, lisinopril, and statin. Beta- philippe contraindicated due to bradycardia. Continue Lasix as patient was on this previously at home. Disposition: Discharge to home with home health services and referral for respite care as the son will need this when he has his back surgery. Time spent: 60 minutes spent in chart review, coordination of care with the emergency room, patient evaluation, and documentation. Discharge Providers Provider Date of admission: 05/26/25 16:02 Discharge Date: 05/27/25 Primary care physician: Nancy Marcial DO Consults: 05/26/25 12:49 Consult to TIMBER TRIMMER - Track Service Person Stat Comment: Track Service Person Consult needed for:: Other reason (Comment) 05/26/25 19:17 Consult to Discharge Planning Routine Comment: Consult to Occupational Therapy Evaluate & Treat Comment: Physician Instructions: Evaluate and treat Consult to Physical Therapy Evaluate & Treat Comment: Physician Instructions: Evaluate and Treat 05/26/25 21:52 Consult to Pharmacy Routine Comment: Med rec needs to be completed, pt confused 05/26/25 22:28 Consult to Dietitian, Adult Routine Comment: Reason For Exam: decrease in appetite 05/27/25 10:45 Consult to Physical Therapy Evaluate & Treat Comment: Physician Instructions: FWW for home 05/27/25 13:20 Consult to Home Health Routine Comment: Reason For Exam: RN, PT, HH Aide Discharge provider: Sylvia Gleason MD Exam Vital Signs (past 8 hours): - 05/27/25 07:00 Temperature 98.2 F Pulse Rate 58 L Respiratory Rate 16 Blood Pressure 137/87 Pulse Oximetry 98 Oxygen Delivery Method Room Air Oxygen Flow Rate 0 Objective Labs 05/27/25 04:30 05/27/25 04:30 Labs: Laboratory Results - last 24 hr 05/26/25 05/26/25 05/26/25 13:35 19:59 20:18 WBC RBC Hgb Hct MCV MCH MCHC RDW Plt Count Neut % (Auto) Lymph % (Auto) [place] % (Auto) Eos % (Auto) Baso % (Auto) Neut # (Auto) Lymph # (Auto) [place] # (Auto) Eos # (Auto) Baso # (Auto) Sodium Potassium Chloride Carbon Dioxide BUN Creatinine Estimated GFR BUN/Creatinine Ratio Glucose POC Whole Bld Glucose 102 H Calcium Troponin I 0.044 H Urine Color Yellow Urine Appearance Clear Urine pH 5.5 Ur Specific [place] 1.025 Urine Protein 1+ H Urine Glucose (UA) Negative Urine Ketones Trace H Urine Occult Blood Negative Urine Nitrate Negative Urine Bilirubin Negative Urine Urobilinogen 1.0 Ur Leukocyte Esterase Negative Urine RBC None seen Urine WBC 0-1/hpf Ur Squamous Epith Cells 5-10 /hpf H Amorphous Sediment 1+ Urine Bacteria Many (>30) H Ur Culture Indicated? Cult not indicated Vol Urine Centrifuged 10ml (spun) 05/27/25 05/27/25 05/27/25 04:30 08:00 11:59 WBC 6.2 RBC 4.68 Hgb 12.7 Hct 38.5 MCV 82.3 MCH 27.2 MCHC 33.1 RDW 15.2 H Plt Count 258 Neut % (Auto) 70.3 Lymph % (Auto) 14.7 L [place] % (Auto) 10.0 Eos % (Auto) 3.7 Baso % (Auto) 1.3 Neut # (Auto) 4400 Lymph # (Auto) 900 L [place] # (Auto) 600 Eos # (Auto) 200 Baso # (Auto) 100 Sodium 137 Potassium 4.0 Chloride 104 Carbon Dioxide 25 BUN 21 H Creatinine 0.96 Estimated GFR > 60 BUN/Creatinine Ratio 21.9 Glucose 127 H POC Whole Bld Glucose 118 H 168 H Calcium 9.3 Troponin I 0.039 H Urine Color Urine Appearance Urine pH Ur Specific [place] Urine Protein Urine Glucose (UA) Urine Ketones Urine Occult Blood Urine Nitrate Urine Bilirubin Urine Urobilinogen Ur Leukocyte Esterase Urine RBC Urine WBC Ur Squamous Epith Cells Amorphous Sediment Urine Bacteria Ur Culture Indicated? Vol Urine Centrifuged [facility] Medical History Fever and neutropenia Fracture of humerus, proximal, left, closed Dysuria Abdominal wall hernia Dementia Anemia Lela UTI Diffuse large B cell lymphoma Type 2 diabetes mellitus Essential hypertension Hepatitis B Wears glasses Alopecia (~1970) Depression Anxiety Carpal tunnel syndrome Mumps Measles Chicken pox Vertigo Cataracts, bilateral GERD (gastroesophageal reflux disease) Surgical History Anesthesia History of hernia repair History of hand surgery History of tonsillectomy History of hysterectomy Family History Father Hypertension Hyperlipidemia Mother MVA (motor vehicle accident) Sister Heart defect Social History household members: family alcohol intake: never Discharge Plan Discharge Plan Patient Disposition: Home Health Service Discharge orders & Medications Prescriptions: New lisinopril 20 mg Tablet 20 mg PO DAILY Qty: 30 1RF Continued oxycodone-acetaminophen [Percocet] 5-325 mg tablet 1 tab PO QID PRN (Reason: pain) Qty: 60 0RF Ensure Liquid 1 ea PO DAILY Qty: 5688 3RF metformin 500 mg tablet 500 mg PO DAILY Qty: 30 6RF nystatin 100,000 unit/gram powder 1 applic topical BID PRN (Reason: yeast infection) Qty: 30 11RF donepezil 10 mg tablet 10 mg PO BEDTIME Qty: 30 3RF diphenoxylate-atropine 2.5-0.025 mg tablet 1 tab PO QID furosemide [Lasix] 20 mg tablet 20 mg PO DAILY PRN (Reason: lower extremity edema) Qty: 15 0RF atorvastatin 40 mg tablet 40 mg PO DAILY Qty: 30 0RF aspirin 81 mg tablet,delayed release (DR/EC) 81 mg PO DAILY Qty: 30 0RF acetaminophen 500 mg Capsule 1,000 mg PO Q6H PRN (Reason: Fever) Follow up/Referrals: Nancy Marcial DO [Primary Care Provider, Family Practice] Diet/Activity/Treatments Diet: Diet as Tolerated Visit Report/Discharge Packet Stand Alone Forms: [employer], Patient Portal/API, Stroke Signs & Symptoms, Influenza Vaccine Info, Notice of Privacy Practices, Inpatient vs Outpatient, Pneumococcal Vaccine Info, Pt. Rights & Responsibilities Discharge Data Primary Care Provider: Nancy Marcial Attending Provider: Sylvia Gleason Date/Time: 05/26/25 16:02
--- NOTE | 2025-05-27 13:34 | CM.DPNOTE ---
DCP Continued: Reviewed EMR and team rounds for pt?s medical status. Per hospitalist, pt is medically cleared to discharge home after PT/OT evaluations. Per OT, recommending home with FWW and home health for PT and bath aide. PT eval pending for this afternoon. BOX CAR BRACER entered room, discussed recommendations above. Pt son agreeable to take pt home and continue with arranging respite care for when he goes in for his spinal surgery next month. BOX CAR BRACER discussed referral to [facility] collection systems consultant, pt agreeable. BOX CAR BRACER provided collection systems consultant phone number and name. BOX CAR BRACER discussed home health referral, both pt and son agreeable. Reviewed [facility] choice list, they did not identify a preference. BOX CAR BRACER sent referral via secure email to [facility], pending acceptance. BOX CAR BRACER provided [facility] brochure to son in pt room. Plan: Anticipating discharge home with home health, [facility] to follow with care and pt son to coordinate respite care in July. CM Team will continue to follow for coordination of discharge plans. GILLIAN Barnes
--- NOTE | 2025-05-27 13:40 | PT.IIE ---
Current Diagnoses Unspecified dementia, unspecified severity, without behavioral disturbance, psychotic disturbance, mood disturbance, and anxiety (05/26/25) Essential (primary) hypertension (05/26/25) Chest pain, unspecified (05/26/25) Abnormal electrocardiogram [ECG] [EKG] (05/26/25) Surgical History (Last Reviewed 05/26/25 @ 18:14 by Sylvia Gleason MD) Anesthesia History of hand surgery History of hernia repair History of hysterectomy History of tonsillectomy Medical History (Last Reviewed 05/26/25 @ 18:14 by Sylvia Gleason MD) Abdominal wall hernia Alopecia (~1970) Anemia Anxiety Lela UTI Carpal tunnel syndrome Cataracts, bilateral Chicken pox Dementia Depression Diffuse large B cell lymphoma Dysuria Essential hypertension Fever and neutropenia Fracture of humerus, proximal, left, closed GERD (gastroesophageal reflux disease) Hepatitis B Measles Mumps Type 2 diabetes mellitus Vertigo Wears glasses Physical Therapy Inpatient Evaluation/Re-Eval M1 PT IP Prior Functional Status Start: 05/27/25 13:10 Freq: NEEDED Status: Active Protocol: Document 05/27/25 13:30 [facility] (Rec: 05/27/25 13:40 [facility] [id number]) Medical Review Prior Functional Status Medical History Yes Reviewed Communication Pt has dementia. Mobility and Gait Prior pt did not use a device. Activities of Daily Pt's son assisted pt for all needs and states pt has Living and IADL's gotten weaker and unsteady and has been considering getting a fww. Social History Household Members family Living Arrangements House Number of Floors ( Two Floors Floors) Number of Stairs To 5 steps and then 8 steps with left rails for both . Enter/Railing? Home Environment High Toilet,Tub/Shower Home Equipment Front Wheel Walker,Tub Transfer Bench,Hand Held Shower, Grab Bars In Shower Employment Status Retired Additional Social Pt not able to state prior level at this time. History Comment M2 PT-IP Current Condition Start: 05/27/25 13:10 Freq: NEEDED Status: Active Protocol: Document 05/27/25 13:30 [facility] (Rec: 05/27/25 13:40 [facility] [id number]) Physical Therapy Current Condition Current Condition Evaluation Date 05/27/25 Treatment Diagnosis chest pain Onset Date 05/26/25 M3 PT-IP Subjective Start: 05/27/25 13:10 Freq: NEEDED Status: Active Protocol: Document 05/27/25 13:30 [facility] (Rec: 05/27/25 13:40 [facility] [id number]) Subjective Physical Therapy Visit Type Type Initial Evaluation Visit Start Time 12:14 Visit Stop Time 12:31 Therapy Pain Assessment Pain When Pain Assessed At Rest Pain Present Pain Present Denied Pain M4 PT-IP Mobility and Gait Start: 05/27/25 13:10 Freq: NEEDED Status: Active Protocol: Document 05/27/25 13:30 [facility] (Rec: 05/27/25 13:40 [facility] [id number]) PT-Transfer Assessment Sit to and From Stand Sit to and from Standby Assistance Stand Equipment Transfer Assistive Front Wheeled Walker Device Orthotic/Prosthetic No Devices or Brace: Transfers Transfer Destination Chair Transfer Ability Level of Assist Standby Assistance Gait Assessment Gait Gait Assistance Standby Assistance,Contact Guard Assist Required: Distance (Feet) 80 Able to Maintain Yes Weight Bearing Status During Gait Assistive Devices Assistive Device Gait Belt Orthotic/Prosthetic No Devices or Brace: Gait Deviations General Gait Pattern Decreased Stride Length,Decreased Feet Clearance,Narrow Based Gait Factors Limiting Gait Function Factors Limiting Decreased Strength,Poor Safety Awareness Gait Function Comments Gait Comments also limited by dementia. Pt trained in use of FWW, needed min assist and cues for correct use, hand placement. Stair Climbing Assessment Evaluation Level of Assist On Contact Guard Assistance Stairs Devices Stair Climbing Left Railing Assistive Devices Technique/Endurance Stair Climbing Ascend and Descend Direction Stair Climbing Step Over Step Technique PT-Balance Assessment Sitting Balance and Reactions Static Sitting Good Balance Ability Dynamic Sitting Good Balance Ability Standing Balance and Reactions Static Standing Fair Balance Ability Dynamic Standing Poor Balance Ability Device Used FWW Balance Tests Single Limb Standing mod assist Tandem Standing min to mod assist M5 PT-IP Objective Assessments Start: 05/27/25 13:10 Freq: NEEDED Status: Active Protocol: Document 05/27/25 13:30 [facility] (Rec: 05/27/25 13:40 [facility] [id number]) Orientation Orientation/Cognition Level of Alertness Confusional State Orientation Name,Birthday Language Function Word Finding Difficulties Ability Safety Awareness Decreased Safety Awareness Memory Description Short Term Impaired,[facility] Impaired Gross Range of Motion Upper Extremity ROM Assessment Within Functional Limits Lower Extremity ROM Assessment Within Functional Limits Strength Upper Extremity Strength Assessment Within Functional Limits Lower Extremity Strength Assessment Within Functional Limits Coordination Assessment Gross Coordination Gross Coordination WNL Sensation Assessment Sensation Gross Sensation WNL Muscle Tone Muscle Tone WNL Yes M7 PT-IP Assessment and Plan Start: 05/27/25 13:10 Freq: NEEDED Status: Active Protocol: Document 05/27/25 13:30 [facility] (Rec: 05/27/25 13:40 [facility] [id number]) PT Summary Assessment and Plan Potential Rehabilitation Good Potential Status of Condition Evolving at Evaluation Summary Impairments Strength,Balance,Cognition,Transfers,Gait Assessment Summary Pt. seen for PT eval prior to discharge today. FWW was issued earlier today by OT but patient has no prior experience with FWW. Patient sitting up in chair, dressed with socks and shoes on. Transferred sit to stand with SBA, instructed in use of FWW with cues for safe use, hand placement. Gait on stairs: 3 steps up and down x 2 with alternating pattern, 1 railing and CGA. No LOB during any gait activities. MMT challenging due to cognition but appears greater than anti-gravity. Mobility impacted by poor safety awareness and cognition, generalized weakness. Recommend Home Health PT for home safety evaluation as well as high level balance, strengthening, and gait training. Pt. ready for discharge at this time. Frequency of Treatment Frequency Of Discharge Treatment Treatment Plan Other Home Health PT Recommendations and Next Treatment Focus Discharge Recommendations PT Discharge Home with 26/12 Assist Available,Home Health Recommendations - PT assist 1
--- NOTE | 2025-05-27 15:10 | CM.MNRNOTE ---
Patient is A&OX1, pleasantly confused. She calls out occasionally and needs redirecting. Son arrives and assists her to ambulate in the [place] using a FWW. Per OT patient is pretty much back to baseline, and PT arrives to evaluate patient at 1300. Per recommendations patient is clear to discharge home today with son along with Home Health. He verbalizes understanding of follow up and medications. He states that patient has a follow up apppointment in the a.m.with Dr. Mendoza. RN escorts patient to private vehicle at approximately 1350
== END 2025-05-27 13:52 | disposition home health service (06) ==
LOC: ED 16:02 → AC 16:03
PROVIDERS: Admitting Provider Internal Medicine Infectious Disease; Emergency Provider Emergency Medicine; PCP Family Medicine; Referring Provider Emergency Medicine; Visit Provider Internal Medicine Infectious Disease
DX: I10 Essential (primary) hypertension (principal); R07.89 Other chest pain; I25.2 Old myocardial infarction; R00.1 Bradycardia, unspecified; R94.31 Abnormal electrocardiogram [ECG] [EKG]; E11.9 Type 2 diabetes mellitus without complications; E78.5 Hyperlipidemia, unspecified; I42.9 Cardiomyopathy, unspecified; Z79.84 Long term (current) use of oral hypoglycemic drugs; Z66 Do not resuscitate
CPT/HCPCS: 36415; 51798; 71045; 74176; 80048; 80053; 81001; 82962; 83690; 83735; 83880; 84484; 85025; 93005; 93010; 96365; 96366; 96372; 97161; 97166; 97530; 99284; G0378; J3475

== ENCOUNTER 2025-05-27 17:29 | Emergency (ER) | payer MEDICARE, SELFPAY ==
[2025-05-26 19:30] VITALS: BMI 26.6
[2025-05-27] VITALS (12 sets, daily range): BP systolic 106–141; BP diastolic 51–78; PULSE 47–98; RESP 16–38; TEMP 36.9; O2SAT 93–99
--- NOTE | 2025-05-27 17:30 | DI.RAD.S_ITS ---
PROCEDURE: XR CHEST 1V INDICATIONS: Chest Pain TECHNIQUE: One view of the chest was acquired. COMPARISON: [facility], CR, XR CHEST 1V, 05/26/2025, 9:44. [facility], CR, XR CHEST 1V, 05/21/2025, 11:25. FINDINGS: Surgical changes and devices: None. Lungs and pleura: Lungs are clear. No pleural effusions or pneumothorax. Mediastinum: Mediastinal contours appear normal. Heart size is normal. Bones and chest wall: No suspicious bony lesions. Overlying soft tissues appear unremarkable. IMPRESSION: No acute cardiopulmonary abnormality is seen. Dictated by: Aftab Mccarthy M.D. on 05/27/2025 at 18:00 Approved by: Aftab Mccarthy M.D. on 05/27/2025 at 18:00
--- NOTE | 2025-05-27 17:36 | EKG_ITS ---
[facility] [address] [place] [address] Test Date: 2025-05-27 Pat Name: Cheyanne Clements Department: 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
--- NOTE | 2025-05-27 17:45 | PC.NURSE ---
Pt has dementia and is unable to given pain scale ratings but endorses pain in abdomen and chest. Pt is sitting up on gurney, awake, appear sin no apparent distress and vitals are stable.
[2025-05-27 18:08] LABS: INR 1.1 (0.9-1.3); Prothrombin Time 12.6 SECONDS (9.4-12.5)
[2025-05-27 18:11] LABS: Alanine Aminotransferase 16 IU/L (<35); Albumin 4.2 g/dL (3.5-5.0); Albumin Globulin Ratio 1.4 (1.0-2.8); Alkaline Phosphatase 68 U/L (38-126); Blood Urea Nitrogen 32 mg/dL (7-17); Calcium 9.3 mg/dL (8.4-10.2); Carbon Dioxide 24 mmol/L (22-32); Chloride 104 mmol/L (98-107); Creatine Kinase 129 U/L (30-135); Estimated Glomerular Filt Rate 43 mL/min (>60); Globulin 3.0 g/dL (1.7-4.1); Glucose 107 mg/dL (70-99); HEMOLYSIS < 15 (0-50); Lipase 167 U/L (23-300); Magnesium 1.7 mg/dL (1.6-2.3); PTT Partial Thromboplastin Tim 29 SECONDS (25.1-36.5); Potassium 3.6 mmol/L (3.4-5.1); Sodium 137 mmol/L (137-145); Total Protein 7.2 g/dL (6.3-8.2)
[2025-05-27 18:22] LABS: Add Manual Diff / Slide Review NO; Hematocrit 39.8 % (36-46); Hemoglobin 13.1 g/dL (12.0-16.0); Lymphocytes Absolute Auto 1400 /uL (1100-4500); Mean Corpuscular HGB Conc 32.8 % (30-36); Mean Corpuscular Hemoglobin 27.1 PG (26-34); Mean Corpuscular Volume 82.5 fL (80-100); Platelet Count 299 X10^3/uL (150-400)
[2025-05-27 18:24] LABS: NT-proBNP (BNP-Adult 18+) 781 pg/mL (<450); Troponin I 0.034 ng/mL (0.01-0.034)
--- NOTE | 2025-05-27 18:31 | ED.CHESTPAIN ---
HPI - Chest Pain <Trenton Todd DO - Last Filed: 05/27/25 20:46> General Chief Complaint: Chest Pain Stated Complaint: Back jpain,left hand pain,Hx CO Time Seen by Provider: 05/27/25 18:31 Source: EMS Mode of arrival: EMS Limitations: altered mental status History of Present Illness HPI narrative: 80-year-old female with severe dementia diabetes dyslipidemia diffuse large B-cell lymphoma hypertension and GERD with recent NSTEMI hospitalized on 05/21/2025 and discharged on 05/2025 for NSTEMI was discharged home and readmitted again overnight and just discharged a few hours ago today. Per the son she has been complaining of intermittent chest pain since being discharged. Other than what is stated 14 point review of system is negative. Related Data Home Medications ?Medication ?Instructions ?Recorded ?Confirmed acetaminophen 500 mg capsule 1,000 mg PO Q6H PRN Fever 02/02/22 05/28/25 Previous Rx's ?Medication ?Instructions ?Recorded food supplemt, lactose-reduced 1 ea PO DAILY #5,688 mL 07/15/24 (Ensure oral liquid) metformin 500 mg tablet 500 mg PO DAILY #30 tabs 11/27/24 nystatin 100,000 unit/gram topical 1 applic topical BID PRN yeast 02/18/25 powder infection #30 grams donepezil 10 mg tablet 10 mg PO BEDTIME #30 tabs 03/03/25 aspirin 81 mg tablet,delayed 81 mg PO DAILY #30 tabs 05/24/25 release atorvastatin 40 mg tablet 40 mg PO DAILY #30 tabs 05/24/25 lisinopril 20 mg tablet 20 mg PO DAILY #30 tabs 05/27/25 Allergies Allergy/AdvReac Type Severity Reaction Status Date / Time No Known Drug Allergies Allergy Verified 05/28/25 06:56 <Jackelin Swan MD - Last Filed: 05/28/25 07:47> History of Present Illness HPI narrative: 80-year-old female with severe dementia, diabetes, dyslipidemia, diffuse large B-cell lymphoma, hypertension, and GERD with recent NSTEMI hospitalized on 05/21/2025 and discharged on 05/2025 for NSTEMI was discharged home and readmitted again overnight and just discharged a few hours ago today. Per the son she has been complaining of intermittent chest pain since being discharged. Other than what is stated 14 point review of system is negative. Review of Systems <Trenton Todd, DO - Last Filed: 05/27/25 20:46> Review of Systems ROS Unobtainable: All systems reviewed & are unremarkable except as noted in HPI and below Patient History <Trenton Todd, DO - Last Filed: 05/27/25 20:46> Medical History Fever and neutropenia Fracture of humerus, proximal, left, closed Dysuria Abdominal wall hernia Dementia Anemia Lela UTI Diffuse large B cell lymphoma Type 2 diabetes mellitus Essential hypertension Hepatitis B Wears glasses Alopecia (~1970) Depression Anxiety Carpal tunnel syndrome Mumps Measles Chicken pox Vertigo Cataracts, bilateral GERD (gastroesophageal reflux disease) Surgical History Anesthesia History of hernia repair History of hand surgery History of tonsillectomy History of hysterectomy Family History Father Hypertension Hyperlipidemia Mother MVA (motor vehicle accident) Sister Heart defect Social History household members: family Smoking Status: Never smoker alcohol intake: never alcohol intake frequency: holidays/special occasions only Exam <Trenton Todd, DO - Last Filed: 05/27/25 20:46> Narrative Exam Narrative: GENERAL: [80] year old patient appears stated age. Well-developed patient, in mild distress. HEAD: Atraumatic. Normocephalic. EYES: Pupils equal round and reactive. Extraocular motions intact. No scleral icterus. No injection or drainage. ENT: Nose without bleeding, purulent drainage. Throat without erythema, tonsillar hypertrophy or exudate. Airway patent. NECK: Trachea midline. Non tender CARDIOVASCULAR: Regular rate and rhythm without murmurs, gallops, or rubs. RESPIRATORY: Clear to auscultation. Breath sounds equal bilaterally. No wheezes, rales, or rhonchi. GASTROINTESTINAL: Abdomen soft, non-tender, nondistended. EXTREMITIES: No edema or joint tenderness. BACK: Nontender without deformity or crepitance. No flank tenderness. NEURO: AOx1. SKIN: No rash or erythema of visible areas Initial Vital Signs Initial Vital Signs: Vital Signs Temperature 98.4 F 05/27/25 17:31 Pulse Rate 54 L 05/27/25 17:31 Respiratory Rate 18 05/27/25 17:31 Blood Pressure 117/58 L 05/27/25 17:31 Pulse Oximetry 93 05/27/25 17:31 Oxygen Delivery Method Room Air 05/27/25 17:31 <Jackelin Swan MD - Last Filed: 05/28/25 07:47> Initial Vital Signs Initial Vital Signs: Vital Signs Temperature 98.4 F 05/27/25 17:31 Pulse Rate 54 L 05/27/25 17:31 Respiratory Rate 18 05/27/25 17:31 Blood Pressure 117/58 L 05/27/25 17:31 Pulse Oximetry 93 05/27/25 17:31 Oxygen Delivery Method Room Air 05/27/25 17:31 Scores <Trenton Todd DO - Last Filed: 05/27/25 20:46> HEART Score Heart Score history: Moderately Suspicious Heart Score EKG: Non-Specific repolarization disturbance Heart Score Age: > or = 65 years old Heart Score risk factors: > 3 risk factors or hx of atherosclerotic disease Heart Score troponin: < or = to normal limit Heart Score Total: 6 <Jackelin Swan MD - Last Filed: 05/28/25 07:47> HEART Score Heart Score Total: 6 Course <Trenton Todd DO - Last Filed: 05/27/25 20:46> Orders Ordered: ED Orders 05/27/25 23:20 Trop I [Troponin I] Stat Discontinued Medications Aspirin (Aspirin 81 Mg Chew Tab) 324 mg PO NOW ONE Stop: 05/27/25 17:31 Last Admin: 05/27/25 17:34 Dose: Not Given Documented By: JING Vital Signs Vital signs: Vital Signs - 8 hr 05/27/25 17:31 Temperature 98.4 F Pulse Rate 54 L Respiratory Rate 18 Blood Pressure 117/58 L Pulse Oximetry 93 Oxygen Delivery Method Room Air <Jackelin Swan MD - Last Filed: 05/28/25 07:47> Orders Ordered: ED Orders 05/27/25 23:20 Trop I [Troponin I] Stat Discontinued Medications Aspirin (Aspirin 81 Mg Chew Tab) 324 mg PO NOW ONE Stop: 05/27/25 17:31 Last Admin: 05/27/25 17:34 Dose: Not Given Documented By: JING Vital Signs Vital signs: Vital Signs - 8 hr 05/27/25 17:31 Temperature 98.4 F Pulse Rate 54 L Respiratory Rate 18 Blood Pressure 117/58 L Pulse Oximetry 93 Oxygen Delivery Method Room Air MDM - Chest Pain <Trenton Tim Todd DO - Last Filed: 05/27/25 20:46> Lab Data 05/27/25 17:43 05/27/25 17:43 Labs: Lab Results 05/27/25 05/27/25 05/27/25 Range/Units 17:43 20:05 20:55 WBC 8.4 (4.5-11.0) X10^3/uL RBC 4.82 (4.0-5.2) X10^6/uL Hgb 13.1 (12.0-16.0) g/dL Hct 39.8 (36-46) % MCV 82.5 (80-100) fL MCH 27.1 (26-34) PG MCHC 32.8 (30-36) % RDW 15.2 H (11.6-14.8) % Plt Count 299 (150-400) X10^3/uL Neut % (Auto) 71.7 (50-75) % Lymph % (Auto) 17.1 L (25-40) % [place] % (Auto) 7.4 (3-14) % Eos % (Auto) 2.6 (2-4) % Baso % (Auto) 1.2 (0-2) % Neut # (Auto) 6000 (3024-8574) /uL Lymph # (Auto) 1400 (4606-4248) /uL [place] # (Auto) 600 (0-900) /uL Eos # (Auto) 200 (0-450) /uL Baso # (Auto) 100 (0-100) /uL PT 12.6 H (9.4-12.5) SECONDS INR 1.1 (0.9-1.3) APTT 29 (25.1-36.5) SECONDS Sodium 137 (137-145) mmol/L Potassium 3.6 (3.4-5.1) mmol/L Chloride 104 (98-107) mmol/L Carbon Dioxide 24 (22-32) mmol/L BUN 32 H (7-17) mg/dL Creatinine 1.27 H (0.52-1.04) mg/dL Estimated GFR 43 L (>60) mL/min BUN/Creatinine Ratio 25.2 H (6-22) Glucose 107 H (70-99) mg/dL Calcium 9.3 (8.4-10.2) mg/dL Magnesium 1.7 (1.6-2.3) mg/dL Total Bilirubin 0.6 (0.2-1.3) mg/dL AST 32 (14-36) IU/L ALT 16 (<35) IU/L Alkaline Phosphatase 68 (38-126) U/L Total Creatine Kinase 129 (30-135) U/L Troponin I 0.034 0.042 H 0.041 H (0.01-0.034) ng/mL NT-Pro-B Natriuret Pep 781 H (<450) pg/mL Total Protein 7.2 (6.3-8.2) g/dL Albumin 4.2 (3.5-5.0) g/dL Globulin 3.0 (1.7-4.1) g/dL Albumin/Globulin Ratio 1.4 (1.0-2.8) Lipase 167 D (23-300) U/L 12//25 Range/Units 23:20 WBC (4.5-11.0) X10^3/uL RBC (4.0-5.2) X10^6/uL Hgb (12.0-16.0) g/dL Hct (36-46) % MCV (80-100) fL MCH (26-34) PG MCHC (30-36) % RDW (11.6-14.8) % Plt Count (150-400) X10^3/uL Neut % (Auto) (50-75) % Lymph % (Auto) (25-40) % [place] % (Auto) (3-14) % Eos % (Auto) (2-4) % Baso % (Auto) (0-2) % Neut # (Auto) (1297-3018) /uL Lymph # (Auto) (9383-6990) /uL [place] # (Auto) (0-900) /uL Eos # (Auto) (0-450) /uL Baso # (Auto) (0-100) /uL PT (9.4-12.5) SECONDS INR (0.9-1.3) APTT (25.1-36.5) SECONDS Sodium (137-145) mmol/L Potassium (3.4-5.1) mmol/L Chloride (98-107) mmol/L Carbon Dioxide (22-32) mmol/L BUN (7-17) mg/dL Creatinine (0.52-1.04) mg/dL Estimated GFR (>60) mL/min BUN/Creatinine Ratio (6-22) Glucose (70-99) mg/dL Calcium (8.4-10.2) mg/dL Magnesium (1.6-2.3) mg/dL Total Bilirubin (0.2-1.3) mg/dL AST (14-36) IU/L ALT (<35) IU/L Alkaline Phosphatase (38-126) U/L Total Creatine Kinase (30-135) U/L Troponin I 0.039 H (0.01-0.034) ng/mL NT-Pro-B Natriuret Pep (<450) pg/mL Total Protein (6.3-8.2) g/dL Albumin (3.5-5.0) g/dL Globulin (1.7-4.1) g/dL Albumin/Globulin Ratio (1.0-2.8) Lipase (23-300) U/L ECG Data Interpretation: Sinus [place] HR 50 [place] 124 QRS [address]-t wave change Unchanged from 05/26/25 <Jackelin Swan MD - Last Filed: 05/28/25 07:47> Lab Data Labs: Lab Results 05/27/25 05/27/25 05/27/25 Range/Units 17:43 20:05 20:55 WBC 8.4 (4.5-11.0) X10^3/uL RBC 4.82 (4.0-5.2) X10^6/uL Hgb 13.1 (12.0-16.0) g/dL Hct 39.8 (36-46) % MCV 82.5 (80-100) fL MCH 27.1 (26-34) PG MCHC 32.8 (30-36) % RDW 15.2 H (11.6-14.8) % Plt Count 299 (150-400) X10^3/uL Neut % (Auto) 71.7 (50-75) % Lymph % (Auto) 17.1 L (25-40) % [place] % (Auto) 7.4 (3-14) % Eos % (Auto) 2.6 (2-4) % Baso % (Auto) 1.2 (0-2) % Neut # (Auto) 6000 (4978-2311) /uL Lymph # (Auto) 1400 (2905-3667) /uL [place] # (Auto) 600 (0-900) /uL Eos # (Auto) 200 (0-450) /uL Baso # (Auto) 100 (0-100) /uL PT 12.6 H (9.4-12.5) SECONDS INR 1.1 (0.9-1.3) APTT 29 (25.1-36.5) SECONDS Sodium 137 (137-145) mmol/L Potassium 3.6 (3.4-5.1) mmol/L Chloride 104 (98-107) mmol/L Carbon Dioxide 24 (22-32) mmol/L BUN 32 H (7-17) mg/dL Creatinine 1.27 H (0.52-1.04) mg/dL Estimated GFR 43 L (>60) mL/min BUN/Creatinine Ratio 25.2 H (6-22) Glucose 107 H (70-99) mg/dL Calcium 9.3 (8.4-10.2) mg/dL Magnesium 1.7 (1.6-2.3) mg/dL Total Bilirubin 0.6 (0.2-1.3) mg/dL AST 32 (14-36) IU/L ALT 16 (<35) IU/L Alkaline Phosphatase 68 (38-126) U/L Total Creatine Kinase 129 (30-135) U/L Troponin I 0.034 0.042 H 0.041 H (0.01-0.034) ng/mL NT-Pro-B Natriuret Pep 781 H (<450) pg/mL Total Protein 7.2 (6.3-8.2) g/dL Albumin 4.2 (3.5-5.0) g/dL Globulin 3.0 (1.7-4.1) g/dL Albumin/Globulin Ratio 1.4 (1.0-2.8) Lipase 167 D (23-300) U/L 05/27/ Range/Units 23:20 WBC (4.5-11.0) X10^3/uL RBC (4.0-5.2) X10^6/uL Hgb (12.0-16.0) g/dL Hct (36-46) % MCV (80-100) fL MCH (26-34) PG MCHC (30-36) % RDW (11.6-14.8) % Plt Count (150-400) X10^3/uL Neut % (Auto) (50-75) % Lymph % (Auto) (25-40) % [place] % (Auto) (3-14) % Eos % (Auto) (2-4) % Baso % (Auto) (0-2) % Neut # (Auto) (6818-5258) /uL Lymph # (Auto) (3808-6414) /uL [place] # (Auto) (0-900) /uL Eos # (Auto) (0-450) /uL Baso # (Auto) (0-100) /uL PT (9.4-12.5) SECONDS INR (0.9-1.3) APTT (25.1-36.5) SECONDS Sodium (137-145) mmol/L Potassium (3.4-5.1) mmol/L Chloride (98-107) mmol/L Carbon Dioxide (22-32) mmol/L BUN (7-17) mg/dL Creatinine (0.52-1.04) mg/dL Estimated GFR (>60) mL/min BUN/Creatinine Ratio (6-22) Glucose (70-99) mg/dL Calcium (8.4-10.2) mg/dL Magnesium (1.6-2.3) mg/dL Total Bilirubin (0.2-1.3) mg/dL AST (14-36) IU/L ALT (<35) IU/L Alkaline Phosphatase (38-126) U/L Total Creatine Kinase (30-135) U/L Troponin I 0.039 H (0.01-0.034) ng/mL NT-Pro-B Natriuret Pep (<450) pg/mL Total Protein (6.3-8.2) g/dL Albumin (3.5-5.0) g/dL Globulin (1.7-4.1) g/dL Albumin/Globulin Ratio (1.0-2.8) Lipase (23-300) U/L MDM Narrative Medical decision making narrative: Patient has a history with multiple comorbidities to include type 2 diabetes, CHF, hypertension, hyperlipidemia, recent admission on 05/21/2025 for NSTEMI who presents today with chest pain. Differential diagnosis: STEMI, NSTEMI, unstable angina, aortic dissection, cardiac tamponade, pulmonary embolism, mitral valve rupture, cardiac wall rupture, heart failure, cardiogenic shock, kept pericarditis, other. Labs: CBC without leukocytosis, left shift, anemia or thrombocytopenia. PT 12.6, INR 1.1, APTT 29. CMP significant for elevated BUN 32, creatinine 1.27 up from 9.6. Normal liver function enzymes. Troponin 0.044, 0.039, 0.039 on 05/26/2025, 05/27/2025 respectively. Lipase normal. Imaging: X-ray without any acute cardiopulmonary abnormality. EKG: As documented above. ED Course: Patient was seen on 05/21/2025 and diagnosed with NSTEMI. She was ultimately discharged on 05/2025 and return to the ER with chest pain and weakness and readmitted to the hospital on 05/26/2025. At that time her troponins were mildly elevated and it was deemed likely due to incomplete resolution of prior NSTEMI. Blood pressure was elevated at the time and she was admitted for observation overnight for management of blood pressure. She returns today with left sided chest pain and hand pain. In the ER, her cardiac work up included troponin that was 0.044 on 05/26/25, 0.039 on representation, this was thought to be due to persistent troponin. Repeat troponin was obtained and it was similar and not up trending. From these findings, largely unchanged or improved EKG, patient was discharged with close follow up. Discharge Plan Departure Patient Disposition: Home Clinical Impression: Chest pain, Elevated troponin, History of non-ST elevation myocardial infarction (NSTEMI), ALBIN (acute kidney injury) Instructions: DI for Acute Coronary Syndrome Activity Restrictions/Additional Instructions: You were seen in the emergency department for chest pain. In the ER, your cardiac workup was not consistent with a heart attack. Your troponin (cardiac enzymes) were elevated however multiple labs were drawn and this is likely due to your recent heart attack and not 1 that is occurring now. Please continue to follow the discharge instructions you received from your most recent hospitalization for your heart attack. Continue the medications you were discharged on 2. Return to the ER if you develop any new or worsening symptoms to include chest pain, shortness of breath, nausea, vomiting or any other concerning signs or symptoms. Prescriptions: No Action Ensure Liquid 1 ea PO DAILY Qty: 5688 3RF metformin 500 mg tablet 500 mg PO DAILY Qty: 30 6RF nystatin 100,000 unit/gram powder 1 applic topical BID PRN (Reason: yeast infection) Qty: 30 11RF donepezil 10 mg tablet 10 mg PO BEDTIME Qty: 30 3RF atorvastatin 40 mg tablet 40 mg PO DAILY Qty: 30 0RF aspirin 81 mg tablet,delayed release (DR/EC) 81 mg PO DAILY Qty: 30 0RF acetaminophen 500 mg Capsule 1,000 mg PO Q6H PRN (Reason: Fever) lisinopril 20 mg Tablet 20 mg PO DAILY Qty: 30 1RF Referrals: Nancy Marcial DO [Primary Care Provider, Family Practice] Stand Alone Forms: Patient Portal/API
[2025-05-27 20:38] LABS: Troponin I 0.042 ng/mL (0.01-0.034)
[2025-05-27 21:22] LABS: Troponin I 0.041 ng/mL (0.01-0.034)
[2025-05-28 00:09] LABS: Troponin I 0.039 ng/mL (0.01-0.034)
== END 2025-05-28 00:45 | disposition home or self-care (01) ==
PROVIDERS: Family Medicine; Emergency Provider Student in an Organized Health Care Education/Training Program; PCP Family Medicine
DX: R07.89 Other chest pain (principal); R79.89 Other specified abnormal findings of blood chemistry; I25.2 Old myocardial infarction; N17.9 Acute kidney failure, unspecified; M54.9 Dorsalgia, unspecified; M79.642 Pain in left hand; E11.9 Type 2 diabetes mellitus without complications; I10 Essential (primary) hypertension
CPT/HCPCS: 71045; 80053; 82550; 83690; 83735; 83880; 84484; 85025; 85610; 85730; 93005; 93010; 99283; 99284

== ENCOUNTER 2025-05-30 12:19 | Observation (INO) | payer MEDICARE, SELFPAY ==
[2025-05-26 19:30] VITALS: BMI 26.6
[2025-05-30] VITALS (15 sets, daily range): BP systolic 127–183; BP diastolic 59–93; PULSE 70–91; RESP 16–23; TEMP 36.3–36.6; O2SAT 96–100; BMI 27.3; BMI 27.5
--- NOTE | 2025-05-30 13:34 | DI.CT.S_ITS ---
PROCEDURE: CT FACIAL BONES WO CON INDICATIONS: trauma TECHNIQUE: Noncontrast 2.5 mm thick axial images acquired from the mandible through the frontal sinuses, with coronal and sagittal reformatting. For radiation dose reduction, the following was used: automated exposure control, adjustment of mA and/or kV according to patient size. COMPARISON: [facility], CT, CT HEAD/BRAIN WO CON, 05/30/2025, 13:52. [facility], CT, CT FACIAL BONES WO CON, 08/20/2021, 13:46. FINDINGS: Image quality: Excellent. Bones and teeth: Orbital avila are intact. Sinus avila show no fracture or deformity. Nasal bone fracture of uncertain chronicity. No nasal septal fracture. Leftward nasal septal deviation is noted to measures 6 mm. Visualized portions of the mandible demonstrate no fractures or subluxation. Zygomatic arches are intact. Pterygoid plates are intact. Visualized portions of the skull base and auditory canals are intact. Sinuses: Paranasal sinuses are aerated, without fluid levels, mucosal thickening, or mucoceles. Mastoid air cells are aerated. Soft tissues: No edema, masses, or fluid collections. No enlarged lymph nodes. No soft tissue lacerations or debris. Vascular: Visualized vascular structures appear normal in the absence of contrast. Bony vascular foramina and canals are intact. IMPRESSION: 1. Nasal bone fracture has occurred since the previous study, and is of uncertain chronicity. 2. No nasal septal fracture. 3. Leftward nasal septal deviation. 4. No other displaced facial bone fractures or mandibular fractures. Dictated by: Erik Early M.D. on 05/30/2025 at 15:16 Approved by: Erik Early M.D. on 05/30/2025 at 15:20
--- NOTE | 2025-05-30 13:34 | DI.CT.S_ITS ---
PROCEDURE: CT ABDOMEN PELVIS W CON INDICATIONS: R abd pain TECHNIQUE: After the administration of intravenous contrast, axial sections acquired from the lung bases to the pubic symphysis. Coronal and sagittal reformats were performed. For radiation dose reduction, the following was used: automated exposure control, adjustment of mA and/or kV according to patient size. COMPARISON: [facility], CT, CT ANGIO CHEST ABDOMEN PELVIS, 05/21/2025, 11:26. [facility], CT, CT ABDOMEN PELVIS W CON, 10/21/2021, 15:33. FINDINGS: Image quality: Diagnostic. Lower Chest: Small hiatal hernia. Heart size is within normal limits. The left atrium is likely somewhat enlarged. Extreme lung bases are clear. The a ABDOMEN: Liver: No solid mass. Gallbladder: The gallbladder is distended without wall thickening. There is a calcified gallstone in the gallbladder. Biliary ducts: No biliary dilation. Pancreas: No ductal dilation. Spleen: Size is within normal limits. Adrenal Glands: No adrenal nodules. Kidneys and Ureters: No hydronephrosis. No solid mass. No complex renal cystic lesion which requires follow up. Punctate nonobstructing left renal stone. Stomach and Bowel: Normal colonic caliber, without significant wall thickening. Severe diverticulosis. No acute diverticulitis. Very large amount of rectal fecal material. Peritoneum: No abnormal intraperitoneal fluid. No free air. Ventral Wall: There are 2 anterior abdominal wall defects in close proximity to each other, well seen on axial image 84 of series 2, through which peritoneal fat herniates. The fat is not inflamed. Abdominal Nodes: No retroperitoneal or mesenteric adenopathy by size criteria. Vessels: Aorta and inferior vena cava are normal in size. PELVIS: Pelvic Organs: Uterus is surgically absent. No adnexal masses.. Bladder: No bladder wall thickening, accounting for underdistention. Pelvic Nodes: No enlarged lymph nodes. Miscellaneous: No inguinal hernias are seen. Bones: No aggressive osseous abnormality. Remote right hip ORIF. Severe lumbar degenerative change. IMPRESSION: 1. 1. Cholelithiasis. Gallbladder distension without wall thickening. 2. Severe diverticulosis. 3. Very large rectal fecal load. 4. Left nephrolithiasis. 6. Complex ventral hernia containing fat. Dictated by: Erik Early M.D. on 05/30/2025 at 15:23 Approved by: Erik Early M.D. on 05/30/2025 at 15:31
--- NOTE | 2025-05-30 13:34 | DI.CT.S_ITS ---
PROCEDURE: CT HEAD/BRAIN WO CON INDICATIONS: trauma TECHNIQUE: Noncontrast 4.5 mm thick angled axial sections acquired from the foramen magnum to the vertex, with coronal and sagittal reformats. For radiation dose reduction, the following was used: automated exposure control, adjustment of mA and/or kV according to patient size. COMPARISON: [facility], CT, CT HEAD/BRAIN WO CON, 02/13/2022, 12:44. FINDINGS: Image quality: Diagnostic. CSF spaces: Basal cisterns are patent. No extra-axial fluid collections. Ventricles are normal in size and shape. Brain: No midline shift. No intracranial mass effect or hemorrhage. Blair- white matter interface is normal. Diffuse cerebral volume loss. Patchy areas of white matter hypoattenuation often associated with small vessel ischemic disease. Intracranial atherosclerotic calcification. Skull and face: Calvarium and visualized facial bones are intact, without suspicious lesions. Sinuses: Visualized sinuses and mastoids are clear. IMPRESSION: No acute intracranial pathology. Dictated by: Gianfranco Bates M.D. on 05/30/2025 at 14:27 Approved by: Gianfranco Bates M.D. on 05/30/2025 at 14:30
--- NOTE | 2025-05-30 13:34 | DI.CT.S_ITS ---
PROCEDURE: CT CERVICAL SPINE WO CON INDICATIONS: trauma TECHNIQUE: Noncontrast 3 mm thick sections acquired from the skull base to the T4 level. Sagittal and coronal reformats were then constructed. For radiation dose reduction, the following was used: automated exposure control, adjustment of mA and/or kV according to patient size. COMPARISON: [facility], CT, CT CERVICAL SPINE WO CON, 02/13/2022, 12:44. FINDINGS: Image quality: Excellent. Bones: No fractures or dislocations. Visualized superior ribs are intact. Diffuse cervical spondylitic change with multilevel facet arthropathy and multilevel disc height loss and posterior disc osteophyte complexes and uncovertebral joint hypertrophy resulting in multilevel bony foraminal narrowing. Soft tissues: Prevertebral soft tissues are normal in thickness. No paravertebral hematomas. No apical pneumothoraces. IMPRESSION: No displaced fracture or traumatic subluxation. Cervical spondylosis. Dictated by: Erki Early M.D. on 05/30/2025 at 15:20 Approved by: Erik Early M.D. on 05/30/2025 at 15:23
--- NOTE | 2025-05-30 15:22 | DI.RAD.S_ITS ---
PROCEDURE: XR CHEST 1V INDICATIONS: Chest Pain TECHNIQUE: One view of the chest was acquired. COMPARISON: [facility], CR, XR CHEST 1V, 05/27/2025, 17:32. FINDINGS: Surgical changes and devices: None. Lungs and pleura: Lungs are clear. No pleural effusions or pneumothorax. Mediastinum: Mediastinal contours appear normal. Heart size is normal. Bones and chest wall: No suspicious bony lesions. Overlying soft tissues appear unremarkable. IMPRESSION: No acute cardiopulmonary abnormality is seen. Dictated by: Gianfranco Bates M.D. on 05/30/2025 at 15:56 Approved by: Gianfranco Bates M.D. on 05/30/2025 at 16:06
--- NOTE | 2025-05-30 15:22 | EKG_ITS ---
[facility] [address] [place] [address] Test Date: 2025-05-30 Pat Name: Cheyanne Clements Department: [facility] Room: Gender: Female Cad Drafter: AARON : 1945 Requested By: Order Number: [id number] Reading MD: Rob Barajas Measurements Intervals [place] Rate: 79 P: 35 AR: 126 QRS: -48 QRSD: 96 T: 107 QT: 408 QTc: 467 Interpretive Statements Normal sinus rhythm Left axis deviation Minimal voltage criteria for LVH, may be normal variant ( Kevin product ) Nonspecific ST and T wave abnormality Electronically Signed On 06-02-2025 10:18:50 PST by Rob Barajas
[2025-05-30 15:30] LABS: Add Manual Diff / Slide Review NO; Hematocrit 43.5 % (36-46); Hemoglobin 14.4 g/dL (12.0-16.0); Lymphocytes Absolute Auto 500 /uL (1100-4500); Mean Corpuscular HGB Conc 33.1 % (30-36); Mean Corpuscular Hemoglobin 27.3 PG (26-34); Mean Corpuscular Volume 82.5 fL (80-100); Platelet Count 333 X10^3/uL (150-400)
[2025-05-30 15:33] LABS: INR 1.1 (0.9-1.3); Prothrombin Time 12.4 SECONDS (9.4-12.5)
[2025-05-30 15:36] LABS: PTT Partial Thromboplastin Tim 32 SECONDS (25.1-36.5)
[2025-05-30 15:37] LABS: Alanine Aminotransferase 17 IU/L (<35); Albumin 4.7 g/dL (3.5-5.0); Albumin Globulin Ratio 1.5 (1.0-2.8); Alkaline Phosphatase 81 U/L (38-126); Blood Urea Nitrogen 34 mg/dL (7-17); Calcium 9.9 mg/dL (8.4-10.2); Carbon Dioxide 20 mmol/L (22-32); Chloride 107 mmol/L (98-107); Creatine Kinase 247 U/L (30-135); Estimated Glomerular Filt Rate 51 mL/min (>60); Globulin 3.2 g/dL (1.7-4.1); Glucose 129 mg/dL (70-99); HEMOLYSIS < 15 (0-50); Lipase 85 U/L (23-300); Magnesium 1.6 mg/dL (1.6-2.3); Potassium 4.3 mmol/L (3.4-5.1); Sodium 139 mmol/L (137-145); Total Protein 7.9 g/dL (6.3-8.2)
[2025-05-30 15:48] LABS: NT-proBNP (BNP-Adult 18+) 547 pg/mL (<450); Troponin I 0.025 ng/mL (0.01-0.034)
--- NOTE | 2025-05-30 18:31 | CM.SWNOTE ---
ED MOTION AND TIME STUDY TEACHER Note/DCP Assessment Patient is 80 y/o female who presents to ED via private vehicle with son. Patient has hx two ground level falls in the last 24 hours, most recently while son was helping patient bathe and they both fell, patient hit her head. Patient's son checks in as a patient as well. Patient has hx of two recent admissions in the last week due to concern for NSTEMI, elevated trop, hypertension and chest pain, as well as ED presentation on 05/27/25 due to concern for ALBIN and PCP visit on 05/28/25. Patient's PCP is Dr. Marical, Patient has [facility] insurance. Son endorses he is the Medical and Financial DPOA. Patient has hx of Advanced Dementia, Diabetes, dyslipidemia, diffuse large B-miguelito lymphoma, hypertention and GERD. MOTION AND TIME STUDY TEACHER enters room, MOTION AND TIME STUDY TEACHER speaks with patient's son present in room due to patient's cognitive impairment. Patient's son endorses his concern for his ability to manage patient's needs and concern for her recent falls. Patient's son has upcoming spinal stenosis surgery in 2025. MOTION AND TIME STUDY TEACHER reviewed EMR prior to entering room and inquired about resources provided to patient about seeking respite facility, LTC planning and caregivers. Son states that he is overwhelmed, patient has been in and out of the hospital and he has been unable to do any LTC planning for patient. Son endorses that he thought he could manage patient's needs. It is reported that patient was living at [facility] in [place] up until about 3 weeks ago but she escaped the facility and moved into his home with his roommate. MOTION AND TIME STUDY TEACHER calls [facility] , it is reported that services have not yet started, MOTION AND TIME STUDY TEACHER informs [facility] of patient's presentation to the ED. MOTION AND TIME STUDY TEACHER discusses SNF rehab and LTC. Patient's son endorses interest in pursuing SNF rehab while he identifies LTC plan. Son states he is unsure of the finances for patient and states her financial director will not tell him. Son does not endorse preference for SNF rehab other than stating preference for her not to go to [facility]. MOTION AND TIME STUDY TEACHER provides patient with [facility] SNF choice list, list of private pay caregivers, lists of respite facilities and LTC facilities. MOTION AND TIME STUDY TEACHER recommends PT eval to pursue SNF rehab. ED provider to evaluate patient further. Plan: Pending disposition, recommending PT eval to pursue SNF rehab placement. GILLIAN Berger Discharge Planning/Care Management CM Discharge Assessment Start: 05/30/25 18:25 Freq: Status: Active Protocol: Document 05/30/25 18:25 LN (Rec: 05/30/25 18:30 LN [id number]) Discharge Planning Assessment Assigned Discharge GILLIAN Vail Sock Boarder Provider Dr. Nancy Marcial Insurance Medicare DPOA/Assigned Primo Wheeler/Son Designee Name Contact Information [phone] Advance Directives? No History Provided By Family Member,Medical Record Has Patient been Yes admitted in last 30 days? Comment 05/21/25-05/24/25 and 05/26/25-05/27/25 Prior Living House Arrangements Household Members family Type of Relies on Others transporation used prior to admit Independent with ADL No 's Is patient alert and No oriented? Needs Assistance Bathing,Grooming,Meal Prep,Toileting,Managing With Medications,Home Chores / Shopping Comment Patient has current HH referral with [facility], they have not started services yet. DME Already Rented / FWW / Walker Owned Patient/Family Shelter Facility Preference Barriers to Yes Discharge Comment Son has spinal stenosis and not able to care for patient as well as he intended, will have surgery in Jun 2025. Medicare Choice List Yes Provided Medicare choice list family reviewed on electronic tablet with SNF/HH Preference Pending preference, son states preference for no Chantal alexander. Comment Pending PT eval
--- NOTE | 2025-05-30 18:37 | ED_ITS ---
HPI - Fall General Chief Complaint: Fall Stated Complaint: Fell yesterday & today, Abd & back pain Time Seen by Provider: 05/30/25 13:34 Source: family Mode of arrival: Wheelchair History of Present Illness HPI Narrative: 80-year-old woman with a history of diabetes, dyslipidemia, history of B-cell lymphoma, hypertension, reflux progressive dementia has been living in a assisted living facility when she presented to [facility] on May 21 for an NSTEMI. Patient was subsequently discharged and presented again on July 27 with recurrent chest pain. With these recent admissions, echocardiogram shows cardiomyopathy with the ejection fraction at 25-30%. Since discharge home on the she has had increasing weakness, needs to be lifted out of bed into her wheelchair. Her son has spinal stenosis is scheduled for surgery in the next few weeks and is having increasing difficulty with physically lifting her and caring for her. She is too weak to stand and transfer at this point. With him trying to assist her with transferring and toileting together they fell yesterday and they fell again today. He is frustrated as he is hurt himself and is also checking in his the patient today. She continues to fall and re-injure herself with progressive weakness. Today she complains that her face is sore from bruising from yesterday's fall. She is globally weak but has no other specific concerns. She is not complaining of chest pain, dyspnea, palpitations Related Data Home Medications ?Medication ?Instructions ?Recorded ?Confirmed acetaminophen 500 mg capsule 1,000 mg PO Q6H PRN Fever 02/02/22 05/28/25 Previous Rx's ?Medication ?Instructions ?Recorded food supplemt, lactose-reduced 1 ea PO DAILY #5,688 mL 07/15/24 (Ensure oral liquid) metformin 500 mg tablet 500 mg PO DAILY #30 tabs nystatin 100,000 unit/gram topical 1 applic topical BI D PRN yeast 02/18/25 powder infection #30 grams donepezil 10 mg tablet 10 mg PO BEDTIME #30 tabs aspirin 81 mg tablet,delayed 81 mg PO DAILY #30 tabs 1 07/25/24 release atorvastatin 40 mg tablet 40 mg PO DAILY #30 tabs 05/06 lisinopril 20 mg tablet 20 mg PO DAILY #30 tabs 05/06 08/27 pregabalin 25 mg capsule (Lyrica) 25 mg PO BEDTIME #30 caps 05/28/25 Allergies Allergy/AdvReac Type Severity Reaction Status Date / Time morphine AdvReac hypertensio Verified 05/30/25 13:21 n Review of Systems Review of Systems Narrative: Pertinent positive and negative findings as per HPI Patient History Medical History Fever and neutropenia Fracture of humerus, proximal, left, closed Dysuria Abdominal wall hernia Dementia Anemia Lela UTI Diffuse large B cell lymphoma Type 2 diabetes mellitus Essential hypertension Hepatitis B Wears glasses Alopecia (~1970) Depression Anxiety Carpal tunnel syndrome Mumps Measles Chicken pox Vertigo Cataracts, bilateral GERD (gastroesophageal reflux disease) Surgical History Anesthesia History of hernia repair History of hand surgery History of tonsillectomy History of hysterectomy Family History Father Hypertension Hyperlipidemia Mother MVA (motor vehicle accident) Sister Heart defect Social History household members: family Smoking Status: Never smoker alcohol intake: never Smoking Status: Never smoker alcohol intake frequency: holidays/special occasions only Exam Initial Vital Signs Initial Vital Signs: Vital Signs Temperature 97.8 F 05/30/25 13:21 Pulse Rate 78 05/30/25 13:21 Respiratory Rate 16 05/30/25 13:21 Blood Pressure 183/88 H 05/30/25 13:21 Pulse Oximetry 99 05/30/25 13:21 Oxygen Delivery Method Room Air 05/30/25 13:21 General: Frail, chronically ill-appearing globally weak minimally interactive can answer direct questions HEENT: Moist mucous membranes, normal sclera with reactive pupils, Respiratory: Lungs are clear to auscultation, no wheezing no rales no rhonchi. Full and symmetrical air movement Cardiac: Regular rate and rhythm no murmurs no bruits Abdomen: Soft, nontender, no rebound or guarding, no flank pain Skin: Pale, remarkably non bruised given her multiple recent falls. She does have some bruising around both eyes Neurologic: Globally weak but can move all extremities Extremities: Minor bruising to her knees no obvious broken bones. Passive movement to joints of the lower extremities and hips does not elicit severe pain Psych: Flat poor overall insight, Course Orders Ordered: ED Orders 05/30/25 13:34 CT abdomen pelvis w con Stat CT cervical spine wo con Stat CT facial bones wo con Stat CT head/brain wo con Stat 05/30/25 13:39 Consult to [facility] - Labor Relations Analyst Stat 05/30/25 14:00 Complete Blood Count AUTO DIFF Stat Comprehensive Metabolic Panel Stat Lipase Stat Magnesium Stat NT-proBNP (BNP-Adult 18+) Stat PTT Partial Thromboplastin Gian Stat Prothrombin Time INR Stat Troponin & CK Cardiac Panel Stat 05/30/25 15:22 XR chest 1V Stat EKG-12 Lead Stat 05/30/25 18:48 Consult to Physical Therapy Evaluate & Treat Vital Signs Vital signs: Vital Signs - 8 hr 05/30/25 13:21 05/30/25 16:29 05/30/25 16:30 Temperature 97.8 F Pulse Rate 78 82 83 Respiratory Rate 16 Blood Pressure 183/88 H Pulse Oximetry 99 99 96 Oxygen Delivery Method Room Air 05/30/25 16:36 05/30/25 16:36 05/30/25 17:00 Temperature Pulse Rate 73 Respiratory Rate 17 Blood Pressure 143/66 H 152/71 H Pulse Oximetry 98 Oxygen Delivery Method 05/30/25 17:00 05/30/25 17:30 05/30/25 17:30 Temperature Pulse Rate 71 77 Respiratory Rate 21 20 Blood Pressure 141/92 H Pulse Oximetry 97 Oxygen Delivery Method MDM - Fall Lab Data 05/30/25 14:00 05/30/25 14:00 Labs: Lab Results 05/30/25 Range/Units 14:00 WBC 9.5 (4.5-11.0) X10^3/uL RBC 5.28 H (4.0-5.2) X10^6/uL Hgb 14.4 (12.0-16.0) g/dL Hct 43.5 (36-46) % MCV 82.5 (80-100) fL MCH 27.3 (26-34) PG MCHC 33.1 (30-36) % RDW 15.8 H (11.6-14.8) % Plt Count 333 (150-400) X10^3/uL Neut % (Auto) 87.8 H (50-75) % Lymph % (Auto) 5.7 L (25-40) % [place] % (Auto) 4.3 (3-14) % Eos % (Auto) 1.4 L (2-4) % Baso % (Auto) 0.8 (0-2) % Neut # (Auto) 8400 H (6785-1954) /uL Lymph # (Auto) 500 L (5222-1110) /uL [place] # (Auto) 400 (0-900) /uL Eos # (Auto) 100 (0-450) /uL Baso # (Auto) 100 (0-100) /uL PT 12.4 (9.4-12.5) SECONDS INR 1.1 (0.9-1.3) APTT 32 (25.1-36.5) SECONDS Sodium 139 (137-145) mmol/L Potassium 4.3 (3.4-5.1) mmol/L Chloride 107 (98-107) mmol/L Carbon Dioxide 20 L (22-32) mmol/L BUN 34 H (7-17) mg/dL Creatinine 1.11 H (0.52-1.04) mg/dL Estimated GFR 51 L (>60) mL/min BUN/Creatinine Ratio 30.6 H (6-22) Glucose 129 H (70-99) mg/dL Calcium 9.9 (8.4-10.2) mg/dL Magnesium 1.6 (1.6-2.3) mg/dL Total Bilirubin 0.9 (0.2-1.3) mg/dL AST 38 H (14-36) IU/L ALT 17 (<35) IU/L Alkaline Phosphatase 81 (38-126) U/L Total Creatine Kinase 247 H (30-135) U/L Troponin I 0.025 (0.01-0.034) ng/mL NT-Pro-B Natriuret Pep 547 H (<450) pg/mL Total Protein 7.9 (6.3-8.2) g/dL Albumin 4.7 (3.5-5.0) g/dL Globulin 3.2 (1.7-4.1) g/dL Albumin/Globulin Ratio 1.5 (1.0-2.8) Lipase 85 (23-300) U/L MDM Narrative Medical decision making narrative: 80-year-old woman with progressive weakness after NSTEMI on May 21. She was discharged home at that time with decision to proceed with conservative management catheterization was felt to not offer significant benefit. She was readmitted for an additional 2 days for continued weakness and recurrent pain. The 2 days after that discharge she has had significant falls each day and her son is now injuring himself trying to care for her. Differential includes severe heart failure, significant deconditioning, recurrent acute coronary syndrome, generalized weakness after hospitalization, all complicated by dementia Labs: CBC is not suggest infection or anemia Chemistries show no severe electrolyte abnormalities, renal dysfunction and liver function is appropriate Troponin has finally normalized ProBNP is slightly lower today at 547 Trauma imaging is done includes head CT which is unremarkable Cervical spine CT which shows no acute fractures Facial CT shows a nasal bone fracture that likely is from yesterday's fall. No other injuries Abdomen pelvis CT shows gallstones no acute cholecystitis. Diverticulosis, large fecal load, fat containing ventral hernia. Chest x-ray shows no acute pathology Discussion: Care is reviewed with social media marketing specialist. Believe she may meet criteria for group home stay after her NSTEMI. I believe that there is potential at this point for increased mobility and at least returned to independent use of her walker. She does need a physical therapy evaluation. She is too weak to get out of bed in his not safe to go home at this point. Case is reviewed with hospitalist and patient will be admitted observation status for further evaluation and hopefully assistance with group home facility with rehab and further discussion with her son regarding dementia care after she is strong enough. Discharge Plan Departure Patient Disposition: Admitted as Observation Clinical Impression: Weakness acquired in intensive care unit, Chronic congestive heart failure, Falls, Closed fracture nasal bone Admit Date/Time: 05/30/25 19:50 Admit Provider: Avelino Castro
[2025-05-31 04:00] VITALS: BP 145/76; PULSE 66; RESP 16; TEMP 36.2; O2SAT 99
[2025-05-31 05:25] LABS: Add Manual Diff / Slide Review NO; Hematocrit 38.5 % (36-46); Hemoglobin 12.7 g/dL (12.0-16.0); Lymphocytes Absolute Auto 800 /uL (1100-4500); Mean Corpuscular HGB Conc 33.0 % (30-36); Mean Corpuscular Hemoglobin 27.1 PG (26-34); Mean Corpuscular Volume 82.4 fL (80-100); Platelet Count 303 X10^3/uL (150-400)
[2025-05-31 05:37] LABS: Blood Urea Nitrogen 27 mg/dL (7-17); Calcium 9.6 mg/dL (8.4-10.2); Carbon Dioxide 23 mmol/L (22-32); Chloride 105 mmol/L (98-107); Estimated Glomerular Filt Rate 58 mL/min (>60); Glucose 101 mg/dL (70-99); HEMOLYSIS < 15 (0-50); Potassium 3.8 mmol/L (3.4-5.1); Sodium 139 mmol/L (137-145)
--- NOTE | 2025-05-31 07:23 | PM.HP.1 ---
History of Present Illness History of Present Illness Date Patient Seen: 05/30/25 Time Patient Seen: 23:51 Chief complaint: Fell yesterday & today, Abd & back pain Narrative: 80-year-old female with past medical history of hyperlipidemia, B-cell lymphoma, phw-ixlcvsm-colczlvla diabetes, hypertension, GERD and dementia presents with fall. Recently was admitted to the hospital on May 21 and discharged on the for NSTEMI. Admit her son who has been trying to care for her. However over the last few days the patient has been too weak to stand and transfer. Patient's son is also scheduled for surgery in the next few weeks with spinal stenosis and has a difficult time taking care of her at home. The patient also had a fall yesterday and again today and reports that the patient did hit her face with some bruising from her fall yesterday. Otherwise there is no report of any recent fever, chills, nausea, vomiting, diarrhea, chest pain or shortness of breath. In the emergency room, the previously performed. Systolic blood pressure however was slightly high in the 180s. Labs were relatively benign the creatinine was 1 and a troponin of 0.02. BNP is 547. CT scan of the head no acute finding as well as CT of the cervical spine. Facial CT however shows a nasal bone fracture less likely from yesterday's fall. CT abdomen pelvics shows diverticulosis with marked fecal load chest x-ray was clear. Typical PCP [facility] Medical History Fever and neutropenia Fracture of humerus, proximal, left, closed Dysuria Abdominal wall hernia Dementia Anemia Lela UTI Diffuse large B cell lymphoma Type 2 diabetes mellitus Essential hypertension Hepatitis B Wears glasses Alopecia (~1970) Depression Anxiety Carpal tunnel syndrome Mumps Measles Chicken pox Vertigo Cataracts, bilateral GERD (gastroesophageal reflux disease) Surgical History Anesthesia History of hernia repair History of hand surgery History of tonsillectomy History of hysterectomy Family History Father Hypertension Hyperlipidemia Mother MVA (motor vehicle accident) Sister Heart defect Social History household members: family Smoking Status: Never smoker alcohol intake: never Meds Home Medications and Allergies Home Medications ?Medication ?Instructions ?Recorded ?Confirmed ?Type acetaminophen 500 mg capsule 1,000 mg PO Q6H PRN Fever 02/02/22 05/30/25 History food supplemt, lactose-reduced 1 ea PO DAILY #5,688 mL 07/15/24 05/30/25 Rx (Ensure oral liquid) metformin 500 mg tablet 500 mg PO DAILY #30 tabs 11/27/24 05/30/25 Rx donepezil 10 mg tablet 10 mg PO BEDTIME #30 tabs 03/03/25 05/30/25 Rx aspirin 81 mg tablet,delayed 81 mg PO DAILY #30 tabs 05/24/25 05/30/25 Rx release atorvastatin 40 mg tablet 40 mg PO DAILY #30 tabs 05/24/25 05/30/25 Rx lisinopril 20 mg tablet 20 mg PO DAILY #30 tabs 05/27/25 05/30/25 Rx pregabalin 25 mg capsule (Lyrica) 25 mg PO BEDTIME #30 caps 05/28/25 05/30/25 Rx Allergies Allergy/AdvReac Type Severity Reaction Status Date / Time morphine AdvReac hypertensio Verified 05/30/25 13:21 n Review of Systems Review of Systems ROS: Yes unobtainable due to mental condition Exam Vital Signs (past 8 hours): - 05/31/25 04:00 Temperature 97.2 F L Pulse Rate 66 Respiratory Rate 16 Blood Pressure 145/76 H Pulse Oximetry 99 Oxygen Flow Rate 0 Oxygen Delivery Method Room Air Oxygen Flow Rate 0 Narrative Exam Narrative: Physical Exam: GENERAL: The patient is not in any acute distressed. Confuse HEENT: Nonicteric sclerae, PERRLA, EOMI. Oropharynx clear. Moist mucous membranes. Conjunctivae appear well perfused. HEART: Regular rate and rhythm without murmurs. No lower extremities edema. LUNGS: Clear to auscultation bilaterally. No wheezing, crackles or rhonchi ABDOMEN: Soft, positive bowel sounds, nontender. SKIN: No rash, no excessive bruising, petechiae, or purpura. NEUROLOGIC: Confuse Objective Labs 05/31/25 04:54 05/31/25 04:54 Labs: Laboratory Results - last 24 hr 05/30/25 05/31/25 14:00 04:54 WBC 9.5 5.7 RBC 5.28 H 4.67 Hgb 14.4 12.7 Hct 43.5 38.5 MCV 82.5 82.4 MCH 27.3 27.1 MCHC 33.1 33.0 RDW 15.8 H 15.5 H Plt Count 333 303 Neut % (Auto) 87.8 H 73.7 Lymph % (Auto) 5.7 L 13.7 L [place] % (Auto) 4.3 7.5 Eos % (Auto) 1.4 L 3.8 Baso % (Auto) 0.8 1.3 Neut # (Auto) 8400 H 4200 Lymph # (Auto) 500 L 800 L [place] # (Auto) 400 400 Eos # (Auto) 100 200 Baso # (Auto) 100 100 PT 12.4 INR 1.1 APTT 32 Sodium 139 139 Potassium 4.3 3.8 Chloride 107 105 Carbon Dioxide 20 L 23 BUN 34 H 27 H Creatinine 1.11 H 1.00 Estimated GFR 51 L 58 L BUN/Creatinine Ratio 30.6 H 27.0 H Glucose 129 H 101 H Calcium 9.9 9.6 Magnesium 1.6 Total Bilirubin 0.9 AST 38 H ALT 17 Alkaline Phosphatase 81 Total Creatine Kinase 247 H Troponin I 0.025 NT-Pro-B Natriuret Pep 547 H Total Protein 7.9 Albumin 4.7 Globulin 3.2 Albumin/Globulin Ratio 1.5 Lipase 85 Assessment & Plan Assessment & Plan narrative: Generalized weakness with recurrent fall and underlying dementia. Admit the patient to medical telemetry under observation. No pathology except for either. Head CT and neck CTs are otherwise negative. Will have PT OT and social work involved for possible placement to SNF tomorrow. Monitor for pain and will give pain medication accordingly. Recent NSTEMI. Again patient troponin is not elevated at this time. Will continue home cardiac medication. EKG shows no sign of acute ischemia. Constipation. Will need bowel regimen. Hyperlipidemia resume home statin. Hypertension. Monitor blood pressure and resume home medication. Gtw-ultelnr-blfvykmaf diabetes. Monitor glucose and subcu insulin as needed Dementia resume home donepezil. DVT prophylaxis SCDs due to observational status. CODE STATUS full code. Disposition likely to detention facility/memory care in 1 to 2 days - As the provider of this telehealth evaluation, requested by the patient's evaluating physician, I attest that I introduced myself to the patient, provided my credentials and determined that telemedicine via a real-time, 2 way interactive audio and video platform is an appropriate and effective means of providing this service. - I reviewed the patient's chart and had a discussion with the member of the patient's treatment team. - The patient and I mutually agreed with continuation of this evaluation via telemedicine. The patient consented for the telemedicine evaluation. - This virtual encounter was taken place from [place] by Dr. Avelino Castro. The patient was evaluated at [facility]. The encounter was approximately 35 minutes. The nurse was present during the entire time of the encounter and was able assists with the stethoscope to listen to the patients. Time-Based Coding :: [TOTAL MINUTES] spent with patient and on the chart (including review of chart, obtaining history, exam, reviewing outside data, placing orders, documenting exam and treatment plan, and counseling patient) on [DATE]. Quality VTE Deep Vein Thrombosis/Pulmonary Embolism Present on Admission: No
[2025-05-31 07:48] VITALS: BP 115/45; PULSE 63; RESP 16; TEMP 36.3; O2SAT 97
[2025-05-31 07:55] LABS: Appearance Urine UA CLEAR; Bilirubin Urine UA 1+ (NEGATIVE); Color Urine UA YELLOW; Glucose Urine UA NEGATIVE (Negative); Ketones Urine UA 1+ (NEGATIVE); Leukocyte Esterase Urine UA TRACE (NEGATIVE); Nitrite Urine UA NEGATIVE (Negative); Occult Blood Urine UA NEGATIVE (Negative); Protein Urine UA NEGATIVE (Negative); Specific Gravity Urine UA 1.025 (1.000-1.035); Urobilinogen Urine UA 1.0 E.U./dL (0.2)
[2025-05-31 08:17] LABS: pH Urine UA 5.5 (4.5-8.0)
[2025-05-31 08:18] LABS: Culture Indicated Urine Cult Not Indicated; Ictotest Urine Negative (Negative)
[2025-05-31] MEDS: ASPIRIN EC 81 MG TABLET PO (09:32)
[2025-05-31] MEDS: ATORVASTATIN 20 MG TABLET 40 MG PO (09:32)
[2025-05-31 11:10] VITALS: BP 134/59; PULSE 66; RESP 16; TEMP 36.7; O2SAT 97
--- NOTE | 2025-05-31 13:36 | PT.IIE ---
Surgical History (Last Reviewed 05/30/25 @ 19:52 by Ruby Heredia MD) Anesthesia History of hand surgery History of hernia repair History of hysterectomy History of tonsillectomy Medical History (Last Reviewed 05/30/25 @ 19:52 by Ruby Heredia MD) Abdominal wall hernia Alopecia (~1970) Anemia Anxiety Lela UTI Carpal tunnel syndrome Cataracts, bilateral Chicken pox Dementia Depression Diffuse large B cell lymphoma Dysuria Essential hypertension Fever and neutropenia Fracture of humerus, proximal, left, closed GERD (gastroesophageal reflux disease) Hepatitis B Measles Mumps Type 2 diabetes mellitus Vertigo Wears glasses Physical Therapy Inpatient Evaluation/Re-Eval M1 PT IP Prior Functional Status Start: 05/31/25 13:26 Freq: NEEDED Status: Active Protocol: Document 05/31/25 13:27 KJ (Rec: 05/31/25 13:35 KJ Desktop) Medical Review Prior Functional Status Medical History Yes Reviewed Mobility and Gait Pt was ambulatory, she tells me she doesn't use a walker Social History Household Members family Living Arrangements House Number of Stairs To unknown Enter/Railing? Additional Social Pt had been living in [facility] however was wandering away, History Comment necessitating that she live with her son. Had a fall, which she acknowledges but cannot tell me more about. M2 PT-IP Current Condition Start: 05/31/25 13:26 Freq: NEEDED Status: Active Protocol: Document 05/31/25 13:27 KJ (Rec: 05/31/25 13:35 KJ Desktop) Physical Therapy Current Condition Current Condition Evaluation Date 05/31/25 Treatment Diagnosis poor activity tolerance M3 PT-IP Subjective Start: 05/31/25 13:26 Freq: NEEDED Status: Active Protocol: Document 05/31/25 13:27 KJ (Rec: 05/31/25 13:35 KJ Desktop) Subjective Physical Therapy Visit Type Type Initial Evaluation Visit Start Time 13:53 Visit Stop Time 13:26 Physical Therapy Visit Comments Patient Comments Pt expresses frustration with communication difficulties M4 PT-IP Mobility and Gait Start: 05/31/25 13:26 Freq: NEEDED Status: Active Protocol: Document 05/31/25 13:27 KJ (Rec: 05/31/25 13:35 KJ Desktop) PT-Bed Mobility Assessment Rolling Type of Rolling Roll to Right Level of Assist Standby Assistance Supine to Sit Supine to Sit Standby Assistance Sit to Supine Sit to Supine Standby Assistance Scooting Scooting to Edge of Standby Assistance Bed PT-Transfer Assessment Sit to and From Stand Sit to and from Contact Guard Assistance Stand Equipment Transfer Assistive Gait Belt,Front Wheeled Walker Device Transfer Ability Level of Assist Contact Guard Assistance Comments Mobility Comments Transfers and ambulates w/ CGA for safety, slight loss of balance noted in backward direction (more likely due to cognition). Ambulated 200' w/fww and CGA on level surfaces. Tended not to use walker. Also ambulated in room w/out AD w/CGA. Gait Assessment Gait Gait Assistance Contact Guard Assist Required: Distance (Feet) 200 Assistive Devices Assistive Device Gait Belt Gait Deviations General Gait Pattern Decreased Stride Length Comments Gait Comments Easily distracted PT-Balance Assessment Sitting Balance and Reactions Static Sitting Normal Balance Ability Dynamic Sitting Normal Balance Ability Standing Balance and Reactions Static Standing Poor Balance Ability Dynamic Standing Poor Balance Ability M5 PT-IP Objective Assessments Start: 05/31/25 13:26 Freq: NEEDED Status: Active Protocol: Document 05/31/25 13:27 KJ (Rec: 05/31/25 13:35 KJ Desktop) Orientation Orientation/Cognition Level of Alertness Confusional State Orientation Name Safety Awareness Decreased Safety Awareness Memory Description Short Term Impaired,Snf Impaired Gross Range of Motion Upper Extremity ROM Assessment Within Functional Limits Lower Extremity ROM Assessment Within Functional Limits Strength Comments Strength Comments 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 M7 PT-IP Assessment and Plan Start: 05/31/25 13:26 Freq: NEEDED Status: Active Protocol: Document 05/31/25 13:27 KJ (Rec: 05/31/25 13:35 KJ Desktop) PT Summary Assessment and Plan Potential Status of Condition Stable at Evaluation Summary Impairments Cognition Assessment Summary May benefit from a fww for directional cuing, however she may not use it. Goals Bed Mobility Goal Independent Transfer Goal Independent Gait Goal Contact Guard Assistance Gait Distance 500 Days to Meet Goals 2 Frequency of Treatment Frequency Of Once a Day Treatment Treatment Plan Physical Therapy Transfer Training,Gait Training,Balance Retraining Treatment Plan Recommendations To Nursing Amount of Assist 1 Person Assist Needed Discharge Recommendations Other Discharge Memory care Recommendations
[2025-05-31 15:58] VITALS: RESP 20
--- NOTE | 2025-05-31 16:38 | PM.HP.1 ---
History of Present Illness History of Present Illness Date Patient Seen: 05/31/25 Time Patient Seen: 16:38 Chief complaint: Fell yesterday & today, Abd & back pain Narrative: Chief complaint: Progressive weakness of fall with acute on chronic congestive heart failure History of present illness: 05/31: 80-year-old female with past medical history of hyperlipidemia, B-cell lymphoma, iud-ithdxci-wkagbjxeb diabetes, hypertension, GERD and dementia presents with fall. Recently was admitted to the hospital on May 21 and discharged on the for NSTEMI. Admit her son who has been trying to care for her. However over the last few days the patient has been too weak to stand and transfer. Patient's son is also scheduled for surgery in the next few weeks with spinal stenosis and has a difficult time taking care of her at home. The patient also had a fall yesterday and again today and reports that the patient did hit her face with some bruising from her fall yesterday. Otherwise there is no report of any recent fever, chills, nausea, vomiting, diarrhea, chest pain or shortness of breath. Findings In the emergency room: Systolic blood pressure slightly high in the 180s. Labs were relatively benign the creatinine was 1 and a troponin of 0.02. BNP is 547. CT scan of the head no acute finding as well as CT of the cervical spine. Facial CT however shows a nasal bone fracture less likely from yesterday's fall. CT abdomen pelvics shows diverticulosis with marked fecal load chest x-ray was clear. Hospital course: 05/31: Patient is impulsive curious and disoriented no complaints Review of systems No headache diplopia blurred vision No fever or chills rigors No chest pain palpitation No cough shortness for breath wheezing No nausea vomiting diarrhea Physical exam: Confused elderly female but very pleasant a little hyperactive HEENT unremarkable Heart rate and rhythm Lungs clear Abdomen benign Extremities no edema Assessment and plan: Generalized weakness with recurrent fall and underlying dementia. Admit the patient to medical telemetry under observation. No pathology except for either. Head CT and neck CTs are otherwise negative. Will have PT OT and social work involved for possible placement to SNF or memory. Monitor for pain and will give pain medication accordingly. Referral to shoe parts caser Recent NSTEMI. Again patient troponin is not elevated at this time. Will continue home cardiac medication. EKG shows no sign of acute ischemia. Constipation. Will need bowel regimen. Hyperlipidemia Resume home statin. Hypertension. Monitor blood pressure and resume home medication. Czr-iyfvzjj-ujqrcaoen diabetes. Monitor glucose and subcu insulin as needed Dementia resume home donepezil. DVT prophylaxis SCDs due to observational status. CODE STATUS Full code. Disposition Likely to care home facility/memory care in 1 to 2 days Time based billin minutes were involved in the evaluation of this patient including odfr-rg-ytec evaluation physical examination review of previous medical records review objective laboratory and imaging findings discussion with care management team [facility] Medical History Fever and neutropenia Fracture of humerus, proximal, left, closed Dysuria Abdominal wall hernia Dementia Anemia Lela UTI Diffuse large B cell lymphoma Type 2 diabetes mellitus Essential hypertension Hepatitis B Wears glasses Alopecia (~1970) Depression Anxiety Carpal tunnel syndrome Mumps Measles Chicken pox Vertigo Cataracts, bilateral GERD (gastroesophageal reflux disease) Surgical History Anesthesia History of hernia repair History of hand surgery History of tonsillectomy History of hysterectomy Family History Father Hypertension Hyperlipidemia Mother MVA (motor vehicle accident) Sister Heart defect Social History household members: family Smoking Status: Never smoker alcohol intake: never Meds Home Medications and Allergies Home Medications ?Medication ?Instructions ?Recorded ?Confirmed ?Type acetaminophen 500 mg capsule 1,000 mg PO Q6H PRN Fever 02/02/22 05/30/25 History food supplemt, lactose-reduced 1 ea PO DAILY #5,688 mL 07/15/24 05/30/25 Rx (Ensure oral liquid) metformin 500 mg tablet 500 mg PO DAILY #30 tabs 11/27/24 05/30/25 Rx donepezil 10 mg tablet 10 mg PO BEDTIME #30 tabs 03/03/25 05/30/25 Rx aspirin 81 mg tablet,delayed 81 mg PO DAILY #30 tabs 05/24/25 05/30/25 Rx release atorvastatin 40 mg tablet 40 mg PO DAILY #30 tabs 05/24/25 05/30/25 Rx lisinopril 20 mg tablet 20 mg PO DAILY #30 tabs 05/27/25 05/30/25 Rx pregabalin 25 mg capsule (Lyrica) 25 mg PO BEDTIME #30 caps 05/28/25 05/30/25 Rx Allergies Allergy/AdvReac Type Severity Reaction Status Date / Time morphine AdvReac hypertensio Verified 05/30/25 13:21 n Exam Vital Signs (past 8 hours): - 05/31/25 11:10 05/31/25 15:58 Temperature 98.1 F Pulse Rate 66 Respiratory Rate 16 20 Blood Pressure 134/59 L Pulse Oximetry 97 Oxygen Delivery Method Room Air Oxygen Flow Rate 0 Objective Labs 05/31/25 04:54 05/31/25 04:54 Labs: Laboratory Results - last 24 hr 05/31/25 05/31/25 05/31/25 04:54 07:43 08:09 WBC 5.7 RBC 4.67 Hgb 12.7 Hct 38.5 MCV 82.4 MCH 27.1 MCHC 33.0 RDW 15.5 H Plt Count 303 Neut % (Auto) 73.7 Lymph % (Auto) 13.7 L [place] % (Auto) 7.5 Eos % (Auto) 3.8 Baso % (Auto) 1.3 Neut # (Auto) 4200 Lymph # (Auto) 800 L [place] # (Auto) 400 Eos # (Auto) 200 Baso # (Auto) 100 Sodium 139 Potassium 3.8 Chloride 105 Carbon Dioxide 23 BUN 27 H Creatinine 1.00 Estimated GFR 58 L BUN/Creatinine Ratio 27.0 H Glucose 101 H POC Whole Bld Glucose 94 Calcium 9.6 Urine Color Yellow Urine Appearance Clear Urine pH 5.5 Ur Specific [place] 1.025 Urine Protein Negative Urine Glucose (UA) Negative Urine Ketones 1+ H Urine Occult Blood Negative Urine Nitrate Negative Urine Bilirubin 1+ H Ur Bilirubin Confirm Negative Urine Urobilinogen 1.0 Ur Leukocyte Esterase Trace H Urine RBC 0-1/hpf Urine WBC 1-5/hpf Ur Squamous Epith Cells 0-1 /hpf Urine Bacteria Occasional (0-1) Ur Culture Indicated? Cult not indicated Vol Urine Centrifuged 10ml (spun) 05/31/25 11:06 WBC RBC Hgb Hct MCV MCH MCHC RDW Plt Count Neut % (Auto) Lymph % (Auto) [place] % (Auto) Eos % (Auto) Baso % (Auto) Neut # (Auto) Lymph # (Auto) [place] # (Auto) Eos # (Auto) Baso # (Auto) Sodium Potassium Chloride Carbon Dioxide BUN Creatinine Estimated GFR BUN/Creatinine Ratio Glucose POC Whole Bld Glucose 129 H Calcium Urine Color Urine Appearance Urine pH Ur Specific [place] Urine Protein Urine Glucose (UA) Urine Ketones Urine Occult Blood Urine Nitrate Urine Bilirubin Ur Bilirubin Confirm Urine Urobilinogen Ur Leukocyte Esterase Urine RBC Urine WBC Ur Squamous Epith Cells Urine Bacteria Ur Culture Indicated? Vol Urine Centrifuged Assessment & Plan Time-Based Coding :: [TOTAL MINUTES] spent with patient and on the chart (including review of chart, obtaining history, exam, reviewing outside data, placing orders, documenting exam and treatment plan, and counseling patient) on [DATE]. Quality VTE Deep Vein Thrombosis/Pulmonary Embolism Present on Admission: No
[2025-05-31 17:00] VITALS: BP 117/60; PULSE 62; RESP 16; TEMP 37; O2SAT 97
--- NOTE | 2025-05-31 17:36 | PC.NURSE ---
Pt very active, however, non violent. Pt resents anxious, unable to sit still, CBG 92; 109; 92 no coveage required. Amb in hallway w/ staff & walker 3 times. Med w/ lorazapam w/ no effect. New order for Seroquil, w/ good effect. Pt resting quietly at this time. Call light w/in reach, bed alarm on for pt safety. Continue w/plan of care.
[2025-05-31 22:00] VITALS: BP 133/64; PULSE 62; RESP 20; TEMP 36.1; O2SAT 100
[2025-05-31] MEDS: DONEPEZIL 5 MG TABLET 10 MG PO (22:08)
--- NOTE | 2025-06-01 08:23 | P.PN_ITS ---
Subjective Subjective Date Patient Seen: 06/01/25 Time Patient Seen: 08:23 Interval history: Chief complaint: Progressive weakness of fall with acute on chronic congestive heart failure History of present illness: 05/31: 80-year-old female presents with fall after discharge for conservative management of non STEMI Patient with Past medical history of hyperlipidemia, B-cell lymphoma, tmw-dtykchi-pdiujkbdm diabetes, hypertension, GERD and dementia presents with fall. Recently was admitted to the hospital on May 21 and discharged on the for NSTEMI. Admit her son who has been trying to care for her. However over the last few days the patient has been too weak to stand and transfer. Patient's son is also scheduled for surgery in the next few weeks with spinal stenosis and has a difficult time taking care of her at home. The patient also had a fall yesterday and again today and reports that the patient did hit her face with some bruising from her fall yesterday. Otherwise there is no report of any recent fever, chills, nausea, vomiting, diarrhea, chest pain or shortness of breath. Findings In the emergency room: Systolic blood pressure slightly high in the 180s. Labs were relatively benign the creatinine was 1 and a troponin of 0.02. BNP is 547. CT scan of the head no acute finding as well as CT of the cervical spine. Facial CT however shows a nasal bone fracture less likely from yesterday's fall. CT abdomen pelvics shows diverticulosis with marked fecal load chest x-ray was clear. Hospital course: 05/31: Patient is impulsive curious and disoriented no complaints 06/01: Patient's seems more focused and cogent since starting Seroquel is less impulsive asking about her (she is ) we are awaiting placement Review of systems No headache diplopia blurred vision No fever or chills rigors No chest pain palpitation No cough shortness for breath wheezing No nausea vomiting diarrhea Physical exam: Confused elderly female but very pleasant a little hyperactive HEENT unremarkable Heart rate and rhythm Lungs clear Abdomen benign Extremities no edema Assessment and plan: Generalized weakness with recurrent fall and underlying dementia. Admit the patient to medical telemetry under observation. No pathology except for either. Head CT and neck CTs are otherwise negative. Will have PT OT and social work involved for possible placement to SNF or memory. Monitor for pain and will give pain medication accordingly. * Referral to caseworker Recent NSTEMI treated conservatively then discharged. * Again patient troponin is not elevated at this time. * Will continue home cardiac medication. * EKG shows no sign of acute ischemia. Constipation. * Responding to bowel regimen. Hyperlipidemia * Resume home statin. Hypertension. * Monitor blood pressure and resume home medication. Hlq-rpjwpem-dixlbwmhi diabetes. * Monitor glucose and subcu insulin as needed Dementia * resume home donepezil. DVT prophylaxis * SCDs due to observational status. CODE STATUS * Full code. Disposition * Likely to shelter facility/memory care in 1 to 2 days * Waiting placement * Case management making referrals Time based billing: * 35 minutes were involved in the evaluation of this patient including dyzu-wb-stbs evaluation physical examination review of previous medical records review objective laboratory and imaging findings discussion with care management team Exam Vital Signs (past 8 hours): Oxygen Delivery Method Room Air Oxygen Flow Rate 0 Objective Labs 05/31/25 04:54 05/31/25 04:54 Labs: Laboratory Results - last 24 hr 05/31/25 05/31/25 05/31/25 11:06 16:47 22:08 POC Whole Bld Glucose 129 H 92 111 H 06/01/25 07:52 POC Whole Bld Glucose 97 PFSH Medical History Fever and neutropenia Fracture of humerus, proximal, left, closed Dysuria Abdominal wall hernia Dementia Anemia Lela UTI Diffuse large B cell lymphoma Type 2 diabetes mellitus Essential hypertension Hepatitis B Wears glasses Alopecia (~1970) Depression Anxiety Carpal tunnel syndrome Mumps Measles Chicken pox Vertigo Cataracts, bilateral GERD (gastroesophageal reflux disease) Surgical History Anesthesia History of hernia repair History of hand surgery History of tonsillectomy History of hysterectomy Family History Father Hypertension Hyperlipidemia Mother MVA (motor vehicle accident) Sister Heart defect Social History household members: family Smoking Status: Never smoker alcohol intake: never Assessment & Plan Time-Based Coding :: [TOTAL MINUTES] spent with patient and on the chart (including review of chart, obtaining history, exam, reviewing outside data, placing orders, documenting exam and treatment plan, and counseling patient) on [DATE]. Quality VTE Deep Vein Thrombosis/Pulmonary Embolism Present on Admission: No
[2025-06-01] MEDS: ASPIRIN EC 81 MG TABLET PO (08:29)
[2025-06-01] MEDS: ATORVASTATIN 20 MG TABLET 40 MG PO (08:29)
--- NOTE | 2025-06-01 10:42 | PT.IPTN ---
Physical Therapy Treatment Note M2 PT-IP Current Condition Start: 05/31/25 13:26 Freq: NEEDED Status: Active Protocol: Document 05/31/25 13:27 KJ (Rec: 05/31/25 13:35 KJ Desktop) Physical Therapy Current Condition Current Condition Evaluation Date 05/31/25 Treatment Diagnosis poor activity tolerance M3 PT-IP Subjective Start: 05/31/25 13:26 Freq: NEEDED Status: Active Protocol: Document 06/01/25 12:01 NW (Rec: 06/01/25 12:06 NW [id number]) Subjective Physical Therapy Visit Type Type Treatment Note Visit Start Time 10:21 Visit Stop Time 10:42 Physical Therapy Visit Comments Patient Comments Pt continues to ask about where her spouse is. She is agreeable to walk a short distance with PT. M4 PT-IP Mobility and Gait Start: 05/31/25 13:26 Freq: NEEDED Status: Active Protocol: Document 06/01/25 12:01 NW (Rec: 06/01/25 12:06 NW [id number]) PT-Bed Mobility Assessment Supine to Sit Supine to Sit Minimal Assistance,1 Person Assistance,Head of Bed Elevated Scooting Scooting to Edge of Minimal Assistance Bed PT-Transfer Assessment Sit to and From Stand Sit to and from Contact Guard Assistance,Use of Upper Extremities Stand Equipment Transfer Assistive Gait Belt,Front Wheeled Walker Device Transfers Transfer Destination Bed,Toilet Transfer Technique Stand Step Pivot Transfer Ability Level of Assist Contact Guard Assistance Comments Mobility Comments Requires hand over hand cues with step by step sequence to stay on task. Adequate power production. Gait Assessment Gait Gait Assistance Minimum Assistance,1 Person Assist Required: Distance (Feet) 80 Assistive Devices Assistive Device Gait Belt,Front Wheeled Walker Gait Deviations General Gait Pattern Decreased Stride Length,Narrow Based Gait,Step-to Gait Factors Limiting Gait Function Factors Limiting Decreased Strength,Poor Safety Awareness Gait Function Comments Gait Comments Occasionally Nuno to assist with AD management and regain balance with turning. Cues to increase foot clearance with adequate DF. Requires frequent standing rest breaks, but is able to be redirected to stay on task. PT-Balance Assessment Sitting Balance and Reactions Static Sitting Good Balance Ability Dynamic Sitting Good Balance Ability Standing Balance and Reactions Static Standing Poor Balance Ability Dynamic Standing Poor Balance Ability Device Used FWW M5 PT-IP Objective Assessments Start: 05/31/25 13:26 Freq: NEEDED Status: Active Protocol: Document 05/31/25 13:27 KJ (Rec: 05/31/25 13:35 KJ Desktop) Orientation Orientation/Cognition Level of Alertness Confusional State Orientation Name Safety Awareness Decreased Safety Awareness Memory Description Short Term Impaired,Residential Coordinator Impaired Gross Range of Motion Upper Extremity ROM Assessment Within Functional Limits Lower Extremity ROM Assessment Within Functional Limits Strength Comments Strength Comments 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 M7 PT-IP Assessment and Plan Start: 05/31/25 13:26 Freq: NEEDED Status: Active Protocol: Document 06/01/25 12:01 NW (Rec: 06/01/25 12:06 NW [id number]) PT Summary Assessment and Plan Potential Rehabilitation Fair Potential Status of Condition Stable at Evaluation Summary Impairments Cognition,Activity Tolerance Assessment Summary Requires step by step and hand over hand manual facilitation to stay on task with directions for functional mobility today. Is able to be re-directed. Nuno for ambulation AD management and to regain balance with turning. Recommending memory care facility upon discharge. Goals Bed Mobility Goal Independent Transfer Goal Independent Gait Goal Contact Guard Assistance Gait Distance 500 Days to Meet Goals 2 Frequency of Treatment Frequency Of Once a Day Treatment Treatment Plan Physical Therapy Transfer Training,Gait Training,Balance Retraining Treatment Plan Recommendations To Nursing Amount of Assist 1 Person Assist Needed Discharge Recommendations Other Discharge Memory Care Recommendations - PT assist 1
[2025-06-01 13:00] VITALS: BP 123/67; PULSE 77; RESP 16; TEMP 36.4; O2SAT 99
--- NOTE | 2025-06-01 13:05 | CM.DPC ---
Addendum entered by TAMMIE Yates 06/01/25 13:36: ADD: Per son, he knows that pt currently is financially over qualified for Medicaid and has finances to pay for placement care needs at a facility. BF Addendum entered by TAMMIE Yates 06/01/25 13:35: ADD: Return call from son Primo stating he has begun making phone calls to Assisted/Memory Care facilities and spoke to someone at [facility], has been to [facility] recently, and he left a msg for Sandie at [facility]. Discussed that pt likely might not qualify for SNF rehab and son aware and his current preference would be for [facility] to complete bedside assessment to determine if they can accept. SW will keep son updated in AM. BF Original Note: DCP Cont: Per MD, pt is medically stable for placement once safe d/c plan determined. Per PT yesterday, pt ambulated well but poor safety awareness and confused and recommending Memory Care. Son's preference was SNF rehab while working on her LTC plan as he had been overwhelmed and in pain from his back injury and upcoming back surgery. Pt currently OBS Status but had Medicare qualifying stay recently 05/21-05/24/25 and made referral to [facility] to review if pt has Skillable need and Medical dx for Medicare coverage at SNF rehab. RYLEE also made referral to [facility] requesting review to determine if they can do bedside assessment tomorrow Mon. RYLEE also called Margo [phone] at [facility] and she confirms they have female opening and willing to review and emailed her at [email or web address] to review. RYLEE attempted to call son and left voicemail requesting call back. TAMMIE Yates
[2025-06-01] MEDS: INSULIN LISPRO 100 UNIT/ML 3ML VIAL SUBCUT (13:12)
[2025-06-01 20:00] VITALS: BP 117/44; PULSE 50; RESP 16; TEMP 36.4; O2SAT 97
[2025-06-01] MEDS: DONEPEZIL 5 MG TABLET 10 MG PO (20:18)
[2025-06-01] MEDS: PREGABALIN 25 MG CAPSULE PO (20:18)
[2025-06-02 08:00] VITALS: BP 114/48; PULSE 56; RESP 17; TEMP 36.3; O2SAT 94
[2025-06-02 08:58] VITALS: BP 114/48; PULSE 56
[2025-06-02] MEDS: ASPIRIN EC 81 MG TABLET PO (08:58)
[2025-06-02] MEDS: ATORVASTATIN 20 MG TABLET 40 MG PO (08:58)
--- NOTE | 2025-06-02 09:38 | PT.IPTN ---
Physical Therapy Treatment Note M2 PT-IP Current Condition Start: 05/31/25 13:26 Freq: NEEDED Status: Active Protocol: Document 05/31/25 13:27 KJ (Rec: 05/31/25 13:35 KJ Desktop) Physical Therapy Current Condition Current Condition Evaluation Date 05/31/25 Treatment Diagnosis poor activity tolerance M3 PT-IP Subjective Start: 05/31/25 13:26 Freq: NEEDED Status: Active Protocol: Document 06/02/25 10:43 NW (Rec: 06/02/25 10:48 NW [id number]) Subjective Physical Therapy Visit Type Type Treatment Note Visit Start Time 09:19 Visit Stop Time 09:38 Physical Therapy Visit Comments Patient Comments Pt is agreeable to go for a walk. Continues to ask about spouse and when he is coming. M4 PT-IP Mobility and Gait Start: 05/31/25 13:26 Freq: NEEDED Status: Active Protocol: Document 06/02/25 10:43 NW (Rec: 06/02/25 10:48 NW [id number]) PT-Bed Mobility Assessment Sit to Supine Sit to Supine Contact Guard Assistance,Head of Bed Elevated,Bedrails Scooting Scooting to Edge of Minimal Assistance Bed PT-Transfer Assessment Sit to and From Stand Sit to and from Contact Guard Assistance,1 Person Assistance,Use of Stand Upper Extremities Equipment Transfer Assistive Gait Belt,Front Wheeled Walker Device Transfers Transfer Destination Bed,Chair Transfer Technique Stand Step Pivot Transfer Ability Level of Assist Contact Guard Assistance Comments Mobility Comments Poor power production with LE, increased dynamic knee valgus. Cues for UE placement with AD and use as pt impulsively lets go. Once standing fair balance without UE support. Gait Assessment Gait Gait Assistance Contact Guard Assist Required: Distance (Feet) 125 Assistive Devices Assistive Device Gait Belt,Front Wheeled Walker Gait Deviations General Gait Pattern Decreased Stride Length,Narrow Based Gait,Step-to Gait Factors Limiting Gait Function Factors Limiting Decreased Strength,Poor Safety Awareness Gait Function Comments Gait Comments Occasionally Nuno to assist with AD management and regain balance with turning. Pt is easily startled with people ambulating in the hallways. Reduced velocity and parish compared to previous session. PT-Balance Assessment Sitting Balance and Reactions Static Sitting Good Balance Ability Dynamic Sitting Good Balance Ability Standing Balance and Reactions Static Standing Poor Balance Ability Dynamic Standing Poor Balance Ability Device Used FWW M5 PT-IP Objective Assessments Start: 05/31/25 13:26 Freq: NEEDED Status: Active Protocol: Document 05/31/25 13:27 KJ (Rec: 05/31/25 13:35 KJ Desktop) Orientation Orientation/Cognition Level of Alertness Confusional State Orientation Name Safety Awareness Decreased Safety Awareness Memory Description Short Term Impaired,[facility] Impaired Gross Range of Motion Upper Extremity ROM Assessment Within Functional Limits Lower Extremity ROM Assessment Within Functional Limits Strength Comments Strength Comments 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 M7 PT-IP Assessment and Plan Start: 05/31/25 13:26 Freq: NEEDED Status: Active Protocol: Document 06/02/25 10:43 NW (Rec: 06/02/25 10:48 NW [id number]) PT Summary Assessment and Plan Potential Rehabilitation Fair Potential Status of Condition Stable at Evaluation Summary Impairments Cognition,Activity Tolerance Assessment Summary Continues to require step by step cuing with hand over hand placement for functional mobility. Pt consistently asks about spouse, but is able to be re-directed. Nuno to regain balance x 1 with turning during ambulation. Left in bed side chair with chair alarm on NETWORK CONTROL OPERATOR in room. Goals Bed Mobility Goal Independent Transfer Goal Independent Gait Goal Contact Guard Assistance Gait Distance 500 Days to Meet Goals 2 Frequency of Treatment Frequency Of Once a Day Treatment Treatment Plan Physical Therapy Transfer Training,Gait Training,Balance Retraining Treatment Plan Recommendations To Nursing Amount of Assist 1 Person Assist Needed Discharge Recommendations Other Discharge Memory Care Recommendations - PT assist 1
--- NOTE | 2025-06-02 10:12 | P.PN_ITS ---
Subjective Subjective Interval history: S: She has some right and left-sided rib pain. No facial pain. She does have relatively severe cognitive impairment. Hospital course: 05/31: Patient is impulsive curious and disoriented no complaints 06/01: Patient's seems more focused and cogent since starting Seroquel is less impulsive asking about her (she is ) we are awaiting placement O: T 97.4?, pulse 56, respiration 17, BP 114/48, SaO2 94%. NAD, alert and oriented. Fluent speech. Lungs are clear, normal rate and effort. Heart is regular, no murmur gallop or rub. Abdomen is soft, non distended. Extremities are free of edema. Significantly confused, bilateral periorbital hematomas. A/P: Generalized weakness with recurrent fall and underlying dementia. Admit the patient to medical telemetry under observation. No pathology except for either. Head CT and neck CTs are otherwise negative. Will have PT OT and social work involved for possible placement to SNF or memory. Monitor for pain and will give pain medication accordingly. * Referral to case packer Recent NSTEMI treated conservatively then discharged. * Again patient troponin is not elevated at this time. * Will continue home cardiac medication. * EKG shows no sign of acute ischemia. Constipation. * Responding to bowel regimen. Hyperlipidemia * Resume home statin. Hypertension. * Monitor blood pressure and resume home medication. Zkq-njkpyia-oovzolszm diabetes. * Monitor glucose and subcu insulin as needed Dementia * resume home donepezil. * DVT prophylaxis * SCDs due to observational status. CODE STATUS * Full code. Disposition * Likely placement in memory care in 1 to 2 days * Waiting placement * Case management making referrals Exam Vital Signs (past 8 hours): - 06/02/25 08:00 06/02/25 08:58 Temperature 97.4 F L Pulse Rate 56 L 56 L Respiratory Rate 17 Blood Pressure 114/48 L 114/48 L Pulse Oximetry 94 Oxygen Flow Rate 0 Oxygen Delivery Method Room Air Oxygen Flow Rate 0 Objective Labs 05/31/25 04:54 05/31/25 04:54 Labs: Laboratory Results - last 24 hr 06/01/25 06/01/25 06/01/25 13:03 17:13 20:10 POC Whole Bld Glucose 141 H 100 H 161 H 06/02/25 07:43 POC Whole Bld Glucose 106 H [facility] Medical History Fever and neutropenia Fracture of humerus, proximal, left, closed Dysuria Abdominal wall hernia Dementia Anemia Lela UTI Diffuse large B cell lymphoma Type 2 diabetes mellitus Essential hypertension Hepatitis B Wears glasses Alopecia (~1970) Depression Anxiety Carpal tunnel syndrome Mumps Measles Chicken pox Vertigo Cataracts, bilateral GERD (gastroesophageal reflux disease) Surgical History Anesthesia History of hernia repair History of hand surgery History of tonsillectomy History of hysterectomy Family History Father Hypertension Hyperlipidemia Mother MVA (motor vehicle accident) Sister Heart defect Social History household members: family Smoking Status: Never smoker alcohol intake: never Assessment & Plan Time-Based Coding :: [TOTAL MINUTES] spent with patient and on the chart (including review of chart, obtaining history, exam, reviewing outside data, placing orders, documenting exam and treatment plan, and counseling patient) on [DATE]. Quality VTE Deep Vein Thrombosis/Pulmonary Embolism Present on Admission: No
--- NOTE | 2025-06-02 11:15 | CM.DPC ---
Addendum entered by TAMMIE Yates 06/02/25 13:23: ADD: Per Greg at [facility], they can accept the pt but need to talk to son and get him the pwk first and have left msg for him. SW left ms requesting he call Greg at [facility] ailyn today. BF Original Note: DCP HALF-WAY/Memory Care Placement Cont: Spoke to Sandie and Greg at [facility] and they reviewed referral and willing to complete bedside assessment this morning around 1030. Margo from [facility] also willing to do bedside assessment today. Waiting to hear back from [facility] if they can accept as this is son's preference for location/facility. TAMMIE Yates
--- NOTE | 2025-06-02 11:49 | DIET.CONS ---
Dietary Consultation Note Admission Date: 05/30/2025 19:50 Assessment: 80 y F admitted for weakness and recurrent falls. Dietitian screened for low MNA score. EMR reviewed and spoke to RN. Pt has dementia and is oriented to her name only. RN reports pt needing assistance eating and cueing to eat. Minimal PO intakes. 6.6% A1c in 2023. Ht: 154.94 cm Wt: 66 kg BMI: 27.5 UBW: 74 kg on 02/28/25 (-11% weight loss in 3 m, severe) Last BM: 05/31/25 (05/31/25 04:00) MNA: 8 Kvng Score: 21 Diet: 05/30/25 Breakfast Heart Healthy Diet Diet Modifications: 05/31/25 Breakfast Carbohydrate Consistent Diet Diet Modifications: Carbohydrate level: Medium (3 CHO) Reflex DM orders: No Food Texture: Level 7 - Regular Liquid Consistency: Level 0 - Thin Nutrition Percent Meal Consumed 25% 06/01/25 18:00 Percent Meal Consumed 0% 05/31/25 18:31 Labs: RBC 4.67 X10^6/uL (4.0-5.2) 05/31/25 04:54 Hgb 12.7 g/dL (12.0-16.0) 05/31/25 04:54 Hct 38.5 % (36-46) 05/31/25 04:54 Creatinine 1.00 mg/dL (0.52-1.04) 05/31/25 04:54 NT-Pro-B Natriuret Pep 547 pg/mL (<450) H 05/30/25 14:00 Nutrition Diagnosis: Unintentional weight loss r/t decreased ability to consume sufficient energy intake aeb 11% weight loss in 3 months (severe) Interventions: Pt to d/c to memory care. Coordinated for Ensure at meals here and options of finger food/easy to eat foods EER: 1650 kcals (25 kcals/kg per BMI) 65 g protein (1g/kg per age) Monitoring/Evaluations: PO intakes, ONS tolerance Electronically Signed by: Carla Razo 06/02/25 11:49 Clinical Dietitian [address] [address]
[2025-06-02 21:00] VITALS: BP 128/68; PULSE 45; RESP 12; TEMP 36.3; O2SAT 96
[2025-06-02] MEDS: SODIUM CHLORIDE 0.9% FLUSH 10 ML IV (21:22)
[2025-06-02] MEDS: PREGABALIN 25 MG CAPSULE PO (21:23)
[2025-06-02] MEDS: DONEPEZIL 5 MG TABLET 10 MG PO (21:23)
--- NOTE | 2025-06-03 03:11 | PC.NURSE ---
2139: Patient is alert and able to state her full name and that she is in the hospital but otherwise unable to answer any of the orientation questions. Breath sounds were CTA with RA sat of 96%. HRR but bradycardic with rate of 48 apically. Denied nausea. BT present and abdomen was soft. Has been reportedly continent of urine but has not voided as yet this shift. Is able to turn herself in bed. When out of bed needs assistance of 1 with use of walker and needs much cueing and is slow in movements. Denied pain. Noted to have moist, reddened area under right breast. Bruising below each eye and small abrasion on left knee. Fall risk score is high and bed alarm is activated.
--- NOTE | 2025-06-03 07:48 | PM.PN.1 ---
Subjective Subjective Interval history: A/P: 1. Generalized weakness with recurrent fall and underlying dementia. Admit the patient to medical telemetry under observation. No pathology except for either. Head CT and neck CTs are otherwise negative. 2. Recent NSTEMI, medical management. 3. Constipation. Improved. 4. Hyperlipidemia 5. Hypertension. 6. Ilh-cwiguss-pivygiylp diabetes. 7. Dementia, severe. PLAN: -awaiting placement, no other medical changes at this point. DVT prophylaxis SCDs due to observational status. CODE STATUS Full code. Disposition Likely placement in memory care. Waiting placement Case management making referrals S: No acute complaints, significant cognitive impairment. Hospital course: 05/31: Patient is impulsive curious and disoriented no complaints 06/01: Patient's seems more focused and cogent since starting Seroquel is less impulsive asking about her (she is ) we are awaiting placement. 06/02: Stable. O: T 97? BP 120/68, pulse 45, respiration 12, SaO2 96% NAD, alert and oriented. Fluent speech. Lungs are clear, normal rate and effort. Heart is regular, no murmur gallop or rub. Abdomen is soft, non distended. Extremities are free of edema. Significantly confused, bilateral periorbital hematomas. Exam Vital Signs (past 8 hours): Oxygen Delivery Method Room Air Oxygen Flow Rate 0 Objective Labs 05/31/25 04:54 05/31/25 04:54 Labs: Laboratory Results - last 24 hr 06/02/25 06/02/25 06/02/25 07:43 11:45 16:47 POC Whole Bld Glucose 106 H 123 H 110 H 06/02/25 06/03/25 20:45 07:39 POC Whole Bld Glucose 102 H 108 H [facility] Medical History Fever and neutropenia Fracture of humerus, proximal, left, closed Dysuria Abdominal wall hernia Dementia Anemia Lela UTI Diffuse large B cell lymphoma Type 2 diabetes mellitus Essential hypertension Hepatitis B Wears glasses Alopecia (~1970) Depression Anxiety Carpal tunnel syndrome Mumps Measles Chicken pox Vertigo Cataracts, bilateral GERD (gastroesophageal reflux disease) Surgical History Anesthesia History of hernia repair History of hand surgery History of tonsillectomy History of hysterectomy Family History Father Hypertension Hyperlipidemia Mother MVA (motor vehicle accident) Sister Heart defect Social History household members: family Smoking Status: Never smoker alcohol intake: never Assessment & Plan Time-Based Coding :: [TOTAL MINUTES] spent with patient and on the chart (including review of chart, obtaining history, exam, reviewing outside data, placing orders, documenting exam and treatment plan, and counseling patient) on [DATE]. Quality VTE Deep Vein Thrombosis/Pulmonary Embolism Present on Admission: No
[2025-06-03 08:00] VITALS: BP 134/65; PULSE 61; RESP 15; TEMP 36.3; O2SAT 95
[2025-06-03] MEDS: ASPIRIN EC 81 MG TABLET PO (09:45)
[2025-06-03] MEDS: ATORVASTATIN 20 MG TABLET 40 MG PO (09:46)
[2025-06-03] MEDS: SODIUM CHLORIDE 0.9% FLUSH 10 ML IV (09:46)
--- NOTE | 2025-06-03 13:09 | PM.DS.1 ---
History of Present Illness History of Present Illness Chief complaint: Fell yesterday & today, Abd & back pain Narrative: A/P: 1. Generalized weakness with recurrent fall and underlying dementia. Admit the patient to medical telemetry under observation. No pathology except for either. Head CT and neck CTs are otherwise negative. 2. Recent NSTEMI, medical management. 3. Constipation. Improved. 4. Hyperlipidemia 5. Hypertension. 6. Mvr-skxznvl-heigaofjx diabetes. 7. Dementia, severe. PLAN: -Discharge home with son. From H&P: History of present illness: 05/31: 80-year-old female with past medical history of hyperlipidemia, B-cell lymphoma, dtt-mqlrgtz-yyypmxdis diabetes, hypertension, GERD and dementia presents with fall. Recently was admitted to the hospital on May 21 and discharged on the for NSTEMI. Admit her son who has been trying to care for her. However over the last few days the patient has been too weak to stand and transfer. Patient's son is also scheduled for surgery in the next few weeks with spinal stenosis and has a difficult time taking care of her at home. The patient also had a fall yesterday and again today and reports that the patient did hit her face with some bruising from her fall yesterday. Otherwise there is no report of any recent fever, chills, nausea, vomiting, diarrhea, chest pain or shortness of breath. Findings In the emergency room: Systolic blood pressure slightly high in the 180s. Labs were relatively benign the creatinine was 1 and a troponin of 0.02. BNP is 547. CT scan of the head no acute finding as well as CT of the cervical spine. Facial CT however shows a nasal bone fracture less likely from yesterday's fall. CT abdomen pelvics shows diverticulosis with marked fecal load chest x-ray was clear. IMAGING: CXR: No acute cardiopulmonary abnormality is seen. Head CT: No acute intracranial pathology. Face CT: 1. Nasal bone fracture has occurred since the previous study, and is of uncertain chronicity. 2. No nasal septal fracture. 3. Leftward nasal septal deviation. 4. No other displaced facial bone fractures or mandibular fractures. Cervical spine CT: No displaced fracture or traumatic subluxation. Cervical spondylosis. Abd/pelvis/CT: 1. Cholelithiasis. Gallbladder distension without wall thickening. 2. Severe diverticulosis. 3. Very large rectal fecal load. 4. Left nephrolithiasis. 6. Complex ventral hernia containing fat. Hospital course: She was admitted after evaluation with imaging as above. She was waiting for a discharge plan and ultimately she was discharged with her son. [N], the patient has documentation of a left ventricle ejection fracture less than or equal to 40%, or moderately or severely reduced left ventricle systolic function. [N], the patient has a history of heart transplant or left ventricular assist device (LVAD). [N], the patient was prescribed an CASSIE inhibitor at discharge or is already being taken. The patient was not prescribed an CASSIE-inhibitor because of the following exception: NA. [N], the patient was prescribed Metoprolol succinate, bisoprolol, or carvedilol at discharge. The patient was not prescribed Metoprolol succinate, bisoprolol, or carvedilol at discharge because of the following exception: NA. Discharge Providers Provider Date of admission: 05/30/25 19:50 Discharge Date: 06/03/25 Primary care physician: Nancy Marcial DO Consults: 05/30/25 13:39 Consult to [facility] - Head [employer] And Liner Operator Stat Comment: [employer] Operator Consult needed for:: Other reason (Comment) Comment: family dynamic concerns and home needs. 05/30/25 18:48 Consult to Physical Therapy Evaluate & Treat Comment: Physician Instructions: Evaluate and Treat Discharge provider: Rob Barajas MD Exam Vital Signs (past 8 hours): - 06/03/25 08:00 Temperature 97.3 F L Pulse Rate 61 Respiratory Rate 15 Blood Pressure 134/65 Pulse Oximetry 95 Oxygen Flow Rate 0 Oxygen Delivery Method Room Air Oxygen Flow Rate 0 Objective Labs 05/31/25 04:54 05/31/25 04:54 Labs: Laboratory Results - last 24 hr 06/02/25 06/02/25 06/03/25 16:47 20:45 07:39 POC Whole Bld Glucose 110 H 102 H 108 H 06/03/25 11:43 POC Whole Bld Glucose 133 H PFS Medical History Fever and neutropenia Fracture of humerus, proximal, left, closed Dysuria Abdominal wall hernia Dementia Anemia Lela UTI Diffuse large B cell lymphoma Type 2 diabetes mellitus Essential hypertension Hepatitis B Wears glasses Alopecia (~1970) Depression Anxiety Carpal tunnel syndrome Mumps Measles Chicken pox Vertigo Cataracts, bilateral GERD (gastroesophageal reflux disease) Surgical History Anesthesia History of hernia repair History of hand surgery History of tonsillectomy History of hysterectomy Family History Father Hypertension Hyperlipidemia Mother MVA (motor vehicle accident) Sister Heart defect Social History household members: family Smoking Status: Never smoker alcohol intake: never Discharge Plan Discharge Plan Patient Disposition: Home Provider Discharge Comment: Stable for discharge. Discharge orders & Medications Prescriptions: Continued Ensure Liquid 1 ea PO DAILY Qty: 5688 3RF metformin 500 mg tablet 500 mg PO DAILY Qty: 30 6RF donepezil 10 mg tablet 10 mg PO BEDTIME Qty: 30 3RF pregabalin [Lyrica] 25 mg capsule 25 mg PO BEDTIME Qty: 30 1RF atorvastatin 40 mg tablet 40 mg PO DAILY Qty: 30 0RF aspirin 81 mg tablet,delayed release (DR/EC) 81 mg PO DAILY Qty: 30 0RF acetaminophen 500 mg Capsule 1,000 mg PO Q6H PRN (Reason: Fever) lisinopril 20 mg Tablet 20 mg PO DAILY Qty: 30 1RF Follow up/Referrals: aNncy Marcial DO [Primary Care Provider, [facility]] Discharge Health Status Multidrug resistant organism: No MDRO Diet/Activity/Treatments Diet: Regular Activity: As tolerated. Visit Report/Discharge Packet Stand Alone Forms: [employer], Patient Portal/API, Influenza Vaccine Info, Notice of Privacy Practices, Inpatient vs Outpatient, Pneumococcal Vaccine Info, Pt. Rights & Responsibilities Discharge Data Primary Care Provider: Nancy Marcial Attending Provider: Avelino Castro Admit Date/Time: 05/30/25 19:50 Quality VTE Deep Vein Thrombosis/Pulmonary Embolism Present on Admission: No
--- NOTE | 2025-06-03 13:09 | CM.DPC ---
DCP Cont. Reviewed EMR and team rounds for pt's medical status and updates. Called pt's son this am to confirm that he was going in to [facility] early this am to sign forms for her to be admitted there today. He stated that he was going to do that at noon, but that he hasn't paid yet, so he was working with [employer] to wire transfer money to them. RN informed this QUICK PRINT OPERATOR that son called, and stated that all of this was very inconvenient for his practice as a Chiropractor, and that he has changed his mind about [facility] and wants to check out other facilities, and that he won't be in to see pt until this evening. Called son back, and explained that pt has been here under Observation status only, has no medical needs, and we cannot keep her here so that he can continue to look at other facilities, as he has had this information for the last 2-months, and we have a d/c order. We also could have placed her today. He began to complain that this is interupting his work, and that he will just take her home then, and will be here at 3:00pm. Pt is ambulating safely with a walker, is very quiet, and has no behaviors. She has been asking about him all day. This QUICK PRINT OPERATOR reiterated that we will see him at 3:00pm to pick her up.
== END 2025-06-03 15:27 | disposition home or self-care (01) ==
LOC: ED 19:50 → AC 19:51
PROVIDERS: Family Medicine; Admitting Provider Internal Medicine; Emergency Provider Emergency Medicine; PCP Family Medicine; Referring Provider Emergency Medicine; Visit Provider Internal Medicine
DX: R53.1 Weakness (principal); R29.6 Repeated falls; F03.90 Unspecified dementia, unspecified severity, without behavioral disturbance, psychotic disturbance, mood disturbance, and anxiety; I25.2 Old myocardial infarction; K59.00 Constipation, unspecified; E78.5 Hyperlipidemia, unspecified; E11.9 Type 2 diabetes mellitus without complications; I11.0 Hypertensive heart disease with heart failure; S02.2XXA Fracture of nasal bones, initial encounter for closed fracture; I50.9 Heart failure, unspecified; R07.89 Other chest pain; F03.C0 Unspecified dementia, severe, without behavioral disturbance, psychotic disturbance, mood disturbance, and anxiety; W19.XXXA Unspecified fall, initial encounter; Z85.72 Personal history of non-Hodgkin lymphomas; Z79.84 Long term (current) use of oral hypoglycemic drugs
CPT/HCPCS: 36415; 70450; 70486; 71045; 72125; 74177; 80048; 80053; 81001; 82550; 82962; 83690; 83735; 83880; 84484; 85025; 85610; 85730; 93005; 97161; 97530; 99284; G0378; J1815; Q9967